=== PATIENT | female | born 2000 | race Caucasian/White ===

== ENCOUNTER 2024-06-25 02:32 | Outpatient (CLI) | payer MEDICAID, SELFPAY ==
[2024-06-25 15:21] LABS: Abs Immature Grans 0.04 10^3/uL (0.0-0.06); Absolute Basophil Count 0.04 10^3/uL (0.0-0.2); Absolute Eosinophil Count 0.07 10^3/uL (0.0-0.7); Absolute Lymphocyte Count 1.63 10^3/uL (1.2-3.4); Absolute Monocyte Count 0.56 10^3/uL (0.1-0.8); Basophils % 0.4 %; Eosinophils % 0.6 %; HGB 14.6 g/dL (11.2-15.7); Immature Grans % 0.4 %; Lymphocytes % 14.6 %; MCH 29.9 pg (27.0-33.0); MCHC 35.6 % (32.0-36.0); MCV 84 fL (80-95); MPV 9.7 fL (8.0-11.0); Platelet Count 266 10^3/uL (130-400); RBC 4.88 10^6/uL (3.93-5.22); RDW 12.1 % (11.7-14.6); RDW-SD 36.7 fL; WBC 11.17 10^3/uL (4.4-10.8)
[2024-06-25 15:25] LABS: Absolute Neutrophil Count 8.82 10^3/uL (1.2-6.7)
[2024-06-25 15:35] LABS: Panorama Kit Sent via Fed Ex
[2024-06-25 22:25] LABS: Hepatitis B Surface Ag Negative (Negative)
[2024-06-25 22:33] LABS: HIV-1/2 Ag & Ab Screen Negative (Negative)
[2024-06-25 22:55] LABS: Hepatitis C Ab w Rflx HCV PCR Negative (Negative)
[2024-06-26 10:55] LABS: Rubella IgG Ab (UVM) Positive (See Note)
[2024-06-26 10:59] LABS: Varicella IgG Antibody Positive (See Note)
[2024-06-27 18:40] LABS: Syphilis IgG w/Reflex Nonreactive (Nonreactive)
[2024-07-07 15:31] LABS: Result Summary NEGATIVE; Specimen WB Whole Blood
== END 2024-06-25 02:33 | disposition home or self-care (01) ==
LOC: LBO 02:33
PROVIDERS: Visit Provider Advanced Practice Midwife
DX: Z34.91 Encounter for supervision of normal pregnancy, unspecified, first trimester (principal)
CPT/HCPCS: 36415; 81220; 81222; 86787; 86803; 86850; 86900; 86901; 87340; 87389; 85025; 86762; 86780

== ENCOUNTER 2024-06-25 15:39 | Outpatient (REF) | payer MEDICAID, SELFPAY ==
--- NOTE | 2024-06-25 15:00 | PAPFT_PTH ---
PATIENT: Harleen Luna LOC: [facility] U#:[id number] AGE/SX: 23/F ROOM: RE06/25/[address]: Ale Rodrigues : 2000 BED: DIS: 06/25/2024 SPEC #: [id number] RECD: 06/25/24 17:44 STATUS: MARIA EUGENIA REQ #: [id number] JAYME: 06/25/24 15:[address]: Ale Rodrigues DEPT: [facility] Cytology RECD BY: Hayley Verdugo ENTERED: 06/25/24 17:45 SP TYPE: PAPFT OT DR: Unknown,Unknown Tissues: 1 - CX/ENDOCX FOR PAP SMEARS Procedures: PAP THIN PREP/[facility] Screening Comments: [id number] (CHLAMYDIA/GC)
[2024-06-26 12:35] LABS: Chlamydia Result Negative (Negative); GC Result Negative (Negative)
== END 2024-06-25 15:40 | disposition home or self-care (01) ==
LOC: LBN 15:39
PROVIDERS: Visit Provider Advanced Practice Midwife
DX: Z34.91 Encounter for supervision of normal pregnancy, unspecified, first trimester (principal)
CPT/HCPCS: 87491; 87591; 88142; 87086

== ENCOUNTER 2024-08-07 14:46 | Emergency (ER) | payer MEDICAID, SELFPAY ==
--- NOTE | 2024-08-07 14:45 | RT.EKG_ITS ---
APPROVED REPORT Exam: Resting ECG Reason for Exam: Tachycardia Patient Location: E HR:79 bpm ECG Measurements Heart Rate 79 AXIS AZ 149 P 28 QRSd 80 QRS 24 QT 382 T 26 QTc 437 Conclusion Sinus rhythm. 79 normal axis no stemi
[2024-08-07 14:48] VITALS: BP 125/84; PULSE 80; RESP 16; TEMP 36.3; O2SAT 99
--- OUTSIDE RECORDS SUMMARY | 2024-08-07 14:58 | XMS_ITS | Encounter Summary ---
Author Organization [facility] Address [address] [place] [address] Care Team Providers Care Rn Diabetes Educator Name Role Phone Ananda Black MD Primary Care Provider +1- [phone] Reason for Visit * Reason Onset Date Comments Follow-up 06/01/2024 Encounter Details Date Type Department Care Team (Late st Contact Info) Description 06/01/[address] [address] Rima Corbett FNP [address] [address] Follow-up Social History Tobacco Use Types Packs/Day Years Used Date Smoking Tobacco: Never Smokeless Tobacco: Never Alcohol Use Standard Drinks/Week Comments No 0 (1 standard drink = 0.6 oz pur e alcohol) AUDIT-C Answer Date Recorded Q1: How often do you have a drink containing alc ohol? Never 12/15/2020 Average Number of Drinks Not on file 021 Frequency of Binge Drinking Not on file 08/2020 Interpersonal Safety Answer Date Record ed Physically Hurt Never 02/15/2020 Verbally Threaten Not on file 02/15/2020 Comments Unknown Sex and Gender Information Value Date Recorded Sex Assigned at Not on file Legal Sex Female 15:38 EST Gender Identity Female 07/03/2019 14:11 EST Sexual Orientation Not on file documented as of this encounter Functional Status * Are you deaf or do you have serious difficulty hearing? Answer Date of Assessment Author No 09/11/2022 12:02 EST Dean Silva RN * Because of a physical, mental, or emotional condition, does this person have difficulty doing errands alone such as visiting a doctor's office or shopping? Answer Date of Assessment Author No 07/17/2018 14:23 EST documented as of this encounter Mental Status * Because of a physical, mental, or emotional condition, does this person have serious difficulty concentrating, remembering, or making decisions? Answer Entry Date Author No 07/17/2018 14:23 EST documented in this encounter Miscellaneous Notes * Telephone Encounter - Rima Corbett FNP - 06/06/2024 1803 EST Noted, thank you. I have sent a referral to OB-HOSPICE AIDE for her for care at [facility]. If she prefers a referral elsewhere please change this order. Thanks * Telephone Encounter - Irene Black RN - 06/06/2024 1233 EST Spoke to the patient over the phone Relayed the message below from Rima CONTRERAS and pt verbalized understanding. Pt stated her symptoms when she had a visit with Rima CONTRERAS are the same that she is experiencing right now- no changes and nonew symptoms. Pt is and her due date is end of December 2024. Patient stated that she does not have an OB yet and she was looking to be establish to their care. Pt stated that she already cancelled her MRI scheduled as she is . Pt stated that she will call back to get schedule for visit after her delivery. She said that she will let us know if her symptoms continuous and she is aware that Rima CONTRERAS can send another referral to neurology for furtherevaluation and recommendations. Routing to Rima CONTRERAS just an Fyi * Telephone Encounter - Lisette Whitlock RN - 06/02/2024 0912 EST Outgoing call to patient. Left message to call office back. LISETTE WHITLOCK RN 06/02/2024 9:13 * Telephone Encounter - Rima Corbett FNP - 06/01/2024 1216 EST Please follow up with Harleen, she missed her last visit with me and visits for EMG w/neurology andMRI imaging. How is she feeling? Have any of her symptoms changed? Is she having any new symptoms? Radiology informed me that she is now . Does she know when her due date is? Does she have an OB that she will be establishing care with? Although MRI imaging is considered safe in and preferred after the first trimester, it would be more useful to have contrast with the MRI imaging but the contrast is not recommended during due to potential effects on the fetus. Because of this, I would recommend that we post-pone the MRI imaging w/ and w/out contrast to be after her delivery (unless her symptoms have worsened,in which case we could just do the MRI head and cervical spine w/out contrast). We can offer her a visit to review the imaging findings after this has been scheduled. And if she has continued to havesymptoms we can send another referral to neurology for further evaluation and recommendations in the interm (previous referral was declined until EMG was done but this was not completed). Rima Lehman documented in this encounter Plan of Treatment Not on file documented as of this encounter Visit Diagnoses Not on filedocumented in this encounter Care Teams Rn Diabetes Educator Relationship Specialty Start Date End Date Ananda Black MD [address] [place] [phone] PCP - General 02/13/19 documented as of this encounter
--- OUTSIDE RECORDS SUMMARY | 2024-08-07 14:58 | XMS_ITS | Encounter Summary ---
Author Organization [facility] Address [address] [place] [address] Care Team Providers Care Ropeman Name Role Phone Ananda Black MD Primary Care Provider +1- [phone] Encounter Details Date Type Department Care Team (Late st Contact Info) Description 06/25/2024 Lab Requisition [facility] Laboratory Medicine - [facility] [address] [place] [address] Outr Resulting Lab, Provider Social History Tobacco Use Types Packs/Day Years [...] Assessment Author No 09/11/2022 12:02 EST Dean Silva, RN * Because of a physical, mental, [...] 07/17/2018 14:23 EST documented in this encounter Plan of Treatment Not on file documented as of this encounter Procedures Procedure Name Priority Date/Time Associated Diagnosis Comments HOLD SST Today 06/25/2024 15:07 EST HEPATITIS C AB W REFLEX TO HCV RNA BY PCR Today 06/25/2024 15:07 EST HEPATITIS B SURFACE ANTIGEN Today 06/25/2024 15:07 EST documented in this encounter Results * HOLD SST (06/25/2024 15:07 EST) Hold Hold 06/25/2024 22:15 EST [facility] Blood VENOUS BLOOD / Unknown 06/25/2024 15:07 EST 06/25/2024 21:04 EST us Provider Outr Resulting Lab LAB INFO SERVICE AND SUPPORT & PHONE RESULT Final Result [facility] [address] [place] [address] * HEPATITIS B SURFACE ANTIGEN (06/25/2024 15:07 EST) Hep B Surface Ag Negative Negative 06/25/2024 22:20 EST [facility] Blood VENOUS BLOOD / Unknown 06/25/2024 15:07 EST 06/25/2024 21:03 EST us Provider Outr Resulting Lab CHEMISTRY & BLOOD GA S ORDERABLES Final Result Performing Organization Address City/[facility]/ZIP Co de Phone Number [facility] [address] [place] [phone] * HEPATITIS C AB W REFLEX TO HCV RNA BY PCR (06/25/2024 15:07 EST) Hep C Antibody Negative Negative 06/25/2024 22:51 EST [facility] Blood VENOUS BLOOD / Unknown 06/25/2024 15:07 EST 06/25/2024 21:03 EST us Provider Outr Resulting Lab CHEMISTRY & BLOOD GA S ORDERABLES Final Result Performing Organization Address City/State/[facility] Co de Phone Number [facility] [address] [place], [place] [phone] documented in this encounter Visit Diagnoses Not on filedocumented in this encounter Care Teams Ropeman Relationship Specialty Start Date End Date Ananda Black MD [address] [place] [phone] PCP - General 02/13/19 documented as of this encounter
--- OUTSIDE RECORDS SUMMARY | 2024-08-07 14:58 | XMS_ITS | Referral Summary ---
Author Organization [facility] Address [address] [place] [address] Care Team Providers Care Education Faculty Member Name Role Phone Ananda Black MD Primary Care Provider +1- [phone] Encounters Date Type Department Care Team Description 06/26/2024 Lab Requisition [facility] [address] [address] Ale Rodrigues CNM Encounter for other general examination 06/25/2024 Lab Requisition [facility] [address] [address] Outr Resulting Lab, Provider 06/25/2024 Lab Requisition [facility] [address] [address] Outr Resulting Lab, Provider 06/25/2024 Lab Requisition [facility] [address] [address] Outr Resulting Lab, Provider 06/25/2024 Lab Requisition [facility] [address] [address] Outr Resulting Lab, Provider 06/10/2024 Telephone [facility] [address] [place] [address] Radha Ayala RN Coordination Of Care; 06/06/2024 Orders Only [place] [id number] Rima Corbett FNP , unspecified gestational age (Primary Dx) 06/01/2024 Telephone [facility] [address] [place] [id number] Rima Corbett FNP Follow-up from Last 3 Months Allergies Active Allergy Reactions Criticality Noted Date Comments Amoxicillin-Pot Clavulanate 07/03/20 19 Penicillins 07/17/2018 Rash Medications cholecalciferol, Vitamin D3, (VITAMIN D) 25 mcg (1,000 unit) tablet Take 1 Tablet by mouth daily. Active L.acid/L.casei/B .bif/B.jr/FOS (PROBIOTIC BLEND ORAL) Take by mouth. Active Active Problems Patient Care Coordination No te Formatting of this note migh t be different from the original. Patient has given permission for [facility] to verbally discuss the following information with Cristian Luna who has the following relationship to the patient: Parent: Scheduling/Appt/Billing/Payment Information (does not include clinical information unless specifically indicated with separate option) Medical Information including symptoms, diagnosis, medications, test results and treatment plan (does not include Mental Health unless specifically indicated with separate option) Permission remains in effect until the patient elects to revoke it. Problem Noted Date Diagnosed Date Fatigue 02/07/2024 Frequent headaches 02/07/2024 DDD (degenerative disc disease), lumbar 02/06/20 24 Bulging lumbar disc 02/06/2024 Family history of thalassemia 01/30/2024 Shortness of breath 12/03/2019 Chronic left-sided low back pain with left-sided sciatica 05/07/2019 Immunizations Name Administration Dates Next Due DTaP Vaccine (DAPTACEL) <7YO IM 10/18/19 05,03/16/2000,04/18/1999,02/11,1998 Hepatitis A Vaccine Ped Adol 3 Dose 05/02/2016,0 01/26/2015 Hepatitis B 05/02/2016,11/22/1999,04/18/1999 Hib 03/16/2000, 9,02/11/1999,11/08 MMR Vaccine SQ 10/17/2004,11/22/1999 Meningococcal Conjugate (MCV 4) Vaccine (MENACTRA) 4-Valent IM 01/26/2015,07/18/2012 Poliovirus Vaccine IPV IM OR SQ 10/18/19,03/16/2000,02/11/1999,11/08 Tdap Vaccine =>7YO IM 12/16/2021,07/18/2012 Varicella (Chickenpox) vacci ne (VARIVAX) SQ 07/18/2012,11/22/1999 Social History Tobacco Use Types Packs/Day Years Used Date Smoking Tobacco: Never Smokeless Tobacco: Never Tobacco Cessation:Counseling Given: Yes Alcohol Use Standard Drinks/Week Comments No 0 [...] 14:11 EST Sexual Orientation Not on file Last Filed Vital Signs Vital Sign Reading Time Taken Comments Blood Pressure 94/72 02/06/2024 1135 EDT Pulse 66 02/06/2024 1135 EDT Temperature 35.4 ??C (95.7 ??F) 10/15/2023 0859 EDT Respiratory Rate 20 10/15/2023 0936 EDT Oxygen Saturation 98% 02/06/2024 1135 EDT Inhaled Oxygen Concentration - - Weight 59 kg (130 lb) 12/18/2023 1550 EDT Height 149.9 cm (4' 11) 12/18/2023 1550 EDT Body Mass Index 26.26 12/18/2023 1550 EDT Functional Status * Are you deaf or do you have serious difficulty hearing? Answer Date of Assessment Author No 09/11/2022 12:02 EST Dean Silva, RN * Because of a physical, mental, or emotional condition, does this person have difficulty doing errands alone such as visiting a doctor's office or shopping? Answer Date of Assessment Author No 07/17/2018 14:23 EST Mental Status * Because of a physical, mental, or emotional condition, does this person have serious difficulty concentrating, remembering, or making decisions? Answer Entry Date Author No 07/17/2018 14:23 EST Plan of Treatment Not on file Procedures Procedure Name Priority Date/Time Associated Diagnosis Comments HOLD SST Today 06/25/2024 15:07 EST HOLD SST Today 06/25/2024 15:07 EST HEPATITIS B SURFACE ANTIGEN Today 06/25/2024 15:07 EST HEPATITIS C AB W REFLEX TO HCV RNA BY PCR Today 06/25/2024 15:07 EST VARICELLA IGG ANTIBODY Today 06/25/2024 15:07 EST RUBELLA IGG ANTIBODY Today 06/25/2024 15:07 EST HIV 1/2 ANTIGEN AND ANTIBODY, 4TH GENERATION Routine 06/25/2024 15:07 EST PAP TEST Today 06/25/2024 15:00 EST Encounter for other general examination CHLAMYDIA/N. GONORRHOEAE AMPLIFIED NUCLEIC ACID, THINPREP Routine 06/25/2024 15:00 EST from Last 3 Months Results * HOLD SST (06/25/2024 15:07 EST) Only the most recent of2 resultswithin the time period is included. Hold Hold 06/25/2024 22:[address] [facility] Blood VENOUS BLOOD / Unknown 06/25/2024 15:07 EST 06/25/2024 21:04 EST us Provider Outr Resulting Lab LAB INFO SERVICE AND SUPPORT & PHONE RESULT Final Result [facility] [address] [place] [address] * HEPATITIS C AB W REFLEX TO HCV RNA BY PCR (06/25/2024 15:07 EST) Hep C Antibody Negative Negative 06/25/2024 22:[address] [facility] Blood VENOUS BLOOD / Unknown 06/25/2024 15:07 EST 06/25/2024 21:03 EST us Provider Outr Resulting Lab CHEMISTRY & BLOOD GA S ORDERABLES Final Result Performing Organization Address City/[facility]/ZIP Co de Phone Number [facility] [address] [place] [address] * RUBELLA IGG ANTIBODY (06/25/2024 15:07 EST) Rubella IgG Ab Positive See Note 06/26/2024 10:[address] [facility] Comment:Positive for IgG ant ibodies to Rubella virus. Blood VENOUS BLOOD / Unknown 06/25/2024 15:07 EST 06/25/2024 21:02 EST us Provider Outr Resulting Lab CHEMISTRY & BLOOD GA S ORDERABLES Final Result Performing Organization Address [facility]/ZIP Co de Phone Number [facility] [address] [place] [phone] * HEPATITIS B SURFACE ANTIGEN (06/25/2024 15:07 EST) Hep B Surface Ag Negative Negative 06/25/2024 22:[address] [facility] Blood VENOUS BLOOD / Unknown 06/25/2024 15:07 EST 06/25/2024 21:03 EST us Provider Outr Resulting Lab CHEMISTRY & BLOOD GA S ORDERABLES Final Result Performing Organization Address City/[facility]/ZIP Co de Phone Number [facility] [address] [place], [place] [phone] * VARICELLA IGG ANTIBODY (06/25/2024 15:07 EST) Varicella IgG Ab Positive See Note 06/26/2024 10:[address] [facility] Comment:Presence of detectab le Varicella Zoster virus IgG antibodies. Blood VENOUS BLOOD / Unknown 06/25/2024 15:07 EST 06/25/2024 21:02 EST us Provider Outr Resulting Lab IMMUNOLOGY AND SEROL OGY ORDERABLES Final Result Performing Organization Address [facility] Co de Phone Number [facility] [address] [place], [place] [phone] * HIV 1/2 ANTIGEN AND ANTIBODY, 4TH GENERATION (06/25/2024 15:07 EST) HIV 1 and 2 Antibody/p24 Antigen, 4th Generation Negative Negative 06/25/2024 22:[address] [facility] Comment:If acute HIV-1 infec tion is suspected in a high risk patient, submit plasma specimen for HIV-1 RNA quantitation test. Blood VENOUS BLOOD / Unknown 06/25/2024 15:07 EST 06/25/2024 21:[address] [facility] - 06/25/2024 22:28 EST Fourth Generation assay performed on the Siemens [employer] XPT. us Provider Outr Resulting Lab IMMUNOLOGY AND SEROL OGY ORDERABLES Final Result Performing Organization Address [facility] Co de Phone Number [facility] [address] [place] [address] * PAP TEST (06/25/2024 15:00 EST) Specimens A. Cervix and/or Endocervix , ThinPrep Imaging System with Manual Evaluation 07/01/2024 9:[address] [facility] Specimen Adequacy Satisfactory for Evaluation - transformation zone component present 07/01/2024 9:[address] [facility] General Categorization Negative for intraepithelial lesion or malignancy 07/01/2024 9:[address] [facility] Attestation . 07/01/2024 9:[address] [facility] at 0947 Clinical History See below 07/01/20 9:[address] [facility] Performing Lab [facility] 07/01/2024 9:[address] [facility] Scanned Images 07/01/2024 9:[address] [facility] Pap Test CERVIX UTERI STRUCTURE / Unknown 06/25/2024 15:00 EST 06/26/2024 14:52 EST Ale Rodrigues [facility] PATHOLOGY ORDERABLES F inal Result [facility] [address] [place] [address] * CHLAMYDIA/N. GONORRHOEAE AMPLIFIED NUCLEIC ACID, THINPREP (06/25/2024 15:00 EST) Neisseria gonorrhoeae Result Negative Negative 06/26/2024 12:[address] [facility] Chlamydia trachomatis Result Negative Negative 06/26/2024 12:[address] [facility] Pap Test CERVIX UTERI STRUCTURE / Unknown 06/25/2024 15:00 EST 06/26/2024 8:53 EST us Provider Outr Resulting Lab MICROBIOLOGY - GENER AL ORDERABLES Final Result [facility] [address] [place] [address] from Last 3 Months Insurance [place] Care Teams Education Faculty Member Relationship Specialty Start Date End Date Ananda Black MD [address] [place] [phone] PCP - General 02/13/19
--- OUTSIDE RECORDS SUMMARY | 2024-08-07 14:58 | XMS_ITS | Encounter Summary ---
Author Organization [facility] Address [address] [place] [address] Care Team Providers Care Night Warehouse Manager Name Role Phone Ananda Black MD Primary Care Provider +1- [phone] Reason for Visit * Reason Onset Date Comments Coordination Of Care 06/10/2024 06/10/2024 Encounter Details Date Type Department Care Team (Late st Contact Info) Description 06/10/2024 Telephone [facility] [address] [place] [address] Radha Ayala RN Coordination Of Care; Social History Tobacco Use Types Packs/Day Years [...] encounter Miscellaneous Notes * Telephone Encounter - Radha Ayala RN - 06/10/2024 1047 EST Spoke with pt; she actually is going to get care at [facility] - much closer to her home. Thanked me for the call; will call us back as needed. * Telephone Encounter - Radha Ayala RN - 06/10/[address] Oviedo's notes on referral - call pt to get dating info and assist with scheduling IVAP (sentto triage 06/09/2024 @ 12 pm) documented in this encounter Plan of Treatment Not on file documented as of this encounter Visit Diagnoses Not on filedocumented in this encounter Care Teams Night Warehouse Manager Relationship Specialty Start Date End Date Ananda Black MD [address] [place] [phone] PCP - General 02/13/19 documented as of this encounter
--- OUTSIDE RECORDS SUMMARY | 2024-08-07 14:58 | XMS_ITS | Clinical Summary ---
Author Organization [facility] Address [address] [place] [address] Care Team Providers Care Cath Lab Radiological Technologist Name Role Phone Ananda Black MD Primary Care Provider +1- [phone] Allergies Active Allergy Reactions Criticality Noted Date [...] the original. Patient has given permission for [facility] to verbally discuss the following information with Cristian Buchananmilena who has the following relationship to the [...] low back pain with left-sided sciatica 05/07/2019 Encounters Date Type Department Care Team Description 06/26/2024 Lab Requisition [facility] Pathology & Laboratory [address] [address] Ale Rodrigues CNM Encounter for other general examination 06/25/2024 Lab Requisition [facility] Pathology Laboratory [address] [address] Outr Resulting Lab, Provider 06/25/2024 Lab Requisition [facility] Pathology Laboratory [address] [address] Outr Resulting Lab, Provider 06/25/2024 Lab Requisition [facility] Pathology Laboratory [address] [address] Outr Resulting Lab, Provider 06/25/2024 Lab Requisition [facility] Pathology Laboratory [address] [address] Outr Resulting Lab, Provider 06/10/2024 Telephone [facility] OBGYN [address] [place] [address] Radha Ayala RN Coordination Of Care; 06/06/2024 [place] [address] Rima Corbett FNP , unspecified gestational age (Primary Dx) 06/01/2024 [place] [address] Rima Corbett FNP Follow-up from Last 3 Months Immunizations Name Administration Dates Next Due DTaP Vaccine (DAPTACEL) <7YO IM 10/18/19 05,03/16/2000,04/18/1999,02/11,1998 Hepatitis A Vaccine Ped Adol 3 Dose 05/02/2016,0 01/26/2015 Hepatitis B 05/02/2016,11/22/1999,04/18/1999 Hib 03/16/2000, 9,02/11/1999,11/08 MMR Vaccine SQ 10/17/2004,11/22/1999 Meningococcal Conjugate (MCV 4) Vaccine (MENACTRA) 4-Valent IM 01/26/2015,07/18/2012 Poliovirus Vaccine IPV IM OR SQ 10/18/19,03/16/2000,02/11/1999,11/08 Tdap Vaccine =>7YO IM 12/16/2021,07/18/2012 Varicella (Chickenpox) vacci ne (VARIVAX) SQ 07/18/2012,11/22/1999 Family History Medical History Relation Comments High Blood Pressure Father Relation Status Comments Father Social History Tobacco Use Types Packs/Day Years Used Date Smoking Tobacco: Never Smokeless Tobacco: Never Tobacco Cessation:Counseling Given: Yes Alcohol Use Standard Drinks/Week Comments No 0 (1 standard drink = 0.6 oz pur e alcohol) AUDIT-C Answer Date Recorded Q1: How often do you have a drink containing alc ohol? Never 12/15/2020 Average Number of Drinks Not on file Frequency of Binge Drinking Not on file 08/2020 Interpersonal Safety Answer Date Record ed Physically Hurt Never 02/15/2020 Verbally Threaten Not on file 02/15/2020 Comments Unknown Sex and Gender Information Value Date Recorded Sex Assigned at Not on file Legal Sex Female 15:38 EST Gender Identity Female 07/03/2019 14:11 EST Sexual Orientation Not on file Obstetrics History Last Filed Vital Signs Vital Sign Reading [...] Body Mass Index 26.26 12/18/2023 1550 EDT Plan of Treatment Health Maintenance Due Date Last Done Comments Social Determinants Of Health (SDOH) 1998 Depression Screening 2010 HPV Vaccines (1 - 3-dose series) 2013 Advance Directive 2016 Preventive Care Visit 2016 COVID-19 Vaccine (2023-2 5 season) 2024 Influenza Immunization (Adult) (#1) 2024 Cervical Cancer Screening 06/25/2027 Pap Smear (Cervical Cancer Screening) 06/25/2027 06/25/2024 Tetanus (Adult) Immunization 12/17/2031 12/16/2021, 07/18/2012 Hepatitis B Vaccine Completed 05/02/2016, 11/22/1999, 04/18/1999 Pertussis (Adult) Immunization Completed 12/16/2021 , 07/18/2012 Chlamydia Screening Discontinued 06/25/2024 HIV Screening Completed 06/25/2024, 01/31/2024 Hepatitis C Screen Completed 06/25/2024, 01/31/2024 RETIRED Cervical Cancer Screening Discontinued 024 Procedures Procedure Name Priority Date/Time Associated Diagnosis [...] is included. Hold Hold 06/25/2024 22:15 EST [facility] Blood VENOUS BLOOD / Unknown 06/25/2024 15:07 EST 06/25/2024 21:04 EST us Provider Outr Resulting Lab LAB INFO SERVICE AND SUPPORT & PHONE RESULT Final Result Performing Organization Address City/[facility]/ZIP Co de Phone Number [facility] [address] [place] [address] * HEPATITIS C AB W REFLEX TO HCV RNA BY PCR (06/25/2024 15:07 EST) Hep C Antibody Negative Negative 06/25/2024 22:51 EST [facility] Blood VENOUS BLOOD / Unknown 06/25/2024 15:07 EST 06/25/2024 21:03 EST us Provider Outr Resulting Lab CHEMISTRY & BLOOD GA S ORDERABLES Final Result Performing Organization Address [facility] Co de Phone Number [facility] [address] [place] [phone] * RUBELLA IGG ANTIBODY (06/25/2024 15:07 EST) Pathologist [facility] Rubella IgG Ab Positive See Note 06/26/2024 10:50 EST [facility] Comment:Positive for IgG ant ibodies to Rubella virus. Blood VENOUS BLOOD / Unknown 06/25/2024 15:07 EST 06/25/2024 21:02 EST us Provider Outr Resulting Lab CHEMISTRY & BLOOD GA S ORDERABLES Final Result Performing Organization Address City/[facility]/ZIP Co de Phone Number [facility] [address] [place] [address] * HEPATITIS B SURFACE ANTIGEN (06/25/2024 15:07 EST) Hep B Surface Ag Negative Negative 06/25/2024 22:20 EST [facility] Blood VENOUS BLOOD / Unknown 06/25/2024 15:07 EST 06/25/2024 21:03 EST us Provider Outr Resulting Lab CHEMISTRY & BLOOD GA S ORDERABLES Final Result Performing Organization Address [facility]/ZIP Co de Phone Number [facility] [address] [place] [address] * VARICELLA IGG ANTIBODY (06/25/2024 15:07 EST) Varicella IgG Ab Positive See Note 06/26/2024 10:54 EST [facility] Comment:Presence of detectab le Varicella Zoster virus IgG antibodies. Blood VENOUS BLOOD / Unknown 06/25/2024 15:07 EST 06/25/2024 21:02 EST us Provider Outr Resulting Lab IMMUNOLOGY AND SEROL OGY ORDERABLES Final Result Performing Organization Address [facility] Co de Phone Number [facility] [address] [place] [address] * HIV 1/2 ANTIGEN AND ANTIBODY, 4TH GENERATION (06/25/2024 15:07 EST) HIV 1 and 2 Antibody/p24 Antigen, 4th Generation Negative Negative 06/25/2024 22:28 EST [facility] Comment:If acute HIV-1 infec tion is suspected in a high risk patient, submit plasma specimen for HIV-1 RNA quantitation test. Blood VENOUS BLOOD / Unknown 06/25/2024 15:07 EST 06/25/2024 21:06 EST Narrative [facility] - 06/25/2024 22:28 EST Fourth Generation assay performed on the Siemens Centaur XPT. us Provider Outr Resulting Lab IMMUNOLOGY AND SEROL OGY ORDERABLES Final Result Performing Organization Address [facility]/ZIP Co de Phone Number [facility] [address] [place] [address] * PAP TEST (06/25/2024 15:00 EST) Specimens A. Cervix and/or Endocervix , ThinPrep Imaging System with Manual Evaluation 07/01/2024 9:47 [facility] Specimen Adequacy Satisfactory for Evaluation - transformation zone component present 07/01/2024 9:47 [facility] General Categorization Negative for intraepithelial lesion or malignancy 07/01/2024 9:47 [facility] Attestation . 07/01/2024 9:47 [facility] at 0947 Clinical History See below 07/01/20 9:47 [facility] Performing Lab [facility] 07/01/2024 9:47 [facility] Scanned Images 07/01/2024 9:47 [facility] Pap Test CERVIX UTERI STRUCTURE / Unknown 06/25/2024 15:00 EST 06/26/2024 14:52 EST us Ale Rodrigues [facility] PATHOLOGY ORDERABLES F inal Result Performing Organization Address City/[facility]/ZIP Co de Phone Number [facility] [address] [place] [address] * CHLAMYDIA/N. GONORRHOEAE AMPLIFIED NUCLEIC ACID, THINPREP (06/25/2024 15:00 EST) Neisseria gonorrhoeae Result Negative Negative 06/26/2024 12:29 EST [facility] Chlamydia trachomatis Result Negative Negative 06/26/2024 12:29 EST [facility] Pap Test CERVIX UTERI STRUCTURE / Unknown 06/25/2024 15:00 EST 06/26/2024 8:53 EST us Provider Outr Resulting Lab MICROBIOLOGY - GENER AL ORDERABLES Final Result [facility] [address] [place] [address] from Last 3 Months Insurance [place] Care Teams Cath Lab Radiological Technologist Relationship Specialty Start Date End Date Ananda Black MD [address] [place] [phone] PCP - General 02/13/19
--- OUTSIDE RECORDS SUMMARY | 2024-08-07 14:58 | XMS_ITS | Encounter Summary ---
Author Organization [facility] Address [address] [place] [address] Care Team Providers Care Reel And Rewinder Operator Name Role Phone Ananda Black MD Primary Care Provider +1- [phone] Encounter Details Date Type Department Care Team (Late st Contact Info) Description 06/25/2024 Lab Requisition [facility] Pathology & Laboratory Medicine - [facility] [address] [place] [address] Outr Resulting Lab, Provider Social History Tobacco [...] Comments HOLD SST Today 06/25/2024 15:07 EST RUBELLA IGG ANTIBODY Today 06/25/2024 15:07 EST VARICELLA IGG ANTIBODY Today 06/25/2024 15:07 EST documented in this encounter Results * HOLD SST (06/25/2024 15:07 EST) Hold Hold 06/25/2024 22:15 EST [facility] Blood VENOUS BLOOD / Unknown 06/25/2024 15:07 EST 06/25/2024 21:03 EST us Provider Outr Resulting Lab LAB INFO SERVICE AND SUPPORT & PHONE RESULT Final Result Performing Organization Address City/[facility]/ZIP Co de Phone Number [facility] [address] [place] [address] * VARICELLA IGG ANTIBODY (06/25/2024 15:07 EST) Varicella IgG Ab Positive See Note 06/26/2024 10:54 EST [facility] Comment:Presence of detectab le Varicella Zoster virus IgG antibodies. Blood VENOUS BLOOD / Unknown 06/25/2024 15:07 EST 06/25/2024 21:02 EST us Provider Outr Resulting Lab IMMUNOLOGY AND SEROL OGY ORDERABLES Final Result Performing Organization Address [facility]/ZIP Co de Phone Number [facility] [address] [place] [address] * RUBELLA IGG ANTIBODY (06/25/2024 15:07 EST) Rubella IgG Ab Positive See Note 06/26/2024 10:50 EST [facility] Comment:Positive for IgG ant ibodies to Rubella virus. Blood VENOUS BLOOD / Unknown 06/25/2024 15:07 EST 06/25/2024 21:02 EST us Provider Outr Resulting Lab CHEMISTRY & BLOOD GA S ORDERABLES Final Result Performing Organization Address City/State/[facility] Co de Phone Number [facility] [address] [place], [place] [phone] documented in this encounter Visit Diagnoses Not on filedocumented in this encounter Care Teams Reel And Rewinder Operator Relationship Specialty Start Date End Date Ananda Black MD [address] [place] [phone] PCP - General 02/13/19 documented as of this encounter
--- OUTSIDE RECORDS SUMMARY | 2024-08-07 14:58 | XMS_ITS | Clinical Summary ---
Author Organization [facility] Address [facility] [place] [address] Care Team Providers Care Chimney Builder Brick Name Role Phone Unavailable Primary Care Provider Unavailabl e Encounters Date Type Department Care Team Description 07/28/2024 Transcribe Orders eDH Incoming Referrals [phone] Janee Peñaloza DO Family history of other congenital malformations, deformations and chromosomal abnormalities; Encounter for supervision of normal , antepartum, unspecified from Last 3 Months Social History Tobacco Use Types Packs/Day Years Used Date Smoking Tobacco: Never Assessed Estimated Date of Delivery Comme nts Yes 01/08/2025 Sex and Gender Information Value Date Recorded Sex Assigned at Not on file Gender Identity Not on file Sexual Orientation Not on file Plan of Treatment Upcoming Encounters Date Type Department Care Team (Late st Contact Info) Description 08/21/2024 3:15 PM EST Appointment [place] [phone] Janee Peñaloza DO [address] [place] [address] [place] [address] 08/21/2024 4:00 PM EST Office Visit Obstetrics [place] [phone] Naima Rodas MD [facility] [place] [address] Health Maintenance Due Date Last Done Comments Chlamydia Screening 2013 HPV vaccine (1 - 3-dose series) 2013 HIV screen 2016 Hepatitis C Screening 2016 Hepatitis B vaccine (0-59 yrs) (1) 2017 Tetanus/Diphtheria/Pertussis Vaccines (1 - Tdap) 09/09 PAP Smear 2019 Covid-19 Vaccine (1 - 2024-25 season) 2024 Influenza (Flu) vaccine (1 o f 1 - Influenza standard series) 03/16/2024 RSV Vaccine (No Doses Required) Completed Procedures Procedure Name Priority Date/Time Associated Diagnosis Comments LAB SCAN 06/25/2024 12:00 AM EST from Last 3 Months Results * Scan Doc: Lab (06/25/2024 12:00 AM EST) Narrative 06/25/2024 12:00 AM EST Ordered by an unspecified provider. Scanning Provider MEDIA MGR SCAN EXT O RDR/RSLT from Last 3 Months
--- OUTSIDE RECORDS SUMMARY | 2024-08-07 14:58 | XMS_ITS | Encounter Summary ---
Author Organization [facility] Address [address] [place] [address] Care Team Providers Care Enrolled Nurse Name Role Phone Ananda Blakc MD Primary Care Provider +1- [phone] Encounter Details Date Type Department Care Team (Late st Contact Info) Description 02/14/[address] [facility] CT Scan [address] [place], [place] [id number] Laure Liu Social History Tobacco Use Types Packs/Day Years [...] on filedocumented in this encounter Care Teams Enrolled Nurse Relationship Specialty Start Date End Date Ananda Black MD [address] [place] [phone] PCP - General 02/13/19 documented as of this encounter
--- OUTSIDE RECORDS SUMMARY | 2024-08-07 14:58 | XMS_ITS | Encounter Summary ---
Author Organization [facility] Address [address] [place] [address] Care Team Providers Care Mica Spreader Name Role Phone Ananda Black MD Primary Care Provider +1- [phone] Encounter Details Date Type Department Care Team (Late st Contact Info) Description 06/25/2024 Lab Requisition [facility] Pathology & Laboratory Medicine - [facility] [address] [place] [address] Outr Resulting Lab, Provider Social History Tobacco [...] Procedure Name Priority Date/Time Associated Diagnosis Comments CHLAMYDIA/N. GONORRHOEAE AMPLIFIED NUCLEIC ACID, THINPREP Routine 06/25/2024 15:00 EST documented in this encounter Results * CHLAMYDIA/N. GONORRHOEAE AMPLIFIED NUCLEIC ACID, THINPREP (06/25/2024 15:00 EST) Neisseria gonorrhoeae Result Negative Negative 06/26/2024 12:29 EST [facility] Chlamydia trachomatis Result Negative Negative 06/26/2024 12:29 EST [facility] Pap Test CERVIX UTERI STRUCTURE / Unknown 06/25/2024 15:00 EST 06/26/2024 8:53 EST us Provider Outr Resulting Lab MICROBIOLOGY - GENER AL ORDERABLES Final Result Performing Organization Address City/State/[facility] Co de Phone Number [facility] [address] [place], [place] [phone] documented in this encounter Visit Diagnoses Not on filedocumented in this encounter Care Teams Mica Spreader Relationship Specialty Start Date End Date Ananda Black MD [address] [place] [phone] PCP - General 02/13/19 documented as of this encounter
--- OUTSIDE RECORDS SUMMARY | 2024-08-07 14:58 | XMS_ITS | Encounter Summary ---
Author Organization [facility] Address [address] [place] [address] Care Team Providers Care Assessment Consultant Name Role Phone Ananda Black MD Primary Care Provider +1- [phone] Encounter Details Date Type Department Care Team (Late st Contact Info) Description 06/26/2024 Lab Requisition [facility] Pathology & Laboratory Medicine - [facility] [address] [place] [address] [place] [address] Encounter for other general examination Social History Tobacco Use Types Packs/Day Years [...] Procedure Name Priority Date/Time Associated Diagnosis Comments PAP TEST Today 06/25/2024 15:00 EST Encounter for other general examination documented in this encounter Results * PAP TEST (06/25/2024 15:00 EST) Specimens A. Cervix and/or Endocervix , ThinPrep Imaging System with Manual Evaluation 07/01/2024 9:47 EST [facility] Specimen Adequacy Satisfactory for Evaluation - transformation zone component present 07/01/2024 9:47 EST [facility] General Categorization Negative for intraepithelial lesion or malignancy 07/01/2024 9:47 EST [facility] Attestation . 07/01/2024 9:47 EST [facility] at 0947 Clinical History See below 07/01/20 9:47 EST [facility] Performing Lab [facility] 07/01/2024 9:47 EST [facility] Scanned Images 07/01/2024 9:47 EST [facility] Pap Test CERVIX UTERI STRUCTURE / Unknown 06/25/2024 15:00 EST 06/26/2024 14:52 EST Ale BARROS PATHOLOGY ORDERABLES F inal Result [facility] [address] [place] [address] documented in this encounter Visit Diagnoses Diagnosis Encounter for other general examination documented in this encounter Care Teams Assessment Consultant Relationship Specialty Start Date End Date Ananda Black MD [address] [place] [phone] PCP - General 02/13/19 documented as of this encounter
--- OUTSIDE RECORDS SUMMARY | 2024-08-07 14:58 | XMS_ITS | Encounter Summary ---
Author Organization [facility] Address [address] [place] [address] Care Team Providers Care Mainframe Programmer Name Role Phone Ananda Black MD Primary Care Provider +1- [phone] Encounter Details Date Type Department Care Team (Late st Contact Info) Description 06/25/2024 Lab Requisition [facility] Pathology & Laboratory Medicine - [facility] [address] [place] [address] Outr Resulting Lab, Provider Social History Tobacco [...] Procedure Name Priority Date/Time Associated Diagnosis Comments HIV 1/2 ANTIGEN AND ANTIBODY, 4TH GENERATION Routine 06/25/2024 15:07 EST documented in this encounter Results * HIV 1/2 ANTIGEN AND ANTIBODY, 4TH GENERATION (06/25/2024 15:07 EST) HIV 1 and 2 Antibody/p24 Antigen, 4th Generation Negative Negative 06/25/2024 22:28 EST [facility] Comment:If acute HIV-1 infec tion is suspected in a high risk patient, submit plasma specimen for HIV-1 RNA quantitation test. Blood VENOUS BLOOD / Unknown 06/25/2024 15:07 EST 06/25/2024 21:06 EST Narrative [facility] - 06/25/2024 22:28 EST Fourth Generation assay performed on the Siemens Centaur XPT. us Provider Outr Resulting Lab IMMUNOLOGY AND SEROL OGY ORDERABLES Final Result [facility] [address] [place] [address] documented in this encounter Visit Diagnoses Not on filedocumented in this encounter Care Teams Mainframe Programmer Relationship Specialty Start Date End Date Ananda Black MD [address] [place] [phone] PCP - General 02/13/19 documented as of this encounter
--- OUTSIDE RECORDS SUMMARY | 2024-08-07 14:58 | XMS_ITS | Encounter Summary ---
Author Organization [facility] Address [address] [place] [address] Care Team Providers Care Platform Builder Name Role Phone Ananda Black MD Primary Care Provider +1- [phone] Reason for Visit * Reason Onset Date Comments Appointment Related 03/04/2024 Encounter Details Date Type Department Care Team (Late st Contact Info) Description 03/04/[address] [facility] Orthopedics & Spine Medicine [address] [place] [address] Nery Wright, KAREN Appointment Related Social History Tobacco Use Types Packs/Day Years [...] encounter Miscellaneous Notes * Telephone Encounter - Nery Wright RN - 03/04/2024 0905 EDT Patient is scheduled for a follow-up with KOLE Moreno on 03/19/24, this was schedule in case of symptomreturn/worsening pain. Attempted to call patient to inquire if she is still in a good spot from theL5-S1 CHASIDY she received 10/15/23 - there was no answer, a voicemail was left requesting call back. PSS - if patient does call back please try her again at a later date to inquire if she needs the follow-up, or if her pain is minimal/manageable it would be reasonable to push the appointment out a few months. documented in this encounter Plan of Treatment Not on file documented as of this encounter Visit Diagnoses Not on filedocumented in this encounter Care Teams Platform Builder Relationship Specialty Start Date End Date Ananda Black MD [address] [place] [phone] PCP - General 02/13/19 documented as of this encounter
--- OUTSIDE RECORDS SUMMARY | 2024-08-07 14:58 | XMS_ITS | Encounter Summary ---
Author Organization [facility] [place] [address] Care Team Providers Care Electric Sign Wirer Name Role Phone Unavailable Primary Care Provider Unavailabl e Reason for Referral * Consultation (Urgent) - Authorized Specialty Diagnoses / Procedures Referred By Contac t Referred To Contact Obstetrics and Gynecology Diagnoses Family history of other congenital malformations, deformations and chromosomal abnormalities Encounter for supervision of normal , antepartum, unspecified US and MFM at 19-20 weeks (08/14-08/21) Janee Peñaloza DO [address] [place] [address] [place] [address] [facility] [address] [place] [address] Referral ID Status Reason Start Date Expiration Date Visits Requested Visits Authorized [id number] Authorized Consult, Test & Treat 07/24/2024 07/23/2025 6 6 Encounter Details Date Type Department Care Team (Late st Contact Info) Description 07/28/2024 Transcribe Orders eDH Incoming Referrals [phone] Janee Peñaloza DO [address] [place] [address] [address] [place], [place] [address] Family history of other congenital malformations, deformations and chromosomal abnormalities; Encounter for supervision of normal , antepartum, unspecified Social History Tobacco Use Types Packs/Day Years Used Date Smoking Tobacco: Never Assessed Sex and Gender Information Value Date Recorded Sex Assigned at Not on file Gender Identity Not on file Sexual Orientation Not on file documented as of this encounter Plan of Treatment Upcoming Encounters Date Type Department Care Team (Late st Contact Info) Description 08/21/2024 3:15 PM EST Appointment [place] [address] Janee Peñaloza, DO [address] [place] [address] 08/21/2024 4:00 PM EST Office Visit Obstetrics [place] [address] Naima Rodas MD [facility] [place] [address] Scheduled Referrals Name Type Priority Associated Diagnoses Orde r Schedule Referral to Maternal Medicine Outpatient Referral Urgent Family history of other congenital malformations, deformations and chromosomal abnormalities Encounter for supervision of normal , antepartum, unspecified Ordered: 07/28/2024 documented as of this encounter Visit Diagnoses Diagnosis Family history of other congenital malformations, deformations and chromosomal abnormalities Encounter for supervision of normal , antepartum, unspecified documented in this encounter
--- OUTSIDE RECORDS SUMMARY | 2024-08-07 14:58 | XMS_ITS | Encounter Summary ---
Author Organization [facility] Address [address] [place] [address] Care Team Providers Care Director Clinical Applications Name Role Phone Ananda Black MD Primary Care Provider +1- [phone] Reason for Referral * Consult (Routine/Next Available) - Closed Specialty Diagnoses / Procedures Referred By [facility] Referred To Contact Obstetrics & Gynecology Diagnoses , unspecified gestational age Rima Corbett FNP [address] [place] [phone] Phone: tel: fax: [facility] OBGYN [address] [place] [address] Phone: tel: fax: Referral ID Status Reason Start Date Expiration Date V isits Requested Visits Authorized [id number] Closed Specialty Services Required 06/06/2024 1 1 Question Answer Reason for Request: care Encounter Details Date Type Department Care Team (Late st Contact Info) Description 06/06/[address] [facility] Family Medicine - [place] [address] [place] [address] Rima Corbett FNP [address] [phone] , unspecified gestational age (Primary Dx) Social History Tobacco Use Types Packs/Day Years [...] documented in this encounter Plan of Treatment Scheduled Referrals Name Type Priority Associated Diagnoses Order Schedule AMB CONS/FOLLOW UP GYNECOLOGY Outpatient Referral Routine/Next Available , unspecified gestational age Expected: 07/06/2024 (Approximate), Expires: 06/06/2025 documented as of this encounter Visit Diagnoses Diagnosis , unspecified gestational age- Primary documented in this encounter Care Teams Director Clinical Applications Relationship Specialty Start Date End Date Ananda Black MD [address] [place] [phone] PCP - General 02/13/19 documented as of this encounter
--- OUTSIDE RECORDS SUMMARY | 2024-08-07 14:58 | XMS_ITS | Encounter Summary ---
Author Organization [facility] Address [address] [place] [address] Care Team Providers Care Stone Crusher Operator Name Role Phone Ananda Black MD Primary Care Provider +1- [phone] Reason for Visit * Reason Onset Date Comments Referral Request 02/12/2024 Encounter Details Date Type Department Care Team (Late st Contact Info) Description 02/12/2024 Telephone [facility] - [address] [id number] Annabella Whitlock, inspector plug seam Request Social History Tobacco Use Types Packs/Day Years [...] encounter Miscellaneous Notes * Telephone Encounter - Christin Fermin RN - 02/14/2024 1054 EDT Outgoing call to pt to relay message below from Rima Corbett GLUE BONE CRUSHER. Pt verbalized understanding. Pthas no questions at this time. Updated pts primary phone number in chart. CHRISTIN FERMIN RN 02/14/2024 10:55 * Telephone Encounter - Annabella Whitlock RN - 02/12/2024 0958 EDT Outgoing call to patient. Left VM to call office back. ANNABELLA WHITLOCK RN 02/12/2024 9:58 * Telephone Encounter - Annabella Whitlock RN - 02/12/2024 0954 EDT Rima Corbett, ROYAL P [facility] Rn Please let Harleen know that after sending a referral to neurology for her I received a response that they will schedule an appointment for her with neurology if indicated after her upcoming EMG testing. Thank you, Rima documented in this encounter Plan of Treatment Not on file documented as of this encounter Visit Diagnoses Not on filedocumented in this encounter Care Teams Stone Crusher Operator Relationship Specialty Start Date End Date Ananda Black MD [address] [place] [phone] PCP - General 02/13/19 documented as of this encounter
--- OUTSIDE RECORDS SUMMARY | 2024-08-07 14:59 | XMS_ITS | Encounter Summary ---
Author Organization [facility] Address [address] [place] [address] Care Team Providers Care Microsoft Exchange Administrator Name Role Phone Ananda Black MD Primary Care Provider +1- [phone] Encounter Details Date Type Department Care Team (Late st Contact Info) Description 02/05/2024 Orders Only [facility] [address] [place], [place] [phone] Celia Chamorro Social History Tobacco Use Types Packs/Day Years [...] on filedocumented in this encounter Care Teams Microsoft Exchange Administrator Relationship Specialty Start Date End Date Ananda Black MD [address] [place] [phone] PCP - General 02/13/19 documented as of this encounter
--- OUTSIDE RECORDS SUMMARY | 2024-08-07 14:59 | XMS_ITS | Encounter Summary ---
Author Organization [facility] [place] [facility] Address [address] [place] [address] Care Team Providers Care Poultry Field Service Technician Name Role Phone Ananda Black MD Primary Care Provider +1- [phone] Reason for Visit * Reason Comments Pain * Consult (Routine/Next Available) - Authorization Not Required Specialty Diagnoses / [facility] To Contact Orthopedic Surgery Diagnoses Acute bilateral low back pain with bilateral sciatica Pepe Hoffman MD Phone: tel: fax: [facility] Orthopedics & Spine Medicine [address] [place] [address] Phone: tel: fax: Referral ID Status Reason Start Date Expiration Date Visits Requested Visits Authorized [id number] Authorization Not Required Specialty Services Required 3 1 1 Encounter Details Date Type Department Care Team (Late st Contact Info) Description 10/25/2022 15:15 EDT Office Visit [facility] Orthopedics & Spine Medicine [address] [place], [place] [id number] Donna Moreno PA-C [address] [facility] [address] [place], [place] [phone] Lumbar disc herniation with radiculopathy (Primary Dx) Social History Tobacco Use Types [...] 14:11 EST Sexual Orientation Not on file COVID-19 Exposure Response Date Recorded In the last 10 days, have yo u been in contact with someone who was confirmed or suspected to have Coronavirus/COVID-19? No / Unsure 10/25/2022 15:20 EDT documented as of this encounter Last Filed Vital Signs Vital Sign Reading Time Taken Comments Blood Pressure 112/70 10/25/2022 1522 EDT Pulse 68 10/25/2022 1522 EDT Temperature - - Respiratory Rate - - Oxygen Saturation 97% 10/25/2022 1522 EDT Inhaled Oxygen Concentration - - Weight 55.8 kg (123 lb) 10/25/2022 1522 EDT Height 149.9 cm (4' 11) 10/25/2022 1522 EDT Body Mass Index 24.84 10/25/2022 1522 EDT documented in this encounter Functional Status * Are you [...] 07/17/2018 14:23 EST documented in this encounter Progress Notes * Donna Moreno PA-C - 10/25/2022 1515 EDT Images from the original note were not included. 10/25/2022 PATIENT: Harleen Luna Primary Care Provider: Ananda Black [address] [address] Referring Provider: Pepe Hoffman MD [address] [place] [address] CHIEF COMPLAINT Pain of the Lower Back HISTORY OF PRESENT ILLNESS Harleen Luna is a very pleasant 22 y.o. female who presents with low back pain with radiation into the left LE terminating distal to the knee. She went to the ED on 09/11/22. At that time, she was describing bilateral LE pain and low back pain with insidious onset. She was given tylenol, oxycodone, ibuprofen, and MRI was ordered. She has a known disc herniation at L5-S1 and reports having in jections in the past that were helpful but only lasted a month. She has also gone to PT which was helpful especially with mobility. Today, her pain has improved from an 8/10 to 3/10. HPI Treatments to date for this complaint have included: [x] Physical therapy [] healthcare analyst or massage therapy [] Home exercise program [x] Anti-inflammatories [] Neuropathic pain medications [x] Muscle relaxer [] Steroids [x] Opioids [] Pain management evaluation [x] Injections or Radiofrequency Ablations [] TENS unit [] Alternative modalities (acupuncture, biofeedback, etc.) MEDICAL HISTORY Patient has no past medical history on file. SURGICAL HISTORY Patient has no past surgical history on file. MEDICATIONS Patient has a current medication list which includes the following prescription(s): clindamycin, ibuprofen, meloxicam, and methocarbamol. ALLERGIES Patient is allergic to augmentin [amoxicillin-pot clavulanate] and pcn [penicillins]. FAMILY HISTORY Patient's family history includes High Blood Pressure in her father. SOCIAL HISTORY Patient reports that she has never smoked. She has never used smokeless tobacco. She reports that she does not drink alcohol and does not use drugs. REVIEW OF SYSTEMS Musculoskeletal: Positive for back pain. Neurological: Positive for numbness. All other systems reviewed and are negative. DIAGNOSTIC DATA VITALS height is 149.9 cm (59) (abnormal) and weight is 55.8 kg (123 lb). Her blood pressure is 112/70 and her pulse is 68. Her oxygen saturation is 97%. PHYSICAL EXAM Nursing note and vitals reviewed.Vitals and nursing note reviewed. Constitutional: Appearance: Normal appearance. HENT: Head: Normocephalic and atraumatic. Nose: Nose normal. Mouth/Throat: Mouth: Mucous membranes are moist. Eyes: Pupils: Pupils are equal, round, and reactive to light. Cardiovascular: Rate and Rhythm: Normal rate and regular rhythm. Pulses: Normal pulses. Pulmonary: Effort: Pulmonary effort is normal. Musculoskeletal: Lumbar back: Tenderness present. No spasms. Positive right straight leg raise test and positive left straight leg raise test. Legs: Skin: General: Skin is warm and dry. Capillary Refill: Capillary refill takes less than 2 seconds. Neurological: Mental Status: She is alert. Mental status is at baseline. Sensory: Sensation is intact. Motor: Motor function is intact. Gait: Gait is intact. Deep Tendon Reflexes: Reflexes are normal and symmetric. Psychiatric: Mood and Affect: Mood normal. Behavior: Behavior normal. Judgment: Judgment normal. IMAGING I have personally reviewed and interpreted the MRI imaging directly. The findings were discussed indetail with the patient using models and images. MRI lumbar 09/11/22 there is a disc herniation noted at L5-S1 with inferior migration and mild central canal stenosis and lateral recess stenosis. Otherwise WNL. X-ray lumbar 10/25/22: No significant instability. Minimal thoracolumbar scoliosis. DIAGNOSIS The encounter diagnosis was Lumbar disc herniation with radiculopathy. ASSESSMENT/PLAN Harleen was seen today for pain. Diagnoses and all orders for this visit: Lumbar disc herniation with radiculopathy - XR LUMBAR SPINE 4+ VIEWS The patient presents to the office due to a disc herniation with radiation into bilateral posteriorLE. She is neurologically intact and pain is improving. I would not recommend an injection at this time. Mechanical pressure on the exiting nerves and central canal are more mild and surgery is not an ideal recommendation in this case. She was encouraged to follow up with new or worsening pain. Injections are potentially an option but as her pain is minimal at this time, we will defer additional treatment for now. Encouraged continue HEP. The risks and benefits of these treatments were discussed today in detail. The patient expressed understanding of these risks and is agreeable with proceeding with this plan of care. Donna Moreno PA-C [facility] [address] [place] [address] documented in this encounter Plan of Treatment Not on file documented as of this encounter Procedures Procedure Name Priority Date/Time Associated Diagnosis Comments XR LUMBAR SPINE 4+ VIEWS Routine 10/25/2022 16:00 EDT Lumbar disc herniation with radiculopathy documented in this encounter Results * XR LUMBAR SPINE 4+ VIEWS (10/25/2022 16:00 EDT) Anatomical Region Laterality Modality Computed Radiogr aphy 10/25/2022 15:5 2 EDT Impressions 10/25/2022 16:28 EDT No acute findings. THIS DOCUMENT HAS BEEN ELECTRONICALLY SIGNED BY KIRILL BENITEZ MD FOR ANY QUESTIONS OR CONCERNS REGARDING THIS REPORT PLEASE CALL [facility] AT [phone] Narrative 10/25/2022 16:28 EDT PROCEDURE INFORMATION: Exam: XR Lumbosacral Spine Exam date and time: 10/25/2022 3:52 PM Age: 22 years old Clinical indication: Intervertebral disc disorders with radiculopathy, lumbar region; Low back pain TECHNIQUE: Imaging protocol: Radiologic exam of the lumbosacral spine. Views: 4 or 5 views. COMPARISON: MR LUMBAR SPINE WO CONTRAST 09/11/2022 2:34 PM FINDINGS: Bones/joints: ??Moderate disc space narrowing at L5-S1. No acute fracture. Normal alignment. Soft tissues: Unremarkable. Procedure Note Kirill Benitez MD - 10/25/2022 PROCEDURE INFORMATION: Exam: XR Lumbosacral Spine Exam date and time: 10/25/2022 3:52 PM Age: 22 years old Clinical indication: Intervertebral disc disorders with radiculopathy, lumbar region; Low back pain TECHNIQUE: Imaging protocol: Radiologic exam of the lumbosacral spine. Views: 4 or 5 views. COMPARISON: MR LUMBAR SPINE WO CONTRAST 09/11/2022 2:34 PM FINDINGS: Bones/joints: Moderate disc space narrowing at L5-S1. No acute fracture. Normal alignment. Soft tissues: Unremarkable. IMPRESSION No acute findings. THIS DOCUMENT HAS BEEN ELECTRONICALLY SIGNED BY KIRILL BENITEZ MD FOR ANY QUESTIONS OR CONCERNS REGARDING THIS REPORT PLEASE CALL [facility] [phone] Donna Moreno PA-C IMG DIAGNOSTIC IMAGING ORDER FRED Final Result documented in this encounter Visit Diagnoses Diagnosis Lumbar disc herniation with radiculopathy- Primary Displacement of lumbar intervertebral disc without myelopathy documented in this encounter Care Teams Poultry Field Service Technician Relationship Specialty Start Date End Date Ananda Black MD [address] [place] [phone] PCP - General 02/13/19 documented as of this encounter
--- OUTSIDE RECORDS SUMMARY | 2024-08-07 14:59 | XMS_ITS | Encounter Summary ---
Author Organization [facility] Address [address] [place] [address] Care Team Providers Care Key Account Director Name Role Phone Ananda Black MD Primary Care Provider +1- [phone] Encounter Details Date Type Department Care Team (Late st Contact Info) Description 02/05/2024 Orders Only [facility] [address] [place], [place] [address] Celia Chamorro Social History Tobacco Use Types [...] on filedocumented in this encounter Care Teams Key Account Director Relationship Specialty Start Date End Date Ananda Black MD [address] [place] [phone] PCP - General 02/13/19 documented as of this encounter
--- OUTSIDE RECORDS SUMMARY | 2024-08-07 14:59 | XMS_ITS | Encounter Summary ---
Author Organization [facility] Address [address] [place] [address] Care Team Providers Care Project Manager Retail Name Role Phone Ananda Black MD Primary Care Provider +1- [phone] Reason for Visit * Reason Onset Date Comments Back Pain 09/08/2022 Encounter Details Date Type Department Care Team (Late st Contact Info) Description 09/08/[address] [facility] - [address] [address] Ananda Black MD [address] [place] [phone] Back Pain Social History Tobacco Use Types Packs/Day Years [...] as of this encounter Functional Status * Because of a physical, mental, [...] encounter Miscellaneous Notes * Telephone Encounter - Rossana Hdz RN - 09/08/2022 1200 EST Returned call to Harleen who reports lower back pain started a couple weeks ago, no known trigger or injury. Reports she threw out my back in a similar way about 3 years ago. Pain started in lower back and has gotten worse, now has pain going down both legs and up back as well. Reports feeling a lot of muscle tightness making it difficult to stand up straight. Has been taking over the counter tylenol and reports she had some gabapentin that was prescribed toher when this last happened so she has tried that as well. Has a visit with Dr. Garcia 09/25/22; no sooner visit available to offer. [facility] Patient verbalized understanding with no barriers to learning and agrees with plan of care. * Telephone Encounter - Arely Ugarte - 09/08/2022 0923 EST Patient called stating she called last week regarding back pain and was told if it gets worse to call back. It has been getting steadily worse and she now cannot even stand up straight. She is in extreme pain. She can be reached at [phone] at work today. After work she will be home at [phone]. documented in this encounter Plan of Treatment Not on file documented as of this encounter Visit Diagnoses Not on filedocumented in this encounter Care Teams Project Manager Retail Relationship Specialty Start Date End Date Ananda Black MD [address] [place] [phone] PCP - General 02/13/19 documented as of this encounter
--- OUTSIDE RECORDS SUMMARY | 2024-08-07 14:59 | XMS_ITS | Encounter Summary ---
Author Organization [facility] Address [address] [place] [address] Care Team Providers Care Veterinarian Laboratory Animal Care Name Role Phone Ananda Black MD Primary Care Provider +1- [phone] Reason for Visit * Reason Onset Date Comments Medication Management 01/29/2024 Encounter Details Date Type Department Care Team (Late st Contact Info) Description 01/29/2024 Telephone [facility] - [address] [address] Ananda Black MD [address] [place] [phone] Medication Management Social History Tobacco Use Types Packs/Day Years [...] Telephone Encounter - Christin Fermin RN - 01/31/2024 1515 EDT Pt scheduled for f/u with Rima Corbett NP on 02/06/2024 to review labs. CHRISTIN FERMIN RN 01/31/2024 15:15 * Telephone Encounter - Christin Fermin RN - 01/31/2024 1021 EDT Pt called back. Relayed below message from Felicita PAIGE to patient. Pt states that she did not discuss the iron supplement in full with Rima Corbett NP as she had other things to talk about. Pt is getting labs collected this afternoon. Pt is getting in a little over one week and she is unsure what is going to happen with her insurance. Pt would like to come in to see Rima Corbett NP next week to review lab results. Rima Corbett NP - based on lab results, pt would like to know if she should continue to take iron supplements. CHRISTIN FERMIN RN 01/31/2024 10:25 * Telephone Encounter - Christin Fermin RN - 01/31/2024 0939 EDT Left message for pt to call back. Pt had OV with Rima Corbett NP on 01/30/2024 - want to ensure that pt gets this information if it was not discussed in visit. CHRISTIN FERMIN RN 01/31/2024 9:40 * Telephone Encounter - Felicita Valdes FNP - 01/30/2024 0850 EDT 65 mg is fine. It is common for iron to cause some nausea, be sure to take with some food. There is a liquid iron called Floradix you can get at the [facility] that is easier on the stomach if she wants to continue. * Telephone Encounter - Christin Fermin RN - 01/29/2024 1204 EDT Pt states that she wanted to try to start taking iron because she has been exhausted for the past 6months. The dosage of the iron supplement that patient started this morning was 65mg. Pt looked up the recommended dose and saw that it was 40mg. Pt states that she felt nauseous after taking the medication and had some back pain. Pt states that her nausea has subsided with rest, however, sometimes comes back when she stands up. Scheduled pt for OV with Rima Corbett NP tomorrow to review her unexplained fatigue that she hasbeen experiencing. Routing to CLAUDIA Edouard TEACHER PRIVATE to review and advise. Pt would like confirmation that the 65mg of iron is the appropriate dosage. CHRISTIN FERMIN RN 01/29/2024 12:14 * Telephone Encounter - Tracee Doan - 01/29/2024 0955 EDT Patient called back and wanted to say she is going home for the day and can be reached at [phone] * Telephone Encounter - Cheryl Martin - 01/29/2024 0857 EDT Patient calling to state she bought an Iron supplement that was 65 mg and it says to not take over 40mg, she took the 65 mg this morning and asking if that is ok, please advise. documented in this encounter Plan of Treatment Not on file documented as of this encounter Visit Diagnoses Not on filedocumented in this encounter Care Teams Veterinarian Laboratory Animal Care Relationship Specialty Start Date End Date Ananda Black MD [address] [place] [phone] PCP - General 02/13/19 documented as of this encounter
--- OUTSIDE RECORDS SUMMARY | 2024-08-07 14:59 | XMS_ITS | Encounter Summary ---
Author Organization [facility] Address [address] [place] [address] Care Team Providers Care Rope Rider Name Role Phone Ananda Black MD Primary Care Provider +1- [phone] Reason for Referral * Consult, Test and Treat (Routine/Next Available) - Closed Specialty Diagnoses / Procedures Referred By Rosa sparks Referred To Contact Pain Medicine Diagnoses Chronic bilateral low back pain with bilateral sciatica Donna Moreno PA-C Phone: tel: fax: [facility] Interventional [facility] [address] [place] [address] Phone: tel: fax: Referral ID Status Reason Start Date Expiration Date V isits Requested Visits Authorized [id number] Closed Specialty Services Required 09/19/2023 1 1 Question Answer Has the patient had 6 weeks of conservative treatment such as physicial therapy or NSAIDS? Yes Associated Notes: see chart Reason for Request: chronic low back pain with radiation; L5-S1 [place] CHASIDY Reason for Visit * Reason Comments Pain Follow-up * Consult (Routine/Next Available) - Specialty Report Received Specialty Diagnoses / Procedures Referred By Contcarlos t Referred To Contact Orthopedic Surgery Diagnoses Chronic bilateral low back pain with bilateral sciatica Ananda Black MD Phone: tel: fax: [facility] [address] [place] [address] Phone: tel: fax: Referral ID Status Reason Start Date Expiration Date Visits Requested Visits Authorized [id number] Specialty Report Received Specialty Services Required 08/01/2023 1 1 Encounter Details Date Type Department Care Team (Late st Contact Info) Description 09/19/2023 9:30 EST Office Visit [facility] [address], [address] [place], [place] [address] Donna Moreno PA-C [address] [facility] [address] [place] [address] Chronic bilateral low back pain with bilateral sciatica (Primary Dx) Social History Tobacco Use Types [...] on file documented as of this encounter Last Filed Vital Signs Vital Sign Reading Time Taken Comments Blood Pressure 100/72 09/19/2023 0940 EST Pulse 64 09/19/2023 0940 EST Temperature - - Respiratory Rate 18 09/19/2023 0940 EST Oxygen Saturation 98% 09/19/2023 0940 EST Inhaled Oxygen Concentration - - Weight - - Height - - Body Mass Index - - documented in this encounter Functional Status * [...] Progress Notes * Donna Moreno PA-C - 09/19/2023 0930 EST Images from the original note were not included. 09/19/2023 PATIENT: Harleen Luna Primary Care Provider: Ananda Black [address] [place] [phone] Referring Provider: Ananda Black MD [address] [place] [phone] CHIEF COMPLAINT Pain and Follow-up of the Lower Back HISTORY OF PRESENT ILLNESS Harleen Luna is a very pleasant 23 y.o. female who presents with low back pain with radiation into the left LE terminating distal to the knee. She went to the ED on 09/11/22. At that time, she was describing bilateral LE pain and low back pain with insidious onset. She does admit to numbness and tingling in the left LE. She was given tylenol, oxycodone, ibuprofen, and MRI was ordered. She has a known disc herniation at L5-S1 and reports having injections in the past that were helpful but only lasted a month. She has also gone to PT which was helpful especially with mobility. Today, her pain is a 5/10 but can become a 10/10. Treatments to date for this complaint have included: [x] Physical therapy [] family day care provider or massage therapy [] Home exercise program [x] Anti-inflammatories [] Neuropathic pain medications [x] Muscle relaxer [] Steroids [x] Opioids [] Pain management evaluation [x] Injections or Radiofrequency Ablations [x] TENS unit [] Alternative modalities (acupuncture, biofeedback, etc.) MEDICAL HISTORY Patient has no past medical history on file. SURGICAL HISTORY Patient has no past surgical history on file. MEDICATIONS Patient has a current medication list which includes the following prescription(s): gabapentin, meloxicam, and methocarbamol. ALLERGIES Patient is allergic [...] reviewed and are negative. DIAGNOSTIC DATA VITALS blood pressure is 100/72 and her pulse is 64. Her respiration is 18 and oxygen saturation is 98%. PHYSICAL EXAM Nursing note and vitals reviewed.Vitals [...] I have personally reviewed and interpreted the imaging directly. The findings were discussed in detail with the patient using models and images. MRI lumbar 09/11/22 there is a disc herniation noted at L5-S1 with inferior migration and mild central canal stenosis and lateral recess stenosis. Otherwise WNL. X-ray lumbar 10/25/22: No significant instability. Minimal thoracolumbar scoliosis. DIAGNOSIS The encounter diagnosis was Chronic bilateral low back pain with bilateral sciatica. ASSESSMENT/PLAN Harleen was seen today for pain and follow-up. Diagnoses and all orders for this visit: Chronic bilateral low back pain with bilateral sciatica - AMB PAIN PROCEDURE; Future The patient presents to the office due to a disc herniation with radiation into bilateral posteriorLE. Since her last visit, her pain and symptoms have worsened. She has additionally developed numbness and tingling. We will recommend an L5-S1 IL CHASIDY. Patient prefers appointment at [facility] to be seen sooner. Mechanical pressure on the exiting nerves and central canal are more mild and surgery is not an ideal recommendation in this case. She was encouraged to follow up with new or worsening pain. Encouraged continue HEP. The risks and benefits of these treatments were discussed today in detail. She will follow up 3 weeks after injection. The patient expressed understanding of these risks and is agreeable with proceeding with this plan of care. Donna Moreno PA-C [facility] [address] [place] [phone] LV on 10/25/2022 with KK. Presents today for back pain follow-up. Assessment: Lumbar disc herniation with radiculopathy Plan: Follow-up with new or worsening pain Continue HEP Imaging: No new imaging since previous appointment 08/01/23: PCP office visit - re-referred to PT, first visit 08/17/23. Gabapentin restarted documented in this encounter Plan of Treatment Scheduled Referrals Name Type Priority Associated Diagnoses Order Schedule AMB PAIN PROCEDURE Outpatient Referral Routine/Next Available Chronic bilateral low back pain with bilateral sciatica Expected: 09/26/2023 (Approximate), Expires: 09/18/2024 documented as of this encounter Visit Diagnoses Diagnosis Chronic bilateral low back pain with bilateral sciatica- Primary documented in this encounter Care Teams Rope Rider Relationship Specialty Start Date End Date Ananda Black MD [address] [place] [address] [address] [place] [phone] PCP - General 02/13/19 documented as of this encounter
--- OUTSIDE RECORDS SUMMARY | 2024-08-07 14:59 | XMS_ITS | Encounter Summary ---
Author Organization [facility] Address [address] [place] [address] Care Team Providers Care Art Consultant Name Role Phone Ananda Black MD Primary Care Provider [phone]- [phone] Encounter Details Date Type Department Care Team (Latest Contact Info) Description 10/15/2023 7:41 EDT - 10/15/2023 23:59 EDT Hospital Encounter [facility] Xray [address] [place], [place] [id number] Discharge Disposition: Home or Self Care Social History Tobacco Use Types Packs/Day Years [...] 07/17/2018 14:23 EST documented in this encounter Medications at Time of Discharge gabapentin (NEURONTIN) 300 mg capsuleIndications: Chronic bilateral low back pain with bilateral sciatica Take 1 Capsule by mouth 3 times daily. 90 Capsule 2 08/01/2023 4 meloxicam (MOBIC) 7.5 mg tablet Take 1-2 tabs once daily as needed for pain. Take with food. 30 Tablet 1 09/25/2022 4 methocarbamoL (ROBAXIN) 500 mg tabletIndications:L umbar radiculopathy Take 1 to 2 tablets by mouth before bed as needed for pain and muscle spasm. 20 Tablet 1 09/25/2022 4 documented as of this encounter Discharge Disposition Disposition Code Departure Means Destination Home or Self Care documented in this encounter Plan of Treatment Not on file documented as of this encounter Procedures Procedure Name Priority Date/Time Associated Diagnosis Comments PAIN CLINIC FL LUMBAR INJECTION Routine 10/15/2023 9:33 EDT documented in this encounter Results * PAIN CLINIC FL LUMBAR INJECTION (10/15/2023 9:33 EDT) Narrative 10/15/2023 9:33 EDT This is a non-reportable exam. Selina Prieto MD IMG OTHER IMAGING ORDERABLE S Final Result documented in this encounter Visit Diagnoses Not on filedocumented in this encounter Care Teams Art Consultant Relationship Specialty Start Date End Date Ananda Black MD [address] [place] [phone] PCP - General 02/13/19 documented as of this encounter
--- OUTSIDE RECORDS SUMMARY | 2024-08-07 14:59 | XMS_ITS | Encounter Summary ---
Author Organization [facility] Address [address] [place] [address] Care Team Providers Care Set Up Mechanic Coating Machines Name Role Phone Ananda Black MD Primary Care Provider +1- [phone] Encounter Details Date Type Department Care Team (Latest Contact Info) Description 09/11/2022 Travel Social History Tobacco Use Types Packs/Day Years [...] suspected to have Coronavirus/COVID-19? No / Unsure 09/11/2022 12:05 EST documented as of this encounter Functional Status [...] on filedocumented in this encounter Care Teams Set Up Mechanic Coating Machines Relationship Specialty Start Date End Date Ananda Black MD [address] [place] [phone] PCP - General 02/13/19 documented as of this encounter
--- OUTSIDE RECORDS SUMMARY | 2024-08-07 14:59 | XMS_ITS | Encounter Summary ---
Author Organization [facility] Address [address] [place] [address] Care Team Providers Care Tester Equipment Name Role Phone Ananda Black MD Primary Care Provider +1- [phone] Encounter Details Date Type Department Care Team (Latest Contact Info) Description 09/25/2022 Travel Social History Tobacco Use Types Packs/Day [...] suspected to have Coronavirus/COVID-19? No / Unsure 09/25/2022 14:43 EDT documented as of this encounter Functional Status [...] on filedocumented in this encounter Care Teams Tester Equipment Relationship Specialty Start Date End Date Ananda Black MD [address] [place] [phone] PCP - General 02/13/19 documented as of this encounter
--- OUTSIDE RECORDS SUMMARY | 2024-08-07 14:59 | XMS_ITS | Encounter Summary ---
Author Organization [facility] Address [address] [place] [address] Care Team Providers Care Garment Examiner Name Role Phone Ananda Black MD Primary Care Provider +1- [phone] Encounter Details Date Type Department Care Team (Late st Contact Info) Description 01/31/2024 Orders Only [facility] [address] [place] [address] Rima Corbett FNP [address] [facility] [address] [phone] Social History Tobacco Use Types Packs/Day Years [...] on filedocumented in this encounter Care Teams Garment Examiner Relationship Specialty Start Date End Date Ananda Black MD [address] [place] [phone] PCP - General 02/13/19 documented as of this encounter
--- OUTSIDE RECORDS SUMMARY | 2024-08-07 14:59 | XMS_ITS | Encounter Summary ---
Author Organization [facility] Address [address] [place] [address] Care Team Providers Care Customer Account Manager Name Role Phone Ananda Black MD Primary Care Provider +1- [phone] Reason for Referral * Consult (Routine/Next Available) - Closed Specialty Diagnoses / Procedures Referred By Rosa sparks Referred To Contact Diagnoses Fatigue, unspecified type Weakness generalized Chronic left-sided low back pain without sciatica Frequent headaches Myalgia Sensory disturbance Decreased exercise tolerance Rima Corbett FNP [address] [address] Phone: tel: fax: [facility] [address] [place] [address] Phone: tel: fax: Referral ID Status Reason Start Date Expiration Date V isits Requested Visits Authorized [id number] Closed Specialty Services Required 02/06/2024 1 0 Question Answer Reason for Request: muscle fatigue and myalgia, generlized weakness, frequent headaches, back pain, assess for MS Context of referral: New Problem Reason for referral: Ongoing care Has patient had a previous OUTSIDE of [facility] neurology evaluation, neuroimaging (MRI or CT of brain or spine) or electrodiagnostic testing (EMG, NCS, EEG)? No Comments EMG and MRI imaging ordered * Radiology Services (Routine/Next Available) - Authorization Not Required Specialty Diagnoses / Procedures Referred By Rosa sparks Referred To Contact Radiology Diagnoses Fatigue, unspecified type Weakness generalized Decreased exercise tolerance Procedures XR CHEST 2 VIEWS Rima Corbett FNP [address] [address] Phone: tel: fax: [facility] [address] [place] [address] Phone: tel: fax: Referral ID Status Reason Start Date Expiration Date Visits Requested Visits Authorized [id number] Authorization Not Required 02/06/2024 1 1 Reason for Visit * Reason Comments Labs Only Encounter Details Date Type Department Care Team (Late st Contact Info) Description 02/06/2024 11:30 EDT Office Visit [facility] Family Medicine - [place] [address] [place] [address] Rima Corbett FNP [address] [address] Fatigue, unspecified type (Primary Dx); Weakness generalized; Decreased exercise tolerance; Chronic left-sided low back pain with left-sided sciatica; Frequent headaches; Myalgia; Sensory disturbance; DDD (degenerative disc disease), lumbar; Bulging lumbar disc; Urinary frequency; Abdominal cramping Social History Tobacco Use Types Packs/Day Years [...] EDT Pulse 66 02/06/2024 1135 EDT Temperature - - Respiratory Rate - - Oxygen Saturation 98% 02/06/2024 1135 EDT Inhaled Oxygen Concentration - - Weight - [...] documented in this encounter Progress Notes * Rima Corbett FNP - 02/06/2024 1130 EDT Primary Care Office Visit Assessment & Plan Diagnoses and all orders for this visit: Fatigue, unspecified type Weakness generalized Frequent headaches Myalgia Sensory disturbance Decreased exercise tolerance Follow-up. Patient presents with approximately 6 months of worsening fatigue, myalgias in all extremities, subjective generalized muscle weakness that is progressive throughout the day, frequent headaches, vibrating sensation in the upper body intermittently, left lower back pain, and reduced exercise tolerance. She denies any recent injuries prior to onset, changes in physical activity or mentalhealth. Symptoms are affecting her ability to work and she is often needing to rest during the day with minimal improvement after napping. 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 She does have a history of chronic low back pain and degenerative disc disease with L5/S1 disc bulging for which she has had prior imaging and she will be seeing orthospine for this. Recent lab workup essentially unremarkable. EMG testing scheduled for 04/2024, MRI imagingof head and lumbar sacral spine with contrast ordered but she has not scheduled this yet due to anticipated loss of health insurance loss. Will refer to neurology for further evaluation of symptoms due to concern for potential neurological/demyelinating etiology of her symptoms. Unfortunately she may be losing her health insurance soon, I encouraged her to continue to try to contact her insurancecompany regarding this. Discussed potential options such as [employer] extension to current insurance, finding a new insurance policy, meeting with hospital associate financial representative office, she will consider these. Chest x-ray ordered today due to decreased exercise tolerance and fatigue to rule out pulmonary abnormality, UA to rule out UTI and assess for proteinuria and hematuria. Discussed considering sleep medicine referral as well, will hold off on this at this time due to many upcoming appointments and uncertainty of health insurance. follow-up within 2 months for CPE with Pap to check in again, sooner follow-up as needed. - POCT URINE CLINITEK (DIPSTICK) - DOES NOT REFLEX - XR CHEST 2 VIEWS - AMB CONS/FOLLOW UP NEUROLOGY Chronic left-sided low back pain with sciatica DDD (degenerative disc disease), lumbar Bulging lumbar disc MRI with contrast ordered to evaluate back pain further, encouraged her to call to schedule this. She has a upcoming appointment scheduled with ortho sales enablement specialist 03/19/2024. She declines referral to PT at this time. Follow-up as needed or as indicated by results. Urinary frequency Likely related to fluid intake, however, will check UA today to rule out UTI or other abnormality such as hematuria or proteinuria. Follow-up as indicated by results. - POCT URINE CLINITEK (DIPSTICK) - DOES NOT REFLEX Abdominal cramping Patient reports new onset bilateral lower abdominal cramping sensation intermittently with radiation to bilateral sides for the past several days. Recent labs essentially normal including CBC, CMP, negative hCG. She does have chronic GI symptoms predating the abdominal cramping that may be related to IBS, recent celiac testing and CRP normal. Mild tenderness on palpation of lower abdomen on exam today. Check UA today to rule out UTI or other abnormality such as hematuria or proteinuria. Consider abdominal imaging based on UA results and continued symptoms. Follow-up within 2 months, sooner asneeded for continued, new, or worsening symptoms. Return in about 2 months (around 04/08/2024) for CPE with pap and follow up . Patient education was direct. Barriers were assessed and addressed as needed. Ursula Canseco is a 23 y.o. female presenting with Labs Only HPI Sasha is here today to review her recent lab results and follow-up from her visit on 01/30/2024. She continues to feel very fatigued with loss of energy and physical fatigue requiring her to nap daily. When awakening from napping she feels some improvement in symptoms although these do not resolve. She feels the best in the morning and her energy and physical fatigue progress throughout the day. She reports no changes in her symptoms since she was seen on 01/30/2024. She has this week off of work to prepare for her wedding which is this weekend. She has been unable to get a hold of her insurance company regarding if she will be able to continue staying on her parents health insurance after she is . She does not feel depressed or anxious. She feels that she sleeps well throughout the night, continues to sleep at least 8 hours nightly. No recent social changes, dietary changes, or changes to physical activity. She continues to endorse reduced activity tolerance due to physical fatigue. She continues to have left lower back pain, this now radiates intermittently down her left posterior leg to the mid hamstring area. She continues to have frequent headaches intermittently, no changes in these since her last visit. Bowel habits remain about the same with several stools daily and fluctuating consistency the past several years. No bladder or bowel incontinence. No mucus or bloody stools. No nausea, vomiting, or fevers. No specific food triggers. She has had some intermittent lower abdominal cramping that occurs with bending forward in a flexion position. She feels that she urinates often, she attributes this to drinking plenty of fluids. Recent labs showed slightly low sodium level. Remainder of her workup was essentially normal. She did not yet schedule MRI imaging that was ordered for her due to concern regarding insurance coverage loss soon. She has a EMG test scheduled for 04/2024. Data reviewed this visit: problem list/past medical history, current medications, allergies, familyhistory, social history, last visit note, health maintenance items, recent labs, recent imaging, social determinants of health, and behavioral health screen ROS - Review of Systems Constitutional: Positive for malaise/fatigue. Negative for chills and fever. HENT: Negative for congestion and sore throat. Eyes: +aura with headaches Respiratory: Negative for cough, shortness of breath and wheezing. Cardiovascular: Negative for chest pain and palpitations. Gastrointestinal: Negative for abdominal pain, constipation, nausea and vomiting. Genitourinary: Negative for frequency and urgency. Musculoskeletal: Positive for back pain and myalgias. Negative for falls and neck pain. Skin: Negative for rash. Neurological: Positive for sensory change and headaches. Negative for focal weakness. Psychiatric/Behavioral: Negative for depression, memory loss and substance abuse. The patient is not nervous/anxious and does not have insomnia. Objective BP 94/72 (BP Cuff Location: Right arm, BP Patient Position: Sitting, BP Cuff Sizes: Adult, long) Pulse 66 SpO2 98% Physical Exam General Appearance: well-nourished, healthy appearing, NAD Eyes PERRLA, non-injected, no discharge, no pallor Lips, Teeth, and Gums: no mouth or lip ulcers, no bleeding gums, good dentition. Oropharynx: moist mucous membranes, no erythema, no exudates. Cardiovascular: RRR, normal S1, normal S2, no murmurs, rubs, or gallops. No edema in BLEs. Normal radial pulses bilaterally. Lungs: Auscultation: clear, no wheezing, no rales/crackles, no rhonchi. Breathing nonlabored. Gastrointestinal: Normal BS. Abdomen soft, non-distended, no HSM, no masses. Lower abdomen mildly TTP. Neurological: Alert and Orientation: to time, to place, to person. Skin: warm and dry, good turgor. No obvious rashes. All nails with rough surface near cuticles, no pitting or discoloration. MSK: ambulating independently without difficulty to/from exam table. Mood/Affect: appropriate mood, appropriate affect. Normal thought process. See previous note for more detailed exam. documented in this encounter Plan of Treatment Scheduled Referrals Name Type Priority Associated Diagnoses Order Schedule AMB CONS/FOLLOW UP NEUROLOGY Outpatient Referral Routine/Next Available Fatigue, unspecified type Weakness generalized Chronic left-sided low back pain with left-sided sciatica Frequent headaches Myalgia Sensory disturbance Decreased exercise tolerance Expected: 03/08/2024 (Approximate), Expires: 02/05/2025 documented as of this encounter Procedures Procedure Name Priority Date/Time Associated Diagnosis Comments POCT URINE DIPSTICK, CLINITEK Routine 02/06/2024 12:26 EDT Fatigue, unspecified type Urinary frequency POCT CSN BARCODE URINE DIPSTICK Routine 02/06/2024 12:21 EDT Fatigue, unspecified type Urinary frequency POCT URINE CLINITEK (DIPSTICK) - DOES NOT REFLEX Routine 02/06/2024 12:21 EDT Fatigue, unspecified type Urinary frequency documented in this encounter Results * XR CHEST 2 VIEWS (02/07/2024 9:47 EDT) Anatomical Region Laterality Modality Computed Radiogr aphy 02/07/2024 10:1 5 EDT Impressions 02/07/2024 10:15 EDT No acute findings. [id number] Narrative 02/07/2024 10:15 EDT XR CHEST 2 VIEWS ??02/07/2024 9:40 AM Clinical History/comments: reduced exercise tolerance, fatigue, generalized weakness;R53.83:Fatigue, unspecified type;R53.1:Weakness generalized;R68.89:Decreased exercise tolerance Comparison: 12/01/2019. Technique: Frontal and lateral views of the chest. Findings: Lungs: Clear. Pleura/diaphragms: No pleural effusion or pneumothorax. Cardiac and mediastinal contours: Normal. Soft tissues and extrathoracic findings: ??Normal. Bones: No acute findings. Resulting Agency Comment [id number] Procedure Note Clement Whitlock MD - 02/07/2024 XR CHEST 2 VIEWS 02/07/2024 9:40 AM Clinical History/comments: reduced exercise tolerance, fatigue, generalized weakness;R53.83:Fatigue,unspecified type;R53.1:Weakness generalized;R68.89:Decreased exercisetolerance Comparison: 12/01/2019. Technique: Frontal and lateral views of the chest. Findings: Lungs: Clear. Pleura/diaphragms: No pleural effusion or pneumothorax. Cardiac and mediastinal contours: Normal. Soft tissues and extrathoracic findings: Normal. Bones: No acute findings. IMPRESSION No acute findings. [id number] Rima Corbett POLE INSPECTOR IMG DIAGNOSTIC IMAGING ORDER FRED Final Result * POCT URINE DIPSTICK, CLINITEK (02/06/2024 12:26 EDT) Color, UA Yellow Yellow 02/06/2024 12:28 [facility] Clarity, UA Clear Clear 02/06/2024 12:28 [facility] Glucose, UA Negative Negative mg/dL 02/06/2024 12:28 [facility] Bilirubin, UA Negative Negative 02/06/2024 12:28 [facility] Ketones, UA Negative Negative 02/06/2024 12:28 [facility] Specific [place], Urine 1.010 1.001 - 1.030 02/06/2024 12:28 [facility] Blood, UA Negative Negative 02/06/2024 12:28 [facility] pH, UA 7.0 <8.5 02/06/2024 12:28 [facility] Protein, UA Negative Negative mg/dL 02/06/2024 12:28 [facility] Urobilinogen, UA 0.2 0.2 - 1.0 mg/dL 02/06/2024 12:28 [facility] Nitrite, UA Negative Negative 02/06/2024 12:28 [facility] Leuk Esterase Negative Negative 02/06/2024 12:28 [facility] HN LAB COMMENT (CLINITEK, UR) [facility] 02/06/2024 12:28 [facility] Urine URINE SPECIMEN OBTAINED BY CLEAN CATCH PROCEDURE / Unknown 02/06/2024 12:26 EDT 02/06/2024 12:28 EDT us Ananda Black MD POINT OF CARE TEST ORDERAB LES Final Result [facility] [address] [place] [address] * POCT CSN BARCODE URINE DIPSTICK (02/06/2024 12:21 EDT) Urine URINE SPECIMEN OBTAINED BY CLEAN CATCH PROCEDURE / Unknown 02/06/2024 12:21 EDT 02/06/2024 12:21 EDT Ananda Black MD LAB INFO SERVICE AND SUPPO RT & PHONE RESULT Final Result [facility] [address] [place] [id number] documented in this encounter Visit Diagnoses Diagnosis Fatigue, unspecified type- Primary Weakness generalized Other malaise and fatigue Decreased exercise tolerance Other general symptoms Chronic left-sided low back pain with left-sided sciatica Frequent headaches Myalgia Mylagia and myositis, unspecified Sensory disturbance Disturbance of skin sensation DDD (degenerative disc disease), lumbar Degeneration of lumbar or lumbosacral intervertebral disc Bulging lumbar disc Displacement of lumbar intervertebral disc without myelopathy Urinary frequency Abdominal cramping Abdominal pain, unspecified site Fatigue, unspecified type Weakness generalized Other malaise and fatigue Decreased exercise tolerance Other general symptoms documented in this encounter Discontinued Medications Medication Sig Discontinue Reason Start Date End Da te gabapentin (NEURONTIN) 300 mg capsuleIndications:Chron ic bilateral low back pain with bilateral sciatica Take 1 Capsule by mouth 3 times daily. Patient Stopped Taking 08/01/2023 02/06/2024 meloxicam (MOBIC) 7.5 mg tablet Take 1-2 tabs once daily as needed for pain. Take with food. Patient Stopped Taking 09/25/2022 02/06/2024 methocarbamoL (ROBAXIN) 500 mg tabletIndications:Lumbar radiculopathy Take 1 to 2 tablets by mouth before bed as needed for pain and muscle spasm. Patient Stopped Taking 09/25/2022 02/06/2024 documented as of this encounter Care Teams Customer Account Manager Relationship Specialty Start Date End Date Ananda Black MD [address] [place] [address] [address] [place] [address] PCP - General 02/13/19 documented as of this encounter
--- OUTSIDE RECORDS SUMMARY | 2024-08-07 14:59 | XMS_ITS | Encounter Summary ---
Author Organization [facility] Address [address] [place] [address] Care Team Providers Care Manager Transfusion Name Role Phone Ananda Black MD Primary Care Provider +1- [phone] Reason for Visit * Reason Comments Back Pain When walking Encounter Details Date Type Department Care Team (Latest Contact Info) Description 09/25/2022 14:45 EDT Office Visit [address] [address] Sanchez Hodge MD [address] [facility] [address] [address] Lumbar radiculopathy (Primary Dx) Social History Tobacco Use Types Packs/Day Years Used Date Smoking Tobacco: Never Smokeless Tobacco: Never Tobacco Cessation:Counseling Given: No Alcohol Use Standard Drinks/Week Comments No 0 [...] 14:43 EDT documented as of this encounter Last Filed Vital Signs Vital Sign Reading Time Taken Comments Blood Pressure 100/70 09/25/2022 1451 EDT Pulse 80 09/25/2022 1451 EDT Temperature - - Respiratory Rate - - Oxygen Saturation 98% 09/25/2022 1451 EDT Inhaled Oxygen Concentration - - Weight [...] 07/17/2018 14:23 EST documented in this encounter Ordered Prescriptions Prescription Sig Dispense Quantity Refills Last Filled Start Date End Date meloxicam (MOBIC) 7.5 mg tablet Take 1-2 tabs once daily as needed for pain. Take with food. 30 Tablet 1 09/25/2022 4 methocarbamoL (ROBAXIN) 500 mg tabletIndications:L umbar radiculopathy Take 1 to 2 tablets by mouth before bed as needed for pain and muscle spasm. 20 Tablet 1 09/25/2022 4 documented in this encounter Progress Notes * Sanchez Hodge MD - 09/25/2022 1063 EDT Primary Care Office Visit Assessment & Plan Diagnoses and all orders for this visit: Lumbar radiculopathy Comments: Having exacerbation of chronic low back pain with concerning findings on MRI for disc involvement. Has referral in place to orthospine. Has began PT. Reviewed treatment plan with the use of NSAIDs, has used meloxicam in the past and tolerated medication well. Will begin NSAID therapy with meloxicam reviewed the importance of taking medication with food. We will refill methocarbamol. Reviewed red flag symptoms. Reviewed the importance of avoiding activities such as bending, twisting or lifting at this time until evaluated by Ortho spine. Orders: - methocarbamoL (ROBAXIN) 500 mg tablet Other orders - meloxicam (MOBIC) 7.5 mg tablet Return in about 6 weeks (around 11/06/2022) for Follow up on back pain. . Patient education was direct. Barriers were assessed and addressed as needed. Ursula Canseco is a 22 y.o. female presenting with Back Pain (When walking /) Harleen states that she stared about a little more than a month ago. While walking to the building she started having back pain to the pint that it would make her bend over. She tried to do her work and it was uncomfortable and then she sneezed and felt worse. For 3 1/2 wks she mainly rested and could not do much. She describes the pain to the lower spine, like if someone is ripping her spine open, pain radiates to both legs R>L, it radiates from the side and back of the leg. She also feels the sensation of pins and needles to the back of both legs. On 09/08 she was seen at the and treated with a muscle relaxer and steroid. She was then seen at the ED on the and had an MRI. She was referred to the ortho spine department. She had been referred to PT by the and has had 1sessions. She is taking ibuprofen which she alternates with tylenol for pain. The pain is a 6/10, worse with movements like bending, standing and sitting. Stretching help. 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 She is not doing lifting at this time. The history is provided by the patient and a friend (Darrian). No speech language pathologist prn was used. Data reviewed this visit: problem list/past medical history, current medications, allergies, last visit note, recent imaging, recent Emergency Department visit record and recent Urgent Care visit record Review of Systems Constitutional: Negative for chills and fever. Respiratory: Negative for shortness of breath. Cardiovascular: Negative for chest pain. Musculoskeletal: Positive for back pain. Neurological: Positive for tingling. Negative for weakness. Denies issues with voiding, having a BM or saddle anesthesia. - See HPI Objective BP 100/70 (BP Cuff Location: Right arm, BP Patient Position: Sitting, BP Cuff Sizes: Adult, long) Pulse 80 LMP 09/11/2022 SpO2 98% Physical Exam Constitutional: Appearance: She is well-developed and well-nourished. Eyes: Conjunctiva/sclera: Conjunctivae normal. Musculoskeletal: Comments: Upon inspection of the lumbar spine there is no evident erythema or edema noted. Upon performing palpation there is slight para spinal muscle spasm. When performing range of motion she can perform extension to approximately 10 degrees, flexion is limited to 30 degrees due to the pain. Left leg raise with pain to the right and right leg raise with pain to the right. DTR was +1 bilateral. Neurological: Mental Status: She is alert. Psychiatric: Mood and Affect: Mood and affect normal. documented in this encounter Plan of Treatment Not on file documented as of this encounter Visit Diagnoses Diagnosis Lumbar radiculopathy- Primary Thoracic or lumbosacral neuritis or radiculitis, unspecified documented in this encounter Discontinued Medications Medication Sig Discontinue Reason Start Date End Da te methylPREDNISolone (MEDROL) 4 mg tabletIndications:Lumbar radiculopathy By mouth: Take 6 tabs day 1; 5 tabs day 2; 4 tabs day 3; 3 tabs day 4; 2 tabs day 5; and 1 tab day 6 Therapy completed 09/08/2022 09/25/2022 methocarbamoL (ROBAXIN) 500 mg tabletIndications:Lumbar radiculopathy Take 1 to 2 tablets by mouth before bed as needed for pain and muscle spasm. Reorder 09/08/2022 09/25/2022 documented as of this encounter Care Teams Manager Transfusion Relationship Specialty Start Date End Date Ananda Black MD [address] [place] [phone] PCP - General 02/13/19 documented as of this encounter
--- OUTSIDE RECORDS SUMMARY | 2024-08-07 14:59 | XMS_ITS | Encounter Summary ---
Author Organization [facility] Address [address] [place] [address] Care Team Providers Care Coater Helper Name Role Phone Ananda Black MD Primary Care Provider +1- [phone] Encounter Details Date Type Department Care Team (Latest Contact Info) Description 11/27/2022 Travel Social History Tobacco Use Types Packs/Day [...] suspected to have Coronavirus/COVID-19? No / Unsure 11/27/2022 8:54 EDT documented as of this encounter Functional [...] on filedocumented in this encounter Care Teams Coater Helper Relationship Specialty Start Date End Date Ananda Black MD [address] [place] [phone] PCP - General 02/13/19 documented as of this encounter
--- OUTSIDE RECORDS SUMMARY | 2024-08-07 14:59 | XMS_ITS | Encounter Summary ---
Author Organization [facility] Address [address] [place] [address] Care Team Providers Care Urgent Care Nurse Practitioner Name Role Phone Ananda Black MD Primary Care Provider [phone]- [phone] Reason for Visit * Reason Comments Back Pain Encounter Details Date Type Department Care Team (Late st Contact Info) Description 11/27/2022 9:00 EDT Office Visit [address] [address] Ananda Black MD [address] [place] [phone] Chronic bilateral low back pain with left-sided sciatica (Primary Dx); Lipoma of left lower extremity Social History Tobacco Use Types Packs/Day Years [...] 8:54 EDT documented as of this encounter Last Filed Vital Signs Vital Sign Reading Time Taken Comments Blood Pressure 100/64 11/27/2022 0900 EDT Pulse 66 11/27/2022899 EDT Temperature 37.5 ??C (99.5 ??F) 11/27/2022 09 EDT Respiratory Rate 20 11/27/2022899 EDT Oxygen Saturation 98% 11/27/2022 09 EDT Inhaled Oxygen Concentration - - Weight 56.7 kg (125 lb) 11/27/2022 09 EDT Height - - Body Mass Index 25.25 10/25/2022 1522 EDT documented in this encounter [...] documented in this encounter Progress Notes * Ananda Black MD - 11/27/2022 09 EDT Primary Care Office Visit Assessment & Plan Diagnoses and all orders for this visit: Chronic bilateral low back pain with left-sided sciatica Stable with recent flare up. Uses non-narcotic pains meds as needed. Reports employer working with her with limiting what she can lift -if worse then f/u otho -continue with back exercises -Patient advised to seek nonnarcotic modalities to control pain, such as ckyg-fht-[id number] medications. This would include psai-blz-ksdnbbu creams and or patches. Gentle use of NSAIDs (3,200 mg/day max),such as ibuprofen or Aleve. Tylenol is another options (4g/day max).Medication should be rotated every 4-6 hours with the understanding that the medication will lessen the pain. -pt to call for robaxin or mobic refill. Lipoma of left lower extremity Stable -monitor Return if symptoms worsen or fail to improve. Patient education was direct. Barriers were assessed and addressed as needed. Ursula Canseco is a 22 y.o. female presenting with Back Pain HPI Since last visit, pt thinks things are better except in the last few days. Feels like her back will go out. Pt did not feel that she got anything out of visit with spine. 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 Has completed PT. Pt has limited herself with activity and full running over the years. 10/23 last few day. In last month, 08/25. Data reviewed this visit: problem list/past medical history, current medications and allergies ROS - See HPI Objective BP 100/64 (BP Cuff Location: Right arm, BP Patient Position: Sitting, BP Cuff Sizes: Adult, regular) Pulse 66 Temp 37.5 ??C (99.5 ??F) (Tympanic) Resp 20 Wt 56.7 kg (125 lb) SpO2 98% BMI 25.25 kg/m?? Physical Exam Skin: posterior left leg with small mobile mass Ortho: limited straight leg lift due to pt concern for pain Neuro: Lower extremities neurologically intact to soft touch and pinprick bilaterally. 5/5 strengthbilaterally. documented in this encounter Plan of Treatment Not on file documented as of this encounter Visit Diagnoses Diagnosis Chronic bilateral low back pain with left-sided sciatica- Primary Lipoma of left lower extremity documented in this encounter Discontinued Medications Medication Sig Discontinue Reason Start Date End Da te clindamycin (CLEOCIN) 300 mg capsuleIndications:Tooth pain Take 1 Capsule by mouth 3 times daily. 10/18/2022 11/27/2022 ibuprofen (MOTRIN) 200 mg tablet 2-3 tab(s) orally every 6 hours prn 11/27/2022 documented as of this encounter Care Teams Urgent Care Nurse Practitioner Relationship Specialty Start Date End Date Ananda Black MD [address] [place] [phone] PCP - General 02/13/19 documented as of this encounter
--- OUTSIDE RECORDS SUMMARY | 2024-08-07 14:59 | XMS_ITS | Encounter Summary ---
Author Organization [facility] Address [address] [place] [address] Care Team Providers Care Rn Sane Name Role Phone Ananda Black MD Primary Care Provider [phone]- [phone] Reason for Visit * Reason Comments Dental Pain Patient reports two days of dental pain (Bottom left molar). Patient does not have a dentist at this time. Encounter Details Date Type Department Care Team (Late st Contact Info) Description 10/18/2022 10:15 EDT [facility] [address] [place] [address] [id number] Dena Murrell PA-C [address] [place] [address] [address] [place], [place] [id number] Tooth pain (Primary Dx) Social History Tobacco Use Types [...] Sign Reading Time Taken Comments Blood Pressure 118/82 10/18/2022 1010 EDT Pulse 55 10/18/2022 1010 EDT Temperature 36.7 ??C (98 ??F) 10/18/2022 1010 EDT 400 mg Tylenol @ 9:30am Respiratory Rate 18 10/18/2022 1010 EDT Oxygen Saturation 98% 10/18/2022 1010 EDT Inhaled Oxygen Concentration - - Weight [...] 07/17/2018 14:23 EST documented in this encounter Patient Instructions * Attachments The following attachments cannot be sent through Care Everywhere. * Tooth and Gum Pain (Faroese) documented in this encounter Ordered Prescriptions Prescription Sig Dispense Quantity Refills Last Filled Start Date End Date clindamycin (CLEOCIN) 300 mg capsuleIndications :Tooth pain Take 1 Capsule by mouth 3 times daily. 30 Capsule 10/18/2022 3 documented in this encounter Progress Notes * Sacha Wallace, KAREN - 10/18/2022 1015 EDT CC/HPI: Patient reports two days of dental pain (Bottom left molar). Patient does not have a dentist at this time. Covid Screening: In the last 72 hours, has the patient had: New or unusual cough, shortness of breath, new nasal congestion, sore throat, fever, chills, body aches, or new loss of taste or smell: No In the past 10 days, has the patient had a positive Covid test OR a confirmed close Covid exposure (<6ft for > 15mins in 24hr period)? (if yes, assign to [facility], regardless of vaccination status)-No PCP: Ananda WALLACE RN 10/18/2022 10:07 * Dena Murrell PA-C - 10/18/2022 1015 EDT [facility] Chief Complaint(s): Dental Pain (Patient reports two days of dental pain (Bottom left molar). Patient does not have a dentist at this time.) HPI: Patient reports pain about the left lower molar, (this is the same tooth that she was seen previously for an express care back in 2021-previous note was reviewed), no fevers, patient no longer has a dentist, she was trying since the previous visit to get the tooth repaired/looked into, then she wasdischarged from the practice from her dentist, she is otherwise well, patient reports the discomfort is about the gums and underneath the tooth, has taken some anti-inflammatories ROS: Review of Systems Constitutional: Negative for fever. HENT: Tooth pain, left lower molar Objective: Examination: Vitals: BP 118/82 (BP Cuff Location: Left arm, BP Patient Position: Sitting, BP Cuff Sizes: Adult, regular) Pulse 55 Temp 36.7 ??C (98 ??F) (Oral) Comment: 400mg Tylenol @ 9:30am Resp 18 LMP 09/11/2022 SpO2 98% Physical Exam Vitals reviewed. Constitutional: General: She is not in acute distress. Appearance: She is not ill-appearing. HENT: Mouth/Throat: Mouth: Mucous membranes are moist. Comments: Patient points to the low or left terminal molar as area of discomfort, there does not appear to be any swelling, patient denies any discomfort with percussion on the molars with the end ofa tongue blade, no obvious swelling about the tooth or the face/cheek, left first molar left lower jaw has a filling in it that appears to be in good repair, does not appear to be any filling on the terminal molar of the left lower jaw, although it is possible there could be a composite filling on the occlusive surface Neurological: Mental Status: She is alert. Procedures Assessment & Plan: 1. Tooth pain - clindamycin (CLEOCIN) 300 mg capsule; Take 1 Capsule by mouth 3 times daily. Dispense: 30 Capsule; Refill: 0 Possible there could be an early apical abscess, discussed with patient that express care does not the capability to do any dental x-rays, patient was given a list of area dentists, discussed with patient the tooth should be evaluated by dentist CHELY, will treat with clinda due to patient allergy and the possibility of a periapical abscess that cannot be further evaluated here in [facility], discussed with patient the clindamycin may have a little bit of effect or perhaps none, she can continue with olts-owl-[id number] anti-inflammatories, patient verbalized understanding and agrees to POC, further information and home care recommendations was given in the AVS An appropriate medical screening examination was performed. The patient was assessed prior to discharge and deemed stable for discharge. documented in this encounter Plan of Treatment Not on file documented as of this encounter Visit Diagnoses Diagnosis Tooth pain- Primary Unspecified disorder of the teeth and supporting structures documented in this encounter Care Teams Rn Sane Relationship Specialty Start Date End Date Ananda Black MD [address] [place] [id number] PCP - General 02/13/19 documented as of this encounter
--- OUTSIDE RECORDS SUMMARY | 2024-08-07 14:59 | XMS_ITS | Encounter Summary ---
Author Organization [facility] Address [address] [place] [address] Care Team Providers Care Plc Technician Name Role Phone Ananda Black MD Primary Care Provider [phone]- [phone] Reason for Visit * Reason Onset Date Comments Medication Questions 08/07/2023 Encounter Details Date Type Department Care Team (Late st Contact Info) Description 08/07/2023 Telephone [facility] - [address] [address] Ananda Black MD [address] [place] [phone] Medication Questions Social History Tobacco Use Types Packs/Day Years [...] encounter Miscellaneous Notes * Telephone Encounter - Loren Peñaloza RN - 08/16/2023 0821 EST Detailed message left, with instructions to call back with any questions or concerns. * Telephone Encounter - Ananda Black MD - 08/16/2023 0737 EST Okay to use TENS unit. * Telephone Encounter - Loren Peñaloza RN - 08/16/2023 0721 EST Please see message below and advise. * Telephone Encounter - Tsering Llamas - 08/15/2023 1600 EST Patient called to ask Dr. Black if it is okay to use a wireless TENS unit. The instructions say to check with your doctor before using if you are taking any medication. * Telephone Encounter - Ananda Black MD - 08/07/2023 1649 EST Noted. * Telephone Encounter - rIene Black RN - 08/07/2023 1628 EST Pt had an OV with Dr. Black on 08/01/2023. OV notes: 1. Chronic bilateral low back pain with bilateral sciatica gabapentin (NEURONTIN) 300 mg capsule; Take 1 Capsule by mouth 3 times daily. Dispense: 90 Capsule;Refill: 2 - Up titration Neurontin as tolerated. Start with 1 a day then twice a day then 3 times daily. Spoke to the patient over the phone. Pt said that after the visit with Dr. Black- she has been taking once daily of her gabapentin and it seems like its not effective for her- adv that she can increase it twice daily then after a few weeks and she feels like she still having more pain she can titrate up to 3 times daily.- pt agreed. Routing to the PCP as an Fyi * Telephone Encounter - Wilner Martin - 08/07/2023 1511 EST Tasking her Gabapentin, 1 capsule daily. It has not been very effective so she was wondering at what point she should move to 2 x daily and then if necessary, 3x. Hoping a nurse will reach out and give her some guidance. Please call the home phone this afternoon. documented in this encounter Plan of Treatment Not on file documented as of this encounter Visit Diagnoses Not on filedocumented in this encounter Care Teams Plc Technician Relationship Specialty Start Date End Date Ananda Black MD [address] [place] [phone] PCP - General 02/13/19 documented as of this encounter
--- OUTSIDE RECORDS SUMMARY | 2024-08-07 14:59 | XMS_ITS | Encounter Summary ---
Author Organization [facility] Address [address] [place] [address] Care Team Providers Care Wireless Sales Representative Name Role Phone Ananda Black MD Primary Care Provider [phone]- [phone] Reason for Visit * Reason Onset Date Comments Medication Questions 12/03/2023 Encounter Details Date Type Department Care Team (Late st Contact Info) Description 12/03/2023 Telephone [facility] - [address] [address] Ananda Black MD [address] [place] [phone] Medication Questions Social History Tobacco Use [...] Telephone Encounter - Christin Fermin RN - 12/03/2023 1040 EDT Outgoing call to pt to relay message below from Ananda Black MD. Pt relayed information back to this RN and verbalized understanding. CHRISTIN FERMIN RN 12/03/2023 10:40 * Telephone Encounter - Ananda Black MD - 12/03/2023 1003 EDT Patient can down titrate her medication on a weekly basis. For 1 week Neurontin 300 mg twice daily,then 1 week 300 mg daily, then 1 week 300 mg every other day. Then she can stop. * Telephone Encounter - Christin Fermin RN - 12/03/2023 0939 EDT Ananda Black MD - pt has been on gabapentin 300mg TID. Do you have titration recommendations for pt to discontinue this medication? CHRISTIN FERMIN RN 12/03/2023 9:39 * Telephone Encounter - Vanessa Peñaloza - 12/03/2023 0910 EDT Gabapentin for a few months, and she would like to come off it. She needs to know how to safely do this. Please call if before 1 PM: [phone] After 1PM please call [phone] documented in this encounter Plan of Treatment Not on file documented as of this encounter Visit Diagnoses Not on filedocumented in this encounter Care Teams Wireless Sales Representative Relationship Specialty Start Date End Date Ananda Black MD [address] [place] [phone] PCP - General 02/13/19 documented as of this encounter
--- OUTSIDE RECORDS SUMMARY | 2024-08-07 14:59 | XMS_ITS | Encounter Summary ---
Author Organization 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 Name Role Phone Ananda Black MD Primary Care Provider [phone] Reason for Referral * Consult (Routine/Next Available) - Authorization Not Required Specialty Diagnoses / Procedures [facility] Diagnoses Acute bilateral low back pain with bilateral sciatica Pepe Hoffman MD Phone: tel: fax: [facility] [address], [address] [place] [address] Phone: tel: fax: Referral ID Status Reason Start Date Expiration Date Visits Requested Visits Authorized [id number] Authorization Not Required Specialty Services Required 3 1 1 Question Answer Reason for Request: bilateral sciatica Reason for Visit * Reason Comments Back Pain Patient reports low back pain x 1 month. Mid spinal and radiates to the sides and down her legs. Encounter Details Date Type Department Care Team (Late st Contact Info) Description 09/11/2022 12:34 EST - 09/11/2022 15:59 EST Emergency Health system Emergency Department [address], [place] [id number] Pepe Hoffman MD [address] [place] [address] Cash Shanks MD [address] [place] [phone] Acute bilateral low back pain with bilateral sciatica (Primary Dx) Discharge Disposition: Home or Self Care Social [...] 12:05 EST documented as of this encounter Last Filed Vital Signs Vital Sign Reading Time Taken Comments Blood Pressure 104/63 09/11/2022 1530 EST Pulse 60 09/11/2022 1203 EST Temperature 36.6 ??C (97.8 ??F) 09/11/2022 1203 EST Respiratory Rate 18 09/11/2022 1203 EST Oxygen Saturation 97% 09/11/2022 1530 EST Inhaled Oxygen Concentration - - Weight 57.2 kg (126 lb) 09/11/2022 1203 EST Height 149.9 cm (4' 11) 09/11/2022 1203 EST Body Mass Index 25.45 09/11/2022 1203 EST documented in this encounter Functional Status * [...] 07/17/2018 14:23 EST documented in this encounter Discharge Instructions * Discharge Instructions* Pepe Hoffman MD - 09/11/2022 14:55 EST You were seen and evaluated in the Emergency room today for back pain. We found no dangerous cause for your back pain that requires emergency surgery or intervention. There are no concerning signs to suggest infection, broken bones or other problems that need immediate action, so the best thing to do is to treat your symptoms and see how they progress. Even herniated discs often resolve with just symptomatic therapy and thus can save you the need for surgery. Expect that low back pain often takes 1-2 weeks and sometimes even 4 weeks or more to resolve. We generally don't consider MRIs until about 6 weeks of pain because at that point findings on MRI may change our actions such as considering surgery. Return immediately for any numbness in your private area. Return immediately if you cannot feel the toilet paper when you wipe. Return immediately for fevers or chills. Return immediately for incontinence (leaking urine or stool without meaning to). Test your nerve function twice a day: Take 1-2 steps on your heels. Then take 1- 2 steps on your toes. Pain while performing this activity is expected. However, return if you cannot perform this activity because of weakness (if you simply can't make your legs do it). If you use tobacco, even a small amount, please concentrate on stopping your tobacco use! Nicotine has a direct effect on the healing ability of our spinal discs! For symptoms, there are several steps you can take: A] Take ibuprofen or acetaminophen as needed for the pain. B] Ice or heat, whichever feels better. C] It is reasonable to try acupuncture, massage therapy, or chiropractic therapy. D] Lidocaine patches, available over the counter under the brand name Salonpas, can be helpful. Apply directly to the location of your pain and leave in place for 24 hours. Do not lay in bed all day with your back pain - staying still will cause the muscles to tighten & spasm more making your pain worse. Moving about gently but frequently will help you heal faster. documented in this encounter Medications at Time of Discharge ibuprofen (MOTRIN) 200 mg tablet 2-3 tab(s) orally every 6 hours prn 3 methocarbamoL (ROBAXIN) 500 mg tabletIndications:L umbar radiculopathy Take 1 to 2 tablets by mouth before bed as needed for pain and muscle spasm. 10 Tablet 09/08/2022 3 methylPREDNISolone (MEDROL) 4 mg tabletIndications:L umbar radiculopathy By mouth: Take 6 tabs day 1; 5 tabs day 2; 4 tabs day 3; 3 tabs day 4; 2 tabs day 5; and 1 tab day 6 21 Tablet 09/08/2022 3 documented as of this encounter Discharge Disposition Disposition Code Departure Means Destination Home or Self Half-Way documented in this encounter ED Notes * Cash Shanks MD - 09/11/2022 9499 EST Assumed care at change of shift from Dr. Hoffman. Patient with worsening bilateral radiculopathy without significant neural findings. MRI came back with no significant change from prior. Discussed with radiology. Discussed results with patient. Referrals in place for Dr. Hoffman and [facility]. Discharged in stable condition per Dr. Hoffman's previous discharge instructions * Kan Davis RN - 09/11/2022 1441 EST Pt in MRI * Kan Davis RN - 09/11/2022 1331 EST MRI screening form completed * Pepe Hoffman MD - 09/11/2022 1245 EST Emergency Department Visit Medical Decision Making 22-year-old female presents for evaluation of what seems to be subacute atraumatic low back pain with bilateral radicular symptoms. Here in the emergency department she is awake and alert. Does not seem to have any focal neurologicdeficit-intact motor function with 5 out of 5 strength with hip flexion, knee flexion and extension, ankle plantarflexion and dorsiflexion though the majority of these movements do cause pain in her lower back. Intact sensation to light touch. She does not report any urine or stool incontinence or decrease sensation in her groin area. Her only red flag symptom is bilateral pain. For this reason I think that obtaining an MRI to evaluate for central disc bulge is indicated. She does not have any other infectious symptoms such as fevers, chills, history of injection drug use or other high risk behaviors or risk factors that would put her at increased risk for epidural abscess, osteomyelitis or discitis and my suspicion for this is low. We will treat empirically with oral Tylenol, ibuprofen, oxycodone, Lidoderm patch. Patient will likely be signed out to oncoming colleague pending results of MRI. If there is no evidence of cauda equina anticipate discharge to follow- up with spine center. Referral will be placed. She already has a referral to physical therapy and can also continue to follow-up with her primary care provider. Patient was signed out to oncoming colleague pending results of MRI Medical Decision Making Acute bilateral low back pain with bilateral sciatica: acute illness or injury Amount and/or Complexity of Data Reviewed Labs: ordered. Radiology: ordered. Risk OTC drugs. Prescription drug management. Final diagnoses: None Disposition: No disposition on file Chief complaint: Back pain HPI Harleen Luna is a 22 y.o. female with history of back pain followed by [facility] as recently as December 2020 but no visits since then who presents to the ED for 1 month of back pain. In the past, symptoms were predominantly left-sided, radiate into the left buttock and lateral thigh but never below the knee. She reports that pain worsened with prolonged standing. Improved with laying down Today, she reports ongoing pain for several days now. Went to urgent care on Sunday and was prescribed a course of oral steroids and a muscle relaxer. She says that her pain has not improved much. She now endorses symptoms in both sides. Says that the pain radiates from her lower back just above her buttock into both thighs and down into both toes. She denies fevers, chills, history of injection drug use, no history of immunocompromise. No reported trauma. Hurts to stand for more than 5 minutes at a time. No previous surgeries on her back. Surgery was considered when she was having more issues about 2 years ago but she improved with physical therapy and so she decided to defer surgery. Symptoms feel similar but slightly worse than before and now are in both legs which was not the case previously. History was provided by: Patient, chart review Records reviewed include: Prior visits to spine center discussing low back pain Patient's pertinent PMH, FH, SH were reviewed and edited as necessary. Nursing notes reviewed. A medical screening exam was performed. Physical Exam BP 128/70 Pulse 60 Temp 36.6 ??C (97.8 ??F) (Oral) Resp 18 Ht (!) 149.9 cm (59) Wt 57.2 kg (126 lb) SpO2 99% BMI 25.45 kg/m?? Physical Exam Vitals and nursing note reviewed. Constitutional: General: She is not in acute distress. Appearance: She is well-developed. HENT: Head: Normocephalic and atraumatic. Eyes: General: Right eye: No discharge. Left eye: No discharge. Conjunctiva/sclera: Conjunctivae normal. Pupils: Pupils are equal, round, and reactive to light. Neck: Trachea: No tracheal deviation. Cardiovascular: Rate and Rhythm: Normal rate and regular rhythm. Pulmonary: Effort: Pulmonary effort is normal. No respiratory distress. Abdominal: General: There is no distension. Musculoskeletal: General: Normal range of motion. Cervical back: Normal range of motion. Skin: General: Skin is warm and dry. Findings: No rash. Neurological: Mental Status: She is alert and oriented to person, place, and time. Motor: No abnormal muscle tone. Comments: Awake and alert Face is symmetric, pupils are equal round and reactive to light.Speech is normal Motor and sensory function intact in the lower extremities as tested: L3, L4 - 5/5 strength with knee extension L4, L5 - 5/5 strength with ankle dorsiflexion L5 - 5/5 Strength with dorsiflexion of great toe S1 - 5/5 Strength with plantarflexion of the ankle Sensation is intact to light touch throughout the lower extremities bilaterally. Procedures Procedures documented in this encounter Plan of Treatment Scheduled Referrals Name Type Priority Associated Diagnoses Order Schedule AMB CONS/FOLLOW UP ORTHOPEDICS - [facility] Outpatient Referral Routine/Next Available Acute bilateral low back pain with bilateral sciatica Expected: 09/18/2022 (Approximate), Expires: 09/11/2023 documented as of this encounter Procedures Procedure Name Priority Date/Time Associated Diagnosis Comments MR LUMBAR SPINE WO CONTRAST STAT 09/11/2022 14:58 EST POCT TEST, VISUAL READ Routine 09/11/2022 13:24 EST documented in this encounter Results * MR LUMBAR SPINE WO CONTRAST (09/11/2022 14:58 EST) Anatomical Region Laterality Modality Spine Magnetic Resonan ce 09/11/2022 15:1 8 EST Impressions 09/11/2022 15:18 EST 1. Multilevel lumbar spine degenerative disc and facet disease. Findings include and L5/S1 disc bulge with a superimposed central/right paracentral disc extrusion with some inferior migration of disc material. Disc material appears to slightly abut the S1 nerve roots as they and to the lateral recesses within the mildly narrowed spinal canal, right greater than left. There is also mild bilateral neural foraminal narrowing at this level. Additional findings as discussed above. Narrative 09/11/2022 15:18 EST INDICATION: bilateral sciatica symptoms; Lumbar radiculopathy, symptoms persist with conservative treatment; bilateral sciatica symptoms; bilateral sciatica TECHNIQUE: ??Multiplanar multisequence MR imaging of the lumbar spine was obtained without contrast. COMPARISON: 12/02/2020. FINDINGS: The lumbar spine is well aligned. The lumbar vertebral bodies maintain normal height. The paraspinal soft tissues are normal in appearance. The tip of the conus medullaris terminates at the L1 vertebral body level. At the L5/S1 level, there is a disc bulge with a superimposed central/right paracentral disc extrusion with some inferior migration of disc material, which appears to abut the S1 nerve roots as they enter the lateral recesses within the mildly narrowed spinal canal, right greater than left (series 10 image 11). There is degenerative facet disease and mild bilateral neural foraminal narrowing. At the L4/5 level, the spinal canal and neural foramen are patent. At the L3/4 level, spinal canal and neural foramen are patent. At the L2/3 level, the spinal canal and neural foramen are patent. At the L1/2 level, the spinal canal and neural foramen are patent. Procedure Note Jaret Sandoval MD - 09/11/2022 INDICATION: bilateral sciatica symptoms; Lumbar radiculopathy, symptomspersist with conservative treatment; bilateral sciatica symptoms;bilateral sciatica TECHNIQUE: Multiplanar multisequence MR imaging of the lumbar spine wasobtained without contrast. COMPARISON: 12/02/2020. FINDINGS: The lumbar spine is well aligned. The lumbar vertebral bodiesmaintain normal height. The paraspinal soft tissues are normal inappearance. The tip of the conus medullaris terminates at the L1 vertebralbody level. At the L5/S1 level, there is a disc bulge with a superimposedcentral/right paracentral disc extrusion with some inferior migration ofdisc material, which appears to abut the S1 nerve roots as they enter thelateral recesses within the mildly narrowed spinal canal, right greaterthan left (series 10 image 11). There is degenerative facet disease andmild bilateral neural foraminal narrowing. At the L4/5 level, the spinal canal and neural foramen are patent. At the L3/4 level, spinal canal and neural foramen are patent. At the L2/3 level, the spinal canal and neural foramen are patent. At the L1/2 level, the spinal canal and neural foramen are patent. IMPRESSION 1. Multilevel lumbar spine degenerative disc and facet disease. Findingsinclude and L5/S1 disc bulge with a superimposed central/right paracentraldisc extrusion with some inferior migration of disc material. Discmaterial appears to slightly abut the S1 nerve roots as they and to thelateral recesses within the mildly narrowed spinal canal, right greaterthan left. There is also mild bilateral neural foraminal narrowing at thislevel. Additional findings as discussed above. us Pepe B Potter MD IMG MRI ORDERABLES Final Resu lt * POCT TEST, VISUAL READ (09/11/2022 13:24 EST) Test, Urine, POC Negative Negative Control Line Present Yes Background Clear? Yes Urine URINE / Unknown 09/11/2022 1 3:24 EST us Pepe Hoffman MD POINT OF CARE TEST ORDERABLES Final Result documented in this encounter Visit Diagnoses Diagnosis Acute bilateral low back pain with bilateral sciatica- Primary documented in this encounter Administered Medications Inactive Administered Medications - up to 3 most recent administrations Medication Order MAR Action Action Date Dose Rate Site acetaminophen (TYLENOL) tablet 975 mg 975 mg (rounded from 1,000 mg), oral, NOW X1, 1 dose, On Sun09/11/22 at 1345, Routine Given 09/11/2022 13:18 EST 975 mg ibuprofen (MOTRIN) tablet 800 mg 800 mg, oral, NOW X1, 1 dose, On Sun09/11/22 at 1345, Routine Given 09/11/2022 13:21 EST 800 mg lidocaine 5 % (LIDODERM) patch 1 Patch 1 Patch, transdermal, Administer over 12 Hours, DAILY, First dose on Sun09/12/22 at 0900, Until Discontinued, Routine oxyCODONE (ROXICODONE) immediate release tablet 5 mg 5 mg, oral, NOW X1, 1 dose, On Sun09/11/22 at 1345, STAT Given 09/11/2022 13:19 EST 5 mg documented in this encounter Active and Recently Administered Medications Times are shown in EST. Scheduled Medication Order 2022 09/10/2022 09/11/2022 acetaminophen (TYLENOL) tablet 975 mg (COMPLETED) 975 mg (rounded from 1,000 mg), oral, NOW X1, 1 dose, On Sun09/11/22 at 1345, Routine 1318 (Given - Provid er: Kan Davis RN) ibuprofen (MOTRIN) tablet 800 mg (COMPLETED) 800 mg, oral, NOW X1, 1 dose, On Sun09/11/22 at 1345, Routine 1321 (Given - Provid er: Kan Davis RN) lidocaine 5 % (LIDODERM) patch 1 Patch 1 Patch, transdermal, Administer over 12 Hours, DAILY, First dose on Sun09/12/22 at 0900, Until Discontinued, Routine oxyCODONE (ROXICODONE) immediate release tablet 5 mg (COMPLETED) 5 mg, oral, NOW X1, 1 dose, On Sun09/11/22 at 1345, STAT 1319 (Given - Provid er: Kan Davis RN) documented in this encounter Orders Medications Ordered That Jordin ht Not Have Been Administered Count Last Ordered Date First Ordered Date lidocaine 5 % (LIDODERM) patch 1 Patch 1 documented in this encounter Care Teams Professional Wrestler Relationship Specialty Start Date End Date Ananda Black MD [address] [place] [phone] PCP - General 02/13/19 documented as of this encounter
--- OUTSIDE RECORDS SUMMARY | 2024-08-07 14:59 | XMS_ITS | Encounter Summary ---
Author Organization [facility] Address [address] [place] [address] Care Team Providers Care Advertiser Name Role Phone Ananda Black MD Primary Care Provider [phone] Reason for Visit * Reason Comments Back Pain Occ lower extremity radiculopathy L>R * Consult, Test and Treat (Routine/Next Available) - Closed Specialty Diagnoses / Procedures Referred By Rosa sparks Referred To Contact Pain Medicine Diagnoses Chronic bilateral low back pain with bilateral sciatica Donna Moreno PA-C Phone: tel: fax: [facility] [address] [place] [address] Phone: tel: fax: Referral ID Status Reason Start Date Expiration Date V isits Requested Visits Authorized [id number] Closed Specialty Services Required 09/19/2023 1 1 Encounter Details Date Type Department Care Team (Latest Contact Info) Description 10/15/2023 9:[address] [facility] [address] [place] [address] Selina Prieto MD [address] [place] [address] [address] [place] [address] Lumbar radiculopathy (Primary Dx) Social History Tobacco [...] Sign Reading Time Taken Comments Blood Pressure 122/74 10/15/2023 0936 EDT Pulse 64 10/15/2023 0936 EDT Temperature 35.4 ??C (95.7 ??F) 10/15/2023 0859 EDT Respiratory Rate 20 10/15/2023 0936 EDT Oxygen Saturation 99% 10/15/2023 0859 EDT Inhaled Oxygen Concentration - - Weight [...] documented in this encounter Patient Instructions * Patient Instructions* Priscilla Oakley RN - 10/15/2023 9:30 EDT [facility] [address] [address] Patient Instructions You have had your lumbosacral Epidural Steroid Injection. The purpose of this procedure has been toplace medication which may help relieve your pain. Steroid may be used to decrease the swelling andnerve irritation which may be causing your pain. The following information should help you over the next few days regarding what you may expect. Please take it easy for the rest of today. DO NOT drive a car for the remainder of the day. If you feel sore where the needle(s) entered for the block or develop a flare-up of pain over the next few days, please use ice on the area. You may leave the ice on for up to 20 minutes at a time. Do not use heat, as this may cause swelling. As long as your primary doctor has indicated no restrictions, you may take a mild pain medicine, such as acetaminophen (Tylenol), ibuprofen (Advil, Nuprin, Motrin IB, etc.) or aspirin, if needed. The steroid injection usually takes a few days to become effective. On average, you may notice somerelief in 3 -5 days. However, it may take up to 10 - 14 days to know whether the injection was helpful. If the block causes numbness/weakness, it should wear off within a few hours. If the area that the needle(s) were inserted becomes hot, red, swollen, or increasingly tender, or if you develop a fever (100.5 or greater) or chills along with these symptoms, please call our office immediately. If you develop increasingly severe back pain, continued numbness or weakness of the legs or changesin your bladder or bowel functions, please call our office immediately. Instructions for follow-up If you have any questions about your block, please call Patient Education Topic: Method: Handout and Verbal Taught to: Patient Barriers: None Outcomes: independent and verbalized understanding Priscilla Huertas RN documented in this encounter Progress Notes * Era Gómez RN - 10/15/2023 3556 EDT [facility] Rooming Note Does patient have a Dock Manager? yes Is patient NPO? (Solids since midnight & liquids for 4 hrs) N/A Blood Thinners: Is patient on Blood Thinners? Stopped meloxicam 7 days ago If yes, taking? If stopped, who authorized stopping? Related comments: Infections: Any recent infections, fever of illnesses? no If on antibiotics, is it 7-10 days past the date of completion of antibiotics? : (for females of child-bearing age) Is there a chance current ? no Do you have any type of implanted device? no Other: * Priscilla Oakley RN - 10/15/2023 0930 EDT ATTENTION: An active Time-Out initiated by the Provider requires that all members of the proceduralsupport team are present and must stop activity until the Time-Out is completed. The Nurse will have in their possession the signed consent to compare to the verbal verification ofthe items below: [Verified] Patient identifier #1: Full Name [Verified] Patient Identifier #2: Date of [Verified] No allergy to sterile prep products, steroids, local anesthetics, band-aids, or contrastdye [Verified] Full team and patient verification of location of pain and procedure to be performed [Verified] Site marked (Region and/or Laterality) [Verified] Presence of Implantable Devices [Verified] Safety devices are in place (Grounding pad, X-rays available, and/or Magnet) [Verified] Consent signed and matches planned procedure and site marking [Verified] Active verbal communication by the entire procedural team was completed. * Selina Prieto MD - 10/15/2023 0930 EDT Patient Name: Harleen Luna : 2000 Date of Service: 10/15/23 Chief Complaint: Chief Complaint Patient presents with Back Pain Occ lower extremity radiculopathy L>R Referring provider: Donna Moreno Svp Marketing: Selina Prieto MD Sorter Lumber Straightener: None Procedure: Lumbar epidural steroid injections at L5-S1 Interval History: Patient presents today regarding their chronic back and leg paim Details of the current complaint as described in the consultation notes from Donna Moreno's last encounter and augmented as necessary including pain onset, location, course, workup, therapeutic attempts, and associated functional limitations were reviewed/confirmed with the patient. Patient currently denies any progressive weakness, unexplained fever, new trauma, or unexplained weight loss. Thepatient denies recent changes in the character, quality, or distribution of the pain. They deny newassociated symptoms such as changes in strength, sensation, or bladder control. Injection History: 10/15/2023: L5-S1 CHASIDY Diagnostic studies: See EMR for details, personally reviewed by me for this encounter. Physical Exam: Vitals: BP 141/80 (BP Cuff Location: Left arm, BP Patient Position: Sitting, BP Cuff Sizes: Adult, long) Pulse 51 Temp (!) 35.4 ??C (95.7 ??F) (Tympanic) Resp 16 SpO2 99% General: Patient is alert and oriented, no acute distress Lungs: Symmetric chest rise, no evidence of labored breathing Skin: Clear, dry, and intact without rashes, bruises or petechiae noted in the affected area Musculoskeletal/Neuro: Sit-stand transfers independently Assessment: 1. Lumbar radiculopathy Plan: Ms. Harleen Luna is a 23 y.o. female that presents to the pain clinic to undergo lumbar epidural steroid injection. All risks, benefits, and alternatives were thoroughly explained to Ms. Harleen Luna who verbally communicated understanding of the management plan. I have independently reviewed the relevant imaging and plan to proceed with a therapeutic LESI Followup: with KOLE Moreno PROCEDURE: The patient gave informed written consent to proceed with this procedure following a detailed discussion of the risks and benefits associated with epidural steroid injection in the lumbar spine including but not limited to infection, bleeding, headache, intrathecal injection, allergic reaction, further exacerbation of current symptoms, neurological injury, and lack of efficacy. The patient was then placed in the prone position, the skin over the lumbar area was prepped with chlorhexidine, and the site was marked and draped with sterile towels. Strict sterile technique was maintained throughout the procedure. A timeout was performed with full staff present to identify the patient, verify theprocedure being performed, and review allergies. Fluoroscopy was used to visualize the L5-S1 disc space. The skin and subcutaneous tissue over this level was anesthetized by infiltration of 1% lidocaine. An 18 gauge Tuohy needle was inserted under fluoroscopic guidance by coaxial technique and advanced towards the interspace. Loss of resistance with normal saline was used to identify the epidural space. There was no paresthesia. After negative aspiration, 1 cc Omnipaque contrast dye was injected under live fluoroscopy demonstrating a typical epidural spread with no evidence of intravascular or intrathecal injection. After negative aspiration, 80 mg Depo- Medrol in 1 cc 1% lidocaine was injected. The needle was then flushed and withdrawn. The patient tolerated the procedure well, there were no apparent complications, and she was discharged in stable condition. Written and verbal discharge instructions were reviewed with the patient prior to discharge. Selina Prieto MD 10/15/2023 9:36 * Flower Mason MA - 10/15/2023 0930 EDT Oswestry Low Back Disability Questionnaire Pain Intensity Pain killers give very little relief from pain (4) Personal Care (e.g. Washing, Dressing) I can look after myself normally but it causes extra pain (1) Lifting Pain prevents me from lifting heavy weights off the floor, but I can manage if they are conveniently positioned, i.e. on a table (2) Walking Pain prevents me walking more than one mile (1) Sitting Pain prevents me from sitting more than ?? hour (3) Standing Pain prevents me from standing for more than 30 minutes (3) Sleeping I can sleep well only by using medication (1) Social Life Pain has no significant effect on my social life apart from limiting my more energetic interests, i.e. dancing, etc. (2) Travelling I can travel anywhere but it gives me extra pain (1) Employment/Homemaking I can perform most of my homemaking/ job duties, but pain prevents me from performing more physically stressful activities (e.g. lifting, vacuuming) (2) documented in this encounter Plan of Treatment Not on file documented as of this encounter Visit Diagnoses Diagnosis Lumbar radiculopathy- Primary Thoracic or lumbosacral neuritis or radiculitis, unspecified documented in this encounter Administered Medications Inactive Administered Medications - up to 3 most recent administrations Medication Order MAR Action Action Date Dose Rate Site Iohexol (OMNIPAQUE 180) injection 1 mL 1 mL, neural-axial, NOW X1, 1 dose, On Sun10/15/23 at 1000, Routine Given by Other 10/15/2023 9:35 EDT 1 mL methylPREDNISolone ACETATE (DEPO-MEDROL) injection 80 mg 80 mg, neural-axial, NOW X1, 1 dose, On Sun10/15/23 at 1000, Routine Given by Other 10/15/2023 9:36 EDT 80 mg documented in this encounter Care Teams Advertiser Relationship Specialty Start Date End Date Aannda Black MD [address] [place] [id number] PCP - General 02/13/19 documented as of this encounter
--- OUTSIDE RECORDS SUMMARY | 2024-08-07 14:59 | XMS_ITS | Encounter Summary ---
Author Organization [facility] Address [address] [place] [address] Care Team Providers Care Drugless Physician Name Role Phone Ananda Black MD Primary Care Provider [phone] Encounter Details Date Type Department Care Team (Late st Contact Info) Description 01/31/2024 14:[address] [facility] - Outpatient Phlebotomy Drawing [address] [place] [address] Lab, [facility] Phle[facility]omy Fatigue, unspecified type; Weakness generalized; Frequent headaches; Family history of thalassemia; Myalgia; Irregular bowel habits; Chronic left-sided low back pain without sciatica; Sensory disturbance; Need for hepatitis C screening test Social History Tobacco Use Types Packs/Day Years [...] Procedure Name Priority Date/Time Associated Diagnosis Comments SYPHILIS RPR SCREEN W/REFLEX Routine 01/31/2024 14:09 EDT Fatigue, unspecified type Weakness generalized Myalgia Sensory disturbance LYME AB SCREEN, IGG AND IGM Routine 01/31/2024 14:09 EDT Fatigue, unspecified type Weakness generalized Frequent headaches Myalgia SPEP WITH IMMUNOTYPING PERFORMABLE Routine 01/31/2024 14:09 EDT Fatigue, unspecified type Weakness generalized Frequent headaches Myalgia Sensory disturbance RHEUMATOID SCREEN/TITRE Routine 01/31/20 14:09 EDT Fatigue, unspecified type Weakness generalized Myalgia Sensory disturbance ANAPLASMA AND BABESIA TESTING BY PCR Routine 01/31/2024 14:09 EDT Fatigue, unspecified type Weakness generalized Frequent headaches Myalgia Sensory disturbance CCP ANTIBODIES Routine 01/31/2024 14:09 EDT Fatigue, unspecified type Weakness generalized Frequent headaches Sensory disturbance THYROID CASCADE Routine 01/31/2024 14:09 EDT Fatigue, unspecified type Weakness generalized Frequent headaches Myalgia VITAMIN D (25,OH) Routine 01/31/2024 14: 09 EDT Fatigue, unspecified type Weakness generalized Chronic left-sided low back pain without sciatica Frequent headaches Irregular bowel habits HEMOGLOBINOPATHY AND THALASSEMIA EVALUATION Routine 01/31/2024 14:09 EDT Fatigue, unspecified type Weakness generalized Family history of thalassemia Myalgia HEPATITIS C AB W REFLEX TO HCV RNA BY PCR Routine 01/31/2024 14:09 EDT Fatigue, unspecified type Weakness generalized Need for hepatitis C screening test DOUBLE STRANDED DNA ANTIBODY, IGG Routine 01/31/2024 14:09 EDT Fatigue, unspecified type Weakness generalized Frequent headaches Myalgia COMPLETE BLOOD COUNT AND DIFFERENTIAL Routine 01/31/2024 14:09 EDT Fatigue, unspecified type Weakness generalized Frequent headaches Family history of thalassemia SPEP WITH IMMUNOTYPING Routine 14:09 EDT Fatigue, unspecified type Weakness generalized Frequent headaches Myalgia Sensory disturbance HIV 1/2 ANTIGEN AND ANTIBODY, 4TH GENERATION Routine 01/31/2024 14:09 EDT Fatigue, unspecified type Weakness generalized Frequent headaches Myalgia C REACTIVE PROTEIN Routine 01/31/2024 14 :09 EDT Fatigue, unspecified type Weakness generalized Irregular bowel habits Myalgia ANTI NUCLEAR AB (MAYRA), IFA Routine 01/31/2024 14:09 EDT Fatigue, unspecified type Weakness generalized Myalgia QUANT BETA HCG, Add-On 01/31/2024 14:09 EDT Fatigue, unspecified type PROTEIN, TOTAL Routine 01/31/2024 14:09 EDT Fatigue, unspecified type Weakness generalized Frequent headaches Myalgia Sensory disturbance MAGNESIUM Routine 01/31/2024 14:09 EDT Fatigue, unspecified type Weakness generalized Frequent headaches Myalgia IRON Routine 01/31/2024 14:09 EDT Fatigue, unspecified type Weakness generalized Myalgia FERRITIN Routine 01/31/2024 14:09 EDT Fatigue, unspecified type Weakness generalized Myalgia VITAMIN B12 Routine 01/31/2024 14:09 EDT Fatigue, unspecified type Weakness generalized Myalgia CK Routine 01/31/2024 14:09 EDT Myalgia COMPREHENSIVE METABOLIC PANEL (CMP) Routine 01/31/2024 14:09 EDT Fatigue, unspecified type Weakness generalized Frequent headaches Myalgia documented in this encounter Results * QUANT BETA HCG, (01/31/2024 14:09 EDT) [facility] Beta HCG Quant, <5 <5 mIU/mL 02/03/2024 10:50 EDT [facility] Comment: NOTE: : Negative: Less than 5mIU/mL Indeterminant: Between 5 and 25 mIU/mL, recommend repeat testing in 48 hours Positive: Greater than 25 mIU/mL The results of this assay can be falsely lowered due to the consumption of Biotin. Blood VENOUS BLOOD / Unknown Venipuncture / Unknown 01/31/2024 14:09 EDT 01/31/2024 14:37 EDT Rima Corbett SEMIAUTOMATIC STITCHER OPERATOR CHEMISTRY & BLOOD GAS ORDERA BLES Final Result [facility] [address] [place] [address] * (ABNORMAL) SPEP WITH IMMUNOTYPING PERFORMABLE (01/31/2024 14:09 EDT) Pathologist [facility] Albumin % 68.5(H) 55.8 - 66.1 % 02/01/2024 15:53 EDT [facility] Albumin g/dL 4.5 3.6 - 5.2 g/dL 02/01/2024 15:53 T [facility] Alpha-1 % 3.7 2.9 - 4.9 % 02/01/2024 15:53 EDT [facility] Alpha-1 g/dL 0.20 0.15 - 0.40 g/dL 02/01/2024 15:53 [facility] Alpha-2 % 9.2 7.1 - 11.8 % 02/01/2024 15:53 [facility] Alpha-2 g/dL 0.60 0.50 - 1.00 g/dL 02/01/2024 15:53 [facility] Beta % 8.7 8.4 - 13.1 % 02/01/2024 15:53 [facility] Beta g/dL 0.60 0.60 - 1.20 g/dL 02/01/2024 15:53 [facility] Gamma % 9.9(L) 11.1 - 18.8 % 02/01/2024 15:53 [facility] Gamma g/dL 0.60 0.60 - 1.60 g/dL 02/01/2024 15:53 [facility] SPEP Comment No apparent monoclonal protein seen on serum electrophoresis 02/01/2024 15:53 [facility] Comment:See scanned/suppleme ntary report. Immunotyping , Serum Current Interpretation: Negative for monoclonal immunoglobulins. Reviewed by: Greg Vera MD 02/01/2024 1510 02/01/2024 15:53 [facility] Total Protein 6.5 6.3 - 8.2 g/dL 02/01/2024 15:53 [facility] Blood VENOUS BLOOD / Unknown Venipuncture / Unknown 01/31/2024 14:09 EDT 01/31/2024 14:37 EDT Rima PAIGE CHEMISTRY & BLOOD GAS ORDERA BLES Final Result [facility] [address] [place] [address] * PROTEIN, TOTAL (01/31/2024 14:09 EDT) Blood VENOUS BLOOD / Unknown Venipuncture / Unknown 01/31/2024 14:09 EDT 01/31/2024 14:37 EDT us Rima Galfetti SEMIAUTOMATIC STITCHER OPERATOR CHEMISTRY & BLOOD GAS ORDERA BLES Final Result Performing Organization Address [facility] Co de Phone Number [facility] [address] [place] [address] * HEPATITIS C AB W REFLEX TO HCV RNA BY PCR (01/31/2024 14:09 EDT) Hep C Antibody Negative Negative 01/31/2024 16:06 EDT [facility] Blood VENOUS BLOOD / Unknown Venipuncture / Unknown 01/31/2024 14:09 EDT 01/31/2024 14:37 EDT us Rima Soaresfetti SEMIAUTOMATIC STITCHER OPERATOR CHEMISTRY & BLOOD GAS ORDERA BLES Final Result Performing Organization Address [facility] Co de Phone Number [facility] [address] [place] [address] * RHEUMATOID SCREEN/TITRE (01/31/2024 14:09 EDT) Pathologist [facility] Rheumatoid Factor <8.6 <12.0 IU/mL 01/31/2024 21:44 EDT [facility] Blood VENOUS BLOOD / Unknown Venipuncture / Unknown 01/31/2024 14:09 EDT 01/31/2024 14:37 EDT us Rima Galfetti SEMIAUTOMATIC STITCHER OPERATOR CHEMISTRY & BLOOD GAS ORDERA BLES Final Result Performing Organization Address City/[facility]/ZIP Co de Phone Number [facility] [address], [place] [id number] * CCP ANTIBODIES (01/31/2024 14:09 EDT) Pathologist [facility] CCP Antibodies <2.5 <5.0 U/mL 02/02/2024 6:58 EDT [facility] Blood VENOUS BLOOD / Unknown Venipuncture / Unknown 01/31/2024 14:09 EDT 01/31/2024 14:37 EDT [facility] IMMUNOLOGY AND SEROLOGY ORDE RABELVIRA Final Result [facility] [address] [place] [address] * LYME AB SCREEN, IGG AND IGM (01/31/2024 14:09 EDT) Lyme Antibody, IgG Negative Negative 02/01/2024 10:35 EDT [facility] Lyme Antibody, IgM Negative Negative 02/01/2024 10:35 EDT [facility] Blood VENOUS BLOOD / Unknown Venipuncture / Unknown 01/31/2024 14:09 EDT 01/31/2024 14:37 EDT [facility] Chelle [facility] IMMUNOLOGY AND SEROLOGY ORDPam BRITT Final Result Performing Organization Address City/[facility]/ZIP Co de Phone Number [facility] [address] [place] [address] * ANAPLASMA AND BABESIA TESTING BY PCR (01/31/2024 14:09 EDT) Pathologist [facility] Anaplasma phagocytophilum Negative Negative 02/01/2024 11:53 EDT [facility] Babesia Species Negative Negative 11:53 EDT [facility] Blood VENOUS BLOOD / Unknown Venipuncture / Unknown 01/31/2024 14:09 EDT 01/31/2024 14:37 EDT Narrative [facility] - 02/01/2024 11:53 EDT This test was developed and its performance characteristics determined by [facility]. It has not been cleared or approved by the US Food and Drug Administration. FDA does not require this test to go through premarket FDA review. This test is used for clinical purposes. It should not be regarded as investigational or research. This laboratory is certified under the Clinical Laboratory Improvement Amendments (CLIA) as qualified to perform high complexity clinical laboratory testing. [facility] CHEMISTRY & BLOOD GAS ORDERA BLES Final Result Performing Organization Address [facility] Co de Phone Number [facility] [address] [place] [address] * DOUBLE STRANDED DNA ANTIBODY, IGG (01/31/2024 14:09 EDT) dsDNA Ab, IgG <22.0 <27.0 IU/mL 02/01/2024 12:26 EDT [facility] Comment: Negative: <27.0 IU/mL Indeterminate: 27.0 - 35.0 IU/mL Positive: >35.0 IU/mL Results were obtained with [employer]OX[employer] VMallA Flash dsDNA chemiluminescent immunoassay. Values obtained with different manufacturers' assay methods may not be used interchangeably. Blood VENOUS BLOOD / Unknown Venipuncture / Unknown 01/31/2024 14:09 EDT 01/31/2024 14:37 EDT [facility] IMMUNOLOGY AND SEROLOGY ORDE RABLES Final Result Performing Organization Address [facility] de Phone Number [facility] [address] [place] [address] * HIV 1/2 ANTIGEN AND ANTIBODY, 4TH GENERATION (01/31/2024 14:09 EDT) Pathologist [facility] HIV 1 and 2 Antibody/p24 Antigen, 4th Generation Negative Negative 01/31/2024 15:58 EDT [facility] Comment:If acute HIV-1 infec tion is suspected in a high risk patient, submit plasma specimen for HIV-1 RNA quantitation test. Blood VENOUS BLOOD / Unknown Venipuncture / Unknown 01/31/2024 14:09 EDT 01/31/2024 14:37 EDT [facility] IMMUNOLOGY AND SEROLOGY ORDE RABLES Final Result Performing Organization Address [facility] Co de Phone Number [facility] [address] [place] [id number] * SYPHILIS RPR SCREEN W/REFLEX (01/31/2024 14:09 EDT) Pathologist [facility] Rapid Plasma Reagin Screen (RPR) Nonreactive Nonreactive 02/07/2024 9:04 EDT [facility] Blood VENOUS BLOOD / Unknown Venipuncture / Unknown 01/31/2024 14:09 EDT 01/31/2024 14:37 EDT Cot[employer] SEMIAUTOMATIC STITCHER OPERATOR IMMUNOLOGY AND SEROLOGY ORDE RABLES Final Result [facility] [address] [place] [address] * HEMOGLOBINOPATHY AND THALASSEMIA EVALUATION (01/31/2024 14:09 EDT) Pathologist [facility] Hemoglobin A 97.2 96.7 - 97.8 % 02/01/2024 15:26 EDT [facility] Hemoglobin A2 2.8 2.2 - 3.2 % 02/01/2024 15:26 EDT [facility] Comment:Hemoglobin A2 levels may be decreased in iron deficiency. Hemoglobinopathy Interpretation Interpretation : No abnormal hemoglobins identified. Interpreted by: Greg Vera MD 02/01/2024 1410 02/01/2024 15:26 EDT [facility] Blood VENOUS BLOOD / Unknown Venipuncture / Unknown 01/31/2024 14:09 EDT 01/31/2024 14:44 EDT Moprisedianei SEMIAUTOMATIC STITCHER OPERATOR CHEMISTRY & BLOOD GAS ORDERA BLES Final Result [facility] [address] [place] [address] * CK (01/31/2024 14:09 EDT) Pathologist [facility] CK 66 30 - 135 U/L 01/31/2024 15:21 EDT [facility] Blood VENOUS BLOOD / Unknown Venipuncture / Unknown 01/31/2024 14:09 EDT 01/31/2024 14:37 EDT [facility] CHEMISTRY & BLOOD GAS ORDERA BLES Final Result Performing Organization Address [facility]/ZIP Co de Phone Number [facility] [address] [place] [address] * VITAMIN D (25,OH) (01/31/2024 14:09 EDT) [facility] 25OH Vitamin D Tot 55 30 - 100 ng/mL 01/31/2024 15:40 EDT [facility] Blood VENOUS BLOOD / Unknown Venipuncture / Unknown 01/31/2024 14:09 EDT 01/31/2024 14:37 EDT [employer] [facility] CHEMISTRY & BLOOD GAS ORDERA BLES Final Result Performing Organization Address [facility] Co de Phone Number [facility] [address] [place], [place] [id number] * VITAMIN B12 (01/31/2024 14:09 EDT) [facility] Vitamin B12 485 211 - 911 pg/mL 01/31/2024 16:13 EDT [facility] Blood VENOUS BLOOD / Unknown Venipuncture / Unknown 01/31/2024 14:09 EDT 01/31/2024 14:37 EDT Narrative [facility] - 01/31/2024 16:13 EDT The results of this assay can be falsely elevated due to the consumption of Biotin. [employer] [facility] CHEMISTRY & BLOOD GAS ORDERA BLES Final Result Performing Organization Address [facility]/ZIP Co de Phone Number [facility] [address] [place] [address] * THYROID CASCADE (01/31/2024 14:09 EDT) [facility] TSH 1.57 0.47 - 4.68 mIU/L 01/31/2024 15:54 EDT [facility] Blood VENOUS BLOOD / Unknown Venipuncture / Unknown 01/31/2024 14:09 EDT 01/31/2024 14:37 EDT Narrative [facility] - 01/31/2024 15:54 EDT NOTE: The results of this assay can be falsely lowered due to the consumption of Biotin. us Rima Moultoni SEMIAUTOMATIC STITCHER OPERATOR CHEMISTRY & BLOOD GAS ORDERA BLES Final Result Performing Organization Address [facility]/ZIP Co de Phone Number [facility] [address] [place] [address] * MAGNESIUM (01/31/2024 14:09 EDT) Pathologist [facility] Magnesium 1.9 1.7 - 2.8 mg/dL 01/31/2024 15:21 EDT [facility] Blood VENOUS BLOOD / Unknown Venipuncture / Unknown 01/31/2024 14:09 EDT 01/31/2024 14:37 EDT us Rima Corbett SEMIAUTOMATIC STITCHER OPERATOR CHEMISTRY & BLOOD GAS ORDERA BLES Final Result Performing Organization Address [facility] Co de Phone Number [facility] [address] [place] [address] * C REACTIVE PROTEIN (01/31/2024 14:09 EDT) Pathologist [facility] C-Reactive Protein <5.0 <10.0 mg/L 01/31/2024 15:21 EDT [facility] Blood VENOUS BLOOD / Unknown Venipuncture / Unknown 01/31/2024 14:09 EDT 01/31/2024 14:37 EDT Moprisedianei SEMIAUTOMATIC STITCHER OPERATOR CHEMISTRY & BLOOD GAS ORDERA BLES Final Result Performing Organization Address City/[facility]/ZIP Co de Phone Number [facility] [address] [place] [address] * ANTI NUCLEAR AB (MAYRA), IFA (01/31/2024 14:09 EDT) Pathologist [facility] MAYRA Interpretation Negative Negative 2023 13:43 EDT [facility] Comment:No titer performed, MAYRA Screen is negative. Blood VENOUS BLOOD / Unknown Venipuncture / Unknown 01/31/2024 14:09 EDT 01/31/2024 14:37 EDT Narrative [facility] - 02/01/2024 13:43 EDT Results were obtained with the [employer] HEp-2 MAYRA Kit by indirect immunofluorescence. Rima Corbett [facility] IMMUNOLOGY AND SEROLOGY ORDE RABLES Final Result Performing Organization Address City/[facility]/ZIP Co de Phone Number [facility] [address] [place] [address] * IRON (01/31/2024 14:09 EDT) [facility] Iron 127 37 - 170 ??g/dL 01/31/2024 15:21 EDT [facility] Blood VENOUS BLOOD / Unknown Venipuncture / Unknown 01/31/2024 14:09 EDT 01/31/2024 14:37 EDT Rima Corbett [facility] CHEMISTRY & BLOOD GAS ORDERA BLES Final Result [facility] [address] [place] [address] * FERRITIN (01/31/2024 14:09 EDT) Pathologist [facility] Ferritin 99 11 - 264 ng/mL 01/31/2024 15:58 EDT [facility] Blood VENOUS BLOOD / Unknown Venipuncture / Unknown 01/31/2024 14:09 EDT 01/31/2024 14:37 EDT [facility] - 01/31/2024 15:58 EDT The results of this assay can be falsely lowered due to the consumption of Biotin. Rima Corbett SEMIAUTOMATIC STITCHER OPERATOR CHEMISTRY & BLOOD GAS ORDERA BLES Final Result [facility] [address] [place] [address] * (ABNORMAL) COMPREHENSIVE METABOLIC PANEL (CMP) (01/31/2024 14:09 EDT) Sodium 135(L) 136 - 145 mmol/L 01/31/2024 15:21 [facility] Potassium 4.1 3.5 - 5.0 mmol/L 01/31/2024 15:21 [facility] Chloride 102 96 - 110 mmol/L 01/31/2024 15:21 [facility] CO2 Total 23 22 - 32 mmol/L 01/31/2024 15:21 [facility] Glucose 76 70 - 99 mg/dl 01/31/2024 15:21 [facility] BUN 11 10 - 26 mg/dL 01/31/2024 15:21 [facility] Creatinine 0.58 0.52 - 1.04 mg/dL 01/31/2024 15:21 [facility] eGFR 129 >60 mL/min/1.7 3m2 01/31/2024 15:21 [facility] Total Protein 6.7 6.3 - 8.2 g/dL 01/31/2024 15:21 [facility] Albumin 4.5 3.4 - 4.9 g/dL 01/31/2024 15:21 [facility] Alkaline Phosphatase 61 38 - 126 U/L 01/31/2024 15:21 [facility] AST 26 15 - 46 U/L 01/31/2024 15:21 [facility] ALT 16 <35 U/L 01/31/2024 15:21 [facility] Bilirubin, Total 1.0 <1.4 mg/dL 01/31/20 15:21 [facility] Calcium 9.3 8.5 - 10.5 mg/dL 01/31/2024 15:21 [facility] Albumin/Globulin Ratio 2.0 1.0 - 2.5 01/31/2024 15:21 [facility] Anion Gap 10 5 - 14 mmol/L 01/31/2024 15:21 [facility] Blood VENOUS BLOOD / Unknown Venipuncture / Unknown 01/31/2024 14:09 EDT 01/31/2024 14:37 EDT Rima Corbett SEMIAUTOMATIC STITCHER OPERATOR CHEMISTRY & BLOOD GAS ORDERA BLES Final Result [facility] [address] [place] [address] * COMPLETE BLOOD COUNT AND DIFFERENTIAL (01/31/2024 14:09 EDT) WBC 7.68 4.00 - 12.40 K/cmm 01/31/2024 14:47 [facility] RBC 4.90 3.86 - 5.04 M/cmm 01/31/2024 14:47 [facility] Hemoglobin 14.9 11.6 - 15.2 g/dL 01/31/2024 14:47 [facility] HCT 42.0 34.9 - 44.4 % 01/31/2024 14:47 [facility] MCV 86 81 - 98 fL 01/31/2024 14:47 [facility] MCH 30.4 26.7 - 33.3 pg 01/31/2024 14:47 [facility] MCHC 35.5 32.1 - 35.9 g/dL 01/31/2024 14:47 [facility] RDW-CV 11.5 <14.7 % 01/31/2024 14:47 [facility] RDW-SD 35.8 <50.4 fl 01/31/2024 14:47 [facility] PLT 331 141 - 377 K/cmm 01/31/2024 14:47 [facility] MPV 10.0 9.5 - 12.7 fL 01/31/2024 14:47 [facility] % Neutrophils 64.8 % 01/31/2024 14:47 [facility] % Lymphocytes 26.2 % 01/31/2024 14:47 [facility] % Monocytes 6.0 % 01/31/2024 14:47 [facility] % Eosinophils 2.0 % 01/31/2024 14:47 [facility] % Basophils 0.7 % 01/31/2024 14:47 [facility] % Immature Grans 0.3 <0.9 % 01/31/20 24 14:47 [facility] Absolute Neutrophils 4.99 2.20 - 8.85 K/cmm 01/31/2024 14:47 [facility] Absolute Lymphocytes 2.01 1.09 - 3.30 K/cmm 01/31/2024 14:47 [facility] Absolute Monocytes 0.46 0.10 - 0.80 K/cmm 01/31/2024 14:47 [facility] Absolute Eosinophils 0.15 0.03 - 0.61 K/cmm 01/31/2024 14:47 [facility] ABS Basophils 0.05 0.01 - 0.11 K/cmm 01/31/2024 14:47 [facility] Absolute Immature Grans 0.02 0.00 - 0.06 K/cmm 01/31/2024 14:47 [facility] Type of Differential: Auto 01/31/2024 14:47 [facility] Blood VENOUS BLOOD / Unknown Venipuncture / Unknown 01/31/2024 14:09 EDT 01/31/2024 14:44 EDT us Rima Corbett SEMIAUTOMATIC STITCHER OPERATOR PACKAGES & DNA PROBE ORDERAB LES Final Result [facility] [address] [place] [address] documented in this encounter Visit Diagnoses Diagnosis Fatigue, unspecified type Weakness generalized Other malaise and fatigue Frequent headaches Family history of thalassemia Family history of other blood disorders Myalgia Mylagia and myositis, unspecified Irregular bowel habits Other specified disorder of intestines Chronic left-sided low back pain without sciatica Sensory disturbance Disturbance of skin sensation Need for hepatitis C screening test Special screening examination for other specified viral diseases documented in this encounter Care Teams Drugless Physician Relationship Specialty Start Date End Date Ananda Black MD [address] [place] [address] [address] [place] [id number] PCP - General 02/13/19 documented as of this encounter
--- OUTSIDE RECORDS SUMMARY | 2024-08-07 14:59 | XMS_ITS | Encounter Summary ---
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 Name Role Phone Ananda Black MD Primary Care Provider [phone] Reason for Visit * Reason Comments Fatigue Encounter Details Date Type Department Care Team (Late st Contact Info) Description 01/30/2024 13:30 EDT Office Visit [address] [id number] Rima Corbett FNP [address] [phone] Fatigue, unspecified type (Primary Dx); Weakness generalized; Chronic left-sided low back pain without sciatica; Frequent headaches; Family history of thalassemia; Myalgia; Sensory disturbance; Irregular bowel habits; Need for hepatitis C screening test Social [...] Sign Reading Time Taken Comments Blood Pressure 108/76 01/30/2024 1330 EDT Pulse 70 01/30/2024 1330 EDT Temperature - - Respiratory Rate - - Oxygen Saturation 97% 01/30/2024 1330 EDT Inhaled Oxygen Concentration - - Weight [...] in this encounter Progress Notes * Rima Corbett, ROYAL - 01/30/2024 1330 EDT Primary Care Office Visit Assessment & Plan Diagnoses and all orders for this visit: Fatigue, unspecified type Weakness generalized Chronic left-sided low back pain without sciatica Frequent headaches Myalgia Sensory disturbance Patient presents with approximately 6 months of worsening fatigue, myalgias in all extremities, subjective generalized muscle weakness that is progressive throughout the day, frequent headaches, vibrating sensation in the upper body intermittently, left lower back pain, and reduced exercise tolerance. She denies any recent injuries prior to onset, changes in physical activity or mental health. Symptoms are affecting her ability to work and she is often needing to rest during the day with minimal improvement. 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 She does have a history of chronic low back pain and degenerative disc disease with L5/S1 disc bulging for which she has had prior imaging. Family history of thalassemia, she requests testing for this and this was ordered today. She has not had any labs since 2020, will order a lab workup for her. If lab workup is unrevealing would recommend EMG testing, MRI imaging of head and lumbar sacral spine with contrast, and referral to neurology for evaluation of potential neurological/demyelinating etiology to her symptoms. Unfortunately she believes she will be losing her health insurance in about 2 weeks, encouraged her to confirm this if so we will schedule follow-up visit with her in about 1 to 2 weeks to review her labs and discuss next steps, otherwise she may follow-up in 2 to 4 weeks. - COMPLETE BLOOD COUNT AND DIFFERENTIAL - COMPREHENSIVE METABOLIC PANEL (CMP) - FERRITIN - IRON - ANTI NUCLEAR AB (MAYRA), IFA - C REACTIVE PROTEIN - MAGNESIUM - THYROID CASCADE - VITAMIN B12 - VITAMIN D (25,OH) - HEMOGLOBINOPATHY AND THALASSEMIA EVALUATION - SYPHILIS RPR SCREEN W/REFLEX - HIV 1/2 ANTIGEN AND ANTIBODY, 4TH GENERATION - DOUBLE STRANDED DNA ANTIBODY, IGG - ANAPLASMA AND BABESIA TESTING BY PCR - LYME AB SCREEN, IGG AND IGM - CCP ANTIBODIES - RHEUMATOID SCREEN/TITRE - SPEP WITH IMMUNOTYPING - HEPATITIS C AB W REFLEX TO HCV RNA BY PCR Family history of thalassemia Family history of thalassemia and many family members. Will check CBC and thalassemia panel labs today. - COMPLETE BLOOD COUNT AND DIFFERENTIAL - HEMOGLOBINOPATHY AND THALASSEMIA EVALUATION Irregular bowel habits History of irregular bowel habits over the past 1-2 years with several stools daily and fluctuatingconsistency. Question if she may have IBS. Unable to evaluate in detail today due to other concerning symptoms. Will check CRP with labs today. Could consider stool studies as well symptoms persist and trial of low FODMAPs diet and Metamucil. - C REACTIVE PROTEIN Need for hepatitis C screening test And not see any prior hep C screening, ordered with labs today. - HEPATITIS C AB W REFLEX TO HCV RNA BY PCR Return 2-4 weeks follow up fatigue, weakness, pain. Greater than 45 minutes were spent on the date of the encounter in face to face time with the patient, chart review, coordination of care, and documentation. *Note dictation via [facility]. All efforts have been made to proofread, but that there may persist some syntax errors or poor word choice. Ursula Canseco is a 23 y.o. female presenting with Fatigue HPI New patient to provider. Patient's PCP is Dr. Black. Harleen reports that she has not been feeling well. She reports that she feels tired constantly regardless of how much she sleeps. She feels she is sleeping relatively well, has some difficulty getting to sleep at night but is consistently getting 7 to 8 hours of sleep nightly. She has been so tired recently that she is napping in the afternoon and does not feel refreshed when awakening from napping either. She does not feel refreshed in the morning after sleeping throughout the night. In the past she has considered herself a morning person, she has difficulty getting out of bed often. Once asleep at night she sleeps well, sometimes wakes up once a night but is able to fall back asleep. No noticed snoring at night. She feels very tired throughout the day especially in the afternoon. She sometimes feels lightheaded or dizzy and short of breath when she becomes more tired in the afternoon. She has noticed that her muscles ache all the time. This is located in both upper and lower extremities bilaterally. She has noticed these symptoms at least over the past 6 months. Her muscles do notfeel weak initially in the morning however throughout the day she starts to feel weak and causes her to sit down, typically around 230 or 3 pm. After resting her energy improves a little bit but she continues to feel tired throughout the rest of the day until morning. Her fatigue and muscle pain and weakness occur daily and the frequency is increasing since onset 6 months ago. She is working at [employer], works about 30 to 35 hours weekly. She is on her feet for work during the day [facility] not work full 8-hour shifts. She denies any change in physical activity recently or any recent life changes. She will be getting next week, she does not feel stressed or depressed. She has noticed increased frequency of headaches, these are occurring about 3 times weekly. Her headaches are located in the frontal area of her head. She does have visual auras with her headaches, no nausea or vomiting. She reports history of back injury 5 years ago that was nontraumatic but she had severe back pain after this and could not move for period of time. Since that time she has had intermittent back pain located on the left lower back. She reports a history of a herniated disc in her spine from prior imaging. She denies any history of head or neck injuries. The pain feels like a stretching and burningsensation and worsens depending on how tired she is feeling. Her back pain has worsened over the past 6 months as well. She has noticed that her back pain worsens if she does not drink a lot of wateror is menstruating. She has no bladder or bowel incontinence. She does feel she has some numbness in her lower spine, denies radiculopathy or lower extremity paresthesias. She also notes a vibratory sensation in her upper body when she is feeling very tired, this is generalized. She occasionally has some nausea in the morning that resolves quickly. She drinks coffee in the morning and 6 to 8 cups of water daily. For breakfast she eats a breakfast sandwich or pancakes with anorange or apple. For lunch she has a sandwich with vegetables and meat. For dinner she has Posta ormeat. She also eats a snack such as fruit during the day. She denies any recent changes in dietary intake. She does not notice worsening of her back pain with oral/dietary intake. She denies any urinary changes. She reports having loose stools last 1 and half years, typically has 3 bowel movements daily and these fluctuate in texture/consistency. She is struggling to be physically active and make it through her workday due to her fatigue and bodyaches. She has never experienced these symptoms before. She feels that her activities of daily living are requiring significantly increased effort due to her symptoms. She denies any memory or cognitive changes, no noticed balance changes. She is not taking any medications currently. Gabapentin, meloxicam, Robaxin are on her medication list but she is not taking these as she prefers to avoid taking medications. Supplements include vitamin D3 supplement and probiotic. She would like to have testing for thalassemia as her grandmother, 3 aunts, mother, cousins all have thalassemia. No other known family history aside from father with a history of high blood pressure. No tobacco or nicotine use. No alcohol use. Data reviewed this visit: problem list/past medical history, current medications, allergies, surgical history, family history, social history, last visit note, health maintenance items, recent labs, recent imaging, and social determinants of health Review of Systems Constitutional: Positive for malaise/fatigue. Negative for chills and fever. HENT: Negative for congestion and sore throat. Eyes: +aura with headaches Respiratory: Negative for cough, shortness of breath and wheezing. Cardiovascular: Negative for chest pain and palpitations. Gastrointestinal: Positive for diarrhea. Negative for abdominal pain, constipation, nausea and vomiting. Genitourinary: Negative for frequency and urgency. Musculoskeletal: Positive for back pain and myalgias. Negative for falls and neck pain. Skin: Negative for rash. Neurological: Positive for sensory change and headaches. Negative for focal weakness. Psychiatric/Behavioral: Negative for depression, memory loss and substance abuse. The patient is not nervous/anxious and does not have insomnia. Objective BP 108/76 (BP Cuff Location: Right arm, BP Patient Position: Sitting, BP Cuff Sizes: Adult, long) Pulse 70 SpO2 97% Physical Exam General Appearance: well-nourished, healthy appearing, appears somewhat tired, NAD Eyes PERRLA, extraocular movements intact, non-injected, no discharge, no pallor Ears: Bilateral TMs intact, pearly fuentes, with good cone of light. Lips, Teeth, and Gums: no mouth or lip ulcers, no bleeding gums, good dentition. Oropharynx: moist mucous membranes, no erythema, no exudates. Neck: supple, trachea midline, no thyroid enlargement, no lymphadenopathy Cardiovascular: RRR, normal S1, normal S2, no murmurs, rubs, or gallops. No edema in BLEs. Normal radial pulses bilaterally. Lungs: Auscultation: clear, no wheezing, no rales/crackles, no rhonchi. Breathing nonlabored. Gastrointestinal: Normal BS. Abdomen soft, mild TTP LLQ, non-distended, no HSM, no masses. Neurological: Alert and Orientation: to time, to place, to person. CN II-XII intact. Divine Healer strength 4+/5 b/l. Patellar reflexes 3+ b/l. Skin: warm and dry, good turgor. No obvious rashes. No joint erythema or edema. MSK: ambulating independently without difficulty. Normal resisted strength in all extremities. Spine non-TTP. Left SI joint area TTP. Normal ROM of lumbar spine, pain with lateral bending to the left. Normal passive ROM of bilateral hips w/out pain. Negative straight leg raise b/l. Mood/Affect: appropriate mood, appropriate affect. MRI LS WO contrast 09/11/22: IMPRESSION 1. Multilevel lumbar spine degenerative disc and facet disease. Findings include and L5/S1 disc bulge with a superimposed central/right paracentral disc extrusion with some inferior migration of discmaterial. Disc material appears to slightly abut the S1 nerve roots as they and to the lateral recesses within the mildly narrowed spinal canal, right greater than left. There is also mild bilateral neural foraminal narrowing at this level. Exam: XR Lumbosacral Spine 10/25/2022 Clinical indication: Intervertebral disc disorders with radiculopathy, lumbar region; Low back pain FINDINGS: Bones/joints: Moderate disc space narrowing at L5-S1. No acute fracture. Normal alignment. Soft tissues: Unremarkable. IMPRESSION No acute findings. * Leann Landeros - 01/30/2024 1330 EDT Trouble falling asleep, wakes up in the night but is able to fall back asleep quickly. Takes about 1 hours to fall asleep at night. Not using phone in bed. 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 Has been experiencing back pain more often too. Leann Landeros 01/30/2024 13:52 documented in this encounter Plan of Treatment Not on file documented as of this encounter Results * QUANT BETA HCG, (01/31/2024 14:09 EDT) Beta HCG Quant, <5 <5 mIU/mL 02/03/2024 10:50 EDT [facility] Comment: NOTE: : Negative: Less than 5mIU/mL Indeterminant: Between 5 and 25 mIU/mL, recommend repeat testing in 48 hours Positive: Greater than 25 mIU/mL The results of this assay can be falsely lowered due to the consumption of Biotin. Blood VENOUS BLOOD / Unknown Venipuncture / Unknown 01/31/2024 14:09 EDT 01/31/2024 14:37 EDT us Rima PAIGE CHEMISTRY & BLOOD GAS ORDERA BLES Final Result [facility] [address] [place] [address] * HEPATITIS C AB W REFLEX TO HCV RNA BY PCR (01/31/2024 14:09 EDT) Pathologist [facility] Hep C Antibody Negative Negative 01/31/2024 16:06 EDT [facility] Blood VENOUS BLOOD / Unknown Venipuncture / Unknown 01/31/2024 14:09 EDT 01/31/2024 14:37 EDT us Rima Galfetti SENIOR MAJOR GIFTS OFFICER CHEMISTRY & BLOOD GAS ORDERA BLES Final Result [facility] [address] [place] [address] * RHEUMATOID SCREEN/TITRE (01/31/2024 14:09 EDT) Pathologist [facility] Rheumatoid Factor <8.6 <12.0 IU/mL 01/31/2024 21:44 EDT [facility] Blood VENOUS BLOOD / Unknown Venipuncture / Unknown 01/31/2024 14:09 EDT 01/31/2024 14:37 EDT Rima Bryantti SENIOR MAJOR GIFTS OFFICER CHEMISTRY & BLOOD GAS ORDERA BLES Final Result [facility] [address] [place] [address] * CCP ANTIBODIES (01/31/2024 14:09 EDT) Pathologist [facility] CCP Antibodies <2.5 <5.0 U/mL 02/02/2024 6:58 EDT [facility] Blood VENOUS BLOOD / Unknown Venipuncture / Unknown 01/31/2024 14:09 EDT 01/31/2024 14:37 EDT [employer] Rima Moultoni SENIOR MAJOR GIFTS OFFICER IMMUNOLOGY AND SEROLOGY ORDE RABLES Final Result [facility] [address] [place] [address] * LYME AB SCREEN, IGG AND IGM (01/31/2024 14:09 EDT) Lyme Antibody, IgG Negative Negative 02/01/2024 10:35 EDT [facility] Lyme Antibody, IgM Negative Negative 02/01/2024 10:35 EDT [facility] Blood VENOUS BLOOD / Unknown Venipuncture / Unknown 01/31/2024 14:09 EDT 01/31/2024 14:37 EDT Rima GREENP IMMUNOLOGY AND SEROLOGY ORDE RABLES Final Result Performing Organization Address [facility]/ZIP Co de Phone Number [facility] [address] [place] [phone] * ANAPLASMA AND BABESIA TESTING BY PCR (01/31/2024 14:09 EDT) Pathologist [facility] Anaplasma phagocytophilum Negative Negative 02/01/2024 11:53 EDT [facility] Babesia Species Negative Negative 11:53 EDT [facility] Blood VENOUS BLOOD / Unknown Venipuncture / Unknown 01/31/2024 14:09 EDT 01/31/2024 14:37 EDT Narrative [facility] - 02/01/2024 11:53 EDT This test was developed and its performance characteristics determined by [facility]. It has not been cleared or approved by the US Food and Drug Administration. FDA does not require this test to go through premarket FDA review. This test is used for clinical purposes. It should not be regarded as investigational or research. This laboratory is certified under the Clinical Laboratory Improvement Amendments (CLIA) as qualified to perform high complexity clinical laboratory testing. Rima PAIGE CHEMISTRY & BLOOD GAS ORDERA BLES Final Result Performing Organization Address City/[facility]/ZIP Co de Phone Number [facility] [address] [place] [address] * DOUBLE STRANDED DNA ANTIBODY, IGG (01/31/2024 14:09 EDT) [facility] dsDNA Ab, IgG <22.0 <27.0 IU/mL 02/01/2024 12:26 EDT [facility] Comment: Negative: <27.0 IU/mL Indeterminate: 27.0 - 35.0 IU/mL Positive: >35.0 IU/mL Results were obtained with [employer] Flash dsDNA chemiluminescent immunoassay. Values obtained with different manufacturers' assay methods may not be used interchangeably. Blood VENOUS BLOOD / Unknown Venipuncture / Unknown 01/31/2024 14:09 EDT 01/31/2024 14:[address] [facility] IMMUNOLOGY AND SEROLOGY [facility] Final Result Performing Organization Address [facility]/ZIP Co de Phone Number [facility] [address] [place] [address] * HIV 1/2 ANTIGEN AND ANTIBODY, 4TH GENERATION (01/31/2024 14:09 EDT) [facility] HIV 1 and 2 Antibody/p24 Antigen, 4th Generation Negative Negative 01/31/2024 15:58 EDT [facility] Comment:If acute HIV-1 infec tion is suspected in a high risk patient, submit plasma specimen for HIV-1 RNA quantitation test. Blood VENOUS BLOOD / Unknown Venipuncture / Unknown 01/31/2024 14:09 EDT 01/31/2024 14:[address] [facility] IMMUNOLOGY AND SEROLOGY ORDE RABLES Final Result [facility] [address] [place] [address] * SYPHILIS RPR SCREEN W/REFLEX (01/31/2024 14:09 EDT) [facility] Rapid Plasma Reagin Screen (RPR) Nonreactive Nonreactive 02/07/2024 9:04 EDT [facility] Blood VENOUS BLOOD / Unknown Venipuncture / Unknown 01/31/2024 14:09 EDT 01/31/2024 14:37 EDT Rima GREENP IMMUNOLOGY AND SEROLOGY ORDE RABLES Final Result Performing Organization Address [facility]/ZIP Co de Phone Number [facility] [address] [place] [address] * HEMOGLOBINOPATHY AND THALASSEMIA EVALUATION (01/31/2024 14:09 EDT) Hemoglobin A 97.2 96.7 - 97.8 % 02/01/2024 15:26 EDT [facility] Hemoglobin A2 2.8 2.2 - 3.2 % 02/01/2024 15:26 EDT [facility] Comment:Hemoglobin A2 levels may be decreased in iron deficiency. Hemoglobinopathy Interpretation Interpretation : No abnormal hemoglobins identified. Interpreted by: Greg Vera MD 02/01/2024 1410 02/01/2024 15:26 EDT [facility] Blood VENOUS BLOOD / Unknown Venipuncture / Unknown 01/31/2024 14:09 EDT 01/31/2024 14:44 EDT us Rima Corbett SENIOR MAJOR GIFTS OFFICER CHEMISTRY & BLOOD GAS ORDERA BLES Final Result Performing Organization Address [facility]/ZIP Co de Phone Number [facility] [address] [place] [address] * CK (01/31/2024 14:09 EDT) CK 66 30 - 135 U/L 01/31/2024 15:21 EDT [facility] Blood VENOUS BLOOD / Unknown Venipuncture / Unknown 01/31/2024 14:09 EDT 01/31/2024 14:37 EDT Rima Corbett SENIOR MAJOR GIFTS OFFICER CHEMISTRY & BLOOD GAS ORDERA BLES Final Result Performing Organization Address [facility] Co de Phone Number [facility] [address] [place] [address] * VITAMIN D (25,OH) (01/31/2024 14:09 EDT) [facility] 25OH Vitamin D Tot 55 30 - 100 ng/mL 01/31/2024 15:40 EDT [facility] Blood VENOUS BLOOD / Unknown Venipuncture / Unknown 01/31/2024 14:09 EDT 01/31/2024 14:37 EDT [facility] [address] [facility] CHEMISTRY & BLOOD GAS ORDERA BLES Final Result Performing Organization Address [facility] de Phone Number [facility] [address] [place] [address] * VITAMIN B12 (01/31/2024 14:09 EDT) [facility] Vitamin B12 485 211 - 911 pg/mL 01/31/2024 16:13 EDT [facility] Blood VENOUS BLOOD / Unknown Venipuncture / Unknown 01/31/2024 14:09 EDT 01/31/2024 14:37 EDT Narrative [facility] - 01/31/2024 16:13 EDT The results of this assay can be falsely elevated due to the consumption of Biotin. [facility] CHEMISTRY & BLOOD GAS ORDERA BLES Final Result Performing Organization Address [facility] Co de Phone Number [facility] [address] [place] [address] * THYROID CASCADE (01/31/2024 14:09 EDT) [facility] TSH 1.57 0.47 - 4.68 mIU/L 01/31/2024 15:54 EDT [facility] Blood VENOUS BLOOD / Unknown Venipuncture / Unknown 01/31/2024 14:09 EDT 01/31/2024 14:37 EDT Narrative [facility] - 01/31/2024 15:54 EDT NOTE: The results of this assay can be falsely lowered due to the consumption of Biotin. [employer] SENIOR MAJOR GIFTS OFFICER CHEMISTRY & BLOOD GAS ORDERA BLES Final Result Performing Organization Address [facility]/ZIP Co de Phone Number [facility] [address] [place] [address] * MAGNESIUM (01/31/2024 14:09 EDT) [facility] Magnesium 1.9 1.7 - 2.8 mg/dL 01/31/2024 15:21 EDT [facility] Blood VENOUS BLOOD / Unknown Venipuncture / Unknown 01/31/2024 14:09 EDT 01/31/2024 14:37 EDT [employer] SENIOR MAJOR GIFTS OFFICER CHEMISTRY & BLOOD GAS ORDERA BLES Final Result Performing Organization Address [facility] Co de Phone Number [facility] [address] [place], [place] [id number] * C REACTIVE PROTEIN (01/31/2024 14:09 EDT) [facility] C-Reactive Protein <5.0 <10.0 mg/L 01/31/2024 15:21 EDT [facility] Blood VENOUS BLOOD / Unknown Venipuncture / Unknown 01/31/2024 14:09 EDT 01/31/2024 14:37 EDT [facility] [employer] Divtti SENIOR MAJOR GIFTS OFFICER CHEMISTRY & BLOOD GAS ORDERA BLES Final Result Performing Organization Address [facility] Co de Phone Number [facility] [address] [place] [address] * ANTI NUCLEAR AB (MAYRA), IFA (01/31/2024 14:09 EDT) [facility] MAYRA Interpretation Negative Negative 2023 13:43 EDT [facility] Comment:No titer performed, MAYRA Screen is negative. Blood VENOUS BLOOD / Unknown Venipuncture / Unknown 01/31/2024 14:09 EDT 01/31/2024 14:37 EDT Narrative [facility] - 02/01/2024 13:43 EDT Results were obtained with the [employer] NOVA Lite HEp-2 MAYRA Kit by indirect immunofluorescence. CAL - [employer] DivdianeConne[facility] IMMUNOLOGY AND SEROLOGY ORDE RABLES Final Result [facility] [address] [place] [address] * IRON (01/31/2024 14:09 EDT) Iron 127 37 - 170 ??g/dL 01/31/2024 15:21 EDT [facility] Blood VENOUS BLOOD / Unknown Venipuncture / Unknown 01/31/2024 14:09 EDT 01/31/2024 14:37 EDT [facility] [employer] DivDay [facility] CHEMISTRY & BLOOD GAS ORDERA BLES Final Result Performing Organization Address [facility]/ZIP Co de Phone Number [facility] [address] [place] [address] * FERRITIN (01/31/2024 14:09 EDT) Ferritin 99 11 - 264 ng/mL 01/31/2024 15:58 EDT [facility] Blood VENOUS BLOOD / Unknown Venipuncture / Unknown 01/31/2024 14:09 EDT 01/31/2024 14:37 EDT Narrative [facility] - 01/31/2024 15:58 EDT The results of this assay can be falsely lowered due to the consumption of Biotin. CAL - [employer] [facility] CHEMISTRY & BLOOD GAS ORDERA BLES Final Result [facility] [address] [place] [address] * (ABNORMAL) COMPREHENSIVE METABOLIC PANEL (CMP) (01/31/2024 14:09 [facility]) Sodium 135(L) 136 - 145 mmol/L 01/31/2024 15:21 [facility] Potassium 4.1 3.5 - 5.0 mmol/L 01/31/2024 15:21 [facility] Chloride 102 96 - 110 mmol/L 01/31/2024 15:21 [facility] CO2 Total 23 22 - 32 mmol/L 01/31/2024 15:21 [facility] Glucose 76 70 - 99 mg/dl 01/31/2024 15:21 [facility] BUN 11 10 - 26 mg/dL 01/31/2024 15:21 [facility] Creatinine 0.58 0.52 - 1.04 mg/dL 01/31/2024 15:21 [facility] eGFR 129 >60 mL/min/1.7 3m2 01/31/2024 15:21 [facility] Total Protein 6.7 6.3 - 8.2 g/dL 01/31/2024 15:21 [facility] Albumin 4.5 3.4 - 4.9 g/dL 01/31/2024 15:21 [facility] Alkaline Phosphatase 61 38 - 126 U/L 01/31/2024 15:21 [facility] AST 26 15 - 46 U/L 01/31/2024 15:21 [facility] ALT 16 <35 U/L 01/31/2024 15:21 [facility] Bilirubin, Total 1.0 <1.4 mg/dL 01/31/20 15:21 [facility] Calcium 9.3 8.5 - 10.5 mg/dL 01/31/2024 15:21 [facility] Albumin/Globulin Ratio 2.0 1.0 - 2.5 01/31/2024 15:21 [facility] Anion Gap 10 5 - 14 mmol/L 01/31/2024 15:21 [facility] Blood VENOUS BLOOD / Unknown Venipuncture / Unknown 01/31/2024 14:09 EDT 01/31/2024 14:37 EDT Rima PAIGE CHEMISTRY & BLOOD GAS ORDERA BLES Final Result [facility] [address] [place] [address] * COMPLETE BLOOD COUNT AND DIFFERENTIAL (01/31/2024 14:09 EDT) WBC 7.68 4.00 - 12.40 K/cmm 01/31/2024 14:47 [facility] RBC 4.90 3.86 - 5.04 M/cmm 01/31/2024 14:47 [facility] Hemoglobin 14.9 11.6 - 15.2 g/dL 01/31/2024 14:47 [facility] HCT 42.0 34.9 - 44.4 % 01/31/2024 14:47 [facility] MCV 86 81 - 98 fL 01/31/2024 14:47 [facility] MCH 30.4 26.7 - 33.3 pg 01/31/2024 14:47 [facility] MCHC 35.5 32.1 - 35.9 g/dL 01/31/2024 14:47 [facility] RDW-CV 11.5 <14.7 % 01/31/2024 14:47 [facility] RDW-SD 35.8 <50.4 fl 01/31/2024 14:47 [facility] PLT 331 141 - 377 K/cmm 01/31/2024 14:47 [facility] MPV 10.0 9.5 - 12.7 fL 01/31/2024 14:47 [facility] % Neutrophils 64.8 % 01/31/2024 14:47 [facility] % Lymphocytes 26.2 % 01/31/2024 14:47 [facility] % Monocytes 6.0 % 01/31/2024 14:47 [facility] % Eosinophils 2.0 % 01/31/2024 14:47 [facility] % Basophils 0.7 % 01/31/2024 14:47 [facility] % Immature Grans 0.3 <0.9 % 01/31/20 14:47 [facility] Absolute Neutrophils 4.99 2.20 - 8.85 K/cmm 01/31/2024 14:47 [facility] Absolute Lymphocytes 2.01 1.09 - 3.30 K/cmm 01/31/2024 14:47 [facility] Absolute Monocytes 0.46 0.10 - 0.80 K/cmm 01/31/2024 14:47 [facility] Absolute Eosinophils 0.15 0.03 - 0.61 K/cmm 01/31/2024 14:47 [facility] ABS Basophils 0.05 0.01 - 0.11 K/cmm 01/31/2024 14:47 [facility] Absolute Immature Grans 0.02 0.00 - 0.06 K/cmm 01/31/2024 14:47 [facility] Type of Differential: Auto 01/31/2024 14:47 [facility] Blood VENOUS BLOOD / Unknown Venipuncture / Unknown 01/31/2024 14:09 EDT 01/31/2024 14:44 EDT us Rima GREENP PACKAGES & DNA PROBE ORDERAB LES Final Result [facility] [address] [place] [address] documented in this encounter Visit Diagnoses Diagnosis Fatigue, unspecified type- Primary Weakness generalized Other malaise and fatigue Chronic left-sided low back pain without sciatica Frequent headaches Family history of thalassemia Family history of other blood disorders Myalgia Mylagia and myositis, unspecified Sensory disturbance Disturbance of skin sensation Irregular bowel habits Other specified disorder of intestines Need for hepatitis C screening test Special screening examination for other specified viral diseases documented in this encounter Discontinued Medications Medication Sig Discontinue Reason Start Date End Da te clindamycin (CLEOCIN) 300 mg capsule TAKE ONE CAPSULE BY MOUTH THREE TIMES A DAY FOR 7 DAYS Therapy completed 12/16/2023 01/30/2024 documented as of this encounter Historical Medications * This list may reflect changes made after this encounter. L.acid/L.casei/B. bif/B.jr/FOS (PROBIOTIC BLEND ORAL) Take by mouth. cholecalciferol, Vitamin D3, (VITAMIN D) 25 mcg (1,000 unit) tablet Take 1 Tablet by mouth daily. added in this encounter Care Teams Tube Worker Relationship Specialty Start Date End Date Ananda Black MD [address] [facility] [address] [place] [phone] PCP - General 02/13/19 documented as of this encounter
--- OUTSIDE RECORDS SUMMARY | 2024-08-07 14:59 | XMS_ITS | Encounter Summary ---
Author Organization [facility] Address [address] [place] [address] Care Team Providers Care Training Program Assistant Name Role Phone Ananda Black MD Primary Care Provider [phone]- [phone] Encounter Details Date Type Department Care Team (Latest Contact Info) Description 10/25/2022 Travel Social History Tobacco Use Types Packs/Day [...] 15:20 EDT documented as of this encounter Functional [...] on filedocumented in this encounter Care Teams Training Program Assistant Relationship Specialty Start Date End Date Ananda Black MD [address] [place] [phone] PCP - General 02/13/19 documented as of this encounter
--- OUTSIDE RECORDS SUMMARY | 2024-08-07 14:59 | XMS_ITS | Encounter Summary ---
Author Organization [facility] Address [address] [place] [address] Care Team Providers Care Cdl A Driver Name Role Phone Ananda Black MD Primary Care Provider [phone]- [phone] Reason for Visit * Reason Onset Date Comments Results 02/03/2024 Encounter Details Date Type Department Care Team (Late st Contact Info) Description 02/03/2024 Telephone [facility] - [address] [address] Rima Corbett FNP [address] [phone] Results Social History Tobacco Use Types Packs/Day Years [...] Telephone Encounter - Rima Corbett FNP - 02/04/2024 1804 EDT Noted, thank you. We can discuss this more at her upcoming appointment. * Telephone Encounter - Lisette Whitlock RN - 02/04/2024 1653 EDT Outgoing call to patient. Patient reports that they are getting at the end of the week and doesn't think they will have insurance in April 2024 when EMG / nerve conduction study is scheduled. They think they will lose insurance by end of month. TE to ROYAL Ndiaye as FYI - this RN was going to provide contact info for [facility] / [place] clinics that do these studies (below), but patient prefers to see you in a couple of days and planfrom there. LISETTE WHITLOCK RN 02/04/2024 17:02 Additional sites in [facility] network: -[facility] Neurophysiology, -[facility], -Physical Medicine and Rehabilitation Services, * Telephone Encounter - Cheryl Martin - 02/04/2024 1408 EDT Patient calling to state she cannot get in with Neurology until April, please advise. * Telephone Encounter - Christin Fermin RN - 02/04/2024 0851 EDT Outgoing call to pt to relay message below from Rima Corbett PIPELINES SUPERVISOR. Pt verbalized understanding andhas no questions at this time. CHRISTIN FERMIN RN 02/04/2024 8:52 * Telephone Encounter - Rima Corbett FNP - 02/03/2024 1653 EDT Please let Harleen know her lab results that we have back look good. I have ordered a nerve study test for her and CT imaging of her head/neck and lower spine to evaluate her symptoms further and expedite this because I know her insurance coverage will be ending soon. The hospital will be contacting her to schedule these. We can discuss her labs and these tests further at her upcoming visit this week. Thank you, Rima documented in this encounter Plan of Treatment Not on file documented as of this encounter Visit Diagnoses Not on filedocumented in this encounter Care Teams Cdl A Driver Relationship Specialty Start Date End Date Ananda Black MD [address] [place] [phone] PCP - General 02/13/19 documented as of this encounter
--- OUTSIDE RECORDS SUMMARY | 2024-08-07 14:59 | XMS_ITS | Encounter Summary ---
Author Organization [facility] Address [address] [place] [address] Care Team Providers Care Smoking Pipe Repairer Name Role Phone Ananda Black MD Primary Care Provider [phone]- [phone] Reason for Referral * PT/OT/ST (Routine/Next Available) - Specialty Report Received Specialty Diagnoses / Procedures Referred By Rosa sparks Referred To Contact Rehab Therapies Diagnoses Lumbar radiculopathy Darcy Zhu NP Phone: tel: fax: [facility] [address] [place] [address] Phone: tel: fax: Referral ID Status Reason Start Date Expiration Date Visits Requested Visits Authorized [id number] Specialty Report Received Specialty Services Required 09/08/2022 1 1 Question Answer Reason for Request: Lumbar radiculopathy bilaterally, atraumatic, history of lumbar disc herniation Comments This referral may serve as a referral to occupational therapy if appropriate. Reason for Visit * Reason Comments Back Pain Encounter Details Date Type Department Care Team (Late st Contact Info) Description 09/08/2022 15:15 EST Walk-In [facility] [place] [address] [place] [id number] Darcy Zhu NP [address] [place] [phone] Lumbar radiculopathy (Primary Dx) Social History Tobacco [...] Sign Reading Time Taken Comments Blood Pressure 125/90 09/08/2022 1458 EST Pulse 68 09/08/2022 1458 EST Temperature 36.3 ??C (97.4 ??F) 09/08/2022 1458 EST Respiratory Rate 16 09/08/2022 1458 EST Oxygen Saturation 98% 09/08/2022 1458 EST Inhaled Oxygen Concentration - - Weight - - Height - - Body Mass Index - - documented in this encounter Functional Status * Because of [...] this encounter Patient Instructions * Patient Instructions* Darcy Zhu - 09/08/2022 15:15 EST You were seen today for low back pain with radiating nerve symptoms. You have been prescribed Medrol which is a steroid for the management of low back pain with nerve pain symptoms. You are advised to take this as prescribed, take as close to morning hours as possibleto help avoid sleep disruption, do not take ibuprofen or naproxen while taking Medrol, you may takeTylenol, maintain a low-sodium diet. Wear shoes with supportive arches and without elevated heels. You may also alternate ice/heat, perform gentle range of motion and stretching. Do not exceed more than maximum of 3500 mg acetaminophen in a 24-hour period. You may use methocarbamol as prescribed and as needed for management of muscle spasm. Use topical ice or heat for 10-15min 3-4x daily (you may try heat prior to stretching exercises andfollow this with ice), [id number] topical rubs or topical pain patch (ie IcyHot, [place], BioFreeze or the Salonpas patch- choose one topical and use per packaging instructions) frequent gentle position changes. A referral has been placed to [facility] physical therapy, that office will call you to schedule. You are advised to follow-up for urgent reassessment in the EMERGENCY DEPARTMENT for any new or worsening signs or symptoms such as worsening back pain, fever, changes in bowel or bladder function, weakness of the lower legs, any other new or worsening signs or symptoms, otherwise follow-up with PCP for symptoms that persist past current course of treatment. documented in this encounter Ordered Prescriptions Prescription Sig Dispense Quantity Refills Last Filled Start Date End Date methylPREDNISolone (MEDROL) 4 mg tabletIndications:L umbar radiculopathy By mouth: Take 6 tabs day 1; 5 tabs day 2; 4 tabs day 3; 3 tabs day 4; 2 tabs day 5; and 1 tab day 6 21 Tablet 09/08/2022 3 methocarbamoL (ROBAXIN) 500 mg tabletIndications:L umbar radiculopathy Take 1 to 2 tablets by mouth before bed as needed for pain and muscle spasm. 10 Tablet 09/08/2022 3 documented in this encounter Progress Notes * Goldie Floyd, RN - 09/08/2022 4466 EST CC/HPI: Pt reports she threw back out a couple weeks ago while walking. C/o pain getting worse overtime & difficulty standing up straight. Started in lower back (worse on R), now pain in entire back & radiates down both legs. Had leftover meds from previous back injury - gabapentin & methocarbamol - took both today without much relief. Denies any injury/trauma. Covid Screening: In the last 72 hours, has the patient had: New or unusual cough, shortness of breath, new nasal congestion, sore throat, fever, chills, body aches, or new loss of taste or smell without a reasonable alternative diagnosis*? (If yes, assign to ARC)- no In the past 10 days, has the patient had a positive Covid test OR a confirmed close Covid exposure (<6ft for > 15mins in 24hr period)? (if yes, assign to ARC, regardless of vaccination status)-no *may be determined by RN or in discussion with available provider (CONTROL SYSTEMS ENGINEER's and CCA's can defer to Charge Nurse to complete triage when appropriate) PCP: Ananda Black * Darcy Zhu - 09/08/2022 1515 EST [facility] Chief Complaint(s): Chief Complaint Patient presents with ??? Back Pain Assessment & Plan: Harleen was seen today for back pain. Diagnoses and all orders for this visit: Lumbar radiculopathy - methocarbamoL (ROBAXIN) 500 mg tablet; Take 1 to 2 tablets by mouth before bed as needed for painand muscle spasm. - methylPREDNISolone (MEDROL) 4 mg tablet; By mouth: Take 6 tabs day 1; 5 tabs day 2; 4 tabs day 3;3 tabs day 4; 2 tabs day 5; and 1 tab day 6 - AMB CONS/FOLLOW UP PHYSICAL THERAPY - [facility]; Future Harleen Luna is a pleasant 21 y.o. yr old female who presents with 3 weeks of lumbar pain now with lumbar radiculopathy. No mechanism of injury indicating need for x-ray at this time. I will treat with Medrol and methocarbamol and a referral to physical therapy is placed. We discussed use of supportive footwear and avoiding high-heeled shoes. Patient is afebrile and stable on exam. An appropriate medical screening examination was performed. The patient was assessed prior to discharge and deemed stable for discharge home. She does have an appointment scheduled with her PCP for this issue in September, I encouraged her to keep that appointment to discuss any persistent symptoms at that time. I printed material and reviewed home management and follow up in detail with patient, see patient instructions below. Patient is advised to follow up for urgent reassessment for any new/worsening signs and symptoms, otherwise, follow up with physical therapy and with PCP. Patient verbalizes understanding and agreement with this plan of care. HPI: Harleen Luna is a 21 y.o. yr old female who is here with her boyfriend with chief complaint of lower back pain for 3 weeks. She notes she started to feel tightness in her low back mostly on the right side 3 weeks ago while she was walking. No falls or injuries. Over the past 3 weeks the painhas progressed and is now radiating down the posterior aspect of both legs, can radiate all the wayto the arches of both feet. She does note history of lumbar disc herniation a few years ago and had some leftover gabapentin and methocarbamol from that incident. The lumbar disc herniation was reportedly atraumatic. She has tried the gabapentin and methocarbamol with little relief. She did also do physical therapy at the time of her lumbar disc herniation which did seem to help. 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 She denies fever, changes in bowel or bladder function She has taken ibuprofen as well. She can occasionally find a comfortable position when lying down but it takes a little while to getcomfortable. Pain is worse with sitting, standing and walking. Social History Tobacco Use Smoking Status Never Smokeless Tobacco Never I have reviewed current problem list, current medications and allergies. Objective: Vitals and nursing notes reviewed Examination: BP 125/90 Pulse 68 Temp 36.3 ??C (97.4 ??F) Comment (Src): scanner Resp 16 SpO2 98% Physical Exam Vitals and nursing note reviewed. Constitutional: General: She is awake. She is not in acute distress. Appearance: She is not ill-appearing, toxic-appearing or diaphoretic. Musculoskeletal: Lumbar back: Spasms (L QL) and tenderness (Lumbar paraspinal area bilaterally) present. No swelling, edema, deformity, signs of trauma, lacerations or bony tenderness. Decreased range of motion. Positive right straight leg raise test and positive left straight leg raise test. Neurological: Mental Status: She is alert. Comments: Ambulates slowly but without aid. She is wearing high-heeled shoes. Psychiatric: Behavior: Behavior is cooperative. This note may be in part documented using [employer] dictation software. Please forgive any errors, omissions or typos that may result from use of dictation. documented in this encounter Plan of Treatment Scheduled Referrals Name Type Priority Associated Diagnoses Orde r Schedule AMB CONS/FOLLOW UP PHYSICAL THERAPY - [facility] Outpatient Referral Routine/Next Available Lumbar radiculopathy Expected: 09/15/2022 (Approximate), Expires: 09/08/2023 documented as of this encounter Visit Diagnoses Diagnosis Lumbar radiculopathy- Primary Thoracic or lumbosacral neuritis or radiculitis, unspecified documented in this encounter Discontinued Medications Medication Sig Discontinue Reason Start Date End Da te meloxicam (MOBIC) 7.5 mg tablet Take 1-2 tabs once daily as needed for pain. Therapy completed 08/26/2019 09/08/2022 documented as of this encounter Care Teams Smoking Pipe Repairer Relationship Specialty Start Date End Date Ananda Black MD [address] [place] [phone] PCP - General 02/13/19 documented as of this encounter
--- OUTSIDE RECORDS SUMMARY | 2024-08-07 14:59 | XMS_ITS | Encounter Summary ---
Author Organization [facility] Address [address] [place] [address] Care Team Providers Care Learning Officer Name Role Phone Ananda Black MD Primary Care Provider [phone]- [phone] Reason for Referral * Radiology Services (Routine/Next Available) - Closed Specialty Diagnoses / Procedures [facility] Referred To Contact Radiology Diagnoses Back pain, unspecified back location, unspecified back pain laterality, unspecified chronicity Abdominal pain, unspecified abdominal location Urinary frequency Fatigue, unspecified type Procedures CT ABDOMEN PELVIS W CONTRAST Deandra Multani FNP [address] [phone] Phone: tel: fax: [facility] CT Scan [address] [place] [address] Phone: tel: fax: Referral ID Status Reason Start Date Expiration Date Visits Re quested Visits Authorized [id number] Closed 02/14/2024 1 1 Reason for Visit * Reason Onset Date Comments Results 02/07/2024 Encounter Details Date Type Department Care Team ([facility] st Contact Info) Description 02/07/2024 Telephone [facility] Family Medicine - Main [place] [address] [place] [address] Deandra Multani FNP [address] [facility] [address] [phone] Results Social History Tobacco Use [...] encounter Miscellaneous Notes * Telephone Encounter - Deandra Multani FNP - 02/14/2024 1644 EDT Thank you. I agree with your recommendations. Orders signed. * Addendum Note - Deandra Multani FNP - 02/14/2024 1644 EDTAddended by: DEANDRA MULTANI on: 02/14/2024 16:44 Modules accepted: Orders * Addendum Note - Christin Fermin RN - 02/14/2024 1623 EDTAddended by: CHRISTIN FERMIN on: 02/14/2024 16:23 Modules accepted: Orders * Telephone Encounter - Christin Fermin RN - 02/14/2024 1615 EDT Outgoing call to pt to relay message below from Deandra Multani CRYPTOGRAPHIC TECHNICIAN. Pt states that she has been resting a lot recently (she is on her honeymoon), so the symptoms have been more intermittent, however, they still are present. Pt states that she continues to have abd pain, especially at night. There were two nights that it was so bad that she felt sweaty and like she was going to faint. That had subsided after about 30mins. This happened about a week ago. Advised pt that if that happens again, she should be assessed - ptagreeable. Pended CT and creatinine. Routing to Deandra Multani NP to review and advise. CHRISTIN FERMIN RN 02/14/2024 16:23 * Telephone Encounter - Deandra Multani FNP - 02/14/2024 1523 EDT Yes, if she is still having back pain, abdominal pain, fatigue, weakness, and urinary frequency please order an CT abdomen pelvis w contrast with dx back pain, abdominal pain, urinary frequency, fatigue. She will also need to have a repeat creatinine right before the CT scan due to the contrast, please order this. Thank you, Deandra * Telephone Encounter - Lisette Webber RN - 02/08/2024 0908 EDT Outgoing call to patient. Relayed message from Deandra Multani. Patient verbalized understanding. Endorses intermittent abdominal cramping since visit with ROYAL Ndiaye on 02/06/2024. It isworse with movement, especially when abdominal muscles are engaged. Endorses mild nausea, especially in the morning and evening. TE to ROYAL Ndiaye for review and recommendations - patient has 2-month visit scheduled, however based on current discomfort, please advise on next steps, or if imaging is indicated. LISETTE WEBBER RN 02/08/2024 9:12 * Telephone Encounter - Deandra Multani FNP - 02/07/2024 3745 EDT Please let harleen know that her chest XR results and urinalysis results were normal. Is she still having lower abdominal discomfort/cramping? Thank you, Deandra documented in this encounter Plan of Treatment Scheduled Orders Name Type Priority Associated Diagnoses Orde r Schedule CT ABDOMEN PELVIS W CONTRAST Imaging Routine Back pain, unspecified back location, unspecified back pain laterality, unspecified chronicity Abdominal pain, unspecified abdominal location Urinary frequency Fatigue, unspecified type Expected: 02/21/2024 (Approximate), Expires: 08/16/2025 documented as of this encounter Visit Diagnoses Diagnosis Back pain, unspecified back location, unspecified back pain laterality, unspecified chronicity- Primary Abdominal pain, unspecified abdominal location Urinary frequency Fatigue, unspecified type documented in this encounter Care Teams Learning Officer Relationship Specialty Start Date End Date Ananda Black MD [address] [place] [phone] PCP - General 02/13/19 documented as of this encounter
--- OUTSIDE RECORDS SUMMARY | 2024-08-07 14:59 | XMS_ITS | Encounter Summary ---
Author Organization [facility] Address [address] [place] [address] Care Team Providers Care Manager Monitoring Name Role Phone Ananda Black MD Primary Care Provider +1- [phone] Reason for Referral * Consult (Routine/Next Available) - Specialty Report Received Specialty Diagnoses / Procedures Referred By Contac t Referred To Contact Orthopedic Surgery Diagnoses Chronic bilateral low back pain with bilateral sciatica Ananda Black MD Phone: tel: fax: [facility] [address] [place] [address] Phone: tel: fax: Referral ID Status Reason Start Date Expiration Date Visits Requested Visits Authorized [id number] Specialty Report Received Specialty Services Required 08/01/2023 1 1 Question Answer Reason for Request: chornic lower back pain with sciatica. No resolving. * PT/OT/ST (Routine/Next Available) - Specialty Report Received Specialty Diagnoses / Procedures Referred By Contac t Referred To Contact Rehab Therapies Diagnoses Chronic midline thoracic back pain Ananda Black MD Phone: tel: fax: [facility] [address] [place] [address] Phone: tel: fax: Referral ID Status Reason Start Date Expiration Date Visits Requested Visits Authorized [id number] Specialty Report Received Specialty Services Required 08/01/2023 1 1 Question Answer Reason for Request: mid back pain, Comments This referral may serve as a referral to occupational therapy if appropriate. Reason for Visit * Reason Comments Back Pain Encounter Details Date Type Department Care Team (Late st Contact Info) Description 08/01/2023 9:30 EST Office Visit [facility] Medicine [facility] [address] [place] [address] Ananda Black MD [address] [place] [address] [address] [place] [address] Chronic bilateral low back pain with bilateral sciatica (Primary Dx); Chronic midline thoracic back pain Social History Tobacco Use Types Packs/Day Years [...] Reading Time Taken Comments Blood Pressure 100/64 08/01/2023 0933 EST Pulse 60 08/01/2023 0933 EST Temperature 36.1 ??C (97 ??F) 08/01/2023 0933 EST Respiratory Rate 20 08/01/2023 0933 EST Oxygen Saturation 100% 08/01/2023 0933 EST Inhaled Oxygen Concentration - - Weight 59 kg (130 lb) 08/01/2023 0933 EST Height - - Body Mass Index 26.26 10/25/2022 1522 EDT documented in this encounter [...] Refills Last Filled Start Date End Date gabapentin (NEURONTIN) 300 mg capsuleIndications :Chronic bilateral low back pain with bilateral sciatica Take 1 Capsule by mouth 3 times daily. 90 Capsule 2 08/01/2023 4 documented in this encounter Progress Notes * Ananad Black MD - 08/01/2023 0930 EST Family Medicine Office Visit Assessment & Plan 1. Chronic bilateral low back pain with bilateral sciatica Chronic issue that is improving. She has a job where she is on her feet a lot with lifting limitations of the not more than 10 pounds. I think this is reasonable. We will retry Neurontin. - gabapentin (NEURONTIN) 300 mg capsule; Take 1 Capsule by mouth 3 times daily. Dispense: 90 Capsule; Refill: 2 - Up titration Neurontin as tolerated. Start with 1 a day then twice a day then 3 times daily. - AMB CONS/FOLLOW UP ORTHOPEDICS - [facility]; Future 2. Chronic midline thoracic back pain New reported issue. Medication management includes NSAIDs and gentle stretching. -Patient advised to seek nonnarcotic modalities to control pain, such as pxjx-hop-ybtrdej medications. This would include mqeo-ftp-gqbndrg creams and or patches. Gentle use of NSAIDs (3,200 mg/day max),such as ibuprofen or Aleve. Tylenol is another options (4g/day max).Medication should be rotated every 4-6 hours with the understanding that the medication will lessen the pain. - AMB CONS/FOLLOW UP PHYSICAL THERAPY - [facility]; Future No follow-ups on file. Patient education was direct. Barriers were assessed and addressed as needed. Subjective Harleen Luna is a 22 y.o. female. Back Pain HPI Patient comes in for orthopedic issues. She has 2 issues. 1. She states that she has had lower back pain for 2 to 3 years. She has flareups on and off duringthe year. These flareups last for 1 week. 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 She currently has an accommodation not to lift more than 10 pounds. She does report that she has a pa in that runs down both of her legs. No bladder or bowel incontinence. No 2. For the last 6 months. Patient reports that she has mid back pain between her shoulder blades. She does not have any issues using her arms. Regarding medication, she uses meloxicam and as needed methocarbamol. She had tried Neurontin in the past with some success. She took it 3 times a day and had some stomach issues. She is willing to try this medication again. No headache, dizziness, or neurologic deficits. Data reviewed this visit: problem list/past medical history, current medications, and allergies Review of Systems - See HPI Objective BP 100/64 (BP Cuff Location: Right arm, BP Patient Position: Sitting, BP Cuff Sizes: Adult, regular) Pulse 60 Temp 36.1 ??C (97 ??F) (Tympanic) Resp 20 Wt 59 kg (130 lb) SpO2 100% BMI 26.26 kg/m?? Physical Exam Back: Mid back without any tenderness. Lower back without any tenderness midline. Firm paraspinous muscles. Negative straight leg lift bilaterally Neuro: Lower extremities neurologically intact to soft touch and pinprick bilaterally. 5/5 strengthbilaterally. documented in this encounter Plan of Treatment Scheduled Referrals Name Type Priority Associated Diagnoses Order Schedule AMB CONS/FOLLOW UP PHYSICAL THERAPY - [facility] Outpatient Referral Routine/Next Available Chronic midline thoracic back pain Expected: 08/08/2023 (Approximate), Expires: 08/01/2024 AMB CONS/FOLLOW UP ORTHOPEDICS - [facility] Outpatient Referral Routine/Next Available Chronic bilateral low back pain with bilateral sciatica Expected: 08/08/2023 (Approximate), Expires: 08/01/2024 documented as of this encounter Visit Diagnoses Diagnosis Chronic bilateral low back pain with bilateral sciatica- Primary Chronic midline thoracic back pain documented in this encounter Care Teams Manager Monitoring Relationship Specialty Start Date End Date Ananda Black MD [address] [place] [phone] PCP - General 02/13/19 documented as of this encounter
--- OUTSIDE RECORDS SUMMARY | 2024-08-07 14:59 | XMS_ITS | Encounter Summary ---
Author Organization [facility] Address [address] [place] [address] Care Team Providers Care Size Painter Name Role Phone Ananda Black MD Primary Care Provider [phone]- [phone] Reason for Visit * Reason Comments Pain Follow-up * Consult (Routine/Next Available) - Specialty Report Received Specialty Diagnoses / Procedures [facility] Referred To Contact Orthopedic Surgery Diagnoses Chronic bilateral low back pain with bilateral sciatica Ananda Black MD Phone: tel: fax: [facility] Sp[facility] Medicine [address] [place] [address] Phone: tel: fax: Referral ID Status Reason Start Date Expiration Date Visits Requested Visits Authorized [id number] Specialty Report Received Specialty Services Required 08/01/2023 1 1 Encounter Details Date Type Department Care Team (Late st Contact Info) Description 12/18/2023 16:00 EDT Office Visit [facility] Sp[facility] Medicine [address], [address] [place], [place] [phone] Donna Moreno PA-C [address] [facility] [address] [place], [place] [id number] Lumbar disc herniation with radiculopathy (Primary Dx) Social History Tobacco Use Types Packs/Day Years Used Date Smoking Tobacco: Never Smokeless Tobacco: Never Tobacco Cessation:Counseling Given: Not Answered Alcohol Use Standard Drinks/Week Comments No 0 [...] Sign Reading Time Taken Comments Blood Pressure 118/58 12/18/2023 1550 EDT Pulse 65 12/18/2023 1550 EDT Temperature - - Respiratory Rate - - Oxygen Saturation 97% 12/18/2023 1550 EDT Inhaled Oxygen Concentration - - Weight 59 kg (130 lb) 12/18/2023 1550 EDT Height 149.9 cm (4' 11) 12/18/2023 1550 EDT Body Mass Index 26.26 12/18/2023 1550 EDT documented in this encounter Functional Status [...] Progress Notes * Donna Moreno PA-C - 12/18/2023 1600 EDT Images from the original note were not included. 12/18/2023 PATIENT: Harleen Luna Primary Care Provider: Ananda Black [address] [place] [phone] Referring Provider: Ananda Black MD [address] [place] [address] [address] [place] [phone] CHIEF COMPLAINT Pain and Follow-up of the [...] PT which was helpful especially with mobility. The patient arrives s/p L5-S1 IL CHASIDY on 10/15/23. She reports 85% improvement. She still has stiffness and intermittent numbness but no weakness. Pain is a 2/10 today. She still has to restrict some activity like wake boarding. Treatments to date for this complaint have included: Injection History: 10/15/2023: L5-S1 CHASIDY [x] Physical therapy [] rn care manager or massage therapy [] Home exercise program [...] list which includes the following prescription(s): clindamycin, gabapentin, meloxicam, and methocarbamol. ALLERGIES Patient is [...] 149.9 cm (59) (abnormal) and weight is 59 kg (130 lb). Her blood pressure is 118/58 and her pulse is 65. Her oxygen saturation is 97%. PHYSICAL EXAM [...] radiculopathy. ASSESSMENT/PLAN Harleen was seen today for pain and follow-up. Diagnoses and all orders for this visit: Lumbar disc herniation with radiculopathy Other orders - clindamycin (CLEOCIN) 300 mg capsule; TAKE ONE CAPSULE BY MOUTH THREE TIMES A DAY FOR 7 DAYS Medications listed under other orders are included due to the limitations of [facility] but were not prescribed by me. The patient presents to the office due to a disc herniation with radiation into bilateral posteriorLE. MRI revealed a disc herniation at L5-S1 with inferior migration. Mechanical pressure on the exiting nerves and central canal are more mild and surgery is not an ideal recommendation in this case.We ordered an L5-S1 IL CHASIDY and patient has had good results at 85% improvement. She was encouraged to start returning to activity after conditioning to avoid reinjury but no specific restrictions needed. We will have her follow up in 3 months if symptoms worsen or PRN. All questions answered. Donna Moreno PA-C [facility] [address] [facility] [address] [place] [address] LV on 10/25/2022 with KK. Presents today for back pain follow-up. Assessment: Lumbar disc herniation with radiculopathy Plan: Follow-up with new or worsening pain Continue HEP Imaging: No new imaging since previous appointment 08/01/23: PCP office visit - re-referred to PT, first visit 08/17/23. Gabapentin restartedLOV 09/19/2023 Plan: We will recommend an L5-S1 IL CHASIDY. She will follow up 3 weeks after injection Injection History: 10/15/2023: L5-S1 CHASIDY Seeing PT documented in this encounter Plan of Treatment Not on file documented as of this encounter Visit Diagnoses Diagnosis Lumbar disc herniation with radiculopathy- Primary Displacement of lumbar intervertebral disc without myelopathy documented in this encounter Historical Medications * This list may reflect changes made after this encounter. clindamycin (CLEOCIN) 300 mg capsule TAKE ONE CAPSULE BY MOUTH THREE TIMES A DAY FOR 7 DAYS 12/16/2023 01/30/2024 added in this encounter Care Teams Size Painter Relationship Specialty Start Date End Date Ananda Black MD [address] [place] [address] [address] [place] [phone] PCP - General 02/13/19 documented as of this encounter
--- OUTSIDE RECORDS SUMMARY | 2024-08-07 14:59 | XMS_ITS | Encounter Summary ---
Author Organization [facility] Address [address] [place] [address] Care Team Providers Care Diabetes Solutions Specialist Name Role Phone Ananda Black MD Primary Care Provider +1- [phone] Encounter Details Date Type Department Care Team (Late st Contact Info) Description 02/05/2024 Orders Only [facility] [address] [place], [place] [address] Celia Chamorro Social History Tobacco Use Types [...] on filedocumented in this encounter Care Teams Diabetes [employer] Specialist Relationship Specialty Start Date End Date Ananda Black MD [address] [place] [phone] PCP - General 02/13/19 documented as of this encounter
--- OUTSIDE RECORDS SUMMARY | 2024-08-07 14:59 | XMS_ITS | Encounter Summary ---
Author Organization [facility] Address [address] [place] [address] Care Team Providers Care Gaming Commissioner Name Role Phone Ananda Black MD Primary Care Provider +1- [phone] Reason for Referral * Radiology Services (Routine/Next Available) - Authorization Not Required Specialty Diagnoses / Procedures Referred By Contac t Referred To Contact Radiology Diagnoses Fatigue, unspecified type Weakness generalized Decreased exercise tolerance Procedures XR CHEST 2 VIEWS Rima Corbett FNP [address] [address] Phone: tel: fax: [facility] Xray [address] [place] [address] Phone: tel: fax: Referral ID Status Reason Start Date Expiration Date Visits Requested Visits Authorized [id number] Authorization Not Required 02/06/2024 1 1 Reason for Visit * Radiology Services (Routine/Next Available) - Authorization Not Required Specialty Diagnoses / Procedures Referred By Contac t Referred To Contact Radiology Diagnoses Fatigue, unspecified type Weakness generalized Decreased exercise tolerance Procedures XR CHEST 2 VIEWS Rima Corbett FNP [address] [facility] [address] [address] Phone: tel: fax: [facility] Xray [address] [place] [address] Phone: tel: fax: Referral ID Status Reason Start Date Expiration Date Visits Requested Visits Authorized [id number] Authorization Not Required 02/06/2024 1 1 Encounter Details Date Type Department Care Team (Latest Contact Info) Description 02/07/2024 9:36 EDT - 02/07/2024 23:59 EDT Hospital Encounter [facility] Xray [address] [place] [address] Fatigue, unspecified type; Weakness generalized; Decreased exercise tolerance Discharge Disposition: Home or Self Care Social [...] this encounter Medications at Time of Discharge cholecalciferol, Vitamin D3, (VITAMIN D) 25 mcg (1,000 unit) tablet Take 1 Tablet by mouth daily. L.acid/L.casei/B. bif/B.jr/FOS (PROBIOTIC BLEND ORAL) Take by mouth. documented as of this encounter Discharge Disposition Disposition Code Departure Means Destination Home or Self Care documented in this encounter Plan of Treatment Not on file documented as of this encounter Procedures Procedure Name Priority Date/Time Associated Diagnosis Comments XR CHEST 2 VIEWS Routine 02/07/2024 9:47 EDT Fatigue, unspecified type Weakness generalized Decreased exercise tolerance documented in this encounter Results * XR CHEST 2 VIEWS (02/07/2024 9:47 EDT) Anatomical Region Laterality Modality Computed Radiogr aphy 02/07/2024 10:1 5 EDT Impressions 02/07/2024 10:15 EDT No acute findings. [id number] Narrative 02/07/2024 10:15 EDT XR CHEST 2 VIEWS ??02/07/2024 9:40 AM Clinical History/comments: reduced exercise tolerance, fatigue, generalized weakness;R53.83:Fatigue, unspecified type;R53.1:Weakness generalized;R68.89:Decreased exercise tolerance Comparison: 12/01/2019. Technique: Frontal and lateral views of the chest. Findings: Lungs: Clear. Pleura/diaphragms: No pleural effusion or pneumothorax. Cardiac and mediastinal contours: Normal. Soft tissues and extrathoracic findings: ??Normal. Bones: No acute findings. Resulting Agency Comment [id number] Procedure Note Clement Whitlock MD - 02/07/2024 XR CHEST 2 VIEWS 02/07/2024 9:40 AM Clinical History/comments: reduced exercise tolerance, fatigue, generalized weakness;R53.83:Fatigue,unspecified type;R53.1:Weakness generalized;R68.89:Decreased exercisetolerance Comparison: 12/01/2019. Technique: Frontal and lateral views of the chest. Findings: Lungs: Clear. Pleura/diaphragms: No pleural effusion or pneumothorax. Cardiac and mediastinal contours: Normal. Soft tissues and extrathoracic findings: Normal. Bones: No acute findings. IMPRESSION No acute findings. [id number] Rima PAIGE IMG DIAGNOSTIC IMAGING ORDER FRED Final Result documented in this encounter Visit Diagnoses Diagnosis Fatigue, unspecified type Weakness generalized Other malaise and fatigue Decreased exercise tolerance Other general symptoms documented in this encounter Care Teams Gaming Commissioner Relationship Specialty Start Date End Date Ananda Black MD [address] [place] [phone] PCP - General 02/13/19 documented as of this encounter
--- OUTSIDE RECORDS SUMMARY | 2024-08-07 14:59 | XMS_ITS | Encounter Summary ---
Author Organization [facility] Address [address] [place] [address] Care Team Providers Care Insurance Claims Specialist Name Role Phone Ananda Black MD Primary Care Provider +1- [phone] Reason for Referral * Radiology Services (Routine/Next Available) - Authorization Not Required Specialty Diagnoses / Procedures Referred By Contac t Referred To Contact Radiology Diagnoses Fatigue, unspecified type Weakness generalized Myalgia Sensory disturbance Frequent headaches Chronic left-sided low back pain, unspecified whether sciatica present Procedures MR CERVICAL SPINE W WO CONTRAST Rima Corbett FNP [address] [address] Phone: tel: fax: [facility] MRI [address] [place] [address] Phone: tel: fax: Referral ID Status Reason Start Date Expiration Date Visits Requested Visits Authorized [id number] Authorization Not Required 02/03/2024 1 1 * Radiology Services (Routine/Next Available) - Authorization Not Required Specialty Diagnoses / Procedures Referred By Contcarlos t Referred To Contact Radiology Diagnoses Fatigue, unspecified type Weakness generalized Myalgia Sensory disturbance Frequent headaches Chronic left-sided low back pain, unspecified whether sciatica present Procedures MR LUMBAR SPINE W WO CONTRAST Rima Corbett FNP 130 [facility] [address] [address] Phone: tel: fax: [facility] MRI [address] [place] [address] Phone: tel: fax: Referral ID Status Reason Start Date Expiration Date Visits Requested Visits Authorized [id number] Authorization Not Required 02/03/2024 1 1 * Radiology Services (Routine/Next Available) - Authorization Not Required Specialty Diagnoses / Procedures Referred By Rosa sparks Referred To Contact Radiology Diagnoses Fatigue, unspecified type Weakness generalized Myalgia Sensory disturbance Frequent headaches Chronic left-sided low back pain, unspecified whether sciatica present Procedures MR HEAD W WO CONTRAST Rima Corbett FNP [address] [address] Phone: tel: fax: [facility] MRI [address] [place] [address] Phone: tel: fax: Referral ID Status Reason Start Date Expiration Date Visits Requested Visits Authorized [id number] Authorization Not Required 02/03/2024 1 1 * Office Procedure (Routine/Next Available) - Closed Specialty Diagnoses / Procedures Referred By Rosa sparks Referred To Contact Neurology Diagnoses Fatigue, unspecified type Weakness generalized Myalgia Sensory disturbance Frequent headaches Chronic left-sided low back pain, unspecified whether sciatica present Procedures EMG/NERVE CONDUCTION STUDY Rima Corbett FNP [address] [address] Phone: tel: fax: [facility] [address] [place] [address] Phone: tel: fax: Referral ID Status Reason Start Date Expiration Date V isits Requested Visits Authorized [id number] Closed Specialty Services Required 02/03/2024 1 0 Encounter Details Date Type Department Care Team (Late st Contact Info) Description 02/03/2024 Orders Only [facility] Medicine - [facility] [place] [address] [place] [address] Rima Corbett FNP 130 [facility] [address] [place] [address] Fatigue, unspecified type (Primary Dx); Weakness generalized; Myalgia; Sensory disturbance; Frequent headaches; Chronic left-sided low back pain, unspecified whether sciatica present Social History Tobacco Use Types Packs/Day Years [...] Type Priority Associated Diagnoses Orde r Schedule EMG/NERVE CONDUCTION STUDY Procedures Routine/Next Available Fatigue, unspecified type Weakness generalized Myalgia Sensory disturbance Frequent headaches Chronic left-sided low back pain, unspecified whether sciatica present Expected: 02/10/2024 (Approximate), Expires: 02/02/2025 MR HEAD W WO CONTRAST Imaging Routine Fatigue, unspecified type Weakness generalized Myalgia Sensory disturbance Frequent headaches Chronic left-sided low back pain, unspecified whether sciatica present Expected: 02/10/2024 (Approximate), Expires: 08/05/2025 MR LUMBAR SPINE W WO CONTRAST Imaging Routine Fatigue, unspecified type Weakness generalized Myalgia Sensory disturbance Frequent headaches Chronic left-sided low back pain, unspecified whether sciatica present Expected: 02/10/2024 (Approximate), Expires: 08/05/2025 MR CERVICAL SPINE W WO CONTRAST Imaging Routine Fatigue, unspecified type Weakness generalized Myalgia Sensory disturbance Frequent headaches Chronic left-sided low back pain, unspecified whether sciatica present Expected: 02/10/2024 (Approximate), Expires: 08/05/2025 documented as of this encounter Visit Diagnoses Diagnosis Fatigue, unspecified type- Primary Weakness generalized Other malaise and fatigue Myalgia Mylagia and myositis, unspecified Sensory disturbance Disturbance of skin sensation Frequent headaches Chronic left-sided low back pain, unspecified whether sciatica present documented in this encounter Care Teams Insurance Claims Specialist Relationship Specialty Start Date End Date Ananda Black MD [address] [place] [phone] PCP - General 02/13/19 documented as of this encounter
--- OUTSIDE RECORDS SUMMARY | 2024-08-07 14:59 | XMS_ITS | Encounter Summary ---
Author Organization [facility] Address [address] [place] [address] Care Team Providers Care Director Radiation Oncology Name Role Phone Ananda Black MD Primary Care Provider +1- [phone] Encounter Details Date Type Department Care Team (Late st Contact Info) Description 01/08/2023 Documentation Visit [facility] Rehabilitation Therapy [address] [place] [address] [place] [address] [facility] [address] [place] [phone] Social History Tobacco Use Types Packs/Day Years [...] documented in this encounter Progress Notes * Vianca Shepherd PT - 01/08/2023 1356 EDT [facility] [phone] Physical Therapy Discharge Not Seen Recently Therapy Diagnosis: Low back and LE radiculopathy affecting functional moblility?? Referring Clinician: Darcy Zhu NP Reporting Period: 09/20/22 - 10/30/22 Physical Therapy Program to Date: In summary, the program has included: therapeutic exercise, patient education, home exercise program Goal Review: (from 10/30/22 note) Short-Term Goals Timeframe:??4 sessions Harleen will be able to sit for at least 30 minutes for the purposes of eating a meal: goal met Harleen will be able to bend forward to don/doff lower body clothing without an increase in LE symptoms: goal met ?? Long-Term Goals Timeframe:??8 sessions Harleen will be able to stand/walk for at least 2 hours to progress her work tasks: ongoing, sitting or taking a rest every hour Harleen will be able to lift and carry at least 20lbs to perform tasks around her home and at work:goal met Harleen will be able to return to her regular workouts at the gym to independently manage symptoms and to maintain a level of fitness: ongoing Discharge Reason: Pt was performing home exercises, did not return for further therapy Discharge patient at this time; future therapy will require a new physician's referral. documented in this encounter Plan of Treatment Not on file documented as of this encounter Visit Diagnoses Not on filedocumented in this encounter Care Teams Director Radiation Oncology Relationship Specialty Start Date End Date Ananda Black MD [address] [place] [phone] PCP - General 02/13/19 documented as of this encounter
--- OUTSIDE RECORDS SUMMARY | 2024-08-07 15:00 | XMS_ITS | Encounter Summary ---
Author Organization [facility] Address [address] [place] [address] Care Team Providers Care Firewall Security Engineer Name Role Phone Ananda Black MD Primary Care Provider [phone]- [phone] Reason for Referral * Radiology Services (Routine) - Specialty Report Received Specialty Diagnoses / Procedures Referred By [facility] t Referred To Contact Radiology Diagnoses Bilateral leg pain Lumbar pain HNP (herniated nucleus pulposus), lumbar Procedures MR LUMBAR SPINE WO CONTRAST Shelly Lora NP Phone: tel: fax: Referral ID Status Reason Start Date Expiration Date V isits Requested Visits Authorized [id number] Specialty Report Received 11/09/2020 1 1 Reason for Visit * Reason Comments Pain Pain Pain Encounter Details Date Type Department Care Team (Late st Contact Info) Description 11/09/2020 10:45 EDT Office Visit [facility] [address] [place] [address] Shelly Lora NP [address] [place] [phone] HNP (herniated nucleus pulposus), lumbar (Primary Dx); Lumbar pain; Bilateral leg pain Social History Tobacco Use Types Packs/Day Years Used Date Smoking Tobacco: Never Smokeless Tobacco: Never Alcohol Use Standard Drinks/Week Comments No 0 (1 standard drink = 0.6 oz pur e alcohol) AUDIT-C Answer Date Recorded Frequency of Alcohol Consumption Never 07/17/2018 Average Number of Drinks Not on file 019 Frequency of Binge Drinking Not on file 08/2018 Interpersonal Safety Answer Date Record ed Physically Hurt Never 02/15/2020 Verbally Threaten Not on file 02/15/2020 Comments Unknown Sex and Gender Information Value Date Recorded Sex Assigned at Not on file Legal Sex Female 15:38 EST Gender Identity Female 07/03/2019 14:11 EST Sexual Orientation Not on file COVID-19 Exposure Response Date Recorded In the last month, have you been in contact with someone who was confirmed or suspected to have Coronavirus / COVID-19? No / Unsure 11/09/2020 10:54 EDT documented as of this encounter Last Filed Vital Signs Vital Sign Reading Time Taken Comments Blood Pressure 104/60 11/09/2020 1055 EDT Pulse 95 11/09/2020 1055 EDT Temperature 36.7 ??C (98.1 ??F) 11/09/2020 1055 EDT Respiratory Rate - - Oxygen Saturation 95% 11/09/2020 1055 EDT Inhaled Oxygen Concentration - - Weight 55.7 kg (122 lb 12.8 oz) 11/09/2020 1055 EDT Height - - Body Mass Index 23.98 12/10/2019 1623 EDT documented in this encounter Functional Status [...] documented in this encounter Progress Notes * Shelly Lora APRN - 11/09/2020 1045 EDT Medical Decision Making Harleen Luna is a pleasant and straightforward 20 y.o. female seen in evaluation for her stable, but chronic issue of bilateral lower extremity radicular pain likely secondary to a central L5-S1 disc herniation impinging the bilateral S1 nerves. She has had good but temporary relief from 2 L5-S1 epidural steroid injections and today, I discussed with the patient that it certainly would notbe unreasonable to consider a surgical consult given her persistent pain over a lengthy period of time despite several conservative treatment modalities. The patient is in agreement and subsequently,I recommended obtaining an updated MRI for potential surgical planning and we will refer her to [facility] after the MRI is completed. I spent a total of 25 minutes on the date of this encounter meeting with the patient and reviewing documentation/coordinating care as described in this note. No procedure was performed at today's visit. Imaging/Test Review On the day of this encounter, I reviewed an MRI of the lumbar spine completed on 09/11/2019 again, demonstrating a large central disc herniation at L5-S1 with some slight superior migration and impingement of the bilateral S1 nerves. Imaging was reviewed by me. Diagnosis 1. HNP (herniated nucleus pulposus), lumbar MR LUMBAR SPINE WO CONTRAST CANCELED: AMB CONS/FOLLOW UP ORTHOPEDICS 2. Lumbar pain MR LUMBAR SPINE WO CONTRAST CANCELED: AMB CONS/FOLLOW UP ORTHOPEDICS 3. Bilateral leg pain MR LUMBAR SPINE WO CONTRAST CANCELED: AMB CONS/FOLLOW UP ORTHOPEDICS Plan 1. Updated MRI of the lumbar spine 2. Referral to [facility] spine for formal surgical consult after the above is completed HPI Harleen Luna is a 20 y.o. female last seen by me on 08/05/2020 for evaluation of a chief complaint of low back pain radiating to the bilateral lower extremities likely secondary to a large discherniation centrally at L5-S1. At the time of her last visit, she responded well to an L5-S1 epidural injection and had several months of relief but noticed that her pain has been returning and was interested in potentially repeating the injection. A subsequent order was placed and the patient is following up with me today to discuss the results of her most recent L5-S1 epidural injection. Since her last visit, she did have a repeat L5-S1 epidural injection that was completed on 09/21/2020. She continues to report that the injection was somewhat helpful for the first few weeks and she does feel as though this is improving her symptoms but she continues to have bilateral lower extremityradicular pain on the left greater than the right and overall, reports that she is not quite where she would like to be. She continues to deny any weakness to her bilateral lower extremities. The patient's medical profile was reviewed and dated today. It contains a detailed past medical history, past surgical history, list of medications, allergies, social history and family medical history and was reviewed and updated in the EMR. reports that she has never smoked. She has never used smokeless tobacco. She reports no history of alcohol use. Conservative Treatment: Physical therapy, home exercise program, cyclobenzaprine, meloxicam, applications of ice, injections: 1. L5-S1 CHASIDY (01/20/2020)-substantial relief until May 2020 2. Repeat L5-S1 CHASIDY (09/21/2020)-some relief but not as helpful as the initial injection in January A five-point review of systems was completed today and of note, pertinent positives and negatives are indicated in the HPI Physical Examination BP 104/60 (BP Cuff Location: Left arm, BP Patient Position: Sitting, BP Cuff Sizes: Adult, regular) Pulse 95 Temp 36.7 ??C (98.1 ??F) Wt 55.7 kg (122 lb 12.8 oz) SpO2 95% BMI 23.98 kg/m?? Pain Ratin General: Pleasant, cooperative, mood and affect are appropriate. Neuro: Alert and oriented to person, place, time and purpose. Posture: Normal, upright Gait: Nonantalgic Palpation: There are no palpable masses, lesions or deformities. Skin: Intact with no stigmata of underlying disease. ROM: Deferred Sensation: Grossly intact throughout all dermatomes Strength: LOWER Right Left Hip flex 5/5 5/5 Hip abd 5/5 5/5 Knee flex 5/5 5/5 Knee ext 5/5 5/5 Ank dors 5/5 5/5 Ank inv 5/5 5/5 Ank plant 5/5 5/5 Toe ext 5/5 5/5 Reflexes: Right Left Patellar L3-4 2/4 2/4 Ankles S1-2 0/4 0/4 Provocative Maneuvers: Mildly positive SLR bilaterally Lluvia Signs: 0/5 CC: Primary Care Provider: Ananda Black [address] [place] [phone] Referring Provider: Ananda ANAND DICTATION WAS USED FOR NOTE COMPLETION. PLEASE EXCUSE ALL MISSPELLINGS AND PUNCTUATION ERRORS. ADRIAN Ozuna 11/09/20 [facility] Orthopedic Spine and Neurosurgery documented in this encounter Plan of Treatment Scheduled Orders Name Type Priority Associated Diagnoses Orde r Schedule MR LUMBAR SPINE WO CONTRAST Imaging Routine Bilateral leg pain Lumbar pain HNP (herniated nucleus pulposus), lumbar Ordered: 11/09/2020 documented as of this encounter Visit Diagnoses Diagnosis HNP (herniated nucleus pulposus), lumbar- Primary Displacement of lumbar intervertebral disc without myelopathy Lumbar pain Lumbago Bilateral leg pain Pain in limb documented in this encounter Care Teams Firewall Security Engineer Relationship Specialty Start Date End Date Ananda Black MD [address] [place] [phone] PCP - General 02/13/19 documented as of this encounter
--- OUTSIDE RECORDS SUMMARY | 2024-08-07 15:00 | XMS_ITS | Encounter Summary ---
Author Organization [facility] Address [address] [place] [address] Care Team Providers Care Tennis Racket Repairer Name Role Phone Ananda Black MD Primary Care Provider [phone]- [phone] Reason for Visit * Reason Onset Date Comments Results 07/14/2019 Encounter Details Date Type Department Care Team (Late st Contact Info) Description 07/14/2019 Telephone [place] [address] [address] Ananda Black MD [address] [place] [phone] Results Social History Tobacco Use Types Packs/Day Years Used Date Smoking Tobacco: Never Smokeless Tobacco: Never Alcohol Use Standard Drinks/Week Comments No 0 (1 standard drink = 0.6 oz pur e alcohol) AUDIT-C Answer Date Recorded Frequency of Alcohol Consumption Never 07/17/2018 Average Number of Drinks Not on file 019 Frequency of Binge Drinking Not on file 08/2018 Comments Unknown Sex and Gender Information Value [...] encounter Miscellaneous Notes * Telephone Encounter - Almita Edouard APRN - 07/14/2019 1519 EST Noted. * Telephone Encounter - Vijay Bhat - 07/14/2019 1352 EST FYI: I scheduled this pt with you tomorrow @2:30. She is coming in for lower/lumbar back pain, stating that she thinks its associated with her menstrual cycle. I couldn't have her talk to a nurse because it doesn't look like Dr Black went over the images fromher lumbar xrays on 05/14/2019. documented in this encounter Plan of Treatment Not on file documented as of this encounter Visit Diagnoses Not on filedocumented in this encounter Care Teams Tennis Racket Repairer Relationship Specialty Start Date End Date Ananda Black MD [address] [place] [phone] PCP - General 02/13/19 documented as of this encounter
--- OUTSIDE RECORDS SUMMARY | 2024-08-07 15:00 | XMS_ITS | Encounter Summary ---
Author Organization [facility] Address [address] [place] [address] Care Team Providers Care Lodging Facilities Attendant Name Role Phone Ananda Black MD Primary Care Provider +1- [phone] Reason for Visit * Reason Onset Date Comments Results 06/06/2021 Encounter Details Date Type Department Care Team (Late st Contact Info) Description 06/06/2021 Telephone [facility] [address] [place], [place] [phone] Lazaro Lanza, BEN [address] [place] [phone] Results Social History Tobacco Use Types Packs/Day [...] have Coronavirus / COVID-19? No / Unsure 06/03/2021 14:24 EST documented as of this encounter Functional [...] encounter Miscellaneous Notes * Telephone Encounter - Lazaro Lanza NP - 06/06/2021 0812 EST Please let patient know that all of her labs are normal. No signs of rheumatologic illness and her Lyme testing was negative. The MAYRA which also looks for autoimmune issues was also negative. There were a couple minor abnormalities in the CMP but none of these are concerning at this time. One of them was a slightly elevated sugar level which is not unusual given the time of day which we tested her blood and the other was a low BUN. This is usually a measure of kidney function is only concerningif it is high. documented in this encounter Plan of Treatment Not on file documented as of this encounter Visit Diagnoses Not on filedocumented in this encounter Care Teams Lodging Facilities Attendant Relationship Specialty Start Date End Date Ananda Black MD [address] [place] [phone] PCP - General 02/13/19 documented as of this encounter
--- OUTSIDE RECORDS SUMMARY | 2024-08-07 15:00 | XMS_ITS | Encounter Summary ---
Author Organization [facility] Address [address] [place] [address] Care Team Providers Care Loan Manager Name Role Phone Ananda Black MD Primary Care Provider +1- [phone] Reason for Visit * Reason Comments Pain Encounter Details Date Type Department Care Team (Late st Contact Info) Description 12/15/2020 9:30 EDT Office Visit [facility] [address] [address] Johan Walker MD [address] [place] [address] [place] [phone] HNP (herniated nucleus pulposus), lumbar (Primary Dx) Social History Tobacco Use Types [...] documented in this encounter Progress Notes * Johan Walker MD - 12/15/2020 0965 EDT Problem: 1. 90% low back 10% left thigh pain A. 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 Since then her symptoms have waxed and waned but currently she has 90% left-sided lumbosacral discomfort with 10% left buttock and lateral thigh pain never below the knee. She notes that the leg symptoms come on when her back pain gets worse they are not constant. She notes that her symptoms are worsened by prolonged sitting prolongedstanding and significantly improved with laying down or constantly changing positions. She is undergone physical therapy and does a home exercise program that is helpful most of the time. She has hadL5-S1 epidural injections which given significant relief for short periods of time. She also has Flexeril and Mobic which he takes intermittently that also help. She has had no neuroleptics chiropractic or acupuncture. She denies fever chills night sweats weight loss or loss of bowel or bladder control. Social history: Patient is a non-smoker Objective: 0/5 waddle signs heel and toe walk without difficulty gait is without any antalgia. 5/5 EHL tib ant peroneal gastroc Quad Ham psoas. 1+ knee and ankle jerks symmetrically. Straight leg on the right without any difficulty on the left at 50 degrees produces lumbosacral pain. X-ray: AP lateral flex ex lateral lumbar spine films demonstrate mild loss of disc space height at L5-S1 with no evidence of any abnormal angulation or translation. MRI demonstrates a central L5-S1 disc bulge with abutment of the right and left S1 nerve roots but without any displacement. Assessment: Woman with predominantly back pain intermittent leg symptoms I discussed that surgical intervention for this problem would involve a discectomy and that the surgery would have a perhaps 50% chance of improvement of the buttock pain and a 90% chance improvement in the leg symptoms its much less helpful for back pain and leg symptoms. I discussed the nature of the surgery rehabilitationas well as other options including use of neuroleptics and acupuncture and at this point she felt that surgery is not the way she would like to go in pursuing this. I did discuss with her that there is a very high likelihood will continue to improve her for an indeterminate period of time. Plan: 1. Neurontin trial 2. Continue with current regimen of anti-inflammatory and home exercise program and intermittent injections 3. Follow-up as needed documented in this encounter Plan of Treatment Not on file documented as of this encounter Visit Diagnoses Diagnosis HNP (herniated nucleus pulposus), lumbar- Primary Displacement of lumbar intervertebral disc without myelopathy documented in this encounter Care Teams Loan Manager Relationship Specialty Start Date End Date Ananda Black MD [address] [place] [phone] PCP - General 02/13/19 documented as of this encounter
--- OUTSIDE RECORDS SUMMARY | 2024-08-07 15:00 | XMS_ITS | Encounter Summary ---
Author Organization [facility] Address [address] [place] [address] Care Team Providers Care Medical Language Specialist Name Role Phone Ananda Black MD Primary Care Provider +1- [phone] Reason for Visit * Reason Onset Date Comments Other 01/21/2022 dental pain Encounter Details Date Type Department Care Team (Late st Contact Info) Description 01/21/2022 Telephone [facility] [address] [facility] [place], [place] [phone] [facility] [address] [place], [place] [phone] Other (dental pain) Social History Tobacco Use Types Packs/Day Years [...] encounter Miscellaneous Notes * Telephone Encounter - Karol Spaulding - 01/21/2022 1215 EDT Harleen's mom called in Harleen had dental work done and she still has pain , concerned that there is an infection. They may be in later today. documented in this encounter Plan of Treatment Not on file documented as of this encounter Visit Diagnoses Not on filedocumented in this encounter Care Teams Medical Language Specialist Relationship Specialty Start Date End Date Ananda Black MD [address] [place] [phone] PCP - General 02/13/19 documented as of this encounter
--- OUTSIDE RECORDS SUMMARY | 2024-08-07 15:00 | XMS_ITS | Encounter Summary ---
Author Organization [facility] Address [address] [place] [address] Care Team Providers Care Associate Editor Name Role Phone Ananda Black MD Primary Care Provider +1- [phone] Reason for Referral * Consult (Routine) - New Request Specialty Diagnoses / Procedures Referred By [facility] Referred To Contact Anesthesiology Diagnoses HNP (herniated nucleus pulposus), lumbar Lumbar pain Bilateral leg pain Shelly Lora NP [address] [place] [address] Phone: tel: fax: Emmanuel Feliciano MD Phone: tel: fax: Referral ID Status Reason Start Date Expiration Date Visits Requested Visits Authorized [id number] New Request Specialty Services Required 08/05/2020 1 1 Question Answer Reason for Request: repeat L5-S1 CHASIDY SITE [facility] [place] [facility] Reason for Visit * Reason Comments Pain Encounter Details Date Type Department Care Team (Late st Contact Info) Description 08/05/2020 13:45 EST Telemedicine [facility] [address], [address] [place], [place] [id number] Shelly Lora NP [address] [place] [address] [place] [id number] HNP (herniated nucleus pulposus), lumbar (Primary Dx); [...] in this encounter Progress Notes * Shelly Lora, MEAT PASSER - 08/05/2020 0835 EST [facility] Tele[place] Visit Verbal consent: The concept of ???Telemedicine?? has been described to the patient. Patient has been informed of the anticipated benefits and possible risks. Patient understands the information provided regarding telemedicine, has had the opportunity to ask questions about this information, and all questions havebeen answered to patient???s satisfaction. Patient consents for the use of telemedicine in his/her medical care and authorizes the transmission of any relevant medical information to providers and their staff involved in patient???s medical or mental health care. Verbal consent obtained by myself or auxiliary staff: yes. HPI: Harleen Luna is a 19 y.o. female last seen by me on 12/10/2019 and at that time, she was seenfor a chief complaint of 90% low back and 10% left greater than right lower extremity pain that waslikely secondary to a large central disc herniation at L5-S1 and subsequently, I recommended that she trial an L5-S1 epidural steroid injection to see if this could mitigate her pain. The patient is following up with me today to discuss her current status as well as to discuss further options. The patient was seen at the [facility] [place] clinic on 01/20/2020 where she received a central L5-S1 epidural steroid injection. The patient reports that this injection was extremely helpful and was pain-freefor some time but noticed a slow return of her symptoms in May 2020 and over the last 3 weeks,she feels as though she is back to baseline. She continues to report 90% low back and 10% left greater than right lower extremity pain. She denies any alteration in bowel or bladder function and there are no symptoms of neurogenic claudication. I have reviewed patient's tobacco history: reports that she has never smoked. She has never used smokeless tobacco. I have reviewed current problem list and current medications. Conservative Treatment Physical therapy, home exercise program, cyclobenzaprine, meloxicam, applications of ice, injections: 1. L5-S1 CHASIDY (01/20/2020)-substantial relief until May 2020 ROS: A five-point review of systems was completed today and of note, pertinent positives and negatives are indicated in the HPI Physical Examination Home Vitals: No vital signs were obtained Patient continues to report low back pain predominantly across the lumbosacral junction. She does have some radiating pain to the bilateral lower extremities on the left greater than the right that more closely matches an S1 distribution per her description Imaging/Test Review I did briefly review her MRI from 09/11/2019 demonstrating a large central disc herniation at L5-S1 with some slight superior migration with impingement of the bilateral S1 nerves. Diagnosis 1. HNP (herniated nucleus pulposus), lumbar AMB CONS/FOLLOW UP ANESTHESIOLOGY L5-S1 2. Lumbar pain AMB CONS/FOLLOW UP ANESTHESIOLOGY 3. Bilateral leg pain AMB CONS/FOLLOW UP ANESTHESIOLOGY Medical Decision Making Harleen Luna is a 19 y.o. female with a chief complaint of stable, but chronic issue of low back pain radiating to the bilateral lower extremities on the left greater than the right likely secondary to a large disc herniation centrally at L5-S1. She responded very well to an L5-S1 epidural steroid injection and verbalizes substantial relief for several months but has noticed her pain returning and is interested in potentially repeating this injection. Today, I discussed with the patient that this certainly was not unreasonable but if her pain continues to return, it would not be unreasonable to discuss her surgical options. For now, we will repeat the L5-S1 epidural injection and I wi ll see her back when this is completed to evaluate her status and to discuss further options. Plan: 1. Repeat L5-S1 epidural injection 2. Follow-up with me when the above is completed Patient initiated phone contact with the office: yes. Patient is an established patient (parent, guardian) yes. E/M provided within previous 7 days for same medical assessment: no Anticipate E/M service within 24hrs or next available urgent appointment no. This visit was conducted by telephone. I spent a total of 25 minutes in discussion with the patientas described in the progress note. Shelly Lora APRN 08/05/2020 documented in this encounter Plan of Treatment Scheduled Referrals Name Type Priority Associated Diagnoses Order Schedule AMB CONS/FOLLOW UP ANESTHESIOLOGY Outpatient Referral Routine HNP (herniated nucleus pulposus), lumbar Lumbar pain Bilateral leg pain Ordered: 08/05/2020 documented as of this encounter Visit Diagnoses Diagnosis HNP (herniated nucleus pulposus), lumbar- Primary Displacement of lumbar intervertebral disc without myelopathy Lumbar pain Lumbago Bilateral leg pain Pain in limb documented in this encounter Care Teams Associate Editor Relationship Specialty Start Date End Date Ananda Black MD [address] [place] [phone] PCP - General 02/13/19 documented as of this encounter
--- OUTSIDE RECORDS SUMMARY | 2024-08-07 15:00 | XMS_ITS | Encounter Summary ---
Author Organization [facility] Address [address] [place] [address] Care Team Providers Care Business Test Analyst Name Role Phone Ananda Black MD Primary Care Provider +1- [phone] Reason for Referral * PT/OT/ST (Routine) - Closed Specialty Diagnoses / Procedures Referred By Contac t Referred To Contact Diagnoses Acute bilateral low back pain with left-sided sciatica Chronic bilateral low back pain, unspecified whether sciatica present Ananda Black MD Phone: tel: fax: Referral ID Status Reason Start Date Expiration Date V isits Requested Visits Authorized [id number] Closed Specialty Services Required 07/21/2019 1 1 Question Answer Reason for Request: Acute/chronic bilateral low back pain SITE [facility] [place] Reason for Visit * Reason Onset Date Comments Referral Request 07/21/2019 Encounter Details Date Type Department Care Team (Late st Contact Info) Description 07/21/2019 Telephone [facility] Medicine [facility] [address] [facility] [address] [place] [address] Ananda Black MD [address] [phone] Referral Request Social History Tobacco Use Types Packs/Day [...] encounter Miscellaneous Notes * Telephone Encounter - Ananda Black MD - 07/21/2019 1504 EST Signed. * Telephone Encounter - Cheryl Martin - 07/21/2019 1424 EST Patient has a referral for PT for back in April and due to things coming up she was not able to start going and would like to go now but PT is stating she needs a new referral, she would like to goto [facility] [place], please advise. documented in this encounter Plan of Treatment Scheduled Referrals Name Type Priority Associated Diagnoses Orde r Schedule AMB CONS/FOLLOW UP PHYSICAL THERAPY Outpatient Referral Routine Acute bilateral low back pain with left-sided sciatica Chronic bilateral low back pain, unspecified whether sciatica present Ordered: 07/21/2019 documented as of this encounter Visit Diagnoses Diagnosis Acute bilateral low back pain with left-sided sciatica- Primary Chronic bilateral low back pain, unspecified whether sciatica present documented in this encounter Care Teams Business Test Analyst Relationship Specialty Start Date End Date Ananda Black MD [address] [place] [phone] PCP - General 02/13/19 documented as of this encounter
--- OUTSIDE RECORDS SUMMARY | 2024-08-07 15:00 | XMS_ITS | Encounter Summary ---
Author Organization [facility] Address [address] [place] [address] Care Team Providers Care Lead Web Developer Name Role Phone Ananda Black MD Primary Care Provider +1- [phone] Reason for Visit * Reason Comments Puncture Wound Encounter Details Date Type Department Care Team (Late st Contact Info) Description 12/16/2021 10:45 EDT [facility] [address] [place] [id number] Carolynn Clark, PAElizabeth [address] [facility] [address] [place] [address] Puncture wound of right foot, initial encounter (Primary Dx) Social History Tobacco Use Types [...] Sign Reading Time Taken Comments Blood Pressure 90/70 12/16/2021 1117 EDT Pulse 59 12/16/2021 1117 EDT Temperature 36.7 ??C (98.1 ??F) 12/16/2021 1117 EDT Respiratory Rate 16 12/16/2021 1117 EDT Oxygen Saturation 96% 12/16/2021 1117 EDT Inhaled Oxygen Concentration - - Weight [...] documented in this encounter Progress Notes * Helena Nolasco MA - 12/16/2021 1045 EDT CC/HPI: Pt reports she stepped on metal hairbrush 12/14/21, c/o puncture wound, tender, PCP advised eval here, last Tdap 07/18/2012 Covid Screening: In the last 72 hours, has the patient had: New or unusual cough, shortness of breath, new nasal congestion, sore throat, fever, chills, body aches, or new loss of taste or smell without a reasonable alternative diagnosis*? (If yes, assign to ARC) NO In the past 10 days, has the patient had a positive Covid test OR a confirmed close Covid exposure (<6ft for > 15mins in 24hr period)? (if yes, assign to ARC, regardless of vaccination status) NO Is the patient fully Covid vaccinated? NO Approximate date of last dose? *may be determined by RN or in discussion with available provider (ADMINISTRATIVE SUPPORT ASSOCIATE's and CCA's can defer to Charge Nurse to complete triage when appropriate) PCP: Ananda Black * Carolynn Clark PA-C - 12/16/2021 1045 EDT [facility] Chief Complaint(s): Chief Complaint Patient presents with ??? Puncture Wound Assessment & Plan: 1. Puncture wound of right foot, initial encounter TDAP VACCINE =>7YO IM New Prescriptions No medications on file Wound healing well. Tdap updated. She will follow up as needed. HPI: Pt notes she stepped on her own metal hair brush 12/14/21 and sustained a puncture wound to the rightfoot. The patient notes she called PCP to ask about her tetanus status and was unable to get that information. She feels the area is healing well. Minimal discomfort with ambulation, this is improving. The history is provided by the patient. ROS: Review of Systems Constitutional: Negative for fever. HENT: Negative for sore throat. Respiratory: Negative for cough and shortness of breath. Musculoskeletal: Negative for myalgias. Neurological: No change in taste or sense of smell Objective: Vitals and nursing notes reviewed Examination: BP 90/70 Pulse 59 Temp 36.7 ??C (98.1 ??F) Comment (Src): scanner Resp 16 SpO2 96% Physical Exam Constitutional: General: She is not in acute distress. Appearance: Normal appearance. Skin: General: Skin is warm and dry. Comments: Plantar right foot, distal lateral aspect puncture wound visualized. <2mm of ecchymosis without surrounding redness. No induration. Neurological: Mental Status: She is alert. Gait: Gait normal. Data reviewed with patient (current and past results): Last tdap reviewed This note may be in part documented using voice dictation software. Please forgive any errors or omissions that may result from use of dictation. documented in this encounter Plan of Treatment Not on file documented as of this encounter Visit Diagnoses Diagnosis Puncture wound of right foot, initial encounter- Primary documented in this encounter Orders Immunization/Injection Count Last Ordered Date First Ordered Date TDAP VACCINE =>7YO IM 1 12/16/2021 documented in this encounter Care Teams Lead Web Developer Relationship Specialty Start Date End Date Ananda Black MD [address] [place] [phone] PCP - General 02/13/19 documented as of this encounter
--- OUTSIDE RECORDS SUMMARY | 2024-08-07 15:00 | XMS_ITS | Encounter Summary ---
Author Organization [facility] Address [address] [place] [address] Care Team Providers Care English Lecturer Name Role Phone Ananda Black MD Primary Care Provider +1- [phone] Reason for Visit * Reason Onset Date Comments Other 11/01/2020 Encounter Details Date Type Department Care Team (Late st Contact Info) Description 11/01/[address] [facility] Orthopedics & Spine Medicine [address] [place], [place] [id number] Shelly Lora, BNE [address] [place] [address] [place] [phone] Other Social History Tobacco Use Types Packs/Day Years [...] encounter Miscellaneous Notes * Telephone Encounter - Akosua Madrigal LPN - 11/01/2020 1458 EDT Pt leaves VM today, states she was suppose to F/U by phone with Shelly, wonders if she needs anotherMRI for next steps, pt last seen TM 08/05/20 Plan: ?? 1. Repeat L5-S1 epidural injection ?? 2. Follow-up with me when the above is completed ??pt had L5-S1 CHASIDY by Dr Feliciano 09/21/20 Called pt, spoke with mom, offered att tomorrow at 9, mom checked with pt, she was unable to take that, offered 11/09/20 at 10:45, pt wanted in office visit,happy with that plan. documented in this encounter Plan of Treatment Not on file documented as of this encounter Visit Diagnoses Not on filedocumented in this encounter Care Teams English Lecturer Relationship Specialty Start Date End Date Ananda Black MD [address] [place] [phone] PCP - General 02/13/19 documented as of this encounter
--- OUTSIDE RECORDS SUMMARY | 2024-08-07 15:00 | XMS_ITS | Encounter Summary ---
Author Organization [facility] Address [address] [place] [address] Care Team Providers Care It Consultant Name Role Phone Ananda Black MD Primary Care Provider +1- [phone] Reason for Visit * Reason Comments Headache Sinus pressure, sore throat x 2 wks Encounter Details Date Type Department Care Team (Late st Contact Info) Description 07/03/2019 14:15 EST [facility] [address] [place] [phone] Anisha Reyes, CUSTOMS COMPLIANCE DIRECTOR [address] [facility] [address] [place] [address] Acute maxillary sinusitis, recurrence not specified (Primary Dx) Social History Tobacco Use Types [...] Sign Reading Time Taken Comments Blood Pressure 120/72 07/03/2019 1419 EST Pulse 62 07/03/2019 1419 EST Temperature 36.3 ??C (97.3 ??F) 07/03/2019 1419 EST Respiratory Rate - - Oxygen Saturation 97% 07/03/2019 1419 EST Inhaled Oxygen Concentration - - Weight [...] this encounter Patient Instructions * Patient Instructions* Anisha Reyes, TRADE UNION OFFICIAL - 07/03/2019 14:15 EST Images from the original note were not included. Use doxycycline as prescribed, add probiotic to diet. Try flonase and/or neti pot. Talk to PCP about possible ENT referral as history of sinusitis occurring consistently on right side may indicate a structural abnormality. [facility] Patient Instructions Sinusitis: Care Instructions Your Care Instructions Sinusitis is an infection of the lining of the sinus cavities in your head. Sinusitis often followsa cold. It causes pain and pressure in your head and face. In most cases, sinusitis gets better on its own in 1 to 2 weeks. But some mild symptoms may last for several weeks. Sometimes antibiotics are needed. Follow-up care is a granado part of your treatment and safety. Be sure to make and go to all appointments, and call your doctor if you are having problems. It's also a good idea to know your test resultsand keep a list of the medicines you take. How can you care for yourself at home? ?? Take an atod-rvl-billjgi pain medicine, such as acetaminophen (Tylenol), ibuprofen (Advil, Motrin), or naproxen (Aleve). Read and follow all instructions on the label. ?? If the doctor prescribed antibiotics, take them as directed. Do not stop taking them just because you feel better. You need to take the full course of antibiotics. ?? Be careful when taking hrce-nag-arxfypo cold or flu medicines and Tylenol at the same time. Manyof these medicines have acetaminophen, which is Tylenol. Read the labels to make sure that you are not taking more than the recommended dose. Too much acetaminophen (Tylenol) can be harmful. ?? Breathe warm, moist air from a steamy shower, a hot bath, or a sink filled with hot water. Avoidcold, dry air. Using a humidifier in your home may help. Follow the directions for cleaning the machine. ?? Use saline (saltwater) nasal washes to help keep your nasal passages open and wash out mucus andbacteria. You can buy saline nose drops at a grocery store or drugsKeepIdease. Or you can make your own at home by adding 1 teaspoon of salt and 1 teaspoon of baking soda to 2 cups of distilled water. If you make your own, fill a bulb syringe with the solution, insert the tip into your nostril, and squeeze gently. Blow your nose. ?? Put a hot, wet towel or a warm gel pack on your face 3 or 4 times a day for 5 to 10 minutes eachtime. ?? Try a decongestant nasal spray like oxymetazoline (Afrin). Do not use it for more than 3 days ellen row. Using it for more than 3 days can make your congestion worse. When should you call for help? Call your doctor now or seek immediate medical care if: ? You have new or worse swelling or redness in your face or around your eyes. ? You have a new or higher fever. ??Watch closely for changes in your health, and be sure to contact your doctor if: ? You have new or worse facial pain. ? The mucus from your nose becomes thicker (like pus) or has new blood in it. ? You are not getting better as expected. Where can you learn more? Go to https://www.[employer].net/[employer] Technologiesealth or log into your [employer]Book[employer] account at https://[employer].org Enter I933 in the search box to learn more about Sinusitis: Care Instructions. Current as of: May 05, 2018 Content Version: 12.2 ?? [id number] [employer]. Care instructions adapted under license by [facility]. If you have questions about a medical condition or this instruction, always askyour healthcare professional. Healthwise, Incorporated disclaims any warranty or liability for youruse of this information. documented in this encounter Ordered Prescriptions Prescription Sig Dispense Quantity Refills Last Filled Start Date End Date fluticasone propionate (FLONASE) 50 mcg/actuation nasal sprayIndications:A cute maxillary sinusitis, recurrence not specified Instill 1 Altheimer into both nostrils 2 times daily for 14 days. 1 Bottle 2 07/03/2019 0 doxycycline (VIBRA-TABS) 100 mg tabletIndications: Acute maxillary sinusitis, recurrence not specified Take 1 Tab by mouth 2 times daily for 7 days. 14 Tab 07/03/2019 9 documented in this encounter Progress Notes * Anisha Reyes, REBECA - 07/03/2019 1415 EST [facility] Chief Complaint(s): Headache (Sinus pressure, sore throat x 2 wks) HPI: Harleen Luna is here with complaints of worsening sinus pressure, sinus congestion, headacheand sore throat for past 2 weeks. Reports history of frequent sinus infections, always worse on theright maxillary region. Has not been seen by ENT. Denies fevers, coughing. Has been using OTC cold medicines through duration of illness, was more helpful initially, no longer helpful. Facial pressure is most bothersome symptom - made much worse with forward bending. Social History Tobacco Use Smoking Status Never Smoker Smokeless Tobacco Never Used I have reviewed current problem list, current medications and allergies. ROS: Review of Systems Constitutional: Negative. HENT: Positive for congestion, sinus pain and sore throat. Negative for ear pain. Respiratory: Negative. Cardiovascular: Negative. Skin: Negative. See HPI for details Objective: Examination: Vitals: BP 120/72 Pulse 62 Temp 36.3 ??C (97.3 ??F) (Oral) SpO2 97% Physical Exam Constitutional: She is oriented to person, place, and time. She appears well- developed and well-nourished. No distress. HENT: Right Ear: Tympanic membrane and ear canal normal. Left Ear: Tympanic membrane and ear canal normal. Nose: Mucosal edema and rhinorrhea present. Right sinus exhibits maxillary sinus tenderness. Right sinus exhibits no frontal sinus tenderness. Left sinus exhibits maxillary sinus tenderness. Left sinus exhibits no frontal sinus tenderness. Mouth/Throat: Uvula is midline, oropharynx is clear and moist and mucous membranes are normal. Tonsils are 1+ on the right. Tonsils are 1+ on the left. No tonsillar exudate. Neck: Normal range of motion. Cardiovascular: Normal rate and regular rhythm. Pulmonary/Chest: Effort normal and breath sounds normal. Lymphadenopathy: She has no cervical adenopathy. Neurological: She is alert and oriented to person, place, and time. Skin: Skin is warm and dry. Nursing note and vitals reviewed. Procedures Assessment & Plan: Harleen was seen today for headache. Diagnoses and all orders for this visit: Acute maxillary sinusitis, recurrence not specified - doxycycline (VIBRA-TABS) 100 mg tablet; Take 1 Tab by mouth 2 times daily for 7 days. - fluticasone propionate (FLONASE) 50 mcg/actuation nasal spray; Instill 1 Altheimer into both nostrils2 times daily for 14 days. This is a 18 y.o. yr old female afeb in [facility]. I printed material and reviewed home management in detail with patient for likely bacterial sinusitis, see patient instructions below. All questions are answered. Patient is advised to follow up for urgent reassessment in the emergency department for any new/worsening signs and symptoms, otherwise, follow up with PCP for symptoms that persist past current course of treatment. Patient verbalizes understanding and agreement with this plan of care. documented in this encounter Plan of Treatment Not on file documented as of this encounter Visit Diagnoses Diagnosis Acute maxillary sinusitis, recurrence not specified- Primary documented in this encounter Historical Medications * This list may reflect changes made after this encounter. ibuprofen (MOTRIN) 200 mg tablet 2-3 tab(s) orally every 6 hours prn 11/27/2022 added in this encounter Care Teams It Consultant Relationship Specialty Start Date End Date Ananda Black MD [address] [place] [phone] PCP - General 02/13/19 documented as of this encounter
--- OUTSIDE RECORDS SUMMARY | 2024-08-07 15:00 | XMS_ITS | Encounter Summary ---
Author Organization [facility] Address [address] [place] [address] Care Team Providers Care Marketing Developer Name Role Phone Ananda Black MD Primary Care Provider +1- [phone] Encounter Details Date Type Department Care Team (Latest Contact Info) Description 12/10/2019 Travel Social History Tobacco Use Types Packs/Day [...] have Coronavirus / COVID-19? No / Unsure 12/10/2019 16:23 EDT documented as of this encounter Functional [...] on filedocumented in this encounter Care Teams Marketing Developer Relationship Specialty Start Date End Date Ananda Black MD [address] [place] [phone] PCP - General 02/13/19 documented as of this encounter
--- OUTSIDE RECORDS SUMMARY | 2024-08-07 15:00 | XMS_ITS | Encounter Summary ---
Author Organization [facility] Address [address] [place] [address] Care Team Providers Care Warp Coiler Name Role Phone Ananda Black MD Primary Care Provider +1- [phone] Reason for Visit * Reason Onset Date Comments Results 12/03/2019 Encounter Details Date Type Department Care Team (Late st Contact Info) Description 12/03/2019 Telephone [facility] [address] [place], [place] [phone] Ghulam Bergman, BEN [address] [facility] [address] [place], [place] [id number] Results Social History Tobacco Use Types Packs/Day [...] have Coronavirus / COVID-19? No / Unsure 12/01/2019 9:13 EDT documented as of this encounter Functional [...] * Telephone Encounter - Karol Spaulding - 12/03/2019 1025 EDT Harleen returned call, read provider note that testing was negative * Telephone Encounter - Jigna Agustin - 12/03/2019 0937 EDT Phone just kept ringing with no option to leave VM * Telephone Encounter - Ghulam Bergman APRN - 12/03/2019 0836 EDT Please call Harleen and let her know that her Covid-19 test was negative. documented in this encounter Plan of Treatment Not on file documented as of this encounter Visit Diagnoses Not on filedocumented in this encounter Care Teams Warp Coiler Relationship Specialty Start Date End Date Ananda Black MD [address] [place] [phone] PCP - General 02/13/19 documented as of this encounter
--- OUTSIDE RECORDS SUMMARY | 2024-08-07 15:00 | XMS_ITS | Encounter Summary ---
Author Organization [facility] Address [address] [place] [address] Care Team Providers Care Financial Analysis Manager Name Role Phone Ananda Black MD Primary Care Provider +1- [phone] Encounter Details Date Type Department Care Team (Late st Contact Info) Description 12/24/2019 Results Only [facility] [phone] Ananda Black MD [address] [place] [phone] Social History Tobacco Use Types Packs/Day [...] Procedure Name Priority Date/Time Associated Diagnosis Comments PULMONARY FUNCTION TESTING 12/24/2019 7:02 EDT documented in this encounter Results * PULMONARY FUNCTION TESTING (12/24/2019 7:02 EDT) 12/24/2019 7:02 EDT Narrative [facility] - 12/24/2019 7:02 EDT Site: [facility], [address] [place] [address], [place], [address] ID: [id number] ??Name: HARLEEN LUNA Visit Date: 12/24/2019 Referring Doctor: ANANDA BLACK Reviewing Doctor: Alvarado Odonnell Activity Manager: Linda Naqvi Age: 19 ??: 2000 ??Sex: Female ??Race: <Unspecified> Height: 60.00 ??Inches ??Weight: 120.00 ??Lbs ??BSA: 1.50 Order IDs: [id number] Requested Test(s): <PFTR> Diagnosis: Chest heaviness Dyspnea: No Dyspnea ??Cough: No Cough ??Wheeze: No Wheeze Tbco Prod: Never Smoked Medications: ProAir prn Pre Test Comments: ??Patient states she rarely uses inhaler Post Test Comments: Good patient effort & cooperation. ??The results of this test meet the ATS standards for repeatability and acceptability. ??No bronchodilator given due to FEV1 > 80% per protocol. ??No previous PFT's available. Review Status: Completed+Posted+Locked ?Pre-Bronch ?Post-Bronch ? Pred ??Actual %Pred ??Actual %Chng SPIROMETRY FVC (L) ?3.02 ?? 3.36 ?110 ? FEV1 (L) ? 2.70 ?? 2.94 ?108 ? FEV1/FVC (%) ? 90 ? 88 ? 97 ? FEF 25% (L/sec) ?5.50 ?? 5.49 ? 99 ? FEF 50% (L/sec) ?4.76 ?? 4.16 ? 87 ? FEF 75% (L/sec) ?1.67 ?? 1.71 ?102 ? FEF 25-75% (L/sec) ? 3.39 ?? 3.55 ?104 ? FEF Max (L/sec) ?6.25 ?? 6.15 ? 98 ? FIVC (L) ?2.40 ? FIF 50% (L/sec) ?3.96 ?? 4.56 ?114 ? FIF Max (L/sec) ? 4.56 ? MVV (L/min) ? 106 ? 82 ? 77 ? LUNG VOLUMES SVC (L) ?3.02 ?? 2.32 ? 76 ? IC (L) ? 2.18 ?? 1.92 ? 87 ? ERV (L) ?1.09 ?? 0.41 ? 37 ? Interpretation: Although the FVC and FEV1 are within normal limits, the FEV1/FVC ratio is reduced. ??The MVV is reduced. ??The slow vital capacity is reduced. Pulmonary Function Diagnosis: Minimal Obstructive Airways Disease Minimal Neuromuscular weakness or suboptimal effort ?This interpretation has been electronically signed: ??Alvarado Odonnell 12/26/2019 ?? 12:46:58 PM? us Ananda Black MD PFT ORDERABLES Final Resu lt [facility] documented in this encounter Visit Diagnoses Not on filedocumented in this encounter Care Teams Financial Analysis Manager Relationship Specialty Start Date End Date Ananda Black MD [address] [place] [phone] PCP - General 02/13/19 documented as of this encounter
--- OUTSIDE RECORDS SUMMARY | 2024-08-07 15:00 | XMS_ITS | Encounter Summary ---
Author Organization [facility] Address [address] [place] [address] Care Team Providers Care Clinical Applications Manager Name Role Phone Ananda Black MD Primary Care Provider +1- [phone] Encounter Details Date Type Department Care Team (Late st Contact Info) Description 06/03/2021 15:[address] [facility] - Outpatient Phlebotomy Drawing [address] [place] [address] [place], [facility] [place] Generalized body aches Social History Tobacco Use Types Packs/Day Years [...] Procedure Name Priority Date/Time Associated Diagnosis Comments THYROID CASCADE Routine 06/03/2021 15:28 EST Generalized body aches COMPLETE BLOOD COUNT AND DIFFERENTIAL Routine 06/03/2021 15:28 EST Generalized body aches C REACTIVE PROTEIN Routine 06/03/2021 15 :28 EST Generalized body aches COMPREHENSIVE METABOLIC PANEL (CMP) Routine 06/03/2021 15:28 EST Generalized body aches documented in this encounter Results * C REACTIVE PROTEIN (06/03/2021 15:28 EST) C-Reactive Protein <5.0 <10.0 mg/L 06/03/2021 17:05 EST [facility] Blood VENOUS BLOOD / Unknown Venipuncture / Unknown 06/03/2021 15:28 EST 06/03/2021 16:27 EST us Lazaro Lanza NP CHEMISTRY & BLOOD GAS ORDERABLE S Final Result Performing Organization Address City/State/[facility] Co de Phone Number [facility] [address] [place] [address] * THYROID CASCADE (06/03/2021 15:28 EST) TSH 1.40 0.47 - 4.68 ??IU/mL 06/03/2021 17:37 EST [facility] Blood VENOUS BLOOD / Unknown Venipuncture / Unknown 06/03/2021 15:28 EST 06/03/2021 16:27 EST Narrative [facility] - 06/03/2021 17:37 EST NOTE: The results of this assay can be falsely lowered due to the consumption of Biotin. us Lazaro Lanza NP CHEMISTRY & BLOOD GAS ORDERABLE S Final Result [facility] [address] [place] [address] * COMPLETE BLOOD COUNT AND DIFFERENTIAL (06/03/2021 15:28 EST) WBC 8.76 4.00 - 12.40 K/cmm 06/03/2021 16:30 [facility] RBC 4.94 3.86 - 5.04 M/cmm 06/03/2021 16:30 [facility] Hemoglobin 14.5 11.6 - 15.2 gm/dL 06/03/2021 16:30 [facility] HCT 43.3 34.9 - 44.4 % 06/03/2021 16:30 [facility] MCV 88 81 - 98 fl 06/03/2021 16:30 [facility] MCH 29.4 26.7 - 33.3 pg 06/03/2021 16:30 [facility] MCHC 33.5 32.1 - 35.9 gm/dL 06/03/2021 16:30 [facility] RDW-CV 11.7 <14.7 % 06/03/2021 16:30 [facility] RDW-SD 37.6 <50.4 fl 06/03/2021 16:30 [facility] PLT 336 141 - 377 K/cmm 06/03/2021 16:30 [facility] MPV 10.2 9.5 - 12.7 fl 06/03/2021 16:30 [facility] % Neutrophils 65.6 % 06/03/2021 16:30 [facility] % Lymphocytes 25.2 % 06/03/2021 16:30 [facility] % Monocytes 6.6 % 06/03/2021 16:30 [facility] % Eosinophils 1.7 % 06/03/2021 16:30 [facility] % Basophils 0.7 % 06/03/2021 16:30 [facility] % Immature Grans 0.2 % 06/03/20 16:30 [facility] Absolute Neutrophils 5.74 2.20 - 8.85 K/cmm 06/03/2021 16:30 [facility] Absolute Lymphocytes 2.21 1.09 - 3.30 K/cmm 06/03/2021 16:30 [facility] Absolute Monocytes 0.58 0.10 - 0.80 K/cmm 06/03/2021 16:30 [facility] Absolute Eosinophils 0.15 0.03 - 0.61 K/cmm 06/03/2021 16:30 [facility] ABS Basophils 0.06 0.01 - 0.11 K/cmm 06/03/2021 16:30 [facility] Absolute Immature Grans 0.02 0.00 - 0.06 K/cmm 06/03/2021 16:30 [facility] Type of Differential: Auto 06/03/2021 16:30 [facility] Blood VENOUS BLOOD / Unknown Venipuncture / Unknown 06/03/2021 15:28 EST 06/03/2021 16:26 EST us Lazaro Lanza NP PACKAGES & DNA PROBE ORDERABLES Final Result Performing Organization Address City/State/[facility] Co de Phone Number [facility] [address] [place] [phone] * (ABNORMAL) COMPREHENSIVE METABOLIC PANEL (CMP) (06/03/2021 15:28 EST) Sodium 139 136 - 145 mmol/L 06/03/2021 17:05 [facility] Potassium 4.3 3.5 - 5.0 mmol/L 06/03/2021 17:05 [facility] Chloride 99 96 - 110 mmol/L 06/03/2021 17:05 [facility] CO2 Total 31 22 - 32 mmol/L 06/03/2021 17:05 [facility] Glucose 103(H) 70 - 100 mg/dL 06/03/2021 17:05 [facility] BUN 5(L) 10 - 26 mg/dL 06/03/2021 17:05 [facility] Creatinine 0.65 0.52 - 1.04 mg/dL 06/03/2021 17:05 [facility] eGFR 126 >60 mL/min/1.7 3m2 06/03/2021 17:05 [facility] Total Protein 7.0 6.3 - 8.2 g/dL 06/03/2021 17:05 [facility] Albumin 4.7 3.4 - 4.9 g/dL 06/03/2021 17:05 [facility] Alkaline Phosphatase 59 38 - 126 U/L 06/03/2021 17:05 [facility] AST 27 15 - 46 U/L 06/03/2021 17:05 [facility] ALT 14 <35 U/L 06/03/2021 17:05 [facility] Bilirubin, Total 0.6 <1.4 mg/dL 06/03/20 17:05 [facility] Calcium 9.6 8.5 - 10.5 mg/dL 06/03/2021 17:05 [facility] Albumin/Globulin Ratio 2.0 1.0 - 2.5 06/03/2021 17:05 [facility] Anion Gap 9 8 - 16 06/03/2021 17:05 [facility] Blood VENOUS BLOOD / Unknown Venipuncture / Unknown 06/03/2021 15:28 EST 06/03/2021 16:27 EST us Lazaro Lanza NP CHEMISTRY & BLOOD GAS ORDERABLE S Final Result [facility] [address] [place] [address] documented in this encounter Visit Diagnoses Diagnosis Generalized body aches documented in this encounter Care Teams Clinical Applications Manager Relationship Specialty Start Date End Date Ananda Black MD [address] [facility] [address] [place] [phone] PCP - General 02/13/19 documented as of this encounter
--- OUTSIDE RECORDS SUMMARY | 2024-08-07 15:00 | XMS_ITS | Encounter Summary ---
Author Organization [facility] Address [address] [place] [address] Care Team Providers Care Lobbyist Name Role Phone Ananda Black MD Primary Care Provider +1- [phone] Encounter Details Date Type Department Care Team (Late st Contact Info) Description 12/02/2020 Results Only Imaging [facility] Radiology Results [address] [place] [address] Shelly Lora, ENGINE MANAGER [address] [place] [address] [place] [address] Social History Tobacco Use Types Packs/Day Years [...] 10:54 EDT documented as of this encounter Functional [...] Diagnosis Comments MR LUMBAR SPINE WO CONTRAST 12/02/2020 20:49 EDT documented in this encounter Results * MR LUMBAR SPINE WO CONTRAST (12/02/2020 20:49 EDT) Anatomical Region Laterality Modality Spine Magnetic Resonan ce 12/02/2020 20:4 9 EDT Narrative 12/02/2020 20:49 EDT ? EXAM: MAGNETIC RESONANCE IMAGING/LUMBAR S EX. D/ (2021) ? CLINICAL INFORMATION: ? M51.26 LUMBAR HNP ? M54.5 LUMBAR PAIN ? PROCEDURE INFORMATION: ? Exam: MR Lumbar Spine Without Contrast ? Exam date and time: 12/02/2020 8:22 PM ? Age: 20 years old ? Clinical indication: Other: Lumbar hnp, lumbar pain; Additional ? info: M51.26 lumbar hnp, m54.5 lumbar pain ? TECHNIQUE: ? Imaging protocol: Multiplanar magnetic resonance images of the ? lumbar spine without intravenous contrast. ? COMPARISON: ? MR LUMBAR SPINE W/O CONTRAST 09/11/2019 10:03 AM ? FINDINGS: ? Vertebrae: Unremarkable. ? Spinal cord: Conus medullaris terminates at L1-L2. ? L1-L2: ??No significant disc disease. No significant spinal canal ? stenosis. No neural foraminal stenosis. ? L2-L3: ??No significant disc disease. No significant spinal canal ? stenosis. No neural foraminal stenosis. ? L3-L4: ??No significant disc disease. No significant spinal canal ? stenosis. No neural foraminal stenosis. ? L4-L5: ??No significant disc disease. No significant spinal canal ? stenosis. No neural foraminal stenosis. ? L5-S1: Small disc extrusion resulting in contact of the ? descending left S1 nerve root. ? Soft tissues: Unremarkable. ? IMPRESSION: ? Small disc extrusion at L5-S1 resulting in contact of the ? descending left S1 nerve root. ? REPORT SIGNED IN OTHER VENDOR SYSTEM 12/02/2020 ?Reported By: Eulalia Mixon MD ? CC: Shelly Lora TRAY PACKER-BC ? Transcribed Date/Time: 12/02/2020 (2048) ? Director University: ? Printed Date/Time: 12/02/2020 (2048) ? PAGE 1 ? Signed Report ? Procedure Note Oral Esteban MD - 12/02/2020 EXAM: MAGNETIC RESONANCE IMAGING/LUMBAR S EX. D/ (2021) CLINICAL INFORMATION: M51.26 LUMBAR HNP M54.5 LUMBAR PAIN PROCEDURE INFORMATION: Exam: MR Lumbar Spine Without Contrast Exam date and time: 12/02/2020 8:22 PM Age: 20 years old Clinical indication: Other: Lumbar hnp, lumbar pain; Additional info: M51.26 lumbar hnp, m54.5 lumbar pain TECHNIQUE: Imaging protocol: Multiplanar magnetic resonance images of the lumbar spine without intravenous contrast. COMPARISON: MR LUMBAR SPINE W/O CONTRAST 09/11/2019 10:03 AM FINDINGS: Vertebrae: Unremarkable. Spinal cord: Conus medullaris terminates at L1-L2. L1-L2: No significant disc disease. No significant spinal canal stenosis. No neural foraminal stenosis. L2-L3: No significant disc disease. No significant spinal canal stenosis. No neural foraminal stenosis. L3-L4: No significant disc disease. No significant spinal canal stenosis. No neural foraminal stenosis. L4-L5: No significant disc disease. No significant spinal canal stenosis. No neural foraminal stenosis. L5-S1: Small disc extrusion resulting in contact of the descending left S1 nerve root. Soft tissues: Unremarkable. IMPRESSION: Small disc extrusion at L5-S1 resulting in contact of the descending left S1 nerve root. REPORT SIGNED IN OTHER VENDOR SYSTEM 12/02/2020 Reported By: Eulalia Mixon MD CC: Shelly Lora TRAY PACKER-BC Transcribed Date/Time: 12/02/2020 (2048) Director University: Printed Date/Time: 12/02/2020 (2048) PAGE 1 Signed Report Shelly Lora ENGINE MANAGER IMG MRI ORDERABLES Final Resu lt documented in this encounter Visit Diagnoses Not on filedocumented in this encounter Care Teams Lobbyist Relationship Specialty Start Date End Date Ananda Black MD [address] [place] [phone] PCP - General 02/13/19 documented as of this encounter
--- OUTSIDE RECORDS SUMMARY | 2024-08-07 15:00 | XMS_ITS | Encounter Summary ---
Author Organization [facility] Address [address] [place] [address] Care Team Providers Care Manager Community Outreach Name Role Phone Ananda Black MD Primary Care Provider +1- [phone] Reason for Referral * Consult (Routine) - Closed Specialty Diagnoses / Procedures [facility] Anesthesiology Diagnoses HNP (herniated nucleus pulposus), lumbar Shelly Lora NP [address] [place] [address] [place] [address] Phone: tel: fax: Emmanuel Feliciano MD Phone: tel: fax: Referral ID Status Reason Start Date Expiration Date V isits Requested Visits Authorized [id number] Closed Specialty Services Required 12/25/2019 1 1 Question Answer Reason for Request: Central L5-S1 [place]ASIDY [place] [facility] [place] Large L>R L5-S1 HNP Reason for Visit * Reason Onset Date Comments Other 12/25/2019 Encounter Details Date Type Department Care Team (Late st Contact Info) Description 12/25/2019 Telephone [facility] [address] [place] [address] Shelly Lora NP [address] [place] [address] [place] [phone] Other Social History Tobacco Use Types Packs/Day [...] Telephone Encounter - Akosua Madrigal LPN - 12/25/2019 1452 EDT Pt notified * Telephone Encounter - Shelly Lora APRN - 12/25/2019 1346 EDT Referral created * Telephone Encounter - Akosua Madrigal LPN - 12/25/2019 1035 EDT Pt calls today, she was seen 12/10/19 and told to consider L5-S1 CHASIDY, pt would like that order placed, she knows when she gets a date to call back here and we can set up 2-3 week F/U to evaluate, pt happy with this plan, Shelly, please order documented in this encounter Plan of Treatment Scheduled Referrals Name Type Priority Associated Diagnoses Order Schedule AMB CONS/FOLLOW UP ANESTHESIOLOGY Outpatient Referral Routine HNP (herniated nucleus pulposus), lumbar Ordered: 12/25/2019 documented as of this encounter Visit Diagnoses Diagnosis HNP (herniated nucleus pulposus), lumbar- Primary Displacement of lumbar intervertebral disc without myelopathy documented in this encounter Care Teams Manager Community Outreach Relationship Specialty Start Date End Date Ananda Black MD [address] [place] [phone] PCP - General 02/13/19 documented as of this encounter
--- OUTSIDE RECORDS SUMMARY | 2024-08-07 15:00 | XMS_ITS | Encounter Summary ---
Author Organization [facility] Address [address] [place] [address] Care Team Providers Care Assistant Plant Control Operator Name Role Phone Ananda Black MD Primary Care Provider +1- [phone] Encounter Details Date Type Department Care Team (Late st Contact Info) Description 11/26/2019 Telephone [facility] Orthopedics & Spine Medicine [address], [address] [place], [place] [id number] Shelly Lora, BEN [address] [place] [address] [place] [address] Social History Tobacco Use Types Packs/Day Years [...] encounter Miscellaneous Notes * Telephone Encounter - Alpa Terrazas - 11/26/2019 0931 EDT I called asking for Harleen today and spoke with Laure. I was told Harleen was not there but that they would try to get in touch with her and let her know that we called to schedule an appointment with her. I asked if there was a better contact number and was told there is not. documented in this encounter Plan of Treatment Not on file documented as of this encounter Visit Diagnoses Not on filedocumented in this encounter Care Teams Assistant Plant Control Operator Relationship Specialty Start Date End Date Ananda Black MD [address] [place] [phone] PCP - General 02/13/19 documented as of this encounter
--- OUTSIDE RECORDS SUMMARY | 2024-08-07 15:00 | XMS_ITS | Encounter Summary ---
Author Organization [facility] Address [address] [place] [address] Care Team Providers Care Animal Care Attendant Name Role Phone Ananda Black MD Primary Care Provider +1- [phone] Reason for Visit * Reason Onset Date Comments Diagnostic Imaging Report 12/01/2019 Encounter Details Date Type Department Care Team (Late st Contact Info) Description 12/01/2019 Telephone [facility] Res[facility] Clinic [address] [place], [place] [id number] Ghulam Bergman, BEN [address] [facility] [address] [place] [address] Diagnostic Imaging Report Social History Tobacco Use Types Packs/Day Years [...] encounter Miscellaneous Notes * Telephone Encounter - Dionicio Calderon RN - 12/02/2019 0957 EDT Called and relayed message from dwight JOSE states she is still feeling the same and is going to call to schedule appt. With her PCP and relayed that we will call with COVID results. * Telephone Encounter - Ghulam Bergman APRN - 12/01/2019 1542 EDT Please call Harleen and let her know that her chest Xray appears normal. She should follow up with her PCP for any continued concerns. She should expect a call with results of her covid testing within 1 week, and to call back if she has not heard in that time frame. documented in this encounter Plan of Treatment Not on file documented as of this encounter Visit Diagnoses Not on filedocumented in this encounter Care Teams Animal Care Attendant Relationship Specialty Start Date End Date Ananda Black MD [address] [place] [phone] PCP - General 02/13/19 documented as of this encounter
--- OUTSIDE RECORDS SUMMARY | 2024-08-07 15:00 | XMS_ITS | Encounter Summary ---
Author Organization [facility] Address [address] [place] [address] Care Team Providers Care Second Helper Name Role Phone Ananda Black MD Primary Care Provider +1- [phone] Encounter Details Date Type Department Care Team (Late st Contact Info) Description 12/15/2020 Orders Only [facility] Spine Program - [address] [place] [address] Johan Walker MD [address] [facility] [place] [address] Social History Tobacco Use Types Packs/Day Years [...] Date End Date gabapentin (NEURONTIN) 300 mg capsule Take 1 Cap by mouth 3 times daily. 90 Cap 2 12/15/2020 01/21/2022 documented in this encounter Plan of Treatment Not on file documented as of this encounter Visit Diagnoses Not on filedocumented in this encounter Care Teams Second Helper Relationship Specialty Start Date End Date Ananda Black MD [address] [place] [phone] PCP - General 02/13/19 documented as of this encounter
--- OUTSIDE RECORDS SUMMARY | 2024-08-07 15:00 | XMS_ITS | Encounter Summary ---
Author Organization [facility] Address [address] [place] [address] Care Team Providers Care Operations Technician Name Role Phone Ananda Black MD Primary Care Provider [phone]- [phone] Encounter Details Date Type Department Care Team (Late st Contact Info) Description 09/11/2019 Results Only Imaging [facility] Radiology Results [address] [place] [address] Lazaro Lanza, ARCH PAD CEMENTER [address] [place] [phone] Social History Tobacco Use Types Packs/Day Years [...] Diagnosis Comments MR LUMBAR SPINE WO CONTRAST 09/11/2019 13:44 EST documented in this encounter Results * MR LUMBAR SPINE WO CONTRAST (09/11/2019 13:44 EST) Anatomical Region Laterality Modality Spine Magnetic Resonan ce 09/11/2019 13:4 1 EST Narrative 09/11/2019 13:44 EST ? EXAM: MAGNETIC RESONANCE IMAGING/LUMBAR S EX. D/ (1055) ? CLINICAL INFORMATION: ? M54.40 BACK PAIN OF LUMBAR REGION W/ ? LEFT SIDED SCIATICA ? INDICATION: M54.40 BACK PAIN OF LUMBAR REGION W/ , LEFT SIDED ? SCIATICA BACK PAIN,RADICULOPATHY ? TECHNIQUE: ??Multiplanar multisequence MR imaging of the lumbar spine ? was obtained without contrast. ? COMPARISON: None. ? FINDINGS: There is a mild convex left lumbar spine scoliosis centered ? at the L4 vertebral body level. The lumbar vertebral bodies maintain ? normal height. The paraspinal soft tissues are normal in appearance. ? The tip of the conus medullaris terminates at the L1 vertebral body ? level. ? At the L5/S1 level, there is a large central disc extrusion with some ? superior migration of disc material. Disc material impinges both ? adjacent S1 nerve roots as into the lateral recesses within the ? moderate/severely narrowed spinal canal (series 9 image 4). There is ? degenerative facet disease and very mild bilateral neural foraminal ? narrowing. ? At the L4/5 level, there is early degenerative facet disease. The ? spinal canal and neural foramen are patent. ? At the L3/4 level, the spinal canal and neural foramen are patent. ? At the L2/3 level, the spinal canal and neural foramen are patent. ? At the L1/2 level, the spinal canal and neural foramen are patent. ? IMPRESSION: ? 1. Convex left lumbar scoliosis with lower lumbar degenerative disc ? and facet disease. This includes an L5/S1 large central disc ? extrusion with some superior migration of disc material. This disc ? material appears to severely impinge both adjacent S1 nerve roots as ? into the lateral recesses within the moderate/severely narrowed ? spinal canal. Additional levels as described above. ? REPORT SIGNED IN OTHER VENDOR SYSTEM 09/11/2019 ?Reported By: Jaret Sandoval MD ? CC: ? Transcribed Date/Time: 09/11/2019 (7144) ? Public Service Administrator: ? Printed Date/Time: 09/11/2019 (2331) ? PAGE 1 ? Signed Report ? Procedure Note Jaret Sandoval MD - 09/11/2019 EXAM: MAGNETIC RESONANCE IMAGING/LUMBAR S EX. D/ (1055) CLINICAL INFORMATION: M54.40 BACK PAIN OF LUMBAR REGION W/ LEFT SIDED SCIATICA INDICATION: M54.40 BACK PAIN OF LUMBAR REGION W/ , LEFT SIDED SCIATICA BACK PAIN,RADICULOPATHY TECHNIQUE: Multiplanar multisequence MR imaging of the lumbarspine was obtained without contrast. COMPARISON: None. FINDINGS: There is a mild convex left lumbar spine scoliosiscentered at the L4 vertebral body level. The lumbar vertebral bodiesmaintain normal height. The paraspinal soft tissues are normal inappearance. The tip of the conus medullaris terminates at the L1 vertebral body level. At the L5/S1 level, there is a large central disc extrusion withsome superior migration of disc material. Disc material impinges both adjacent S1 nerve roots as into the lateral recesses within the moderate/severely narrowed spinal canal (series 9 image 4). Thereis degenerative facet disease and very mild bilateral neural foraminal narrowing. At the L4/5 level, there is early degenerative facet disease. The spinal canal and neural foramen are patent. At the L3/4 level, the spinal canal and neural foramen are patent. At the L2/3 level, the spinal canal and neural foramen are patent. At the L1/2 level, the spinal canal and neural foramen are patent. IMPRESSION: 1. Convex left lumbar scoliosis with lower lumbar degenerative disc and facet disease. This includes an L5/S1 large central disc extrusion with some superior migration of disc material. This disc material appears to severely impinge both adjacent S1 nerve rootsas into the lateral recesses within the moderate/severely narrowed spinal canal. Additional levels as described above. REPORT SIGNED IN OTHER VENDOR SYSTEM 09/11/2019 Reported By: Jaret Sandoval MD CC: Transcribed Date/Time: 09/11/2019 (3885) Public Service Administrator: Printed Date/Time: 09/11/2019 (9425) PAGE 1 Signed Report Lazaro Lanza ARCH PAD CEMENTER IMG MRI ORDERABLES Final Result documented in this encounter Visit Diagnoses Not on filedocumented in this encounter Care Teams Operations Technician Relationship Specialty Start Date End Date Ananda Black MD [address] [place] [phone] PCP - General 02/13/19 documented as of this encounter
--- OUTSIDE RECORDS SUMMARY | 2024-08-07 15:00 | XMS_ITS | Encounter Summary ---
Author Organization [facility] Address [address] [place] [address] Care Team Providers Care Rubber Goods Repairer Name Role Phone Ananda Black MD Primary Care Provider [phone]- [phone] Reason for Referral * Other (Routine) - Closed Specialty Diagnoses / Procedures Referred By Contcarlos sparks Referred To Contact Diagnoses Shortness of breath Procedures PULMONARY FUNCTION TESTING Ananda Black MD Phone: tel: fax: Referral ID Status Reason Start Date Expiration Date Visits Re quested Visits Authorized [id number] Closed 12/03/2019 1 1 Reason for Visit * Reason Comments Cough Encounter Details Date Type Department Care Team (Late st Contact Info) Description 12/03/2019 11:15 EDT Office Visit [facility] Medicine [facility] [address] [address] Ananda Black MD [address] [phone] Shortness of breath (Primary Dx); Chronic bilateral low back pain with left-sided sciatica Social History Tobacco Use Types Packs/Day Years [...] Progress Notes * Ananda Black MD - 12/03/2019 1115 EDT Telephone Visit 11:19-11:30 This visit was conducted by telephone. I spent a total of 11 minutes in discussion with the patientas described in the progress note. The concept of ???Telemedicine?? has been described to the patient.? Patient has been informed of the anticipated benefits and possible risks.? Patient understands the information provided regardingtelemedicine, has had the opportunity to ask questions about this information, and all questions have been answered to patient???s satisfaction. Patient consents for the use of telemedicine in his/her medical care and authorizes the transmission of any relevant medical information to providers and their staff involved in patient???s medical or mental health care. Cc: Short of breath for over a year on and off HPI: Respiratory: Hx of cold and then shortness of breath. Occurred 3-4 times. Feels tight in chest. Had some sputum. No history of Seasonal allergies. No hx of eczema. Brother uses an inhaler. Also, has lower back pain. No past medical history on file. No past surgical history on file. Social History Socioeconomic History ??? Marital status: Single Spouse name: Not on file ??? Number of children: Not on file ??? Years of education: Not on file ??? Highest education level: Not on file Occupational History ??? Not on file Social Needs ??? Financial resource strain: Not on file ??? Food insecurity: Worry: Not on file Inability: Not on file ??? Transportation needs: Medical: Not on file Non-medical: Not on file Tobacco Use ??? Smoking status: Never Smoker ??? Smokeless tobacco: Never Used Substance and Sexual Activity ??? Alcohol use: No Frequency: Never ??? Drug use: No ??? Sexual activity: Not on file Lifestyle ??? Physical activity: Days per week: Not on file Minutes per session: Not on file ??? Stress: Not on file Relationships ??? Social connections: Talks on phone: Not on file Gets together: Not on file Attends alevism service: Not on file Active member of club or organization: Not on file Attends meetings of clubs or organizations: Not on file Relationship status: Not on file ??? Intimate partner violence: Fear of current or ex partner: Not on file Emotionally abused: Not on file Physically abused: Not on file Forced sexual activity: Not on file Other Topics Concern ??? Not on file Social History Narrative ??? Not on file Family History Problem Relation Age of Onset ??? High Blood Pressure Father There were no vitals taken for this visit. Exam: Speaking full sentences. No cough or shortness of breath Labs Assessment and Plan: 1. Shortness of breath-stable and suspect obstructive pathology -PFTs -f/u 3 months to monitor 2. Chronic bilateral low back pain with left-sided sciatica-stable -cont visits with Tracee mancini -cont. NSAIDS prn Ananda Black MD [facility] documented in this encounter Plan of Treatment Scheduled Orders Name Type Priority Associated Diagnoses Orde r Schedule PULMONARY FUNCTION TESTING PFT Routine Shortness of breath Ordered: 12/03/2019 documented as of this encounter Visit Diagnoses Diagnosis Shortness of breath- Primary Chronic bilateral low back pain with left-sided sciatica documented in this encounter Care Teams Rubber Goods Repairer Relationship Specialty Start Date End Date Ananda Black MD [address] [place] [phone] PCP - General 02/13/19 documented as of this encounter
--- OUTSIDE RECORDS SUMMARY | 2024-08-07 15:00 | XMS_ITS | Encounter Summary ---
Author Organization [facility] Address [address] [place] [address] Care Team Providers Care Scientific Informatics Leader Name Role Phone Ananda Black MD Primary Care Provider [phone]- [phone] Reason for Visit * Reason Onset Date Comments Appointment Related 12/03/2019 Encounter Details Date Type Department Care Team (Late st Contact Info) Description 12/03/2019 Telephone [facility] [address] [address] Ananda Black MD [address] [place] [phone] Appointment Related Social History Tobacco Use Types [...] Telephone Encounter - Ananda Black MD - 12/03/2019 1119 EDT Called patient and no answer. documented in this encounter Plan of Treatment Not on file documented as of this encounter Visit Diagnoses Not on filedocumented in this encounter Care Teams Scientific Informatics Leader Relationship Specialty Start Date End Date Ananda Black MD [address] [place] [phone] PCP - General 02/13/19 documented as of this encounter
--- OUTSIDE RECORDS SUMMARY | 2024-08-07 15:00 | XMS_ITS | Encounter Summary ---
Author Organization [facility] Address [address] [place] [address] Care Team Providers Care Retail Parts Professional Name Role Phone Ananda Black MD Primary Care Provider [phone]- [phone] Reason for Visit * Reason Onset Date Comments Back Pain 09/04/2022 Encounter Details Date Type Department Care Team (Late st Contact Info) Description 09/04/2022 Telephone [facility] - [address] [address] Ananda Black MD [address] [place] [phone] Back Pain Social History Tobacco Use [...] encounter Miscellaneous Notes * Telephone Encounter - Faith Hamilton - 09/04/2022 1346 EST A user error has taken place: encounter opened in error, closed for administrative reasons. documented in this encounter Plan of Treatment Not on file documented as of this encounter Visit Diagnoses Not on filedocumented in this encounter Care Teams Retail Parts Professional Relationship Specialty Start Date End Date Ananda Black MD [address] [place] [phone] PCP - General 02/13/19 documented as of this encounter
--- OUTSIDE RECORDS SUMMARY | 2024-08-07 15:00 | XMS_ITS | Encounter Summary ---
Author Organization [facility] Address [address] [place] [address] Care Team Providers Care Shaker Tender Name Role Phone Ananda Black MD Primary Care Provider +1- [phone] Reason for Visit * Reason Comments Dental Pain had dental cleaning a few weeks ago and ws told her tooth needed attention and she began too have pain a few days ago and could not reach her dentist Encounter Details Date Type Department Care Team (Late st Contact Info) Description 01/21/2022 14:30 EDT Walk-In [facility] [address] [place] [id number] Ra Caballero, COAL OR ORE CONTROLLER [address] [facility] [address] [place] [address] Pain, dental (Primary Dx) Social History Tobacco Use Types [...] Reading Time Taken Comments Blood Pressure 104/60 01/21/2022 1521 EDT Pulse 80 01/21/2022 1521 EDT Temperature 37 ??C (98.6 ??F) 01/21/2022 1521 EDT Respiratory Rate 16 01/21/2022 1521 EDT Oxygen Saturation 98% 01/21/2022 1521 EDT Inhaled Oxygen Concentration - - Weight [...] this encounter Patient Instructions * Patient Instructions* Ra Caballero NP - 01/21/2022 14:30 EDT Images from the original note were not included. Thank you for visiting [facility] in [place], [place] You were seen for dental pain. With the recent dental work there is a concern for dental abscess. Plan of care as outlined below: -Clindamycin. Your first dose will be 600 mg. Then every 6 hours after you will take 300 mg. This will be for total of 6 days. -Please follow-up with the dental clinic in [facility] on Sunday to see if the dentist wants youto continue on the clindamycin. -Clindamycin can be particularly upsetting to the GI tract. I recommend picking up a probiotic at the pharmacy. You can ask the pharmacist for their recommendation. Also recommend taking the clindamycin with some food. -I recommend starting Tylenol or ibuprofen as needed as well. -If you have any sudden worsening of your dental pain this would warrant a follow-up. Labs: If we collected any blood work from you, this can take up to 3 days to process. We generally only call if lab results are abnormal (No news is good news.). Consider signing up for MyChart fordirect access to your lab results. We no longer routinely call for negative COVID-19 results. Radiology: If imaging was ordered for you to obtain after the visit, please call [facility] Radiology Scheduling at [phone] (Select Option 1). General follow-up: Please follow-up with your Primary Care Provider, [facility] Care, or the EmergencyDepartment if you are not improving or symptoms are worsening after your visit. Nominate a Healthcare Provider who has provided you with EXCEPTIONAL care: [email or web address] MyChart Sign-Up: [email or web address] [facility] Patient Instructions Tooth and Gum Pain: Care Instructions Overview The most common causes of dental pain are tooth decay and gum disease. Pain can also be caused by an infection of the tooth (abscess) or the gums. Or you may have pain from a broken or cracked tooth.Other causes of pain include infection and damage to a tooth from nervous grinding of your teeth. A wisdom tooth can be painful when it is coming in but cannot break through the gum. It can also bepainful when the tooth is only partway in and extra gum tissue has formed around it. The tissue canget inflamed (pericoronitis), and sometimes it gets infected. Prompt dental care can help find the cause of your toothache and keep the tooth from dying or gum disease from getting worse. Self-care at home may reduce your pain and discomfort. Follow-up care is a granado part of your treatment and safety. Be sure to make and go to all appointments, and call your dentist or doctor if you are having problems. It's also a good idea to know your test results and keep a list of the medicines you take. How can you care for yourself at home? ?? To reduce pain and facial swelling, put an ice or cold pack on the outside of your cheek for 10 to 20 minutes at a time. Put a thin cloth between the ice and your skin. Do not use heat. ?? If your doctor prescribed antibiotics, take them as directed. Do not stop taking them just because you feel better. You need to take the full course of antibiotics. ?? Ask your doctor if you can take an lqum-jts-lbcgqzh pain medicine, such as acetaminophen (Tylenol), ibuprofen (Advil, Motrin), or naproxen (Aleve). Be safe with medicines. Read and follow all instructions on the label. ?? Avoid very hot, cold, or sweet foods and drinks if they increase your pain. ?? Rinse your mouth with warm salt water every 2 hours to help relieve pain and swelling. Mix 1 teaspoon of salt in 8 ounces of water. ?? Talk to your dentist about using special toothpaste for sensitive teeth. To reduce pain on contact with heat or cold or when brushing, brush with this toothpaste regularly or rub a small amount ofthe paste on the sensitive area with a clean finger 2 or 3 times a day. Floss gently between your teeth. ?? Do not smoke or use spit tobacco. Tobacco use can make gum problems worse, decreases your ability to fight infection in your gums, and delays healing. If you need help quitting, talk to your doctor about stop-smoking programs and medicines. These can increase your chances of quitting for good. When should you call for help? Call 911 anytime you think you may need emergency care. For example, call if: ? You have trouble breathing. Call your dentist or doctor now or seek immediate medical care if: ? You have signs of infection, such as: ? Increased pain, swelling, warmth, or redness. ? Red streaks leading from the area. ? Pus draining from the area. ? A fever. Watch closely for changes in your health, and be sure to contact your doctor if: ? You do not get better as expected. Where can you learn more? Go to https://www.[employer]net/Venturepaxealth or log into your [employer] account at https://[email or web address].Listia.org Enter H417 in the search box to learn more about Tooth and Gum Pain: Care Instructions. Current as of: January 12, 2021?Content Version: 13.2 ?? [employer]. Care instructions adapted under license by [facility]. If you have questions about a medical condition or this instruction, always ask your healthcare professional. [employer] disclaims any warranty or liability for your use of this information. documented in this encounter Ordered Prescriptions Prescription Sig Dispense Quantity Refills Last Filled Start Date End Date clindamycin (CLEOCIN) 300 mg capsule Take 2 Capsules by mouth daily for 1 day, THEN 1 capsule every 6 hours for 6 days. 26 capsule 01/21/2022 2 documented in this encounter Progress Notes * Ra Caballero NP - 01/21/2022 1430 EDT [facility] Express Care Chief Complaint(s): Dental Pain (had dental cleaning a few weeks ago and ws told her tooth needed attention and she began too have pain a few days ago and could not reach her dentist) HPI: Harleen Luna is a 21 y.o. year-old female who presents to [facility] for with dental pain. On Sunday patient had a filling on her second molar left lower quadrant. On Sunday she started to develop pain. She reports that the pain feels like it is in the gums. She did call the dental office which was closed but spoke with someone there who said the dentist would call her back. She neverreceived a call back from the dentist. The pain now is a 5 out of 10. Described as a dull ache. Patient has not taken anything specific for the pain. Patient is still able to eat and drink. No fever, chills, difficulty with eating or drinking. I have reviewed current problem list and current medications. ROS: See HPI Social History Tobacco Use ??? Smoking status: Never Smoker ??? Smokeless tobacco: Never Used Substance Use Topics ??? Alcohol use: No History obtained from patient, unless otherwise noted. Objective: Examination: Vitals: BP 104/60 (BP Cuff Location: Left arm, BP Patient Position: Sitting, BP Cuff Sizes: Adult, regular) Pulse 80 Temp 37 ??C (98.6 ??F) (Oral) Resp 16 SpO2 98% There is no height or weight on file to calculate BMI. Physical Exam Gen: No acute distress. Cardiac: S1/S2, no murmurs rubs or gallops, regular rate Pulmonary: Clear to auscultation bilaterally in all lung long, normal work of breathing HEENT: NC/AT, PEARLA, conjunctiva not injected, sclera not injected, right ear: Normal (TM intact, not injected, no effusion), left ear: Normal (TM intact, not injected, no effusion), uvula midline, posterior oral pharynx not erythematous or edematous, tongue clear, no abnormal drainage from ears, eyes, nose, neck supple, no LAD -At the second molar on the left lower jaw at the gumline and extending downwards there is an area of exquisite tenderness this area of tenderness extends to the first and third molar. There is no area of fluctuance. It is slightly reddened. There is no purulent drainage or discharge Skin: [place] warm dry Data reviewed with patient (past results):Reviewed and/or ordered active problem list, medication list, allergies tests Assessment/ Plan: 21 y.o. year-old female with new dental pain. There is some concern for a dental abscess given recent dental work in this area. Will cover patient with clindamycin for the weekend. Patient will follow-up with her treating dentist on Sunday and will defer continuation of Antibiotic to treating dentist.. Plan of care as outlined below and in AVS. Patient verbalized agreement and understanding of plan of care. Diagnoses and all orders for this visit: Pain, dental - clindamycin HCL; Take 2 Capsules by mouth daily for 1 day, THEN 1 capsule every 6 hours for 6 days. Patient education: Discussed with patient during visit and provided in AVS as applicable. Follow-up: RTC, PCP, or ED if symptoms do not improve and patient is concerned. This note was prepared using voice recognition software and the EMR. There may be inadvertent errors and omissions. documented in this encounter Plan of Treatment Not on file documented as of this encounter Visit Diagnoses Diagnosis Pain, dental- Primary Unspecified disorder of the teeth and supporting structures documented in this encounter Discontinued Medications Medication Sig Discontinue Reason Start Date End Da te methocarbamoL (ROBAXIN) 500 mg tablet Take 1 Tablet by mouth 4 times daily. Discontinued by another clinician 06/03/2021 01/21/2022 gabapentin (NEURONTIN) 300 mg capsule Take 1 Cap by mouth 3 times daily. Discontinued by another clinician 12/15/2020 01/21/2022 cyclobenzaprine (FLEXERIL) 5 mg tabletIndications:Chr onic bilateral low back pain with left-sided sciatica Take 1 Tab by mouth 3 times daily as needed for Muscle Spasms. Discontinued by another clinician 05/07/2019 01/21/2022 albuterol 90 mcg/actuation inhaler Inhale 2 Puffs as directed every 4 hours as needed for Wheezing. Discontinued by another clinician 01/23/2020 01/21/2022 documented as of this encounter Care Teams Shaker Tender Relationship Specialty Start Date End Date Ananda Black MD [address] [place] [phone] PCP - General 02/13/19 documented as of this encounter
--- OUTSIDE RECORDS SUMMARY | 2024-08-07 15:00 | XMS_ITS | Encounter Summary ---
Author Organization [facility] Address [address] [place] [address] Care Team Providers Care Pneumatic Tool Operator Name Role Phone Ananda Black MD Primary Care Provider [phone]- [phone] Reason for Visit * Reason Comments Back Pain Pt is here with c/o low back pain intermittently since March. She says it seems to come about a week before her menstrual cycle. It never goes away, but it is less painful after her cycle. Encounter Details Date Type Department Care Team (Late st Contact Info) Description 07/15/2019 14:30 EST Office Visit [facility] Medicine [facility] [address] [address] Almita Edouadr NP 130 [facility] [address] [address] Chronic bilateral low back pain with left-sided sciatica (Primary Dx) Social History Tobacco Use [...] Sign Reading Time Taken Comments Blood Pressure 108/66 07/15/2019 1437 EST Pulse 73 07/15/2019 1437 EST Temperature - - Respiratory Rate - - Oxygen Saturation 99% 07/15/2019 1437 EST Inhaled Oxygen Concentration - - Weight 54 kg (119 lb) 07/15/2019 1437 EST Height - - Body Mass Index 23.83 07/17/2018 1422 EST documented in this encounter Functional Status [...] documented in this encounter Progress Notes * Almita Edouard, HEALTH CENTER MANAGER - 07/15/2019 1430 EST Subjective: Patient ID: Harleen Luna is an 18 y.o. female. Chief Complaint Patient presents with ??? Back Pain Pt is here with c/o low back pain intermittently since March. She says it seems to come about aweek before her menstrual cycle. It never goes away, but it is less painful after her cycle. HPI 18-year-old female here to follow-up on ongoing lower back pain. Patient reports that her symptoms started in March with no precipitating injury. She was seen in urgent care and given prednisone and Flexeril, this helped a little. She was then seen in our office by her PCP with continued back pain that was worse with movement, she felt burning down to her left knee. An x-ray was performed andpatient was referred to physical therapy. Patient reports office today with her mother complaining of continued lower back pain. She now reports that she believes it is associated with her menstrual cycle. She feels the pain beginning approximately 24 hours prior to her cycle. The muscle relaxer helps a little, she takes ibuprofen intermittently that also helps slightly. She reports that her current dosage of ibuprofen is 400 mg. She hastried applying heat and ice. She does report intermittent pain down going down her thighs. Denies fever/unintentional weight loss/urinary incontinence/lower extremity weakness. Of note, patient never began seeing physical therapy. Patient is not on control, she does not see a bond writer. Her periods are regular. She has no interest in pursuing control as an avenue for symptom management. Patient Active Problem List Diagnosis ??? Chronic bilateral low back pain with left-sided sciatica No past medical history on file. Current Outpatient Medications on File Prior to Visit Medication Sig Dispense Refill ??? cyclobenzaprine (FLEXERIL) 5 mg tablet Take 1 Tab by mouth 3 times daily as needed for Muscle Spasms. (Patient not taking: Reported on 07/03/2019) 30 Tab 1 ??? fluticasone propionate (FLONASE) 50 mcg/actuation nasal spray Instill 1 [place] into both nostrils 2 times daily for 14 days. 1 Bottle 2 ??? ibuprofen (MOTRIN) 200 mg tablet 2-3 tab(s) orally every 6 hours prn No current facility-administered medications on file prior to visit. Allergies Allergen Reactions ??? Augmentin [Amoxicillin-Pot Clavulanate] ??? Penicillins Rash Social Social History Tobacco Use ??? Smoking status: Never Smoker ??? Smokeless tobacco: Never Used Substance Use Topics ??? Alcohol use: No Frequency: Never ??? Drug use: No Review of Systems Constitutional: Negative for chills, fever and malaise/fatigue. Gastrointestinal: Negative for abdominal pain. Musculoskeletal: Positive for back pain. Negative for falls. Neurological: Negative for weakness. - See HPI Objective: BP 108/66 (BP Cuff Location: Right arm, BP Patient Position: Sitting, BP Cuff Sizes: Adult, regular) Pulse 73 Wt 54 kg (119 lb) SpO2 99% BMI 23.83 kg/m?? Physical Exam Constitutional: She appears well-developed and well-nourished. Cardiovascular: Normal rate. Pulmonary/Chest: Effort normal. Musculoskeletal: Normal range of motion. Lumbar spine has full painless range of motion without local tenderness or masses. SI joints nontender. Strength 5/5 Neurological: Reflex Scores: Patellar reflexes are 2+ on the right side and 2+ on the left side. Vitals reviewed. Assessment/Plan: Sasha was seen today for ongoing lower back pain that she now believes is associated with her menstrual cycle. Lumbar spine x-ray showing mild scoliosis. Given that her symptoms are associated withher menstrual cycle, discussed management with patient and her mother. Advised that she can go up to 600 mg of ibuprofen, if this does not work and try 800 mg every 8 hours as needed. Encouraged to take with food, increase hydration. Discussed that lower back pain with menstruation is fairly common, patient is not interested in control for symptom management at this time. Encouraged patient to begin physical therapy if backpain is continuing. Other conservative measures encouraged including heat, rest, stretching. Scoliosis seen on x-ray was very mild, does not require intervention at this time. Patient to return in 2 months to re-evaluate her symptoms, sooner if needed. Harleen was seen today for back pain. Diagnoses and all orders for this visit: Chronic bilateral low back pain with left-sided sciatica Return [address] Escamilla was the attending physician available in the clinic today if needed. A consultation was not required. I spent a total of 25 minutes in face to face time with this patient and 15 minutes of that time was spent in counseling and coordination of care as described in the progress note. documented in this encounter Plan of Treatment Not on file documented as of this encounter Visit Diagnoses Diagnosis Chronic bilateral low back pain with left-sided sciatica- Primary documented in this encounter Care Teams Pneumatic Tool Operator Relationship Specialty Start Date End Date Ananda Black MD [address] [place] [phone] PCP - General 02/13/19 documented as of this encounter
--- OUTSIDE RECORDS SUMMARY | 2024-08-07 15:00 | XMS_ITS | Encounter Summary ---
Author Organization [facility] Address [address] [place] [address] Care Team Providers Care Registration Representative Name Role Phone Ananda Black MD Primary Care Provider [phone]- [phone] Encounter Details Date Type Department Care Team (Late st Contact Info) Description 12/01/2019 Lab Requisition [facility] Pathology & Laboratory Medicine - [address] [address] Outr Resulting Lab, Provider Social History Tobacco [...] Procedure Name Priority Date/Time Associated Diagnosis Comments DO NOT ORDER STANDALONE - BROAD COVID TEST Today 12/01/2019 14:40 EDT COVID-19 TESTING Routine 12/01/2019 14:4 0 EDT documented in this encounter Results * DO NOT ORDER STANDALONE - BROAD COVID TEST (12/01/2019 14:40 EDT) COVID-19 rt-PCR Result NEGATIVE Negative 12/02/2019 14:20 EDT [facility] Comment: 2019-novel Coronavirus (2019-nCoV) not detected by the qRT-PCR assay. Consider testing for other respiratory viruses or re-collecting for 2019-nCoV testing. Note: Optimum timing for peak viral levels during infections caused by 2019-nCoV have not been determined. Collection of multiple specimens from the same patient may be necessary to detect the virus. Limitations Positive results are indicative of active infection with SARS-CoV-2 but do not rule out bacterial infection or co-infection with other viruses. The agent detected may not be the definite cause of disease. In addition, detection of viral RNA may not indicate the presence of infectious virus or that SARS-CoV-2 is the causative agent for clinical symptoms. Negative results do not preclude SARS-CoV-2 infection and should not be used as the sole basis for patient management decisions. Negative results must be combined with clinical observations, patient history, and epidemiological information. False negative results may also occur if amplification inhibitors are present in the specimen or if inadequate numbers of organisms are present in the specimen. Optimum specimen types and timing for peak viral levels during infections caused by SARS-CoV-2 have not been fully determined. Collection of multiple specimens (types and time points) from the same patient may be necessary to detect the virus. The test was validated for use with upper respiratory specimens obtained via nasopharyngeal or oropharyngeal swabs in VTM, UTM, M4, M5, M6, saline, and MTM media. The performance of this test has not been established for other specimens. Specimens collected using other FDA recommended Specimen Collection Materials listed in the FDA COVID-19 Diagnostic Technologies communication (October 09, 2019) are processed with the caveat that they were not all validated for use with this test and the result must be interpreted in this context. Furthermore, a false negative results may occur if a specimen is improperly collected, transported or handled. If the virus mutates in the RT-PCR target region, SARS-CoV-2 may not be detected or may be detected less predictably. Inhibitors or other types of interference may produce a false negative result. An interference study evaluating the effect of common cold medications was not performed. This test is not FDA-cleared but its performance characteristics were established by our CLIA-certified, CAP-accredited, high complexity laboratory in accordance with CLIA regulations, [employer] (CAP) guidelines (Oct 02, 2019), and FDA guidance (Sep 13, 2019). This test is only for use under the Food and Drug Administration's Emergency Use Authorization. Swab ENTIRE NASOPHARYNX / Unknown 12/01/2019 14:40 EDT 12/01/2019 20:34 EDT us Provider Outr Resulting Lab MICROBIOLOGY - GENER AL ORDERABLES Final Result Our [facility] LABORATORY [place], [place] * COVID-19 TESTING (12/01/2019 14:40 EDT) COVID-19 rt-PCR Result NEGATIVE Negative 12/02/2019 17:50 EDT [facility] Comment: 2019-novel Coronavirus (2019-nCoV) not detected by the qRT-PCR assay. Consider testing for other respiratory viruses or re-collecting for 2019-nCoV testing. Note: Optimum timing for peak viral levels during infections caused by 2019-nCoV have not been determined. Collection of multiple specimens from the same patient may be necessary to detect the virus. Limitations Positive results are indicative of active infection with SARS-CoV-2 but do not rule out bacterial infection or co-infection with other viruses. The agent detected may not be the definite cause of disease. In addition, detection of viral RNA may not indicate the presence of infectious virus or that SARS-CoV-2 is the causative agent for clinical symptoms. Negative results do not preclude SARS-CoV-2 infection and should not be used as the sole basis for patient management decisions. Negative results must be combined with clinical observations, patient history, and epidemiological information. False negative results may also occur if amplification inhibitors are present in the specimen or if inadequate numbers of organisms are present in the specimen. Optimum specimen types and timing for peak viral levels during infections caused by SARS-CoV-2 have not been fully determined. Collection of multiple specimens (types and time points) from the same patient may be necessary to detect the virus. The test was validated for use with upper respiratory specimens obtained via nasopharyngeal or oropharyngeal swabs in VTM, UTM, M4, M5, M6, saline, and MTM media. The performance of this test has not been established for other specimens. Specimens collected using other FDA recommended Specimen Collection Materials listed in the FDA COVID-19 [employer] communication (October 09, 2019) are processed with the caveat that they were not all validated for use with this test and the result must be interpreted in this context. Furthermore, a false negative results may occur if a specimen is improperly collected, transported or handled. If the virus mutates in the RT-PCR target region, SARS-CoV-2 may not be detected or may be detected less predictably. Inhibitors or other types of interference may produce a false negative result. An interference study evaluating the effect of common cold medications was not performed. This test is not FDA-cleared but its performance characteristics were established by our CLIA-certified, CAP-accredited, high complexity laboratory in accordance with CLIA regulations, [employer] (CAP) guidelines (Oct 02, 2019), and FDA guidance (Sep 13, 2019). This test is only for use under the Food and Drug Administration's Emergency Use Authorization. Performing Lab [facility] 12/02/2019 17:50 EDT [facility] Swab ENTIRE NASOPHARYNX / Unknown 12/01/2019 14:40 EDT 12/01/2019 20:34 EDT us Provider Outr Resulting Lab MICROBIOLOGY - GENER AL ORDERABLES Final Result [facility] [address] [place] [address] [facility] [place], [place] documented in this encounter Visit Diagnoses Not on filedocumented in this encounter Care Teams Registration Representative Relationship Specialty Start Date End Date Ananda Black MD [address] [place] [phone] PCP - General 02/13/19 documented as of this encounter
--- OUTSIDE RECORDS SUMMARY | 2024-08-07 15:00 | XMS_ITS | Encounter Summary ---
Author Organization [facility] Address [address] [place] [address] Care Team Providers Care Poultry Slaughterer Name Role Phone Ananda Black MD Primary Care Provider [phone]- [phone] Reason for Referral * Radiology Services (Routine) - Specialty Report Received Specialty Diagnoses / Procedures Referred By Contac t Referred To Contact Diagnoses Back pain of lumbar region with sciatica Procedures MR LUMBAR SPINE WO CONTRAST Lazaro Lanza NP Phone: tel: fax: Referral ID Status Reason Start Date Expiration Date V isits Requested Visits Authorized [id number] Specialty Report Received 08/26/2019 1 1 Reason for Visit * Reason Comments Back Pain f/u. has been doing PT as ordered. continues with back pain. is taking ibuprofen and muscle relaxer as prescribed. Encounter Details Date Type Department Care Team (Late st Contact Info) Description 08/26/2019 14:30 EST Office Visit [facility] Family Medicine [address] [place] [id number] Lazaro Lanza NP [address] [place] [phone] Back pain of lumbar region with sciatica (Primary Dx) Social History Tobacco Use [...] Sign Reading Time Taken Comments Blood Pressure 118/64 08/26/2019 1430 EST Pulse 68 08/26/2019 1430 EST Temperature 36.8 ??C (98.2 ??F) 08/26/2019 1430 EST Respiratory Rate 12 08/26/2019 1430 EST Oxygen Saturation 99% 08/26/2019 1430 EST Inhaled Oxygen Concentration - - Weight 54 kg (119 lb) 08/26/2019 1430 EST Height 150.5 cm (4' 11.25) 08/26/2019 1430 EST Body Mass Index 23.83 08/26/2019 1430 EST documented in this encounter Functional Status [...] tabs once daily as needed for pain. 30 Tab 1 08/26/2019 09/08/2022 documented in this encounter Progress Notes * Lazaro Lanza APRN - 08/26/2019 1430 EST Subjective: Patient ID: Harleen Luna is an 18 y.o. female. Chief Complaint Patient presents with ??? Back Pain f/u. has been doing PT as ordered. continues with back pain. is taking ibuprofen and muscle relaxeras prescribed. HPI 18-year-old female patient seen in the office today for ongoing lumbar back pain with sciatic symptoms. She has had x-rays as of late April with slight scoliosis noted. She is also been seeing physical therapy for about 5 sessions at this point. States that PT has been helping with her mobility but overall she is still in about the same amount of pain. She describes the pain in the lumbar spinewith left-sided sciatic symptoms that she describes as burning down the back and lateral side of her left thigh. She denies any issues with urination, bowels or saddle anesthesia. Patient Active Problem List Diagnosis ??? Chronic bilateral low back pain with left-sided sciatica No past medical history on file. Current Outpatient Medications on File Prior to Visit Medication Sig Dispense Refill ??? cyclobenzaprine (FLEXERIL) 5 mg tablet Take 1 Tab by mouth 3 times daily as needed for Muscle Spasms. 30 Tab 1 ??? ibuprofen (MOTRIN) 200 mg tablet 2-3 tab(s) orally every 6 hours prn No current facility-administered medications on file prior to visit. Allergies Allergen Reactions ??? Augmentin [Amoxicillin-Pot Clavulanate] ??? Penicillins Rash Social Social History Tobacco Use ??? Smoking status: Never Smoker ??? Smokeless tobacco: Never Used Substance Use Topics ??? Alcohol use: No Frequency: Never ??? Drug use: No ROS - See HPI Objective: BP 118/64 Pulse 68 Temp 36.8 ??C (98.2 ??F) (Tympanic) Resp 12 Ht (!) 150.5 cm (59.25) Wt 54 kg (119 lb) SpO2 99% BMI 23.83 kg/m?? Physical Exam Constitutional: She appears well-developed and well-nourished. No distress. Musculoskeletal: Negative straight leg raise left side but straight leg raise on the right caused some lumbar spine pain. Normal FADIR and LINDA. No tenderness to palpation of paraspinal muscles or spine itself. Had limited flexion and extension of spine, left lateral bending limited and right lateral was normal. Limitations were caused by pain. Psychiatric: She has a normal mood and affect. Her behavior is normal. Thought content normal. Vitals reviewed. Assessment/Plan: 18-year-old female patient seen in the office today for ongoing lumbar pain and left-sided sciatica. She has been in PT at this point for about 5 to 6 weeks. She has had normal x-ray and has had symptoms of back pain since April. She has been taking ibuprofen with minimal help. She was given a prescription for meloxicam and advised not to combine this with ibuprofen or Aleve. For neck steps I think that doing an MRI is reasonable. MRI ordered. Patient should continue with physical therapy in the meantime and return to the office if she has new or worsening symptoms. Depending on the resultsfrom the MRI could refer her to orthopedics. Harleen was seen today for back pain. Diagnoses and all orders for this visit: Back pain of lumbar region with sciatica - MR LUMBAR SPINE WO CONTRAST Other orders - meloxicam (MOBIC) 7.5 mg tablet; Take 1-2 tabs once daily as needed for pain. Dr. Loera was the attending physician available in the clinic today if needed. A consultation was not required. Lazaro Lanza APRN 08/27/2019 11:59 documented in this encounter Plan of Treatment Scheduled Orders Name Type Priority Associated Diagnoses Orde r Schedule MR LUMBAR SPINE WO CONTRAST Imaging Routine Back pain of lumbar region with sciatica Ordered: 08/26/2019 documented as of this encounter Visit Diagnoses Diagnosis Back pain of lumbar region with sciatica- Primary documented in this encounter Care Teams Poultry Slaughterer Relationship Specialty Start Date End Date Ananda Black MD [address] [place] [phone] PCP - General 02/13/19 documented as of this encounter
--- OUTSIDE RECORDS SUMMARY | 2024-08-07 15:00 | XMS_ITS | Encounter Summary ---
Author Organization [facility] Address [address] [place] [address] Care Team Providers Care Community Services Manager Name Role Phone Ananda Black MD Primary Care Provider [phone]- [phone] Reason for Visit * Reason Onset Date Comments Medications Refill 01/22/2020 Encounter Details Date Type Department Care Team (Late st Contact Info) Description 01/22/2020 Telephone [facility] [address] [address] Ananda Black MD [address] [place] [phone] Medications Refill Social History Tobacco Use Types Packs/Day Years [...] encounter Miscellaneous Notes * Telephone Encounter - Thang Rios - 01/23/2020 0739 EDT Patent is currently scheduled for a 15 minute Telemedicine appointment with Dr. Macias. * Telephone Encounter - Alli Macias MD - 01/23/2020 0036 EDT Pt was scheduled for in-person though Dr. Black note suggests that if she wants in person visit sheneeds to be scheduled at [facility]. Please contact pt and either get her set up with [facility] or we will get her set up for a virtual. She should not be coming into the office with respiratory sx. * Telephone Encounter - Sophia Byers RN - 01/22/2020 1704 EDT Patient scheduled * Telephone Encounter - Vijay Bhat - 01/22/2020 1640 EDT LMTCB * Telephone Encounter - Loren Peñaloza RN - 01/22/2020 1200 EDT Routing to [facility] to schedule as per Dr. Black's note below. * Telephone Encounter - Ananda Black MD - 01/22/2020 1148 EDT I would suggest acute tele- visit (anytype today or tomorrow) for her symptoms. If patient wants an in-person then visit should be at [facility] due to respiratory nature of concern. * Telephone Encounter - Loren Peñaloza RN - 01/22/2020 1048 EDT Patient returned the call. Please see message below. She states these were prescribed in the past by [facility] originally. She said she still uses the inhaler. Had a breathing est a couple weeks ago because once in a whileshe gets a heavier breathing and it helps a lot. They said I have light asthma. She is asking fora refill as hers is out. Also said she is pretty susceptible to swimmers ear and just uses the Ciprodex every once in a while when she feels those symptoms starting. She has an appointment scheduled on 03/02/20 with Ananda Black MD. Please advise. * Telephone Encounter - Cheryl Chan - 01/22/2020 1034 EDT Neither of these meds have been prescribed by us before, and Ciprodex is for otitis externa, so patient needs to be assessed for this. LM for patient to call back to discuss. Can speak with any available RN. * Telephone Encounter - Kan Leung - 01/22/2020 1022 EDT Pt calling requesting RX for proair inhaler and ciprodex (sp?) for swimmers ear Wants sent to [facility] documented in this encounter Plan of Treatment Not on file documented as of this encounter Visit Diagnoses Not on filedocumented in this encounter Care Teams Community Services Manager Relationship Specialty Start Date End Date Ananda Black MD [address] [place], [place] [id number] PCP - General 02/13/19 documented as of this encounter
--- OUTSIDE RECORDS SUMMARY | 2024-08-07 15:00 | XMS_ITS | Encounter Summary ---
Author Organization [facility] [place] Address [address] [place] [address] Care Team Providers Care Plug Cutting Machine Operator Name Role Phone Ananda Black MD Primary Care Provider [phone]- [phone] Reason for Visit * (Routine) - Receiving Office to Obtain Authorization Specialty Diagnoses / Procedures Referred By Contac t Referred To Contact Procedures MR OUTSIDE IMAGES NEURO Unknown, Provider, MD Referral ID Status Reason Start Date Expiration Date Visits Requested Visits Authorized [id number] Receiving Office to Obtain Authorization 12/14/2020 1 1 Encounter Details Date Type Department Care Team (Latest Contact Info) Description 12/02/2020 - 12/02/2020 23:59 EDT Hospital Encounter [facility] Secondary Reads [place] Discharge Disposition: Home or Self Care Social [...] this encounter Medications at Time of Discharge albuterol 90 mcg/actuation inhaler Inhale 2 Puffs as directed every 4 hours as needed for Wheezing. 1 Inhaler 2 01/23/2020 01/21/2022 cyclobenzaprine (FLEXERIL) 5 mg tabletIndication s:Chronic bilateral low back pain with left-sided sciatica Take 1 Tab by mouth 3 times daily as needed for Muscle Spasms. 30 Tab 1 05/07/2019 01/21/2022 ibuprofen (MOTRIN) 200 mg tablet 2-3 tab(s) orally every 6 hours prn 11/27/2022 meloxicam (MOBIC) 7.5 mg tablet Take 1-2 tabs once daily as needed for pain. 30 Tab 1 08/26/2019 09/08/2022 documented as of this encounter Discharge Disposition Disposition Code Departure Means Destination Home or Self Care documented in this encounter Plan of Treatment Not on file documented as of this encounter Procedures Procedure Name Priority Date/Time Associated Diagnosis Comments MR OUTSIDE IMAGES NEURO Routine 12/14/2020 14:41 EDT documented in this encounter Results * MR OUTSIDE IMAGES NEURO (12/14/2020 14:41 EDT) Narrative 12/14/2020 14:41 EDT This is a non-reportable exam. us Provider Unknown MD CHOI OTHER IMAGING ORDERABLES Final Result documented in this encounter Visit Diagnoses Not on filedocumented in this encounter Care Teams Plug Cutting Machine Operator Relationship Specialty Start Date End Date Ananda Black MD [address] [place] [phone] PCP - General 02/13/19 documented as of this encounter
--- OUTSIDE RECORDS SUMMARY | 2024-08-07 15:00 | XMS_ITS | Encounter Summary ---
Author Organization [facility] Address [address] [place] [address] Care Team Providers Care Energy Project Engineer Name Role Phone Ananda Black MD Primary Care Provider [phone]- [phone] Reason for Visit * Reason Onset Date Comments Back Pain 08/25/2019 Encounter Details Date Type Department Care Team (Late st Contact Info) Description 08/25/2019 Telephone [facility] [address] [address] Ananda Black MD [address] [place] [phone] Back Pain Social History Tobacco Use [...] encounter Miscellaneous Notes * Telephone Encounter - Sophia Byers RN - 08/25/2019 1419 EST Patient scheduled for OV tomorrow * Telephone Encounter - Vijay Bhat - 08/25/2019 1402 EST Back pain is continuing. In pain still. Next appointment here is 09/10/19 @ 2:15. Pt would like to know options and next steps. Please advise. documented in this encounter Plan of Treatment Not on file documented as of this encounter Visit Diagnoses Not on filedocumented in this encounter Care Teams Energy Project Engineer Relationship Specialty Start Date End Date Ananda Black MD [address] [place] [phone] PCP - General 02/13/19 documented as of this encounter
--- OUTSIDE RECORDS SUMMARY | 2024-08-07 15:00 | XMS_ITS | Encounter Summary ---
Author Organization [facility] Address [address] [place] [address] Care Team Providers Care Manager Of Manufacturing Name Role Phone Ananda Black MD Primary Care Provider +1- [phone] Encounter Details Date Type Department Care Team (Latest Contact Info) Description 06/03/2021 Travel Social History Tobacco Use Types Packs/Day [...] on filedocumented in this encounter Care Teams Manager Of Manufacturing Relationship Specialty Start Date End Date Ananda Black MD [address] [place] [phone] PCP - General 02/13/19 documented as of this encounter
--- OUTSIDE RECORDS SUMMARY | 2024-08-07 15:00 | XMS_ITS | Encounter Summary ---
Author Organization [facility] Address [address] [place] [address] Care Team Providers Care Turner And Former Automatic Name Role Phone Ananda Black MD Primary Care Provider [phone]- [phone] Reason for Visit * Reason Comments Pain generalized shooting /burning new onset Encounter Details Date Type Department Care Team (Late st Contact Info) Description 06/03/2021 14:30 EST Office Visit [facility] Medicine [facility] [address] [place], [place] [id number] Lazaro Lanza, WRITER PRODUCER [address] [place] [phone] Generalized body aches (Primary Dx) Social History Tobacco Use Types [...] 14:24 EST documented as of this encounter Last Filed Vital Signs Vital Sign Reading Time Taken Comments Blood Pressure 106/64 06/03/2021 1432 EST Pulse 68 06/03/2021 1432 EST Temperature - - Respiratory Rate - - Oxygen Saturation 99% 06/03/2021 1432 EST Inhaled Oxygen Concentration - - Weight 53.5 kg (118 lb) 06/03/2021 1432 EST Height - - Body Mass Index 23.05 12/10/2019 1623 EDT documented in this encounter [...] Refills Last Filled Start Date End Date methocarbamoL (ROBAXIN) 500 mg tablet Take 1 Tablet by mouth 4 times daily. 30 Tablet 1 06/03/2021 01/21/2022 documented in this encounter Progress Notes * Lazaro Lanza, WRITER PRODUCER - 06/03/2021 1430 EST Family Medicine Office Visit Assessment & Plan 20-year-old female patient seen in the office today for new issue of generalized body aches, shooting pain and burning pain. Some of this sounds like it could be concerning for a rheumatologic issue or possibly Lyme. I did suggest doing some labs today and patient is on board with this plan. Neck pain: The pain in her neck going down her left arm I suspect is likely cervical radiculopathy.She was advised to trial methocarbamol and supportive therapy. If she has any new or worsening symptoms she will let us know. Diagnoses and all orders for this visit: Generalized body aches - COMPREHENSIVE METABOLIC PANEL (CMP) - COMPLETE BLOOD COUNT AND DIFFERENTIAL - THYROID CASCADE - LYME AB, IGG AND IGM - C REACTIVE PROTEIN - ANTI NUCLEAR AB (MAYRA), IFA - RHEUMATOID SCREEN/TITRE Other orders - methocarbamoL (ROBAXIN) 500 mg tablet No follow-ups on file. Patient education was direct. Barriers were assessed and addressed as needed. Subjective Harleen Luna is a 20 y.o. female presenting with Pain (generalized shooting/burning new onset) HPI 20-year-old female patient seen in the office today for a couple of issues. Pain: Patient has had some generalized shooting/burning pain. This started about 4 days ago. It wasmostly in the feet, neck, abdomen, arms. She does mention being scratched by a cat on her right palm recently. She denies any fevers, cough, shortness of breath, nausea, vomiting, hematuria, injuriesto the neck, back or arms. She did have some urinary symptoms including dysuria and some frequency occasionally. These have resolved at this point. She is not having any of these today or yesterday. No rashes present. Neck pain: As of last night she starts describing some pain in the neck radiating down to the left shoulder and down the left arm. She denies any injuries. Data reviewed this visit: problem list/past medical history, current medications and allergies Review of Systems - See HPI Objective BP 106/64 (BP Cuff Location: Right arm, BP Patient Position: Sitting, BP Cuff Sizes: Adult, regular) Pulse 68 Wt 53.5 kg (118 lb) SpO2 99% BMI 23.05 kg/m?? Physical Exam Vitals and nursing note reviewed. Constitutional: General: She is not in acute distress. Appearance: Normal appearance. She is well-developed. HENT: Head: Normocephalic. Right Ear: Tympanic membrane, ear canal and external ear normal. Left Ear: Tympanic membrane, ear canal and external ear normal. Mouth/Throat: Pharynx: No oropharyngeal exudate. Cardiovascular: Rate and Rhythm: Normal rate and regular rhythm. Heart sounds: Normal heart sounds. No murmur heard. Pulmonary: Effort: Pulmonary effort is normal. No respiratory distress. Breath sounds: Normal breath sounds. No stridor. No wheezing or rales. Abdominal: General: Bowel sounds are normal. There is no distension. Palpations: Abdomen is soft. There is no mass. Tenderness: There is no abdominal tenderness. There is no guarding or rebound. Hernia: No hernia is present. Musculoskeletal: Comments: Negative Spurling test on left side. Lymphadenopathy: Cervical: No cervical adenopathy. Neurological: Mental Status: She is alert. Psychiatric: Mood and Affect: Mood normal. Behavior: Behavior normal. Thought Content: Thought content normal. documented in this encounter Plan of Treatment Not on file documented as of this encounter Procedures Procedure Name Priority Date/Time Associated Diagnosis Comments LYME AB SCREEN, IGG AND IGM Routine 06/03/2021 15:28 EST Generalized body aches RHEUMATOID SCREEN/TITRE Routine 06/03/2021 15:28 EST Generalized body aches ANTI NUCLEAR AB (MAYRA), IFA Routine 06/03/2021 15:28 EST Generalized body aches documented in this encounter Results * RHEUMATOID SCREEN/TITRE (06/03/2021 15:28 EST) Rheumatoid Factor Screen Negative Negative 06/03/2021 18:36 EST [facility] Blood VENOUS BLOOD / Unknown Venipuncture / Unknown 06/03/2021 15:28 EST 06/03/2021 16:27 EST us Lazaro Lanza NP CHEMISTRY & BLOOD GAS ORDERABLE S Final Result Performing Organization Address City/State/[facility] Co de Phone Number [facility] [address] [place] [address] * ANTI NUCLEAR AB (MAYRA), IFA (06/03/2021 15:28 EST) MAYRA Interpretation Negative Negative 2020 14:37 EST [facility] Comment:No titer performed, MAYRA Screen is negative. Blood VENOUS BLOOD / Unknown Venipuncture / Unknown 06/03/2021 15:28 EST 06/03/2021 16:26 EST Narrative [facility] - 06/06/2021 14:37 EST Results were obtained with the INOVA NOVA Lite HEp-2 MAYRA Kit by indirect immunofluorescence. us Lazaro Lanza NP IMMUNOLOGY AND SEROLOGY ORDERAB LES Final Result [facility] [address] [place] [address] * C REACTIVE PROTEIN (06/03/2021 15:28 EST) Pathologist [facility] C-Reactive Protein <5.0 <10.0 mg/L 06/03/2021 17:05 EST [facility] Blood VENOUS BLOOD / Unknown Venipuncture / Unknown 06/03/2021 15:28 EST 06/03/2021 16:27 EST Lazaro Lanza NP CHEMISTRY & BLOOD GAS ORDERABLE S Final Result Performing Organization Address City/[facility]/ZIP Co de Phone Number [facility] [address] [place] [address] * LYME AB, IGG AND IGM (06/03/2021 15:28 EST) Pathologist [facility] Lyme Antibody, IgG Negative Negative 06/04/2021 21:37 EST [facility] Lyme Antibody, IgM Negative Negative 06/04/2021 21:37 EST [facility] Blood VENOUS BLOOD / Unknown Venipuncture / Unknown 06/03/2021 15:28 EST 06/03/2021 16:27 EST us Lazaro Lanza NP IMMUNOLOGY AND SEROLOGY ORDERAB LES Final Result Performing Organization Address [facility]/ZIP Co de Phone Number [facility] [address] [place] [address] * THYROID CASCADE (06/03/2021 15:28 EST) Pathologist [facility] TSH 1.40 0.47 - 4.68 ??IU/mL 06/03/2021 17:37 EST [facility] Blood VENOUS BLOOD / Unknown Venipuncture / Unknown 06/03/2021 15:28 EST 06/03/2021 16:27 EST Narrative [facility] - 06/03/2021 17:37 EST NOTE: The results of this assay can be falsely lowered due to the consumption of Biotin. us Lazaro Lanza NP CHEMISTRY & BLOOD GAS ORDERABLE S Final Result [facility] [address] [place] [address] * COMPLETE BLOOD COUNT AND DIFFERENTIAL (06/03/2021 15:28 [facility]) WBC 8.76 4.00 - 12.40 K/cmm 06/03/2021 16:30 [facility] RBC 4.94 3.86 - 5.04 M/cmm 06/03/2021 16:30 [facility] Hemoglobin 14.5 11.6 - 15.2 gm/dL 06/03/2021 16:30 [facility] HCT 43.3 34.9 - 44.4 % 06/03/2021 16:30 [facility] MCV 88 81 - 98 fl 06/03/2021 16:30 [facility] MCH 29.4 26.7 - 33.3 pg 06/03/2021 16:30 [facility] MCHC 33.5 32.1 - 35.9 gm/dL 06/03/2021 16:30 [facility] RDW-CV 11.7 <14.7 % 06/03/2021 16:30 [facility] RDW-SD 37.6 <50.4 fl 06/03/2021 16:30 [facility] PLT 336 141 - 377 K/cmm 06/03/2021 16:30 [facility] MPV 10.2 9.5 - 12.7 fl 06/03/2021 16:30 [facility] % Neutrophils 65.6 % 06/03/2021 16:30 [facility] % Lymphocytes 25.2 % 06/03/2021 16:30 [facility] % Monocytes 6.6 % 06/03/2021 16:30 [facility] % Eosinophils 1.7 % 06/03/2021 16:30 [facility] % Basophils 0.7 % 06/03/2021 16:30 [facility] % Immature Grans 0.2 % 06/03/20 16:30 [facility] Absolute Neutrophils 5.74 2.20 - 8.85 K/cmm 06/03/2021 16:30 [facility] Absolute Lymphocytes 2.21 1.09 - 3.30 K/cmm 06/03/2021 16:30 [facility] Absolute Monocytes 0.58 0.10 - 0.80 K/cmm 06/03/2021 16:30 [facility] Absolute Eosinophils 0.15 0.03 - 0.61 K/cmm 06/03/2021 16:30 [facility] ABS Basophils 0.06 0.01 - 0.11 K/cmm 06/03/2021 16:30 [facility] Absolute Immature Grans 0.02 0.00 - 0.06 K/cmm 06/03/2021 16:30 [facility] Type of Differential: Auto 06/03/2021 16:30 [facility] Blood VENOUS BLOOD / Unknown Venipuncture / Unknown 06/03/2021 15:28 EST 06/03/2021 16:26 EST us Lazaro Lanza NP PACKAGES & DNA PROBE ORDERABLES Final Result Performing Organization Address City/State/[facility] Co de Phone Number [facility] [address] [place] [address] * (ABNORMAL) COMPREHENSIVE METABOLIC PANEL (CMP) (06/03/2021 15:28 EST) Sodium 139 136 - 145 mmol/L 06/03/2021 17:05 [facility] Potassium 4.3 3.5 - 5.0 mmol/L 06/03/2021 17:05 [facility] Chloride 99 96 - 110 mmol/L 06/03/2021 17:05 [facility] CO2 Total 31 22 - 32 mmol/L 06/03/2021 17:05 [facility] Glucose 103(H) 70 - 100 mg/dL 06/03/2021 17:05 [facility] BUN 5(L) 10 - 26 mg/dL 06/03/2021 17:05 [facility] Creatinine 0.65 0.52 - 1.04 mg/dL 06/03/2021 17:05 [facility] eGFR 126 >60 mL/min/1.7 3m2 06/03/2021 17:05 [facility] Total Protein 7.0 6.3 - 8.2 g/dL 06/03/2021 17:05 [facility] Albumin 4.7 3.4 - 4.9 g/dL 06/03/2021 17:05 [facility] Alkaline Phosphatase 59 38 - 126 U/L 06/03/2021 17:05 [facility] AST 27 15 - 46 U/L 06/03/2021 17:05 [facility] ALT 14 <35 U/L 06/03/2021 17:05 [facility] Bilirubin, Total 0.6 <1.4 mg/dL 06/03/20 17:05 [facility] Calcium 9.6 8.5 - 10.5 mg/dL 06/03/2021 17:05 [facility] Albumin/Globulin Ratio 2.0 1.0 - 2.5 06/03/2021 17:05 [facility] Anion Gap 9 8 - 16 06/03/2021 17:05 [facility] Blood VENOUS BLOOD / Unknown Venipuncture / Unknown 06/03/2021 15:28 EST 06/03/2021 16:27 EST us Lazaro Lanza NP CHEMISTRY & BLOOD GAS ORDERABLE S Final Result [facility] [address] [place] [address] documented in this encounter Visit Diagnoses Diagnosis Generalized body aches- Primary documented in this encounter Care Teams Turner And Former Automatic Relationship Specialty Start Date End Date Ananda Black MD [address] [facility] [address] [place] [phone] PCP - General 02/13/19 documented as of this encounter
--- OUTSIDE RECORDS SUMMARY | 2024-08-07 15:00 | XMS_ITS | Encounter Summary ---
Author Organization [facility] Address [address] [place] [address] Care Team Providers Care Diesel Retrofit Designer Name Role Phone Ananda Black MD Primary Care Provider [phone]- [phone] Reason for Visit * Reason Comments Cough Encounter Details Date Type Department Care Team (Late st Contact Info) Description 12/01/2019 14:[address] [facility] Acute Respiratory Clinic [address] [place], [place] [id number] Ghulam Bergman, BEN [address] [facility] [address] [place], [place] [id number] Shortness of breath (Primary Dx) Social History Tobacco Use Types [...] 9:13 EDT documented as of this encounter Last Filed Vital Signs Vital Sign Reading Time Taken Comments Blood Pressure - - Pulse 95 12/01/2019 1433 EDT Temperature 37.1 ??C (98.8 ??F) 12/01/2019 1433 EDT Respiratory Rate - - Oxygen Saturation 97% 12/01/2019 1433 EDT Inhaled Oxygen Concentration - - Weight [...] this encounter Patient Instructions * Patient Instructions* Ghulam Bergman APRN - 12/01/2019 14:30 EDT I will call you later with the results of your chest Xray. We will discuss a further treatment planthen if needed based on those results. You have been tested for COVID-19 (Coronavirus) but are safe to care for yourself at home at this time. You must wear a mask while you are being transported home and do NOT take public transportation. Please review the attached instructions from the CDC regarding home quarantine for you and household members. https://www.cdc.gov/coronavirus/2019-ncov/downloads/erqn-dhvr-2271-gUiN-spdc-vtm et.pdf You will be contacted whether your test is positive or negative. If the test is negative, your quarantine will be over but we still recommend continued general precautions of frequent handwashing, avoid touching your face, and avoid crowds. You should not return to work until you are fever free for at least 24 hours without acetaminophen. If your test is positive, you will receive further direction from your Primary Care Provider and[facility]. Likely you will be able to continue to care for yourself at home with rest and good hydration. You should go to the Emergency Department with significant worsening of difficulty breathing. Call your PCP to discuss any other questions or concerns. Please CALL AHEAD to any facility you are planning to seek care at prior to being evaluated if you are found to have COVID-19 or have been tested and results are still pending. documented in this encounter Progress Notes * Lester Green RN - 12/01/2019 1430 EDT Covid Screening: Fever, chills, body aches: NO Vomiting or diarrhea: NO New or unusual cough, SOB: mild dry cough and a heaviness in her chest X 2 weeks Decrease or change in sense of taste or smell: No Sore throat or headache: Yes to sore throat a few days ago, this has resolved Known exposure to suspected or confirmed person with Covid-19 in past 14 days: No Travel outside of [place] in last 14 days: No Currently advised to quarantine: No CC: Mild cough and chest heaviness X 2 weeks HPI: Patient with mild dry cough and chest heaviness X 2 weeks, not improving. She reports if it weren't for current covid, she would not have thought twice about these symptoms. She did try taking Mucinex without relief. She has an upcoming PCP appt and wanted eval/was told she should have eval and testing before this appt. 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 Acute Respiratory Clinic Chief Complaint(s): Cough HPI: Harleen presents to [facility] with her mother for evaluation of mild cough and shortness of breath. See nursing HPI and triage. She reports that she had symptoms that feel like a normal cold, started 2 weeks ago. She had a mildcough and sore throat that have mostly resolved, but she is concerned for continued chest heaviness/ shortness of breath. She denies fever symptoms. PO normal. No phlegm production. I have reviewed current problem list and current medications. ROS: Review of Systems Constitutional: Negative. Respiratory: Positive for cough and shortness of breath. Negative for sputum production and wheezing. Cardiovascular: Negative for chest pain, palpitations, orthopnea and leg swelling. Examination: Vitals: Pulse 95 Temp 37.1 ??C (98.8 ??F) (Oral) SpO2 97% Physical Exam Constitutional: Vital signs are normal. She appears well-developed and well- nourished. She is cooperative. She does not appear ill. No distress. HENT: Mouth/Throat: Oropharynx is clear and moist and mucous membranes are normal. Neck: Normal range of motion. Neck supple. Cardiovascular: Normal rate, regular rhythm and normal heart sounds. Pulmonary/Chest: Effort normal and breath sounds normal. Lymphadenopathy: She has no cervical adenopathy. Neurological: She is alert. Skin: Skin is warm and dry. She is not diaphoretic. Psychiatric: She has a normal mood and affect. Her behavior is normal. Nursing note reviewed. Assessment & Plan: 1. Shortness of breath Harleen is a 19yo female nonsmoker who presents for resolving cold symptoms but persistent SOB. She appears well / stable here. C19 swab obtained. CXR obtained -- I am not able to independently view this, PACS is down. I will call her later with the RAD report of the CXR. She was advised for now to continue supportive measures and monitoring. She understands that she needs to self-quarantine until Covid-19 result is called to her. Her questions and concerns were sought and answered today, and she agrees to the above tentative plan of care. - COVID-19 TESTING - XR CHEST 2 VIEWS documented in this encounter Plan of Treatment Not on file documented as of this encounter Procedures Procedure Name Priority Date/Time Associated Diagnosis Comments XR CHEST 2 VIEWS Routine 12/01/2019 15:3 0 EDT Shortness of breath COVID-19 TESTING Routine 12/01/2019 14:4 0 EDT Shortness of breath documented in this encounter Results * XR CHEST 2 VIEWS (12/01/2019 15:30 EDT) Anatomical Region Laterality Modality Other 12/01/2019 15:2 7 EDT Narrative 12/01/2019 15:30 EDT ? EXAM: RADIOLOGY/CHEST PA ?? LAT ?EX. D/ (1458) ? CLINICAL INFORMATION: ? R06.02, SHORTNESS OF BREATH. R/O ACUTE ABN, 2 WEEKS CHEST HEAVINESS ? WITH COLD SXS. ? CHEST PA ?? LAT ? Signs and Symptoms/Comments: ??R06.02, SHORTNESS OF BREATH. R/O ACUTE ? ABN, 2 WEEKS CHEST HEAVINESS, WITH COLD SXS. ? Comparisons: None ? FINDINGS: ? PA and lateral views of the chest were performed. The lungs are ? clear. No pneumothorax or pleural effusion is present. The ? cardiomediastinal silhouette and pulmonary vascularity are normal. ? The osseous structures are unremarkable. ? IMPRESSION: ? No acute cardiopulmonary process. ? REPORT SIGNED IN OTHER VENDOR SYSTEM 12/01/2019 ?Reported By: Cash Porter MD ? CC: ? Transcribed Date/Time: 12/01/2019 (1530) ? Hadoop Infrastructure Architect: ? Printed Date/Time: 12/01/2019 (7311) ? PAGE 1 ? Signed Report ? Procedure Note Cash Porter MD - 12/01/2019 EXAM: RADIOLOGY/CHEST PA LAT EX. D/ (1458) CLINICAL INFORMATION: R06.02, SHORTNESS OF BREATH. R/O ACUTE ABN, 2 WEEKS CHEST HEAVINESS WITH COLD SXS. CHEST PA LAT Signs and Symptoms/Comments: R06.02, SHORTNESS OF BREATH. R/OACUTE ABN, 2 WEEKS CHEST HEAVINESS, WITH COLD SXS. Comparisons: None FINDINGS: PA and lateral views of the chest were performed. The lungs are clear. No pneumothorax or pleural effusion is present. The cardiomediastinal silhouette and pulmonary vascularity are normal. The osseous structures are unremarkable. IMPRESSION: No acute cardiopulmonary process. REPORT SIGNED IN OTHER VENDOR SYSTEM 12/01/2019 Reported By: Cash Porter MD CC: Transcribed Date/Time: 12/01/2019 (1530) Hadoop Infrastructure Architect: Printed Date/Time: 12/01/2019 (5041) PAGE 1 Signed Report us Ghulam Bergman NP IMG DIAGNOSTIC IMAGING ERIC BRITT Final Result * COVID-19 TESTING (12/01/2019 14:40 EDT) Performing Lab [facility] 12/02/2019 20:04 EDT [facility] Comment: Is Patient Admitted or Awaiting Admission?:NO NOTE: RESULTS HAVE BEEN REFORMATTED PLEASE REVIEW RESULTS CAREFULLY THE LOCATION OF INFORMATION MAY HAVE CHANGED Test performed or referred by The [address] [address] COVID-19 rt-PCR Result Not Detected Negative 12/02/2019 20:04 EDT [facility] Comment: 2019-novel Coronavirus (2019-nCoV) not detected by [...] in accordance with CLIA regulations, [employer] (CAP) guidelines (Oct 02, 2019), and FDA guidance (Sep 13, 2019). This test is only for use under the Food and Drug Administration's Emergency Use Authorization. Swab ENTIRE NASOPHARYNX / Unknown 12/01/2019 14:40 EDT 12/01/2019 17:23 EDT us Ghulam Bergman HOSPITALITY HOUSE SUPERVISOR MICROBIOLOGY - GENERAL ERIC BRITT Final Result [facility] documented in this encounter Visit Diagnoses Diagnosis Shortness of breath- Primary documented in this encounter Care Teams Diesel Retrofit Designer Relationship Specialty Start Date End Date Ananda Black MD [address] [place] [phone] PCP - General 02/13/19 documented as of this encounter
--- OUTSIDE RECORDS SUMMARY | 2024-08-07 15:00 | XMS_ITS | Encounter Summary ---
Author Organization [facility] Address [address] [place] [address] Care Team Providers Care Pest Control Specialist Name Role Phone Ananda Black MD Primary Care Provider +1- [phone] Reason for Visit * Reason Comments Medication Management back pain, had a s hot in back 2 days ago Encounter Details Date Type Department Care Team (Late st Contact Info) Description 01/23/2020 8:45 EDT Telemedicine [address] [address] Aidan Macias MD [address] [place] [phone] Mild intermittent asthma without complication (Primary Dx); Otalgia, unspecified laterality Social History Tobacco Use Types Packs/Day Years [...] Refills Last Filled Start Date End Date albuterol 90 mcg/actuation inhaler Inhale 2 Puffs as directed every 4 hours as needed for Wheezing. 1 Inhaler 2 01/23/2020 2 documented in this encounter Progress Notes * Aidan Macias MD - 01/23/2020 0845 EDT Family Medicine TeleMedicine Visit Assessment & Plan 19 yo female with below issues Mild intermittent asthma, not currently experiencing exacerbation - renewed albuterol inhaler - confirmed she is using the aerochamber - f/u with any worsening Intermittent otalgia, which she had been treated with prn random dosing of ciprodex - discussed that using any abx on such a random schedule could inadvertently select out resistant bacteria and that it is not advised to use ciprodex on a prn basis - recommend evaluation next time her ear is bothersome so that we can confirm it is in fact swimmer's ear and that if she does take any abx that she commit to taking a full course - pt understanding of discussion, will reach out if sx recur. Diagnoses and all orders for this visit: Mild intermittent asthma without complication Otalgia, unspecified laterality Other orders - albuterol 90 mcg/actuation inhaler Time of call: 7 minutes Return if symptoms worsen or fail to improve. Patient education was direct. Barriers were assessed and addressed as needed. Subjective Harleen Luna is a 19 y.o. female. Medication Management (back pain, had a shot in back 2 days ago) HPI Pt is 19 y/o female with concern of medications. Two medications she has used in the past. Albuterol inhaler. She has had hx of asthma. Has no respiratory limitations. Worse on hot days. Feels 'heavy' on hot days. Using albuterol improves symptoms. Using aerochamber. Ciprodex. Has used intermittently as she feels she is susceptible to it. When she feels symptoms she uses it for a dose or two. Currently she has no symptoms. Data reviewed this visit: problem list and past medical history, current medications and allergies Review of Systems - See HPI The concept of ???Telemedicine?? has been described [...] in patient???s medical or mental health care. Objective There were no vitals taken for this visit. Physical Exam documented in this encounter Miscellaneous Notes * Addendum Note - Aidan Macias MD - 01/23/2020 0845 EDTAddended by: AIDAN MACIAS on: 01/23/2020 08:56 Modules accepted: Orders documented in this encounter Plan of Treatment Not on file documented as of this encounter Visit Diagnoses Diagnosis Mild intermittent asthma without complication- Primary Unspecified asthma Otalgia, unspecified laterality documented in this encounter Care Teams Pest Control Specialist Relationship Specialty Start Date End Date Ananda Black MD [address] [place] [address] [phone] PCP - General 02/13/19 documented as of this encounter
--- OUTSIDE RECORDS SUMMARY | 2024-08-07 15:00 | XMS_ITS | Encounter Summary ---
Author Organization [facility] Address [address] [place] [address] Care Team Providers Care Corporate Counselor Name Role Phone Ananda Black MD Primary Care Provider +1- [phone] Reason for Visit * Reason Onset Date Comments Cough 12/01/2019 Encounter Details Date Type Department Care Team (Late st Contact Info) Description 12/01/2019 Telephone [facility] [address] [address] Ananda Black MD [address] [place] [phone] Cough Social History Tobacco Use Types Packs/Day Years [...] Telephone Encounter - Ananda Black MD - 12/01/2019 1141 EDT Noted. * Telephone Encounter - Kaela Khan - 12/01/2019 1025 EDT Scheduled today in [facility] at 2:30 * Telephone Encounter - Ananda Black MD - 12/01/2019 1015 EDT Pt needs evaluation at [facility] Pt has had sx's of illness x 1 -2 weeks. ?? C/O dry cough and chest heaviness. Sore throat and head congestion that she has had are getting better ?? Denies fever, chills, headache. -Please obtain CXR and COVID testing. -Vitals, please -Have patient call me/my office for follow up instructions. -telephone encounter to the [facility] PSS Pool. The [facility] energy scheduler will call the patient with instructions on when and where to arrive, where to park, and other important instructions for the safety ofour staff and other patients * Telephone Encounter - Laure Carrington RN - 12/01/2019 0972 EDT Pt has had sx's of illness x 1 -2 weeks. C/O dry cough and chest heaviness. Sore throat and head congestion that she has had are getting better Denies fever, chills, headache. Appt with Ortho on 12/09 is new pt visit. Routing to Ananda Black MD to see if he feels pt should call Hotline. * Telephone Encounter - Thang Rios - 12/01/2019 0911 EDT Patient calling because she has an appointment with [facility] on 12/10/19 and has cold symptoms so they advised she should contact our office to discuss that. She states she has a stuffy notex 1-2 weeks, sore throat and cough. She also states she does have intermittent chest tightness. Please advise. Thang Rios documented in this encounter Plan of Treatment Not on file documented as of this encounter Visit Diagnoses Not on filedocumented in this encounter Care Teams Corporate Counselor Relationship Specialty Start Date End Date Ananda Black MD [address] [place] [phone] PCP - General 02/13/19 documented as of this encounter
--- OUTSIDE RECORDS SUMMARY | 2024-08-07 15:00 | XMS_ITS | Encounter Summary ---
Author Organization [facility] Address [address] [place] [address] Care Team Providers Care Transport Tank Technician Name Role Phone Ananda Black MD Primary Care Provider +1- [phone] Reason for Referral * Consult (3 - 10 Business Days) - Specialty Report Received Specialty Diagnoses / Procedures [facility] Referred To Contact Orthopedic Surgery Diagnoses Chronic bilateral low back pain with left-sided sciatica Lazaro Lanza NP Phone: tel: fax: [facility] [address] [place] [address] Phone: tel: fax: Referral ID Status Reason Start Date Expiration Date Visits Requested Visits Authorized [id number] Specialty Report Received Specialty Services Required 09/12/2019 1 1 Question Answer Reason for Request: lumbar scoliosis with disc extrusions causing severe impingement Reason for Visit * Reason Onset Date Comments Results 09/12/2019 Encounter Details Date Type Department Care Team (Late st Contact Info) Description 09/12/2019 Telephone [facility] - [place] [address] [facility] [address] [place], [place] [address] Lazaro Lanza NP [address] [place] [phone] Results Social History Tobacco Use [...] Telephone Encounter - Sophia Byers RN - 09/12/2019 0852 EST Patient notified and agreed with the plan of care. * Telephone Encounter - Lazaro Lanza APRN - 09/12/2019 0752 EST Please let patient know her MRI showed some scoliosis of her spine as well as significant herniateddisc causing impingement on the nerve which is likely why she continues with symptoms despite PT. Ithink she should see ortho for eval soon and I will put this referral in now. Please ensure she does not have any concerning signs of saddle anesthesia (numbness on the inner thighs/groin/buttocks), incontinence of bowel or bladder and she is able to urinate and have BMs normally. If she has questions I can certainly talk to her too. documented in this encounter Plan of Treatment Scheduled Referrals Name Type Priority Associated Diagnoses Order Schedule AMB CONS/FOLLOW UP ORTHOPEDICS Outpatient Referral Routine Chronic bilateral low back pain with left-sided sciatica Ordered: 09/12/2019 documented as of this encounter Visit Diagnoses Diagnosis Chronic bilateral low back pain with left-sided sciatica- Primary documented in this encounter Care Teams Transport Tank Technician Relationship Specialty Start Date End Date Ananda Black MD [address] [place] [phone] PCP - General 02/13/19 documented as of this encounter
--- OUTSIDE RECORDS SUMMARY | 2024-08-07 15:00 | XMS_ITS | Encounter Summary ---
Author Organization [facility] Address [address] [place] [address] Care Team Providers Care Licensed Nuclear Control Room Operator Name Role Phone Ananda Black MD Primary Care Provider +1- [phone] Encounter Details Date Type Department Care Team (Latest Contact Info) Description 12/01/2019 Travel Social History Tobacco Use Types Packs/Day [...] on filedocumented in this encounter Care Teams Licensed Nuclear Control Room Operator Relationship Specialty Start Date End Date Ananda Black MD [address] [place] [phone] PCP - General 02/13/19 documented as of this encounter
--- OUTSIDE RECORDS SUMMARY | 2024-08-07 15:00 | XMS_ITS | Encounter Summary ---
Author Organization [facility] Address [address] [place] [address] Care Team Providers Care Tap Dancer Name Role Phone Ananda Black MD Primary Care Provider +1- [phone] Reason for Visit * Reason Comments Follow-up * Consult (3 - 10 Business Days) - Specialty Report Received Specialty Diagnoses / Procedures [facility] To Contact Orth[facility] Surgery Diagnoses Chronic bilateral low back pain with left-sided sciatica Lazaro Lanza NP Phone: tel: fax: [facility] Orthopedics & Sp[facility] Medicine [address] [place] [address] Phone: tel: fax: Referral ID Status Reason Start Date Expiration Date Visits Requested Visits Authorized [id number] Specialty Report Received Specialty Services Required 09/12/2019 1 1 Encounter Details Date Type Department Care Team (Late st Contact Info) Description 12/10/2019 16:15 EDT Office Visit [facility] Sp[facility] Medicine [address], [address] [place], [place] [address] Shelly Lora NP [address] [place] [address] JACOB ESQUIVEL [phone] Lumbar pain (Primary Dx); HNP (herniated nucleus pulposus), lumbar; Low back pain radiating to both legs Social History Tobacco Use Types Packs/Day Years [...] 16:23 EDT documented as of this encounter Last Filed Vital Signs Vital Sign Reading Time Taken Comments Blood Pressure 116/60 12/10/2019 1623 EDT Pulse - - Temperature 36.9 ??C (98.4 ??F) 12/10/2019 1623 EDT Respiratory Rate - - Oxygen Saturation - - Inhaled Oxygen Concentration - - Weight 54.4 kg (120 lb) 12/10/2019 1623 EDT Height 152.4 cm (5') 12/10/2019 1623 EDT Body Mass Index 23.44 12/10/2019 1623 EDT documented in this encounter [...] this encounter Progress Notes * Shelly Lora, REBECA - 12/10/2019 1615 EDT HPI: Harleen Luna is a 19 y.o. female seen in referral today upon the request of Lazaro Lanza NP for evaluation of a chief complaint of 90% low back pain and 10% left greater than right lower extremity pain. The patient reports that her symptoms began in March 2019 without accident, injury, or trauma. She reports that initially, she began to feel a soreness in her lumbar spine region but the next morning had a significant elevation in her pain. She reports that she has been using cyclobenzaprine, meloxicam, applications of ice, as well as physical therapy with some improvement but she continues to have discomfort. Currently, she reports 90% low back and 10% left greater than right lower extremity pain. The pain radiates from the buttock into the posterior and slightly lateral aspect of the thigh but does not past the knee. She does have a slight alteration in sensation on the left but not on the right. She denies any sense of weakness. She denies any bowel or bladder incontinence. The severity of her pain today is a 4 out of 10. The pain can elevate with bending, lifting, and twisting activities. She hassome improvement with laying down. No neurogenic claudication is present. The patient's medical profile was reviewed and dated today. It contains a detailed past medical history, past surgical history, list of medications, allergies, social history and family medical history and was reviewed and updated in the EMR. Patient is a non-smoker. Conservative treatment: Conservative management has included physical therapy, transition to home exercise program, use of cyclobenzaprine, meloxicam, as well as applications of ice. ROS: A 10 point review of systems was completed today and of note, pertinent positives and negatives areindicated in the HPI. Physical Examination: BP 116/60 Temp 36.9 ??C (98.4 ??F) Ht 152.4 cm (60) Wt 54.4 kg (120 lb) BMI 23.44 kg/m?? Pain Ratin General: Pleasant, cooperative, mood and affect are appropriate. Neuro: Alert and oriented to person, place, time and purpose. HEENT: Reveals no obvious pathology Respiratory: Breathing is even and unlabored Posture: Normal, upright Gait: Normal, nonantalgic Palpation: There is no tenderness on palpation. There are no palpable masses, lesions or deformities. Skin: Intact with no stigmata of underlying disease. ROM: Full with no significant change in her pain pattern Sensation: Grossly intact throughout all dermatomes of the bilateral lower extremities Vascular: Skin is warm and pink with normal capillary refill Reflexes: Symmetric at the knees at 2+ bilaterally and asymmetric at the ankles at 2+ on the right and 1+ on the left. Motor Strength: Illiopsoas/Gluteus: 5/5 bilaterally Quads: 5/5 bilaterally Tibealis Anterior: 5/5 bilaterally EHL: 5/5 bilaterally Gastrocnemius: 5/5 bilaterally Peroneals: 5/5 bilaterally Provocative Maneuvers: Positive straight leg raise on the left Lluvia Signs: 0/5 Imaging/Test review: An MRI of the lumbar spine was completed 09/11/2019 which demonstrates a large central disc herniation at L5-S1 with some slight superior migration of disc material with impingement of the bilateral S1 nerve roots. X-rays of the lumbar nerve roots. X-rays of the lumbar spine were completed on 12/10/2019 along with 05/14/2019 and together, these demonstrate some degenerative disc changes at L5- S1 but overall good alignment and otherwise, there is good preservation of disc height. Flexion and extension views do not demonstrate any instability. Imaging was reviewed by me. Assessment: Harleen Luna is a pleasant and straightforward 19 y.o. female with a chief complaint of low back pain radiating to the bilateral lower extremities on the left greater than the right that most closely correlates with an S1 distribution. She does have a large central disc herniation at L5-S1 and given her continued discomfort even with extensive conservative treatment including physical therapy, a home exercise program cyclobenzaprine, and meloxicam, I discussed with the patient that it would not be unreasonable at this point for her to consider moving forward with an epidural steroid injection at L5-S1. She is somewhat nervous about agreeing to move forward with the injection and ultim ately, I advised the patient that if her symptoms have persisted for this long and she continues tohave some limitations in her activities, the next step of treatment would be to try the injection but certainly, I wanted to be sensitive to her concerns about an injection and discuss the risks and expected side effects of an injection including a potential flare of pain for a brief period of timeafter an injection as essentially, we would be injecting a volume of fluid into an already tightened space which could potentially aggravate her pain for approximately 12 to 24 hours after the injection. She ultimately opted to hold off on making a decision in favor of going home to think about it and I advised her to call at any time if she wished to proceed and we will be happy to set this up at the [facility] pain clinic. The patient felt much more comfortable with this plan and will let us know when she makes a decision. We did spend 45 minutes today in [id number] discussion examination and in review of multiple imaging studies today with greater than 50% of the visit spent in counseling them with respect to the plan moving forward. They asked appropriate questions today and all questions were answered. They understood and agreed with the plan and will follow-up as mentioned above. Diagnosis: 1. Lumbar pain XR LUMBAR SPINE BENDING VIEWS, 2 OR 3 VIEWS 2. HNP (herniated nucleus pulposus), lumbar L5-S1 3. Low back pain radiating to both legs Left greater than right Plan: 1. Consider L5-S1 epidural steroid injection 2. Follow-up with me if the patient proceeds with the above injection 2 to 3 weeks after. CC: Primary Care Provider: Ananda Black [address] [place] [phone] Referring Provider: BEN Ratliff DICTATION WAS USED FOR NOTE COMPLETION. PLEASE EXCUSE ALL MISSPELLINGS AND PUNCTUATION ERRORS. ADRIAN Ozuna 12/11/19 [facility] Orthopedic Spine and Neurosurgery documented in this encounter Plan of Treatment Not on file documented as of this encounter Procedures Procedure Name Priority Date/Time Associated Diagnosis Comments XR LUMBAR SPINE BENDING VIEWS, 2 OR 3 VIEWS 12/10/2019 17:03 EDT documented in this encounter Results * XR LUMBAR SPINE BENDING VIEWS, 2 OR 3 VIEWS (12/10/2019 17:03 EDT) Anatomical Region Laterality Modality Other 12/10/2019 17:0 0 EDT Narrative 12/10/2019 17:03 EDT ? EXAM: RADIOLOGY/LS SPINE FLEX/EXT ONLY 2- EX. D/ (9603) ? CLINICAL INFORMATION: ? M54.5 LUMBAR PAIN FLEX/EX VIEWS ONLY ? LS SPINE FLEX/EXT ONLY 2-3V ? Signs and Symptoms/Comments: M54.5 LUMBAR PAIN FLEX/EX VIEWS ONLY ? Comparison: Radiographs on 05/14/2019. MR on 09/11/2019. ? FINDINGS: ? Lumbar Spine: Upright AP and lateral views were performed. There are ? 5 lumbar type vertebral bodies. No significant spondylolisthesis is ? identified after allowing for previously documented mild ? levoscoliosis. There is no evidence of significant dynamic ? instability on flexion or extension. No acute fracture is visible on ? the lateral views provided. Mild L5-S1 degenerative disc disease is ? present, as confirmed on the prior MR. No significant facet arthrosis ? is visible. The visible soft tissues are unremarkable. ? IMPRESSION: ? 1. ??Mild L5-S1 degenerative disc disease. ? 2. ??No significant spondylolisthesis or evidence of dynamic ? instability. ? REPORT SIGNED IN OTHER VENDOR SYSTEM 12/10/2019 ?Reported By: Cash Porter MD ? CC: Shelly Lora-BC ? Transcribed Date/Time: 12/10/2019 (1703) ? Tire Service Technician: ? Printed Date/Time: 12/10/2019 (1703) ? PAGE 1 ? Signed Report ? Procedure Note Cash Porter MD - 12/10/2019 EXAM: RADIOLOGY/LS SPINE FLEX/EXT ONLY 2- EX. D/ (1643) CLINICAL INFORMATION: M54.5 LUMBAR PAIN FLEX/EX VIEWS ONLY LS SPINE FLEX/EXT ONLY 2-3V Signs and Symptoms/Comments: M54.5 LUMBAR PAIN FLEX/EX VIEWS ONLY Comparison: Radiographs on 05/14/2019. MR on 09/11/2019. FINDINGS: Lumbar Spine: Upright AP and lateral views were performed. Thereare 5 lumbar type vertebral bodies. No significant spondylolisthesis is identified after allowing for previously documented mild levoscoliosis. There is no evidence of significant dynamic instability on flexion or extension. No acute fracture is visibleon the lateral views provided. Mild L5-S1 degenerative disc disease is present, as confirmed on the prior MR. No significant facetarthrosis is visible. The visible soft tissues are unremarkable. IMPRESSION: 1. Mild L5-S1 degenerative disc disease. 2. No significant spondylolisthesis or evidence of dynamic instability. REPORT SIGNED IN OTHER VENDOR SYSTEM 12/10/2019 Reported By: Cash Porter MD CC: Shelly Lora Transcribed Date/Time: 12/10/2019 (548) Tire Service Technician: Printed Date/Time: 12/10/2019 (3379) PAGE 1 Signed Report Shelly Lora TECHNICAL SALES SUPPORT MANAGER IMG DIAGNOSTIC IMAGING ORDERA BLES Final Result documented in this encounter Visit Diagnoses Diagnosis Lumbar pain- Primary Lumbago HNP (herniated nucleus pulposus), lumbar Displacement of lumbar intervertebral disc without myelopathy Low back pain radiating to both legs Lumbago documented in this encounter Care Teams Tap Dancer Relationship Specialty Start Date End Date Ananda Black MD [address] [place] [phone] PCP - General 02/13/19 documented as of this encounter
--- OUTSIDE RECORDS SUMMARY | 2024-08-07 15:00 | XMS_ITS | Encounter Summary ---
Author Organization [facility] Address [address] [place] [address] Care Team Providers Care Court Usher Name Role Phone Ananda Black MD Primary Care Provider +1- [phone] Reason for Visit * Reason Onset Date Comments Immunizations 12/15/2021 Encounter Details Date Type Department Care Team (Late st Contact Info) Description 12/15/2021 Telephone [facility] - [address] [address] Ananda Black MD [address] [place] [phone] Immunizations Social History Tobacco Use Types Packs/Day Years [...] Miscellaneous Notes * Telephone Encounter - Nery Crawford, RN - 12/16/2021 1401 EDT See on chart that pt received TDAP booster today, 12/16/21 at walk-in clinic. Appt cancelled on 12/21/21. NERY CRAWFORD RN 12/16/2021 14:01 * Telephone Encounter - Sophia Cohen - 12/15/2021 0926 EDT Patient is asking if she needs a tetanus shot She stepped on something and needs to get one if needed I did make her a appt for a nurse visit on the 8 documented in this encounter Plan of Treatment Not on file documented as of this encounter Visit Diagnoses Not on filedocumented in this encounter Care Teams Court Usher Relationship Specialty Start Date End Date Ananda Black MD [address] [place] [phone] PCP - General 02/13/19 documented as of this encounter
--- OUTSIDE RECORDS SUMMARY | 2024-08-07 15:00 | XMS_ITS | Encounter Summary ---
Author Organization [facility] Address [address] [place] [address] Care Team Providers Care Sponge Buffer Name Role Phone Ananda Black MD Primary Care Provider +1- [phone] Encounter Details Date Type Department Care Team (Latest Contact Info) Description 11/09/2020 Travel Social History Tobacco Use Types Packs/Day [...] on filedocumented in this encounter Care Teams Sponge Buffer Relationship Specialty Start Date End Date Ananda Black MD [address] [place] [phone] PCP - General 02/13/19 documented as of this encounter
--- OUTSIDE RECORDS SUMMARY | 2024-08-07 15:00 | XMS_ITS | Encounter Summary ---
Author Organization [facility] Address [address] [place] [address] Care Team Providers Care Journeyman Millwright Name Role Phone Ananda Black MD Primary Care Provider +1- [phone] Reason for Visit * Reason Onset Date Comments Other 11/26/2019 Encounter Details Date Type Department Care Team (Late st Contact Info) Description 11/26/2019 Telephone [facility] Orthopedics & Sport Medicine [address] [place] [address] Shelly Lora, BEN [address] [place] [address] [place] [phone] Other Social History Tobacco Use Types Packs/Day [...] Telephone Encounter - Akosua Madrigal LPN - 11/27/2019 1000 EDT Pt did not call back until this morning, front edger talked to Shelly, pt still needs to reach out toPCP so Shelly requested that she be rescheduled to give her time to address current symptoms with PCP. * Telephone Encounter - Alpa Terrazas - 11/26/2019 1401 EDT I called and left a message asking to have her call us back. She needs to speak with her primary care about her symptoms before she can be seen tomorrow. If she is unable to get in touch with them orif they think she should not come in, she will have to reschedule. * Telephone Encounter - Rossana Borges - 11/26/2019 1323 EDT I scheduled Harleen for her new patient appointment and screened her over the phone for covid symptoms prior to confirming the appointment. She declined any symptoms. Harleen called back to say that she is, in fact, experiencing a slight cough, nasal congestion, and sore throat. She says she wasn'ttoo concerned about them when we scheduled, but wanted to call back and make the office aware documented in this encounter Plan of Treatment Not on file documented as of this encounter Visit Diagnoses Not on filedocumented in this encounter Care Teams Journeyman Millwright Relationship Specialty Start Date End Date Ananda Black MD [address] [place] [phone] PCP - General 02/13/19 documented as of this encounter
--- OUTSIDE RECORDS SUMMARY | 2024-08-07 15:01 | XMS_ITS | Encounter Summary ---
Author Organization [facility] Address [address] [place] [address] Care Team Providers Care Conditioning Room Worker Name Role Phone Phil Hill MD Primary Care Provider Reason for Visit * Reason Comments New Patient Visit N[facility] Mass Lump on thigh, would like checked. Bothersome w/ activity Encounter Details Date Type Department Care Team (Late st Contact Info) Description 07/17/2018 14:15 EST Office Visit [facility] [address] [facility] [address] [place], [place] [id number] Phil Hill MD [address] [place] [address] [address] [place] [phone] Lump of left thigh (Primary Dx) Social History Tobacco Use Types [...] Sign Reading Time Taken Comments Blood Pressure 126/72 07/17/2018 1422 EST Pulse 72 07/17/2018 1422 EST Temperature 37.1 ??C (98.8 ??F) 07/17/2018 1422 EST Respiratory Rate - - Oxygen Saturation 99% 07/17/2018 1422 EST Inhaled Oxygen Concentration - - Weight 53.5 kg (118 lb) 07/17/2018 1422 EST Height 150.5 cm (4' 11.25) 07/17/2018 1422 EST Body Mass Index 23.63 07/17/2018 1422 EST documented in this encounter [...] documented in this encounter Progress Notes * Phil Hill - 07/17/2018 1415 EST REASON FOR VISIT: New patient visit, lump on thigh. SUBJECTIVE: The patient in for new patient visit. Very healthy 17-year-old who has graduated from pediatric care. 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 Generally active, exercising regularly, close with local community there. Generally in excellent health. No significant chronic medical problems or concerns noted. She does have concern over a recently identified lump in the left thigh over the last few weeks. Posterolateral thigh, mid-thigh region, seems to be embedded in the lateral hamstring region. No trauma or injury noted. No change in appearance. No overlying bruising or redness. No fluctuance, no discharge. Full range of motion of leg without difficulty. Not clearly associated with activity. Has notappreciably changed during this time. Occasionally may be sore with direct pressure with frequent activity, but symptoms relatively minimal. The patient without any other significant problems or complaints noted. Reviewed history, which was unremarkable. Nonsmoker, no alcohol or drug use noted. SOCIAL HISTORY: Unremarkable, which was reviewed. OBJECTIVE: Vital signs normal, afebrile. General: Alert, no acute distress. Head, ear, nose, throat exam normal. Neck normal. Chest: Clear to auscultation. Cardiovascular: Regular rate and rhythm, no murmur. Abdomen: Positive bowel sounds, soft, nontender. Upper extremities: Normal pulses, normal range of motion. No edema. Lower extremities: Normal appearance, no edema. Normal pulses. Full range of motion without difficulty. Joint exam unremarkable. Area in question involving left posterior thigh, mid-thigh region is significant for a rubbery, palpable nodule approximately 1.5 cm in size, mobile, posterolateral thigh just lateral to the hamstring region. No fluctuance. Range of motion intact. ASSESSMENT: PROBLEM 1: Small subcutaneous nodule, left posterior lateral thigh, of unclear cause. It appears benign. It does not seem to be causing any problems or mechanical interference. Likely incidental, andunclear how long this has persisted. It seems to be stable. Suspect that this may represent a smalllipoma or other benign subcutaneous object. Differential also could include cyst, but that seems a little unlikely for a more superficial suspected sebaceous cyst. At this point, I think this can be reasonably observed. Given benign appearance, I think imaging can be deferred for now. Discussed with patient, who expresses understanding. Ultimately, if this becomes more symptomatic or increases, ge neral surgery consult may be indicated and ultimately excision or biopsy will be needed to define this. PLAN: 1. Observe. 2. Follow up if this should change. PROBLEM 2: Health maintenance. Overall, otherwise doing well and in good health. PLAN: 1. Continue healthy lifestyle 2. Follow up otherwise as needed. documented in this encounter Plan of Treatment Not on file documented as of this encounter Visit Diagnoses Diagnosis Lump of left thigh- Primary documented in this encounter Care Teams Conditioning Room Worker Relationship Specialty Start Date End Date Phil Hill MD [address] [place] [address] PCP - General 05/24/18 02/12/19 documented as of this encounter
--- OUTSIDE RECORDS SUMMARY | 2024-08-07 15:01 | XMS_ITS | Encounter Summary ---
Author Organization [facility] Address [address] [place] [address] Care Team Providers Care Digital Associate Name Role Phone Unknown, Provider Primary Care Provider Phil Escobar MD Primary Care Provider Ananda Black MD Primary Care Provider +1- [phone] Encounter Details Date Type Department Care Team (Late st Contact Info) Description 12/07/2016 Historical Results Only [facility] Radiology Results [address] [place], [place] [address] Alma Paredes PA-C [address] [facility] [address] [place], [place] [address] Social History Tobacco Use Types Packs/Day Years Used Date Smoking Tobacco: Never Assessed AUDIT-C Answer Date Recorded Frequency of Alcohol [...] as of this encounter Plan of Treatment Not on file documented as of this encounter Procedures Procedure Name Priority Date/Time Associated Diagnosis Comments XR ELBOW RIGHT 3 OR MORE VIEWS 12/07/2016 13:04 EDT documented in this encounter Results * XR ELBOW RIGHT 3 OR MORE VIEWS (12/07/2016 13:04 EDT) Anatomical Region Laterality Modality Upper Extremities Right Other 12/07/2016 13:0 4 EDT Narrative 12/07/2016 13:07 EDT ? EXAM: RADIOLOGY EXPRESS CARE/EXP CARE XR ??EX. D/ (1219) ? CLINICAL INFORMATION: ? S59.901A INJURY OF RIGHT ELBOW ? JAMMED ELBOW DURING SOFTBALL, ANT JOINT TENDERNESS AND MEDICAL ? EPICONDYLAR TENDER ? EXP CARE XR ELBOW RT 3V+ ? Signs and Symptoms/Comments: ??S59.901A INJURY OF RIGHT ELBOW: JAMMED ? ELBOW DURING SOFTBALL, ANT JOINT TENDERNESS ? Comparison: None ? FINDINGS: ? Right elbow: 4 views were performed. No acute fracture or ? malalignment is identified. No significant degenerative changes are ? present. A small elbow joint effusion is present. ? IMPRESSION: ? Small elbow joint effusion, raising the possibility of occult ? fracture. Immobilization and follow-up radiographs recommended. ? Dr. Cash Porter discussed these findings with Alma Paredes COMMERCIAL DEVELOPMENT MANAGER ? on 12/07/2016 1:03 PM. ? REPORT SIGNED IN OTHER VENDOR SYSTEM 12/07/2016 ?Reported By: Cash Porter MD ? CC: ? Transcribed Date/Time: 12/07/2016 (1307) ? Twister In: ? Printed Date/Time: 12/30/2018 (8088) ? PAGE 1 ? Signed Report ? Procedure Note Cash Porter MD - 05/21/2019 EXAM: RADIOLOGY EXPRESS CARE/EXP CARE XR EX. D/ (1219) CLINICAL INFORMATION: S59.901A INJURY OF RIGHT ELBOW JAMMED ELBOW DURING SOFTBALL, ANT JOINT TENDERNESS AND MEDICAL EPICONDYLAR TENDER EXP CARE XR ELBOW RT 3V+ Signs and Symptoms/Comments: S59.901A INJURY OF RIGHT ELBOW:JAMMED ELBOW DURING SOFTBALL, ANT JOINT TENDERNESS Comparison: None FINDINGS: Right elbow: 4 views were performed. No acute fracture or malalignment is identified. No significant degenerative changes are present. A small elbow joint effusion is present. IMPRESSION: Small elbow joint effusion, raising the possibility of occult fracture. Immobilization and follow-up radiographs recommended. Dr. Cash Porter discussed these findings with Alma Paredes NP on 12/07/2016 1:03 PM. REPORT SIGNED IN OTHER VENDOR SYSTEM 12/07/2016 Reported By: Cash Porter MD CC: Transcribed Date/Time: 12/07/2016 (1300) Twister In: Printed Date/Time: 12/30/2018 (3647) PAGE 1 Signed Report Alma Paredes PA-C IMG DIAGNOSTIC IMAGING OR DERABLES Final Result documented in this encounter Visit Diagnoses Not on filedocumented in this encounter Care Teams Digital Associate Relationship Specialty Start Date End Date Unknown, MD Gage PCP - General 08/25/15 05/23/18 Phil Hill MD [address] [facility] [address] [place] [address] PCP - General 05/24/18 02/12/19 Ananda Black MD [address] [facility] [address] [place] [phone] PCP - General 02/13/19 documented as of this encounter
--- OUTSIDE RECORDS SUMMARY | 2024-08-07 15:01 | XMS_ITS | Encounter Summary ---
Author Organization [facility] Address [address] [place] [address] Care Team Providers Care Melting Supervisor Name Role Phone Ananda Black MD Primary Care Provider +1- [phone] Encounter Details Date Type Department Care Team (Late st Contact Info) Description 05/14/2019 Results Only Imaging [facility] Radiology Results [address] [place], [place] [id number] Unknown, Provider, Social History Tobacco Use Types Packs/Day Years [...] Date/Time Associated Diagnosis Comments XR LUMBAR SPINE 2-3 VIEWS 05/14/2019 14:38 EDT documented in this encounter Results * XR LUMBAR SPINE 2-3 VIEWS (05/14/2019 14:38 EDT) Anatomical Region Laterality Modality Other 05/14/2019 14:3 5 EDT Narrative 05/14/2019 14:38 EDT ? EXAM: RADIOLOGY/LUMBAR SPINE 2 OR 3 VIEWS EX. D/ (1425) ? CLINICAL INFORMATION: ? M54.42 CHRONIC BILATERAL LOW BACK PAIN ? W/ L SIDED SCIATICA ? LUMBAR SPINE 2 OR 3 VIEWS ? Signs and Symptoms/Comments: M54.42 CHRONIC BILATERAL LOW BACK PAIN ? W/ L SIDED SCIATICA ? Comparison: None ? FINDINGS: ? Lumbar Spine: Upright AP and lateral views were performed. There are ? 5 lumbar type vertebral bodies. Subtle S-shaped thoracolumbar ? scoliosis is present. No acute fracture is identified. No significant ? degenerative changes are present. The sacroiliac joints are ? congruent. The visible soft tissues are unremarkable. ? IMPRESSION: ? 1. ??Minimal S-shaped thoracolumbar scoliosis. ? 2. ??Otherwise unremarkable lumbar spine radiographs for age. ? REPORT SIGNED IN OTHER VENDOR SYSTEM 05/14/2019 ?Reported By: Cash Porter MD ? CC: ? Transcribed Date/Time: 05/14/2019 (1438) ? Desulfurizer Machine: ? Printed Date/Time: 05/14/2019 (0205) ? PAGE 1 ? Signed Report ? Procedure Note Cash Porter MD - 05/24/2019 EXAM: RADIOLOGY/LUMBAR SPINE 2 OR 3 VIEWS EX. D/ (1425) CLINICAL INFORMATION: M54.42 CHRONIC BILATERAL LOW BACK PAIN W/ L SIDED SCIATICA LUMBAR SPINE 2 OR 3 VIEWS Signs and Symptoms/Comments: M54.42 CHRONIC BILATERAL LOW BACK PAIN W/ L SIDED SCIATICA Comparison: None FINDINGS: Lumbar Spine: Upright AP and lateral views were performed. Thereare 5 lumbar type vertebral bodies. Subtle S-shaped thoracolumbar scoliosis is present. No acute fracture is identified. Nosignificant degenerative changes are present. The sacroiliac joints are congruent. The visible soft tissues are unremarkable. IMPRESSION: 1. Minimal S-shaped thoracolumbar scoliosis. 2. Otherwise unremarkable lumbar spine radiographs for age. REPORT SIGNED IN OTHER VENDOR SYSTEM 05/14/2019 Reported By: Cash Porter MD CC: Transcribed Date/Time: 05/14/2019 (9175) Desulfurizer Machine: Printed Date/Time: 05/14/2019 (7595) PAGE 1 Signed Report us Provider Unknown IMJose DIAGNOSTIC IMAGING ORDER FRED Final Result documented in this encounter Visit Diagnoses Not on filedocumented in this encounter Care Teams Melting Supervisor Relationship Specialty Start Date End Date Ananda Black MD [address] [place] [phone] PCP - General 02/13/19 documented as of this encounter
--- OUTSIDE RECORDS SUMMARY | 2024-08-07 15:01 | XMS_ITS | Encounter Summary ---
Author Organization [facility] Address [address] [place] [address] Care Team Providers Care Wound/Ostomy Nurse Name Role Phone Unknown, Provider MD Primary Care Provider Unava ilable Encounter Details Date Type Department Care Team (Latest Contact Info) Description 02/25/2018 14:06 EDT - 02/25/2018 23:59 EDT Hospital Encounter [facility] [address] [place] [address] Unknown, Provider, Discharge Disposition: Home or Self Care Social History Tobacco Use Types Packs/Day Years Used Date Smoking Tobacco: Never Assessed Comments Unknown Sex and Gender Information Value Date Recorded Sex Assigned at Not on file Legal Sex Female 15:38 EST Gender Identity Female 07/03/2019 14:11 EST Sexual Orientation Not on file documented as of this encounter Discharge Disposition Disposition Code Departure Means Destination Home or Self Custodial documented in this encounter Plan of Treatment Not on file documented as of this encounter Visit Diagnoses Not on filedocumented in this encounter Care Teams Wound/Ostomy Nurse Relationship Specialty Start Date End Date Unknown, Provider, PCP - General 08/25/15 05/23/18 documented as of this encounter
--- OUTSIDE RECORDS SUMMARY | 2024-08-07 15:01 | XMS_ITS | Encounter Summary ---
Author Organization [facility] Address [address] [place] [address] Care Team Providers Care Meat Supervisor Name Role Phone Unknown, Provider Primary Care Provider Phil Escobar MD Primary Care Provider Ananda Black MD Primary Care Provider +1- [phone] Encounter Details Date Type Department Care Team (Late st Contact Info) Description 02/25/[address] [facility] Radiology Results [address] [place], [place] [address] Carolynn Clark PA-C [address] [place], [place] [address] Social History Tobacco Use Types Packs/Day Years [...] Name Priority Date/Time Associated Diagnosis Comments XR HAND RIGHT 3 OR MORE VIEWS 02/25/2018 9:49 EDT documented in this encounter Results * XR HAND RIGHT 3 OR MORE VIEWS (02/25/2018 9:49 EDT) Anatomical Region Laterality Modality Upper Extremities Right Other 02/25/2018 9:49 EDT Narrative 02/25/2018 9:52 EDT ? EXAM: RADIOLOGY EXPRESS CARE/EXP CARE MARTY EX. D/ (3844) ? CLINICAL INFORMATION: ? THUMB CRUSHED IN DOOR, DISTAL INDEX FINGER PAIN WELL ? INDICATION: THUMB CRUSHED IN DOOR, DISTAL INDEX FINGER PAIN WELL ? RT HAND INJURY ? TECHNIQUE: 3 views right hand. ? COMPARISON: None. ? FINDINGS: ??The right hand is well aligned. No acute fracture is seen. ?The distal radius and ulna appear intact. No scaphoid injury is ? visible. ??The metacarpal bones and phalanges appear intact. ? IMPRESSION: ? 1. No right hand fracture detected ? REPORT SIGNED IN OTHER VENDOR SYSTEM 02/25/2018 ?Reported By: Clement Whitlock MD ? CC: ? Transcribed Date/Time: 02/25/2018 (0952) ? Ground Source Heat Pump Technician: ? Printed Date/Time: 01/04/2019 (0845) ? PAGE 1 ? Signed Report ? Procedure Note Clement Whitlock MD - 05/22/2019 EXAM: RADIOLOGY EXPRESS CARE/EXP CARE MARTY EX. D/ (1844) CLINICAL INFORMATION: THUMB CRUSHED IN DOOR, DISTAL INDEX FINGER PAIN WELL INDICATION: THUMB CRUSHED IN DOOR, DISTAL INDEX FINGER PAIN WELL RT HAND INJURY TECHNIQUE: 3 views right hand. COMPARISON: None. FINDINGS: The right hand is well aligned. No acute fracture isseen. The distal radius and ulna appear intact. No scaphoid injury is visible. The metacarpal bones and phalanges appear intact. IMPRESSION: 1. No right hand fracture detected REPORT SIGNED IN OTHER VENDOR SYSTEM 02/25/2018 Reported By: Clement Whitlock MD CC: Transcribed Date/Time: 02/25/2018 (0952) Ground Source Heat Pump Technician: Printed Date/Time: 01/04/2019 (0845) PAGE 1 Signed Report us Carolynn Clark PA-C IMJose DIAGNOSTIC IMAGING ORDERABLES Final Result documented in this encounter Visit Diagnoses Not on filedocumented in this encounter Care Teams Meat Supervisor Relationship Specialty Start Date End Date Unknown, MD Gage PCP - General 08/25/15 05/23/18 Phil Hill MD [address] [place] [id number] PCP - General 05/24/18 02/12/19 Ananda Black MD [address] [place] [address] [phone] PCP - General 02/13/19 documented as of this encounter
--- OUTSIDE RECORDS SUMMARY | 2024-08-07 15:01 | XMS_ITS | Encounter Summary ---
Author Organization [facility] Address [address] [place] [address] Care Team Providers Care Circuit Board Drafter Name Role Phone Ananda Black MD Primary Care Provider [phone]- [phone] Reason for Referral * Radiology Services (Routine/Next Available) - Specialty Report Received Specialty Diagnoses / Procedures Referred By Contac t Referred To Contact Radiology Diagnoses Chronic bilateral low back pain with left-sided sciatica Procedures L SPINE 2-3 VIEWS Ananda Black MD Phone: tel: fax: Referral ID Status Reason Start Date Expiration Date V isits Requested Visits Authorized [id number] Specialty Report Received 05/07/2019 1 1 * PT/OT/ST (Routine) - Closed Specialty Diagnoses / Procedures Referred By Contac t Referred To Contact Physical Therapy Diagnoses Chronic bilateral low back pain with left-sided sciatica Ananda Black MD Phone: tel: fax: Referral ID Status Reason Start Date Expiration Date V isits Requested Visits Authorized [id number] Closed Specialty Services Required 05/07/2019 1 1 Question Answer Reason for Request: back pain with left sciatica (?) Reason for Visit * Reason Comments Back Pain Seen at [facility] for (L) sided sciatica pain. Tx'd with muscle relaxer Encounter Details Date Type Department Care Team (Late st Contact Info) Description 05/07/2019 11:30 EDT Office Visit [facility] [address] [address] Ananda Black MD [address] [phone] Chronic bilateral low back pain [...] Sign Reading Time Taken Comments Blood Pressure 122/72 05/07/2019 1145 EDT Pulse 60 05/07/2019 1145 EDT Temperature 36.8 ??C (98.3 ??F) 05/07/2019 1145 EDT Respiratory Rate - - Oxygen Saturation 98% 05/07/2019 1145 EDT Inhaled Oxygen Concentration - - Weight 55.3 kg (122 lb) 05/07/2019 1145 EDT Height - - Body Mass Index 24.43 07/17/2018 1422 EST documented in this encounter [...] Refills Last Filled Start Date End Date cyclobenzaprine (FLEXERIL) 5 mg tabletIndications: Chronic bilateral low back pain with left-sided sciatica Take 1 Tab by mouth 3 times daily as needed for Muscle Spasms. 30 Tab 1 05/07/2019 01/21/2022 documented in this encounter Progress Notes * Ananda Black MD - 05/07/2019 1130 EDT Cc: Back problem HPI: Seen at urgent care. Problem since February. Worse with coughing sometimes and one morning wok up with acute back pain. Given prednisone and flexeril and helped and took a week to be back to baseline. Since then still with pain, worse with movement. Both side now. [place] burning down to knee (left) No nausea, vomiting, diarrhea, or fever. BP 122/72 (BP Cuff Location: Right arm, Patient Position: Sitting, BP Cuff Sizes: Adult, regular) Pulse 60 Temp 36.8 ??C (98.3 ??F) (Tympanic) Wt 55.3 kg (122 lb) SpO2 98% BMI 24.43 kg/m?? Exam: General: No distress, Head: A traumatic Neck- No masses, no adenopathy Respiratory- Clear breath sounds, good air entry, no wheezing, rales, or rhonchi CV- regular, rate, and rhythm, normal S1 and S2, +2 radial pulses, no murmur, gallops, or rubs Abdomen- soft non-tender to palpation, no rebound or guarding, normal bowel sounds Extremities- no edema, no skin discoloration. +2 DP and PT pulses Back: tender lower back, slightly tight lower back. Neuro: Lower extremities neurologically intact to soft touch and pinprick bilaterally. 5/5 strengthbilaterally. Labs Assessment and Plan: (M54.42, G89.29) Chronic bilateral low back pain with left-sided sciatica (primary encounter diagnosis)-on going without any treatment, start conservatively. Patient advised to seek nonnarcotic modalities to control pain, such as qejy-uqj-xyfbtca medications. This would include gycp-ciz-lirvxnx creams and or patches. Gentle use of NSAIDs, such as ibuprofen or Aleve. Medication should be rotated every 4-6 hours with the understanding that the medication will lessenthe pain. Plan: AMB CONS/FOLLOW UP PHYSICAL THERAPY, cyclobenzaprine (FLEXERIL) 5 mg tablet, L SPINE 2-3 VIEWS Ananda Balck MD [facility] documented in this encounter Plan of Treatment Scheduled Orders Name Type Priority Associated Diagnoses Orde r Schedule L SPINE 2-3 VIEWS Imaging Routine Chronic bilateral low back pain with left-sided sciatica Ordered: 05/07/2019 Scheduled Referrals Name Type Priority Associated Diagnoses Orde r Schedule AMB CONS/FOLLOW UP PHYSICAL THERAPY Outpatient Referral Routine Chronic bilateral low back pain with left-sided sciatica Ordered: 05/07/2019 documented as of this encounter Visit Diagnoses Diagnosis Chronic bilateral low back pain with left-sided sciatica- Primary documented in this encounter Care Teams Circuit Board Drafter Relationship Specialty Start Date End Date Ananda Black MD [address] [place] [phone] PCP - General 02/13/19 documented as of this encounter
--- OUTSIDE RECORDS SUMMARY | 2024-08-07 15:01 | XMS_ITS | Encounter Summary ---
Author Organization [facility] Address [address] [place] [address] Care Team Providers Care Spice Mixer Name Role Phone Ananda Black MD Primary Care Provider +1- [phone] Reason for Visit * Reason Onset Date Comments No Show 04/18/2019 Encounter Details Date Type Department Care Team (Late st Contact Info) Description 04/18/[address] [facility] [address] [address] Ananda Black MD [address] [place] [phone] No Show Social History Tobacco Use Types Packs/Day Years [...] * Telephone Encounter - Thang Rios - 04/18/2019 0945 EDT No Show # 1 Called patient to discuss the appointment she missed on 04/14/[address] Black. I notified her of the no show policy, and advised she could contact the office at any time to reschedule if needed. Thang Rios documented in this encounter Plan of Treatment Not on file documented as of this encounter Visit Diagnoses Not on filedocumented in this encounter Care Teams Spice Mixer Relationship Specialty Start Date End Date Ananda Black MD [address] [place] [phone] PCP - General 02/13/19 documented as of this encounter
--- OUTSIDE RECORDS SUMMARY | 2024-08-07 15:01 | XMS_ITS | Encounter Summary ---
Author Organization [facility] Address [address] [place] [address] Care Team Providers Care Drying Room Operator Name Role Phone Phil Hill MD Primary Care Provider Ananda Black MD Primary Care Provider +1- [phone] Encounter Details Date Type Department Care Team (Late st Contact Info) Description 01/06/2019 Historical Results Only [facility] [place] [address] [place] [address] Anisha Reyes, ANY COMMODITY BUYER [address] [facility] [address] [place] [address] Social History Tobacco Use Types Packs/Day Years [...] Procedure Name Priority Date/Time Associated Diagnosis Comments PHARYNGITIS SCREEN - [facility] Routine 01/06/2019 18:40 EDT HERPES SIMPLEX VIRUS (HSV) BY RAPID PCR Routine 01/06/2019 13:04 EDT documented in this encounter Results * PHARYNGITIS SCREEN - [facility] (01/06/2019 18:40 EDT) [place]NGITIS SCREEN - [facility] 01/08/2019 11:30 EDT [facility] PHARYNGITIS SCREEN - [facility] NO GROUP A STREP ISOLATED 01/08/2019 11:30 EDT [facility] 01/06/2019 18:4 0 EDT 01/06/2019 18:40 EDT us Anisha Reyes NP CHEMISTRY & BLOOD GAS ORDERABLE S Final Result [facility] * HERPES SIMPLEX VIRUS (HSV) BY RAPID PCR (01/06/2019 13:04 EDT) HSV 1 DNA RESULT Negative () 01/07/2019 14:38 EDT [facility] HSV 2 DNA RESULT Negative () 01/07/2019 14:38 EDT [facility] Comment: Test performed or referred by The [address] [address] SPECIMEN [address]CRIPTION - [facility] DRY SKIN LIP () 01/07/2019 14:38 EDT [facility] 01/06/2019 13:0 4 EDT 01/06/2019 18:22 EDT us Anisha Reyes NP MICROBIOLOGY - GENERAL ORDERABL ES Final Result [facility] documented in this encounter Visit Diagnoses Not on filedocumented in this encounter Care Teams Drying Room Operator Relationship Specialty Start Date End Date Phil Hill MD [address] [place] [address] [address] [place], [place] [phone] PCP - General 05/24/18 02/12/19 Ananda Black MD [address] [place] [address] [address] [place] [phone] PCP - General 02/13/19 documented as of this encounter
--- OUTSIDE RECORDS SUMMARY | 2024-08-07 15:01 | XMS_ITS | Encounter Summary ---
Author Organization [facility] Address [address] [place] [address] Care Team Providers Care Supervisor Coin Machine Name Role Phone Ananda Black MD Primary Care Provider +1- [phone] Encounter Details Date Type Department Care Team (Late st Contact Info) Description 05/14/2019 12:56 EDT Hospital Encounter [facility] [address] [place] [address] Unknown, Provider, Social History Tobacco Use Types [...] on filedocumented in this encounter Care Teams Supervisor Coin Machine Relationship Specialty Start Date End Date Ananda Black MD [address] [place] [phone] PCP - General 02/13/19 documented as of this encounter
--- OUTSIDE RECORDS SUMMARY | 2024-08-07 15:01 | XMS_ITS | Encounter Summary ---
Author Organization [facility] Address [address] [place] [address] Care Team Providers Care Soap Maker Name Role Phone Unknown, Provider MD Primary Care Provider Unava ilable Encounter Details Date Type Department Care Team (Latest Contact Info) Description 12/07/2016 9:19 EDT - 12/07/2016 23:59 EDT Hospital Encounter [facility] [address] [place] [address] Unknown, Provider, Discharge Disposition: Home or Self [...] Code Departure Means Destination Home or Self Correction documented in this encounter Plan of Treatment Not on file documented as of this encounter Visit Diagnoses Not on filedocumented in this encounter Care Teams Soap Maker Relationship Specialty Start Date End Date Unknown, Provider, PCP - General 08/25/15 05/23/18 documented as of this encounter
[2024-08-07 15:08] VITALS: BP 126/72; PULSE 73; RESP 26; O2SAT 98
--- NOTE | 2024-08-07 15:14 | ED.GENADUL_ITS ---
Discharge Plan Disposition Patient Disposition: Home Condition: Stable Discharge Details Clinical Impression: Palpitations Primary Care Provider: Unknown,Unknown ED Provider: Josefina Corado Home Meds and New Rx's Prescriptions: No Action PNV #[id number] acid-dha 35 mg iron-5 mg iron-1 mg capsule 1 cap PO DAILY famotidine [Pepcid] 20 mg tablet 20 mg PO PRN calcium carbonate [Tums] 200 mg calcium (500 mg) tablet,chewable 200 mg PO BID Discharge Instructions Additional Instructions: Heart rate and EKG are normal in the ED today. you may have had a brief episode of a supraventricular tachycardia (fast heart rate) if this recurs, contact your OB or PCP to get an order for an outpatient holter monitor if you have palpitations or a fast heart rate that doesn't go down, return to the ED HPI General Date/Time Provider Initiated Documentation: 08/07/24 14:59 . Limitations to Documentation: no limitations . Information obtained by: patient . HPI Narrative: 23-year-old female G1, P0 at 18 weeks followed by ACETYLENE TORCH BURNER here presents for evaluation of palpitations. She reports that earlier today she was scrubbing chair her legs when she started to feel like her heart was beating fast. She states that during that she had some mild shortness of breath but did not feel like she could not breathe. She denies any chest pain. Her checked her heart rate and noted that it was beating fast at approximately 180. He states that he counted for 15 seconds and then multiplied by 4. The symptoms resolved with some rest. She does not have any symptoms at this time Related Data Home Medications ?Medication ?Instructions ?Recorded ?Confirmed calcium carbonate (Tums) 200 mg PO BID 06/05/24 08/07/24 famotidine 20 mg tablet (Pepcid) 20 mg PO PRN 06/05/24 08/07/24 vitamin #56-iron 35 mg 1 cap PO DAILY 06/05/24 08/07/24 and 5 mg-folic acid 1 mg-dha capsule Allergies Allergy/AdvReac Type Severity Reaction Status Date / Time amoxicillin (From Augmentin) Allergy Intermediate Skin Rash Verified 08/07/24 14:59 clavulanic acid (From Allergy Intermediate Skin Rash Verified 08/07/24 14:59 Augmentin) Penicillins Allergy Intermediate Skin Rash Verified 08/07/24 14:59 General Stated Complaint: Arrhythmia CHASIDY: 3 Exam Narrative Exam Narrative: Review of Systems: All systems reviewed & are unremarkable except as noted in HPI and below Well-developed, no acute distress NCAT PERRL, normal conjunctiva RRR Unlabored respiratory effort, clear bilaterally Gravid abdomen soft nontender Extremities w/o edema Course Vital Signs Vital signs: Vital Signs Temperature 36.3 C L 08/07/24 14:48 Pulse 80 08/07/24 14:48 Respiratory Rate 16 08/07/24 14:48 Blood Pressure 125/84 08/07/24 14:48 Pulse Oximetry 99 08/07/24 14:48 Temperature 36.3 C L 08/07/24 14:48 Temperature Source Temporal Artery Scan 08/07/24 14:48 Pulse 80 08/07/24 14:48 Respiratory Rate 16 08/07/24 14:48 Blood Pressure 125/84 08/07/24 14:48 Blood Pressure Position Sitting 08/07/24 14:48 Pulse Oximetry 99 08/07/24 14:48 Oxygen Delivery Method Room Air 08/07/24 14:48 Oxygen Flow Rate 0 08/07/24 14:48 Pain Level 0 08/07/24 14:48 Medical Decision Making Emergent evaluation of palpitations. On arrival, patient has normal heart rate. EKG independently interpreted: Sinus 79 normal axis no dysrhythmia, normal interval, no STEMI. The patient's symptoms were in the setting of exertion and were brief. No chest pain or shortness of breath to suggest ACS or pulmonary embolism. The accuracy of checking heart rate and multiplying it by 4 seems low. So I have a very low suspicion that she had a sustained tachycardia. Though would consider SVT. Now resolved. heart tones normal. Observed on cardiac monitoring and no abnormality noted. Stable for discharge. Quality:[facility] Health Related Social Needs: No Data to Display PFSH All Active Problems (Updated 08/07/24 @ 15:25 by Josefina Corado MD) Palpitations (Acute) Family history of congenital heart defect (Acute) Patient Sister have a child with a congenital heart defect. (Acute) Medical History (Updated 08/07/24 @ 15:25 by Josefina Corado MD) Anxiety Lumbar herniated disc Diagnosed 2019, Does PT Asthma Migraine Family History (Updated 06/25/24 @ 14:06 by Ale Rodrigues CNM) Mother Hypertension Prediabetes Paternal Grandmother Cancer ovarian Maternal Grandmother Diabetes Paternal Grandfather Cancer Father Migraine Maternal Aunt Multiple myeloma Social History (Updated 06/25/24 @ 14:20 by Ale Rodrigues CNM) Smoking/Tobacco Use Status: Never Second Hand Exposure: No Smoking risk assessment performed?: Yes Alcohol Intake: never Drug use: Never Do you feel safe at home: Yes Do you feel safe in your relationship?: Yes History History 1 Para Hx # Term Pregnancies 0 Multiple births Hx # Pregnancies Ectopic pregnancies AB induced Hx Number of Living Children AB spontaneous
[2024-08-07 15:16] VITALS: BP 110/56; PULSE 77; PULSE 78; RESP 21; O2SAT 98
== END 2024-08-07 15:41 | disposition home or self-care (01) ==
PROVIDERS: Emergency Provider Emergency Medicine
DX: O99.412 Diseases of the circulatory system complicating pregnancy, second trimester (principal); R00.2 Palpitations; Z3A.18 18 weeks gestation of pregnancy
CPT/HCPCS: 93005; 99283; 93010

== ENCOUNTER 2024-08-19 00:22 | Outpatient (CLI) | payer MEDICAID, SELFPAY ==
--- NOTE | 2024-08-19 06:45 | DI.US_ITS ---
Exam(s) US OB 2-3 TRIMESTER EXAM: US OB 2-3 TRIMESTER CLINICAL HISTORY: ,z34.90. TECHNIQUE: Transabdominal obstetrical ultrasound performed. COMPARISON: US POCUS EXAM from 06/11/2024 FINDINGS: Number of fetuses: 1 position: VARIED Placental location: No evidence of previa. BIOMETRIC DATA: BPD: 4.84cm, 20weeks 4days HC: 16.86cm, 19weeks 4days AC: 14.98cm, 20weeks 2days FL: 2.9cm, 18weeks 6days Cisterna magna: 3mm Cerebellum: 2.01cm Lateral ventricle: EFW: 304.65g, 0.7lb, 41.4% Composite Age: 19weeks 6days DIANA: 01/07/2025 Heart Rate: 159bpm Amniotic fluid index: Amount of fluid is within normal limits. ANATOMICAL SURVEY: Four-chambered heart: Unremarkable. LVOT: Unremarkable. RVOT: Unremarkable. Left-sided stomach: Unremarkable. urinary bladder: Unremarkable. Bilateral kidneys: Unremarkable. Three-vessel cord: Unremarkable. Cord insertion: Unremarkable. Posterior fossa:Unremarkable. ventricles: Unremarkable. nose: Unremarkable. lips: Unremarkable. palate: Unremarkable. spine: Unremarkable. Two arms and two legs: Unremarkable. IMPRESSION: 1. Single live intrauterine gestation with composite age 19 6 weeks 6 days. 2. Normal anatomic survey. DATA REPOSITORY:
== END 2024-08-19 00:42 ==
PROVIDERS: PCP Family Medicine; Visit Provider Advanced Practice Midwife
DX: Z34.92 Encounter for supervision of normal pregnancy, unspecified, second trimester (principal); Z3A.20 20 weeks gestation of pregnancy
CPT/HCPCS: 76805

== ENCOUNTER 2024-09-15 18:24 | Outpatient (REF) | payer MEDICAID, SELFPAY | END 2024-09-15 18:25 | disposition home or self-care (01) | LOC: NCHCN 18:24 | PROVIDERS: PCP Family Medicine; Visit Provider Obstetrics & Gynecology | DX: Z34.92 Encounter for supervision of normal pregnancy, unspecified, second trimester (principal); Z3A.23 23 weeks gestation of pregnancy | CPT/HCPCS: 87480; 87510; 87660 ==

== ENCOUNTER 2024-10-09 02:41 | Outpatient (CLI) | payer MEDICAID, SELFPAY ==
[2024-10-09 12:32] LABS: HCT 37.3 % (36.0-46.0); HGB 12.8 g/dL (11.2-15.7); MCH 29.8 pg (27.0-33.0); MCHC 34.3 % (32.0-36.0); MCV 87 fL (80-95); MPV 9.3 fL (8.0-11.0); Platelet Count 274 10^3/uL (130-400); RDW 12.2 % (11.7-14.6); RDW-SD 38.5 fL; WBC 8.75 10^3/uL (4.4-10.8)
[2024-10-09 12:51] LABS: Glucose,1 Hr (Glucola) 108 mg/dL (80-140)
== END 2024-10-09 02:42 | disposition home or self-care (01) ==
PROVIDERS: PCP Family Medicine; Visit Provider Obstetrics & Gynecology
DX: Z34.92 Encounter for supervision of normal pregnancy, unspecified, second trimester (principal)
CPT/HCPCS: 36415; 82950; 85027

== ENCOUNTER 2024-10-23 16:11 | Outpatient (REF) | payer MEDICAID, SELFPAY | END 2024-10-23 16:12 | disposition home or self-care (01) | LOC: LBN 16:11 | PROVIDERS: PCP Family Medicine; Visit Provider Obstetrics & Gynecology | DX: N94.9 Unspecified condition associated with female genital organs and menstrual cycle (principal) | CPT/HCPCS: 87480; 87510; 87660 ==

== ENCOUNTER 2024-11-14 17:59 | Observation (INO) | payer MEDICAID, SELFPAY ==
[2024-11-14 16:46] VITALS: BP 119/73; PULSE 77
[2024-11-14 16:53] VITALS: BP 119/73; PULSE 77; TEMP 36.5
--- NOTE | 2024-11-14 17:36 | W.PM.OBHPL1 ---
Date of service: 11/14/24 Time of Service: 17:36 Assessment and Plan Assessment and plan (1) contractions: Status: Acute (2) 32 weeks gestation of : Status: Acute Assessment and plan: A: 24 yo G1 @ 32+1 wks, irregular persistent contractions cvx 1/thick posterior, vtx -3, intact membranes Jordan score 2, nml urine dip, vital signs nml, tox neg category 1 tracing, pt appears relaxed, occasionally uncomfortable P: UA, UC&S and GBS swab sent Offer PO hydration and bedrest, recheck cvx for change in 2-3 hrs, Continuous EFM and monitor uterine activity Consult with Dr. Peñaloza completed If contractions persist/cervical change detected plan Nifedipine PO, celestone IM, overnight obs OB-HPI Labor/Delivery History of Present Illness Reason for Visit: NST Chief Complaint: Maternal Discomfort , Associated Signs and Symptoms of Maternal Discomfort: back pain and lower abd pains since 1400, maybe 13 times in 90 minutes. No bleeding, no ROM, no recent coitus, no changes in vaginal mucous. Pt states less pains after resting 1 hr after she called, but still concerned so came in for evaluation.. DIANA Calculator Estimated Delivery Date Method Current WG Current Estimate 01/08/25 LMP (Certain) 32w 1d Other Estimates 01/13/25 Ultrasound #1 31w 3d History of Present Expected Delivery Route/Plan - undecided MD or CNM FOB/ - Darrian Gold (healthy, his first baby) Does not wish to know gender, will circ if male Hopes for unmedicated delivery Specific Issues/Plan 1. History of anxiety without treatment 2. Pt has sister with baby with cardiac anomale and multiple surgeries - MFM consult: normal level 2 sono, no further w/u necessary - cfDNA- low risk, Does not wish to know gender, CF-neg, declines AFP. 3. Herniation of lumbar disc 4. Migraines Assessment: History Reviewed & Current Review of Systems Narrative: ROS completed and found to be noncontributory PFSH All Active Problems (Updated 11/14/24 @ 17:45 by Zulma Lawrence) 32 weeks gestation of (Acute) contractions (Acute) Family history of congenital heart defect (Acute) Patient Sister have a child with a congenital heart defect. (Acute) Medical History (Updated 11/14/24 @ 17:45 by Zulma Lawrence) Anxiety Lumbar herniated disc Diagnosed 2018, Does PT Asthma Migraine Family History (Updated 06/25/24 @ 14:06 by Ale Rodrigues CNM) Mother Hypertension Prediabetes Paternal Grandmother Cancer ovarian Maternal Grandmother Diabetes Paternal Grandfather Cancer Father Migraine Maternal Aunt Multiple myeloma Social History (Updated 06/25/24 @ 14:20 by Ale Rodrigues CNM) Smoking/Tobacco Use Status: Never Second Hand Exposure: No Smoking risk assessment performed?: Yes Alcohol Intake: never Drug use: Never Do you feel safe at home: Yes Do you feel safe in your relationship?: Yes History History 1 Para 0 Hx # Term Pregnancies 0 Multiple births 0 Hx # Pregnancies 0 Ectopic pregnancies 0 AB induced 0 Hx Number of Living Children 0 AB spontaneous 0 Meds Allergies and Home Medications Allergies Allergy/AdvReac Type Severity Reaction Status Date / Time amoxicillin (From Augmentin) Allergy Intermediate Skin Rash Verified 11/04/24 15:29 clavulanic acid (From Allergy Intermediate Skin Rash Verified 11/04/24 15:29 Augmentin) Penicillins Allergy Intermediate Skin Rash Verified 11/04/24 15:29 Home Medications ?Medication ?Instructions ?Recorded ?Confirmed ?Type calcium carbonate (Tums) 200 mg PO BID 06/05/24 11/04/24 History famotidine 20 mg tablet (Pepcid) 20 mg PO PRN 06/05/24 11/04/24 History vitamin #56-iron 35 mg 1 cap PO DAILY 06/05/24 11/04/24 History and 5 mg-folic acid 1 mg-dha capsule Boostrix Tdap 2.5 Lf unit-8 mcg-5 0.5 ml IM ONCE #0.5 mL 10/09/24 Clinic Lf/0.5 mL intramuscular syringe (diphth,pertus(acell),tetanus) Exam Physical Exam Vital signs: Pulse BP 77 119/73 11/14/24 16:46 11/14/24 16:46 Vital Signs Reviewed: Yes Constitutional Constitutional: no acute distress, mild distress, average body habitus and cooperative Detailed Labor and Delivery Exam Dilation: 1 Effacement (%): 20 station: -3 Cervix position: posterior Consistency: medium Jordan Score: Cervical Points Exam 0 1 2 3 Dilation Closed 1-2cm 3-4 cm 5-6cm Effacement 0-30% 40-50% 60-70% 80% Consistency Firm Medium Soft Station -3 -2 -1,0 +1,+2 Position Posterior Mid Anterior JORDAN Score(Cervical Ripeness Score): 2 Amniotic Membrane Status: Intact Contraction Frequency(min): irregular, ranging q2-6 minutes apart Contraction Duration(sec): 30-60 Contraction Intensity: Mild Fetus A Heart Rate Baseline: 130 Monitor Accelerations: 15 X 15 Monitor Decelerations: None Variability: Moderate (6-25 BPM) Presentation: Cephalic Categories: Category I HEENT Exam HEENT Exam: Normal Neck Exam Neck Exam: Normal Chest/Brest/Axilla Exam Chest Exam: Normal Breast Exam Breast Exam: Not Done Respiratory Exam Respiratory Exam: Normal Cardiovascular Exam Cardiovascular Exam: Normal Abdominal Exam Abdominal Exam: Normal (gravid, soft, nontender) Rectal Exam Rectal Exam: Normal Exam Exam: Normal Extremities Exam Extremities Exam: Normal Back/Spine/Pelvis Exam Back Exam: Normal Pelvis Adequate: Yes Skin Exam Skin Exam: Normal Neurological Exam Neurological Exam: Normal Psychiatric Exam Psychiatric Exam: Normal Results Results Group Beta Strep: Done-Result Unknown Blood Type: O+ Rubella Status: Immune Varicella Immunity: Immune Risk Assessment Risk for Shoulder Dystocia Historical/Initial OB: NEGATIVE FOR: Pelvic Abnormality, Pre- BMI>30, Previous Shoulder Dystocia or Previous Macrosomia Increased Risk?: No Risk for Pre-Eclampsia Daily Dose ASA Indicated: No Yes, if one or more: NEGATIVE FOR: Hx Pre-E/Gest HTN, Chronic HTN, Multiple Gestation, Pre-gestational DM, Renal Disease, Systemic Lupus or APA Syndrome Yes, if 2 or more: POSITIVE FOR: Nulliparity; NEGATIVE FOR: Age>= 35 yrs, >10yr btwn pregnancies, BMI>30, ethinicty, Mother/Sister w/ Pre-E or Previous IUGR Risk for Post- Hemorrhage Initial: NEGATIVE FOR: Multiple Gestation, Previous PPH, Known Clotting Deficiency, Grand Multiparity or Anticoagulation At Risk?: No Risks Reviewed Risks Reviewed Upon Admission: Yes
[2024-11-14 17:37] LABS: Bilirubin Negative (Negative); Blood Trace-intact (Negative); Clarity Clear (Clear); Glucose 100 mg/dL (Negative); Ketones Negative (Negative); Leukocyte Esterase Negative (Negative); Nitrite Negative (Negative); Urobilinogen 0.2 mg/dL (Up to 0.2)
[2024-11-14 17:44] LABS: *AMPHETAMINES SCREEN URINE Negative (Negative); *BARBITURATES SCREEN URINE Negative (Negative); *BENZODIAZEPINES SCREEN URINE Negative (Negative); Cannabinoids THC Negative (Negative); Cocaine Screen,Urine Negative (Negative); METHADONE URINE SCREEN Negative (Negative); OPIATES URINE SCREEN Negative (Negative)
[2024-11-14 17:51] LABS: Bacteria Few HPF (Negative); C & S Indicated? No; Casts Negative LPF (Negative); Crystals Negative HPF (Negative); Epithelial Cells Few HPF (Negative); Mucus Negative (Negative); RBC 0-2 HPF (0-2); WBC 0-2 HPF (0-5)
[2024-11-14 17:52] LABS: Tricyclic Antidepressants Negative (Negative)
[2024-11-14] MEDS: Betamet Acet/Betamet Na Ph Inj. 30 MG/5 ML 12 MG IM (20:00)
[2024-11-14] MEDS: NIFEdipine 10 MG CAP PO ×2 (21:29→22:37)
--- NOTE | 2024-11-14 22:30 | W.OBNST ---
Date of service: 11/15/24 Time of Service: 22:00 NST Evaluation Reason for NST Reasons for Nonstress Test: LABOR Gestational Age Gestational Age in Weeks and Days: 32 Weeks and 1Days Test and Monitor Explained Test/Monitor Explained: Test Explained, Monitor Explained and Patient Verbalized Understanding Vital Signs Blood Pressure: 119/73 Pulse: 77 Temperature: 97.7 F Urine Results Urine Protein: Negative Urine Ketones: Negative Urine Glucose: Negative Urine Blood: Negative NST Information Time on Monitor: 16:45 Date off Monitor: 11/14/24 Time off Monitor: 22:00 NST Interventions: PO Hydration NST Evaluation Patient States Movement: Present FHR Baseline: 140 Variability: Moderate 6-25 bpm Accelerations: 15x15 Decelerations: None NST Results: Reactive Note Ultrasound Done: N/A. NST Note NST Reviewed and Verified by: Zulma Lawrence
--- NOTE | 2024-11-15 06:20 | W.OBNST ---
Date of service: 11/14/24 Time of Service: 22:00 NST Evaluation Reason for NST Reasons for Nonstress Test: LABOR Gestational Age Gestational Age in Weeks and Days: 32 Weeks and 1Days Test and Monitor Explained Test/Monitor Explained: Test Explained, Monitor Explained and Patient Verbalized Understanding Vital Signs Blood Pressure: 119/73 Pulse: 77 Temperature: 97.7 F Urine Results Urine Protein: Negative Urine Ketones: Negative Urine Glucose: Negative Urine Blood: Negative NST Information Date on Monitor: 11/14/24 Time on Monitor: 16:45 Date off Monitor: 11/14/24 Time off Monitor: 22:00 Total Time on Monitor: 315 NST Interventions: PO Hydration NST Evaluation Patient States Movement: Present FHR Baseline: 140 Variability: Moderate 6-25 bpm Accelerations: 15x15 Decelerations: None NST Results: Reactive Note Ultrasound Done: N/A. NST Note NST Reviewed and Verified by: Zulma Lawrence
[2024-11-15 06:21] VITALS: BP 119/73; PULSE 77; TEMP 36.5
[2024-11-15] MEDS: NIFEdipine 10 MG CAP PO (06:52)
[2024-11-15 09:13] VITALS: BP 118/71; PULSE 103
--- NOTE | 2024-11-15 09:48 | W.PM.PROGNOT ---
Date of Service Date of service: 11/15/24 Time of Service: 09:48 Assessment and Plan Assessment and plan (1) 32 weeks gestation of : Status: Acute Assessment and plan: A: threatened PTL @ 32 wks, no cvx change 1st celestone injection given, Nifedipine tocolysis in progress P: Discharge from outpt obs to home today Continue Nifedipine 10 mg PO q8 hrs RTO this evening to for 2nd celestone 12 mg IM F/up early this week in office with OB Provider (2) contractions: Status: Acute Subjective Subjective Interval history since last seen: Pt states no contractions after 2nd dose of Nifedipine last night, slept well, had a couple contractions prior to 0630 dose and none since. Is hungry and ordering breakfast, would like to go home and return this evening for her 2nd celestone injection. Exam External Female Exam: normal external appearance Other: cvcx remains unchanged from admission exam with cephalic presenting palpably at higher station: 1/20%, vtx -3/-4, soft & posterior, intact membranes, Objective Last Vital Signs Pulse 103 H 11/15/24 09:13 BP 118/71 11/15/24 09:13 Laboratory Results - last 24 hr 11/14/24 17:00 Urine Color Yellow Urine Clarity Clear Urine pH 7.0 Ur Specific [place] 1.010 Urine Protein Negative Urine Ketones Negative Urine Blood Trace-intact H Urine Nitrite Negative Urine Bilirubin Negative Urine Urobilinogen 0.2 Ur Leukocyte Esterase Negative Urine RBC 0-2 Urine WBC 0-2 Ur Epithelial Cells Few Urine Crystals Negative Urine Bacteria Few Urine Casts Negative Urine Mucus Negative Ur Culture Indicated? No Urine Glucose 100 H Urine Opiates Screen Negative Urine Methadone Screen Negative Ur Barbiturates Screen Negative Ur Tricyclics Screen Negative Ur Amphetamines Screen Negative U Benzodiazepines Scrn Negative Urine Cocaine Screen Negative Ur THC Screen Negative Objective Narrative Objective Narrative: Pt appears comfortable EFM tracing category 1, rare uterine activity per toco Tolerating PO intake without trouble Vital signs WNL Time Spent with Patient Time Spent with Patient: 35-49 minutes Time was spent: preparing to see the patient(eg.review tests), obtaining and/or reviewing separately otained hiistory, ordering medications,tests, procedures, referring, communicating with other health career development associate and counseling the patient
--- NOTE | 2024-11-15 10:26 | DSE_ITS ---
Date of service: 11/15/24 Time of Service: 10:26 DS: Diagnosis Discharge Diagnosis (1) 32 weeks gestation of : Status: Acute (2) contractions: Status: Acute Discharge Plan Disposition Patient Disposition: Home Condition: Good Discharge Details Reason For Visit: NST Admit Date/Time: 11/14/24 17:59 Admit Provider: Zulma Lawrence Attending Provider: Zulma Lawrence Primary Care Provider: ALBER STUART Hospital Course Hospital Course: Treated for labor with nifedipine tocolysis, celestone prophylaxis injection and overnight observation, discharge the following morning. Home Meds and New Rx's Prescriptions: No Action PNV #[id number] acid-dha 35 mg iron-5 mg iron-1 mg capsule 1 cap PO DAILY famotidine [Pepcid] 20 mg tablet 20 mg PO PRN calcium carbonate [Tums] 200 mg calcium (500 mg) tablet,chewable 200 mg PO BID Boostrix Tdap 2.5-8-5 Lf-mcg-Lf/0.5mL syringe 0.5 ml IM ONCE Qty: 0.5 0RF nifedipine 10 mg capsule 10 mg PO TID Qty: 60 1RF Discharge Instructions Instructions: labor Additional Instructions: Please take Nifedipine 10 mg by mouth every 8 hrs, next dose due at 2:30 pm, if contractions restart and are >5/hr you may take a second dose and call OB Provider. Please return to this evening for 2nd celestone dose at 1830 today Stand Alone Forms: Center Observation Activity:: Activity as Tolerated Equipment/Supplies:: No Equipment Needed Diet:: Normal Diet Discharge Orders Discharge Orders: Discharge Order (Routine); Ordered 11/15/24 Ordered By: Zulma Lawrence OB:DS Summary Contraception Discussed Contraception Discussed: No, Status at Discharge Functional status at discharge: independent ambulation Overall status at discharge: patient is back to baseline Mental Status: mental status grossly normal Speech and Movement: speech and movement normal and speech clear Mood: congruent mood Affect: normal affect Quality:SDOH Health Related Social Needs: No Data to Display Exam Physical Exam Vital signs: Pulse BP 103 H 118/71 11/15/24 09:13 11/15/24 09:13 Vital Signs Reviewed: Yes Constitutional Constitutional: no acute distress, average body habitus and cooperative HEENT Exam HEENT Exam: Normal Neck Exam Neck Exam: Normal Respiratory Exam Respiratory Exam: Normal Cardiovascular Exam Cardiovascular Exam: Normal Rectal Exam Rectal Exam: Normal Back/Spine/Pelvis Exam Back Exam: Normal Skin Exam Skin Exam: Normal Neurological Exam Neurological Exam: Normal Psychiatric Exam Psychiatric Exam: Normal PFSH All Active Problems (Updated 11/14/24 @ 17:45 by Zulma Lawrence) 32 weeks gestation of (Acute) contractions (Acute) Family history of congenital heart defect (Acute) Patient Sister have a child with a congenital heart defect. (Acute) Medical History (Updated 11/14/24 @ 17:45 by Zulma Lawrence) Anxiety Lumbar herniated disc Diagnosed 2018, Does PT Asthma Migraine Family History (Updated 06/25/24 @ 14:06 by Ale Rodrigues CNM) Mother Hypertension Prediabetes Paternal Grandmother Cancer ovarian Maternal Grandmother Diabetes Paternal Grandfather Cancer Father Migraine Maternal Aunt Multiple myeloma Social History (Updated 06/25/24 @ 14:20 by Ale Rodrigues CNM) Smoking/Tobacco Use Status: Never Second Hand Exposure: No Smoking risk assessment performed?: Yes Alcohol Intake: never Drug use: Never Do you feel safe at home: Yes Do you feel safe in your relationship?: Yes History History 1 Para 0 Hx # Term Pregnancies 0 Multiple births 0 Hx # Pregnancies 0 Ectopic pregnancies 0 AB induced 0 Hx Number of Living Children 0 AB spontaneous 0 DS: Data Vitals/I&O Vitals and I&O: Vital Signs Temperature 97.7 F 11/15/24 06:21 Pulse 103 H 11/15/24 09:13 Pulse 77 11/15/24 06:21 Blood Pressure 118/71 11/15/24 09:13 Blood Pressure 119/73 11/15/24 06:21 Data Completed and Pending Labs on day of discharge: Labs from last 24 hours 11/14/24 17:00: Urine Color Yellow, Urine Clarity Clear, Urine pH 7.0, Ur Specific [place] 1.010, Urine Protein Negative, Urine Ketones Negative, Urine Blood Trace-intact H, Urine Nitrite Negative, Urine Bilirubin Negative, Urine Urobilinogen 0.2, Ur Leukocyte Esterase Negative, Urine RBC 0-2, Urine WBC 0-2, Ur Epithelial Cells Few, Urine Crystals Negative, Urine Bacteria Few, Urine Casts Negative, Urine Mucus Negative, Ur Culture Indicated? No, Urine Glucose 100 H, Urine Opiates Screen Negative, Urine Methadone Screen Negative, Ur Barbiturates Screen Negative, Ur Tricyclics Screen Negative, Ur Amphetamines Screen Negative, U Benzodiazepines Scrn Negative, Urine Cocaine Screen Negative, Ur THC Screen Negative 11/14/24 17:00 Vaginal/Rectal Group B Streptococcus Culture - Pending Preliminary micro results at discharge 11/14/24 17:00 Vaginal/Rectal Group B Streptococcus Culture - Pending
[2024-11-15 13:35] VITALS: BP 119/73; PULSE 77; TEMP 36.5
[2024-11-17 16:11] VITALS: BP 128/78; PULSE 85; RESP 16; TEMP 36.5
== END 2024-11-15 11:18 | disposition home or self-care (01) ==
LOC: BCD 18:15 → OBS 18:15
PROVIDERS: Admitting Provider Advanced Practice Midwife; PCP Family Medicine; Visit Provider Advanced Practice Midwife
DX: O47.03 False labor before 37 completed weeks of gestation, third trimester (principal); Z3A.32 32 weeks gestation of pregnancy; O99.353 Diseases of the nervous system complicating pregnancy, third trimester; O99.343 Other mental disorders complicating pregnancy, third trimester; F41.9 Anxiety disorder, unspecified; O99.513 Diseases of the respiratory system complicating pregnancy, third trimester; J45.909 Unspecified asthma, uncomplicated; G43.909 Migraine, unspecified, not intractable, without status migrainosus; Z82.79 Family history of other congenital malformations, deformations and chromosomal abnormalities
CPT/HCPCS: 59025; 80307; 96372; 81003; 81015; 87081; G0378; J0702

== ENCOUNTER 2024-11-15 18:45 | Outpatient (CLI) | payer MEDICAID, SELFPAY ==
[2024-11-15] VITALS (7 sets, daily range): BP systolic 108–117; BP diastolic 58–78; PULSE 81–92; RESP 18; TEMP 36.8
[2024-11-15] MEDS: NIFEdipine 10 MG CAP PO (19:25)
[2024-11-15] MEDS: Betamet Acet/Betamet Na Ph Inj. 30 MG/5 ML 12 MG IM (19:25)
--- NOTE | 2024-11-15 20:12 | W.OBNST ---
Date of service: 11/15/24 Time of Service: 20:12 NST Evaluation Reason for NST Reasons for Nonstress Test: LABOR Gestational Age Gestational Age in Weeks and Days: 32 Weeks and 2Days Test and Monitor Explained Test/Monitor Explained: Test Explained Vital Signs Blood Pressure: 117/78 Pulse: 92 Temperature: 98.2 F Urine Results Urine Protein: Negative Urine Ketones: Negative Urine Glucose: Positive Urine Blood: Negative NST Information Date on Monitor: 11/15/24 Time on Monitor: 19:00 Date off Monitor: 11/15/24 Time off Monitor: 19:00 Total Time on Monitor: 0 NST Interventions: PO Hydration NST Evaluation Patient States Movement: Present FHR Baseline: 1,150 Variability: Moderate 6-25 bpm Accelerations: 15x15 Decelerations: None NST Results: Reactive Note Ultrasound Done: N/A. NST Note Note: 2nd dose celestone 12 mg IM given Cvx rechecked and not changed from this morning's exam 1/thick, posterior, soft, vtx -3, intact membranes 10 mg Nifedipine PO given, pt to increase dose at home to 20 mg PO Q8 hrs Plan f/up with HOME APPLIANCE TECHNICIAN on Sunday, will call pt with appt time. NST Reviewed and Verified by: Zulma Lawrence
== END 2024-11-15 20:07 ==
LOC: BCD 18:45 → OBS 18:47
PROVIDERS: PCP Family Medicine; Visit Provider Advanced Practice Midwife
DX: O47.03 False labor before 37 completed weeks of gestation, third trimester (principal); Z3A.32 32 weeks gestation of pregnancy
CPT/HCPCS: 59025; J0702

== ENCOUNTER 2024-11-17 16:05 | Inpatient (IN) | payer MEDICAID, SELFPAY ==
[2024-11-17 16:00] VITALS: BP 128/78; PULSE 85; RESP 16; TEMP 36.5
--- NOTE | 2024-11-17 16:01 | W.PM.OBHPL1 ---
Date of service: 11/17/24 Time of Service: 16:01 Assessment and Plan Assessment and plan (1) contractions: Status: Acute Assessment and plan: labor, contractions status post 1 course of steroids formed 12/07*11/15. Now with tightening. heart rate is appropriate. Normal movement. Failed Procardia. Anticipate transfer. Will contact tertiary center. (2) 32 weeks gestation of : Status: Acute OB-HPI Labor/Delivery History of Present Illness Reason for Visit: LABOR Chief Complaint: Uterine Contractions. DIANA Calculator Estimated Delivery Date Method Current WG Current Estimate 01/08/25 LMP (Certain) 32w 4d Other Estimates 01/13/25 Ultrasound #1 31w 6d Comments: Patient is a 24-year-old primigravida who was initially triaged over the weekend Sunday into Sunday for contractions with the cervix noted to be 1 cm. She received Procardia for cessation of contractions and a full course of steroids. She is seen in the office today in follow-up having abdominal tightening. Her cervical exam on presentation is 2 cm 50%, soft, mid position. This is a change from previous, despite her tocolytics orally. She will be transition to the center for IV hydration, toco lysis, probable transfer. Risk benefits and alternatives were discussed. History of Present Expected Delivery Route/Plan - undecided MD or CNM FOB/ - Darrian Gold (his first baby) Does not wish to know gender, will circ if male Hopes for unmedicated delivery GBS negative @ 32 weeks Specific Issues/Plan 1. History of anxiety without treatment 2. Pt has sister with baby with cardiac anomale and multiple surgeries - MFM consult: normal level 2 sono, no further w/u necessary - cfDNA- low risk, Does not wish to know gender, CF-neg, declines AFP. 3. Herniation of lumbar disc 4. Migraines 5. contractions 32 wks: celestone 12 mg IM x2 5/2 & 5/3, Nifedipine 10 mg PO Q8hrs x7 days cvx 1/thick, soft and posterior, vtx -3 intact membranes Review of Systems All systems reviewed & are unremarkable except as noted in HPI and below Eyes Eyes: Reports as per HPI and Reports system reviewed and no additional complaints, except as documented ENT Ears, Nose, Mouth, and Throat: Reports system reviewed and no additional complaints, except as documented and Reports as per HPI Cardiovascular Cardiovascular: Reports system reviewed and no additional complaints, except as documented, Denies chest pain and Denies irregular heart rhythm Respiratory Respiratory: Reports system reviewed and no additional complaints, except as documented, Denies chest congestion and Denies cough Gastrointestinal Gastrointestinal: Reports system reviewed and no additional complaints, except as documented Genitourinary Genitourinary: Reports system reviewed and no additional complaints, except as documented Neurologic Neurologic: Reports system reviewed and no additional complaints, except as documented PFSH All Active Problems (Updated 11/16/24 @ 00:02 by DERIK PALACIOS) 32 weeks gestation of (Acute) contractions (Acute) Family history of congenital heart defect (Acute) Patient Sister have a child with a congenital heart defect. (Acute) Medical History (Updated 11/16/24 @ 00:02 by DERIK PALACIOS) Anxiety Lumbar herniated disc Diagnosed 2018, Does PT Asthma Migraine Family History (Updated 06/25/24 @ 14:06 by Ale Rodrigues CNM) Mother Hypertension Prediabetes Paternal Grandmother Cancer ovarian Maternal Grandmother Diabetes Paternal Grandfather Cancer Father Migraine Maternal Aunt Multiple myeloma Social History (Updated 06/25/24 @ 14:20 by Ale Rodrigues CNM) Smoking/Tobacco Use Status: Never Second Hand Exposure: No Smoking risk assessment performed?: Yes Alcohol Intake: never Drug use: Never Do you feel safe at home: Yes Do you feel safe in your relationship?: Yes History History 1 Para 0 Hx # Term Pregnancies 0 Multiple births 0 Hx # Pregnancies 0 Ectopic pregnancies 0 AB induced 0 Hx Number of Living Children 0 AB spontaneous 0 Meds Allergies and Home Medications Allergies Allergy/AdvReac Type Severity Reaction Status Date / Time amoxicillin (From Augmentin) Allergy Intermediate Skin Rash Verified 11/17/24 15:18 clavulanic acid (From Allergy Intermediate Skin Rash Verified 11/17/24 15:18 Augmentin) Penicillins Allergy Intermediate Skin Rash Verified 11/17/24 15:18 Home Medications ?Medication ?Instructions ?Recorded ?Confirmed ?Type calcium carbonate (Tums) 200 mg PO BID 06/05/24 11/04/24 History famotidine 20 mg tablet (Pepcid) 20 mg PO PRN 06/05/24 11/04/24 History vitamin #56-iron 35 mg 1 cap PO DAILY 06/05/24 11/04/24 History and 5 mg-folic acid 1 mg-dha capsule Boostrix Tdap 2.5 Lf unit-8 mcg-5 0.5 ml IM ONCE #0.5 mL 10/09/24 Clinic Lf/0.5 mL intramuscular syringe (diphth,pertus(acell),tetanus) nifedipine 10 mg capsule 10 mg PO Q6H #60 caps 11/17/24 Rx Exam Physical Exam Vital Signs Reviewed: Yes Constitutional Constitutional: no acute distress Detailed Labor and Delivery Exam Dilation: 2 Effacement (%): 50 station: -2 Cervix position: mid Consistency: soft Jordan Score: Cervical Points Exam 0 1 2 3 Dilation Closed 1-2cm 3-4 cm 5-6cm Effacement 0-30% 40-50% 60-70% 80% Consistency Firm Medium Soft Station -3 -2 -1,0 +1,+2 Position Posterior Mid Anterior JORDAN Score(Cervical Ripeness Score): 6 Amniotic Membrane Status: Intact HEENT Exam HEENT Exam: Normal Neck Exam Neck Exam: Normal Chest/Brest/Axilla Exam Chest Exam: Normal Breast Exam Breast Exam: Normal Respiratory Exam Respiratory Exam: Normal Cardiovascular Exam Cardiovascular Exam: Normal Abdominal Exam Abdominal Exam: Normal Exam Exam: Normal Extremities Exam Extremities Exam: Normal Back/Spine/Pelvis Exam Pelvis Adequate: Yes Neurological Exam Neurological Exam: Normal Psychiatric Exam Psychiatric Exam: Normal Risk Assessment Risk for Shoulder Dystocia Historical/Initial OB: NEGATIVE FOR: Pelvic Abnormality, Pre- BMI>30, Previous Shoulder Dystocia or Previous Macrosomia Risk for Pre-Eclampsia Yes, if one or more: NEGATIVE FOR: Hx Pre-E/Gest HTN, Chronic HTN, Multiple Gestation, Pre-gestational DM, Renal Disease, Systemic Lupus or APA Syndrome Yes, if 2 or more: POSITIVE FOR: Nulliparity; NEGATIVE FOR: Age>= 35 yrs, >10yr btwn pregnancies, BMI>30, ethinicty, Mother/Sister w/ Pre-E or Previous IUGR Risk for Post- Hemorrhage Initial: NEGATIVE FOR: Multiple Gestation, Previous PPH, Known Clotting Deficiency, Grand Multiparity or Anticoagulation Risks Reviewed Risks Reviewed Upon Admission: Yes
[2024-11-17] MEDS: Lactated Ringers 500 ML 75 ML IV (17:00)
--- NOTE | 2024-11-17 17:38 | DSE_ITS ---
Date of service: 11/17/24 Time of Service: 17:38 DS: Diagnosis Discharge Diagnosis (1) contractions: Status: Acute Asessment and Plan: Transfer to [facility], care of Dr. Yelitza Rodas (2) 32 weeks gestation of : Status: Acute Discharge Plan Disposition Patient Disposition: Transfer-Acute Inpatient Care Specific Acute Inpt Facility: [facility] Condition: Fair Discharge Details Reason For Visit: labor Admit Date/Time: 11/17/24 16:05 Admit Provider: Janee Peñaloza Attending Provider: Janee Peñaloza Primary Care Provider: ALBER STUART Hospital Course Hospital Course: labor, 2 cm-change from sunday. Failed Procardia. On Mag. Recieved full course B-methasone 5/2-5/3 Home Meds and New Rx's Prescriptions: No Action PNV #[id number] acid-dha 35 mg iron-5 mg iron-1 mg capsule 1 cap PO DAILY famotidine [Pepcid] 20 mg tablet 20 mg PO PRN calcium carbonate [Tums] 200 mg calcium (500 mg) tablet,chewable 200 mg PO BID Boostrix Tdap 2.5-8-5 Lf-mcg-Lf/0.5mL syringe 0.5 ml IM ONCE Qty: 0.5 0RF nifedipine 10 mg capsule 10 mg PO Q6H Qty: 60 1RF Discharge Instructions Activity:: bedrest Equipment/Supplies:: No Equipment Needed Diet:: NPO OB:DS Summary Contraception Discussed Contraception Discussed: No, Status at Discharge Functional status at discharge: bed bound Overall status at discharge: patient is not back to baseline Mental Status: mental status grossly normal Speech and Movement: speech and movement normal Mood: congruent mood Affect: normal affect Quality:SDOH Health Related Social Needs: Health related social needs housing instability, house d, with risk of homelessness (Z59.811), transportation insecurity (Z59.82) Health related social needs details none Health related social needs details: none Exam Physical Exam Vital signs: Temp Pulse Resp BP 97.7 F 85 16 128/78 11/17/24 16:00 11/17/24 16:00 11/17/24 16:00 11/17/24 16:00 [facility] All Active Problems (Updated 11/16/24 @ 00:02 by DERIK PALACIOS) 32 weeks gestation of (Acute) contractions (Acute) Family history of congenital heart defect (Acute) Patient Sister have a child with a congenital heart defect. (Acute) Medical History (Updated 11/16/24 @ 00:02 by DERIK PALACIOS) Anxiety Lumbar herniated disc Diagnosed 2018, Does PT Asthma Migraine Family History (Updated 06/25/24 @ 14:06 by Ale Rodrigues CNM) Mother Hypertension Prediabetes Paternal Grandmother Cancer ovarian Maternal Grandmother Diabetes Paternal Grandfather Cancer Father Migraine Maternal Aunt Multiple myeloma Social History (Updated 06/25/24 @ 14:20 by Ale Rodrigues CNM) Smoking/Tobacco Use Status: Never Second Hand Exposure: No Smoking risk assessment performed?: Yes Alcohol Intake: never Drug use: Never Substance use type: does not use Housing: apartment Do you feel safe at home: Yes Do you feel safe in your relationship?: Yes History History 1 Para 0 Hx # Term Pregnancies 0 Multiple births 0 Hx # Pregnancies 0 Ectopic pregnancies 0 AB induced 0 Hx Number of Living Children 0 AB spontaneous 0 DS: Data Vitals/I&O Vitals and I&O: Vital Signs Temperature 97.7 F 11/17/24 16:00 Pulse 85 11/17/24 16:00 Respiratory Rate 16 11/17/24 16:00 Blood Pressure 128/78 11/17/24 16:00 Oxygen Delivery Method Room Air 11/17/24 16:00 Oxygen Flow Rate 0 11/17/24 16:00 Pain Level 4 11/17/24 16:00 Intake & Output 11/16/24 11/17/24 11/17/24 23:59 11:59 23:59 Weight 149 lb Data Completed and Pending Labs on day of discharge: Labs from last 24 hours 11/17/24 16:07: WBC Pending, RBC Pending, Hgb Pending, Hct Pending, MCV Pending, MCH Pending, MCHC Pending, RDW Pending, Plt Count Pending, MPV Pending, Immature Gran % Pending, Neutrophils % Pending, Lymphocytes % Pending, Monocytes % Pending, Eosinophils % Pending, Basophils % Pending, Absolute Neutrophils Pending, Absolute Lymphocytes Pending, Absolute Monocytes Pending, Absolute Eosinophils Pending, Absolute Basophils Pending 11/17/24 16:05: WBC Pending, RBC Pending, Hgb Pending, Hct Pending, MCV Pending, MCH Pending, MCHC Pending, RDW Pending, Plt Count Pending, MPV Pending, ABO/Rh Pending, Antibody Screen Pending
--- NOTE | 2024-11-17 17:39 | W.PM.OBNL1 ---
Date of service: 11/17/24 Time of Service: 17:40 Objective Temp Pulse Resp BP 97.7 F 85 16 128/78 11/17/24 16:00 11/17/24 16:00 11/17/24 16:00 11/17/24 16:00 Ultrasound OB Ultrasound for RUSS. (10) Indication: labor Total RUSS: 10 Exam complete and Ultrasound for presentation. Indication: check position, RUSS Presentation: Vertex. Exam complete.
[2024-11-17 18:59] LABS: Abs Immature Grans 0.09 10^3/uL (0.0-0.06); Absolute Basophil Count 0.03 10^3/uL (0.0-0.2); Absolute Eosinophil Count 0.08 10^3/uL (0.0-0.7); Absolute Lymphocyte Count 2.03 10^3/uL (1.2-3.4); Absolute Monocyte Count 0.93 10^3/uL (0.1-0.8); Absolute Neutrophil Count 7.65 10^3/uL (1.2-6.7); Basophils % 0.3 %; Eosinophils % 0.7 %; HCT 36.8 % (36.0-46.0); HGB 12.7 g/dL (11.2-15.7); Immature Grans % 0.8 %; Lymphocytes % 18.8 %; MCH 29.4 pg (27.0-33.0); MCHC 34.5 % (32.0-36.0); MCV 85 fL (80-95); MPV 10.3 fL (8.0-11.0); Monocytes % 8.6 %; Neutrophils % 70.8 %; Platelet Count 252 10^3/uL (130-400); RBC 4.32 10^6/uL (3.93-5.22); RDW 13.2 % (11.7-14.6); RDW-SD 41.1 fL; WBC 10.81 10^3/uL (4.4-10.8)
[2024-11-17 19:00] VITALS: BP 115/70; PULSE 83; RESP 18; O2SAT 96
[2024-11-17 19:15] VITALS: BP 110/69; PULSE 89; RESP 16; O2SAT 96
[2024-11-17 19:30] VITALS: BP 107/68; PULSE 83; RESP 18; O2SAT 96
--- NOTE | 2024-11-17 21:12 | W.PM.PROGNOT ---
Date of Service Date of service: 11/17/24 Time of Service: 19:00 Assessment and Plan Assessment and plan (1) contractions: Status: Acute Assessment and plan: Immediately prior to discharge with EMS patient was assessed at bedside. She reported feeling well and was found in good spirits. She reported that her contractions had spaced out and were much manifest/order organizer print orders than prior. FHT was category 1. SVE was unchanged from prior. Patient cleared for transport. Exam Const General: cooperative and healthy appearing Nutritional Appearance: well nourished Orientation: alert and awake HENAR Head: normocephalic Resp Effort & Inspection: normal respiratory effort GI Inspection: other (without overt distension) Other: 1-2 / 50 / -2 / soft / anterior Skin General skin exam: no rashes or lesions noted Neuro General: patient alert and patient awake Extrem General: normal to inspection Psych Appearance: well kempt Mental Status: mental status grossly normal Affect: normal affect Objective Last Vital Signs Temp 97.7 F 11/17/24 16:00 Pulse 85 11/17/24 16:00 Resp 16 11/17/24 16:00 BP 128/78 11/17/24 16:00 Laboratory Results - last 24 hr 11/17/24 11/17/24 11/17/24 18:42 18:42 18:42 WBC Cancelled 10.81 H RBC Cancelled 4.32 Hgb Cancelled Hct MCV MCH MCHC RDW Plt Count MPV Immature Gran % Neutrophils % Lymphocytes % Monocytes % Eosinophils % Basophils % Nucleated RBC % Absolute Neutrophils Absolute Lymphocytes Absolute Monocytes Absolute Eosinophils Absolute Basophils ABO/Rh Antibody Screen 11/17/24 11/17/24 11/17/24 18:42 18:42 18:42 WBC RBC Hgb 12.7 Hct Cancelled 36.8 MCV Cancelled 85 MCH Cancelled MCHC RDW Plt Count MPV Immature Gran % Neutrophils % Lymphocytes % Monocytes % Eosinophils % Basophils % Nucleated RBC % Absolute Neutrophils Absolute Lymphocytes Absolute Monocytes Absolute Eosinophils Absolute Basophils ABO/Rh Antibody Screen 11/17/24 11/17/24 11/17/24 18:42 18:42 18:42 WBC RBC Hgb Hct MCV MCH 29.4 MCHC Cancelled 34.5 RDW Cancelled 13.2 Plt Count Cancelled MPV Immature Gran % Neutrophils % Lymphocytes % Monocytes % Eosinophils % Basophils % Nucleated RBC % Absolute Neutrophils Absolute Lymphocytes Absolute Monocytes Absolute Eosinophils Absolute Basophils ABO/Rh Antibody Screen 11/17/24 11/17/24 18:42 18:42 WBC RBC Hgb Hct MCV MCH MCHC RDW Plt Count 252 MPV Cancelled 10.3 Immature Gran % 0.8 Neutrophils % 70.8 Lymphocytes % 18.8 Monocytes % 8.6 Eosinophils % 0.7 Basophils % 0.3 Nucleated RBC % 0.0 Absolute Neutrophils 7.65 H Absolute Lymphocytes 2.03 Absolute Monocytes 0.93 H Absolute Eosinophils 0.08 Absolute Basophils 0.03 ABO/Rh O Positive Antibody Screen NEGATIVE Time Spent with Patient Time Spent with Patient: <25 minutes Time was spent: preparing to see the patient(eg.review tests), obtaining and/or reviewing separately otained hiistory, referring, communicating with other health hospice care consultant, indepentently interpreting results and counseling the patient
--- NOTE | 2024-11-17 21:27 | NUR.NOTE ---
1849- This RN came to floor at start of shift as EMS arriving to pickling grader pt to transfer to [facility] for PTL. Very quick report received. Pt's SVE unchanged from previous. Pt on stretcher with Mag running at 1gm/hr and LR at 75cc/hr.
--- NOTE | 2024-11-17 21:29 | NUR.NOTE ---
Nursing Note: 1999- This RN arrived at [facility] with pt and EMS. PT stable.
[2024-11-17 21:33] VITALS: BP 103/69; PULSE 91; RESP 16; O2SAT 97
[2024-11-18 09:20] VITALS: BP 135/79; PULSE 81
== END 2024-11-17 21:36 | disposition short-term general hospital (02) | DRG 833 ==
PROVIDERS: Admitting Provider Obstetrics & Gynecology; PCP Family Medicine; Visit Provider Obstetrics & Gynecology
DX: O60.03 Preterm labor without delivery, third trimester (principal); O99.353 Diseases of the nervous system complicating pregnancy, third trimester; Z3A.32 32 weeks gestation of pregnancy; O99.343 Other mental disorders complicating pregnancy, third trimester; F41.9 Anxiety disorder, unspecified; G43.909 Migraine, unspecified, not intractable, without status migrainosus; M51.26 Other intervertebral disc displacement, lumbar region; Z82.79 Family history of other congenital malformations, deformations and chromosomal abnormalities; O26.893 Other specified pregnancy related conditions, third trimester
CPT/HCPCS: 85027; 86850; 86900; 86901; 96365; 96366; 85025; J3475; J3490

== ENCOUNTER 2024-11-20 10:22 | Outpatient (CLI) | payer MEDICAID, SELFPAY ==
[2024-11-20 12:17] VITALS: BP 107/63; PULSE 86; RESP 17; TEMP 36.7; O2SAT 99
[2024-11-20 12:30] VITALS: BP 107/63; PULSE 86
[2024-11-20 12:32] VITALS: BP 107/63; PULSE 86; TEMP 36.7
--- NOTE | 2024-11-21 18:47 | PDOC.NST_ITS ---
Date of service: 11/20/24 Time of Service: 12:30 NST Evaluation Reason for NST Reasons for Nonstress Test: LABOR Gestational Age Gestational Age in Weeks and Days: 33 Weeks and 0Days Test and Monitor Explained Test/Monitor Explained: Test Explained, Monitor Explained and Patient Verbalized Understanding Vital Signs Blood Pressure: 107/63 Pulse: 86 Temperature: 98.1 F Urine Results Urine Protein: Negative Urine Ketones: Negative Urine Glucose: Negative Urine Blood: Negative NST Information Time on Monitor: 12:15 NST Interventions: PO Hydration and Meal Given NST Evaluation Patient States Movement: Present FHR Baseline: 150 Variability: Moderate 6-25 bpm Accelerations: 15x15 Decelerations: None NST Results: Reactive NST Results Other: occasional Note Ultrasound Done: N/A. NST Note Note: Pt reported having some ctxs and cramping at home. She denies bleeding or loss of fluid. She is feeling good movement. She says she has some general cramping and then intermittent tightening over her whole belly. She says this happens maybe 10x/day. She was transferred to [facility] [place] and discharge after brief observation. Vaginitis swab collected and was negative. Cx: 1-2/50/-3/soft/anterior. NST Reviewed and Verified by: Love Kearns
[2024-11-21 18:48] VITALS: BP 107/63; PULSE 86; TEMP 36.7
== END 2024-11-20 16:12 ==
LOC: BCD 10:22 → OBS 10:34
PROVIDERS: PCP Family Medicine; Visit Provider Obstetrics & Gynecology
DX: O47.03 False labor before 37 completed weeks of gestation, third trimester (principal); Z3A.33 33 weeks gestation of pregnancy
CPT/HCPCS: 59025; 87480; 87510; 87660

== ENCOUNTER 2024-12-04 18:20 | Outpatient (REF) | payer MEDICAID, SELFPAY | END 2024-12-04 18:21 | disposition home or self-care (01) | LOC: LBN 18:20 | PROVIDERS: PCP Family Medicine; Visit Provider Obstetrics & Gynecology | DX: Z3A.32 32 weeks gestation of pregnancy (principal); Z34.83 Encounter for supervision of other normal pregnancy, third trimester | CPT/HCPCS: 87081 ==

== ENCOUNTER 2025-01-05 12:41 | Inpatient (IN) | payer MEDICAID, SELFPAY ==
[2025-01-05] VITALS (70 sets, daily range): BP systolic 103–157; BP diastolic 57–107; PULSE 68–137; RESP 17–22; TEMP 36.4–38.4; O2SAT 98–100; BMI 31.2
--- NOTE | 2025-01-05 12:43 | W.PM.OBHPL1 ---
Date of service: 01/05/25 Time of Service: 12:49 Assessment and Plan Assessment and plan (1) 39 weeks gestation of : Status: Acute Assessment and plan: 24-year-old G1, P0 at 39 and 4 as dated by LMP equal to 9-week ultrasound ? Rh+/rubella immune/VZV immune/GBS negative ? Presents SROM as of 11 AM to clear fluid ending active labor; labor pattern is reassuring and she will be expectantly managed. Discussed pain management options with patient; she is interested in the tub as well as the shower. We discussed that I do not perform water births, but it is reasonable for her to labor in the bath; patient is agreeable to this plan. She expresses possible interest in an epidural; anesthesia consulted. ? Plans for breasfeeding OB-HPI Labor/Delivery History of Present Illness Reason for Visit: rupture of membranes Chief Complaint: Uterine Contractions; Suspected Rupture of Membranes (as of 11 am) , Associated Signs and Symptoms of Suspected ROM: Large gush of clear fluid at 11 am ; Suspected Labor. DIANA Calculator Estimated Delivery Date Method Current WG Current Estimate 01/08/25 LMP (Certain) 39w 4d Other Estimates 01/13/25 Ultrasound #1 38w 6d History of Present Expected Delivery Route/Plan - FOB/ - Darrian Gold (his first baby) Does not wish to know gender, will circ if male Hopes for unmedicated delivery GBS negative @ 32 weeks Specific Issues/Plan 1. History of anxiety without treatment 2. Pt has sister with baby with cardiac anomale and multiple surgeries - MFM consult: normal level 2 sono, no further w/u necessary - cfDNA- low risk, Does not wish to know gender, CF-neg, declines AFP. 3. Herniation of lumbar disc 4. Migraines 5. contractions 32 wks: celestone 12 mg IM x2 11/14 & 11/15, Nifedipine 10 mg PO Q8hrs x7 days - 11/15: cvx 1/thick, soft and posterior, vtx -3 intact membranes - 11/17: cx: 250/-3, [place] [facility] [place], then d/c home. - 11/20: cx: 1-250/-3, soft, ant. Intermittent ctx. Neg vaginitis swab. - 11/26: Cx: /-1 (routine visit) - 12/03: Cx: /-1 - 12/12: Cx: -1 Narrative: 24-year-old G1, P0 at 39 weeks and 4 days is dated by LMP equal to 4-week ultrasound presents to labor and delivery for medhat rupture of membranes as of 11 AM to clear fluid. Contractions started shortly thereafter and have progressively worsened. GBS negative. Denies bleeding and reports good movement. Denies signs or symptoms preeclampsia. Review of Systems All systems reviewed & are unremarkable except as noted in HPI and below PFSH All Active Problems (Updated 01/05/25 @ 13:14 by Rossana Walters DO) 39 weeks gestation of (Acute) contractions (Acute) Family history of congenital heart defect (Acute) Patient Sister have a child with a congenital heart defect. (Acute) Medical History (Updated 01/05/25 @ 13:14 by Rossana Walters DO) 32 weeks gestation of Anxiety Lumbar herniated disc Diagnosed 2018, Does PT Asthma Migraine Family History (Updated 06/25/24 @ 14:06 by Ale Rodrigues CNM) Mother Hypertension Prediabetes Paternal Grandmother Cancer ovarian Maternal Grandmother Diabetes Paternal Grandfather Cancer Father Migraine Maternal Aunt Multiple myeloma Social History (Updated 06/25/24 @ 14:20 by Ale Rodrigues CNM) Smoking/Tobacco Use Status: Never Second Hand Exposure: No Smoking risk assessment performed?: Yes Alcohol Intake: never Drug use: Never Substance use type: does not use Housing: apartment Do you feel safe at home: Yes Do you feel safe in your relationship?: Yes History History 1 Para 0 Hx # Term Pregnancies 0 Multiple births 0 Hx # Pregnancies 0 Ectopic pregnancies 0 AB induced 0 Hx Number of Living Children 0 AB spontaneous 0 Meds Allergies and Home Medications Allergies Allergy/AdvReac Type Severity Reaction Status Date / Time amoxicillin (From Augmentin) Allergy Intermediate Skin Rash Verified 12/29/24 09:10 clavulanic acid (From Allergy Intermediate Skin Rash Verified 12/29/24 09:10 Augmentin) Penicillins Allergy Intermediate Skin Rash Verified 12/29/24 09:10 Home Medications ?Medication ?Instructions ?Recorded ?Confirmed ?Type calcium carbonate (Tums) 200 mg PO BID 06/05/24 12/12/24 History famotidine 20 mg tablet (Pepcid) 20 mg PO PRN 06/05/24 12/12/24 History vitamin #56-iron 35 mg 1 cap PO DAILY 06/05/24 12/12/24 History and 5 mg-folic acid 1 mg-dha capsule Boostrix Tdap 2.5 Lf unit-8 mcg-5 0.5 ml IM ONCE #0.5 mL 10/09/24 Clinic Lf/0.5 mL intramuscular syringe (diphth,pertus(acell),tetanus) omeprazole 20 mg capsule,delayed 20 mg PO DAILY 4 weeks #30 caps 12/29/24 Rx release Exam Physical Exam Vital signs: Pulse BP 68 125/84 01/05/25 12:23 01/05/25 12:23 Narrative: General appearing well-nourished female, uncomfortable with contractions and having to breathe through. Abdomen is gravid, nontender. Respirations are nonlabored at baseline. She has trace edema noted equally bilaterally. Complete transabdominal ultrasound performed at bedside appreciates cephalic presentation and good movement. FHTs category 1 and contractions are every 2-3 without augmentation. Detailed Labor and Delivery Exam Thrasher Score: Cervical Points Exam 0 1 2 3 Dilation Closed 1-2cm 3-4 cm 5-6cm Effacement 0-30% 40-50% 60-70% 80% Consistency Firm Medium Soft Station -3 -2 -1,0 +1,+2 Position Posterior Mid Anterior Results Results Group Beta Strep: Negative Blood Type: O+ Rubella Status: Immune Varicella Immunity: Immune Lab Results: Gc/C, syphilis, HIV, Hep A, Hep C, Hep B, ABS neg Risk Assessment Risk for Shoulder Dystocia Historical/Initial OB: NEGATIVE FOR: Pelvic Abnormality, Pre- BMI>30, Previous Shoulder Dystocia or Previous Macrosomia Risk for Pre-Eclampsia Yes, if one or more: NEGATIVE FOR: Hx Pre-E/Gest HTN, Chronic HTN, Multiple Gestation, Pre-gestational DM, Renal Disease, Systemic Lupus or APA Syndrome Yes, if 2 or more: POSITIVE FOR: Nulliparity; NEGATIVE FOR: Age>= 35 yrs, >10yr btwn pregnancies, BMI>30, ethinicty, Mother/Sister w/ Pre-E or Previous IUGR Risk for Post- Hemorrhage Initial: NEGATIVE FOR: Multiple Gestation, Previous PPH, Known Clotting Deficiency, Grand Multiparity or Anticoagulation Risks Reviewed Risks Reviewed Upon Admission: Yes
--- NOTE | 2025-01-05 13:10 | ANES.PREOP_ITS ---
General Info Date of Service Date Performed: 01/05/25 Height: 5 ft Weight: 72.575 kg Body Mass Index (BMI): 31.2 Surgical Procedure: labor epidural Meds Allergies and Home Medications Allergies Allergy/AdvReac Type Severity Reaction Status Date / Time amoxicillin (From Augmentin) Allergy Intermediate Skin Rash Verified 01/05/25 13:52 clavulanic acid (From Allergy Intermediate Skin Rash Verified 01/05/25 13:52 Augmentin) Penicillins Allergy Intermediate Skin Rash Verified 01/05/25 13:52 Home Medication ?Medication ?Instructions ?Recorded calcium carbonate (Tums) 200 mg PO BID 06/05/24 famotidine 20 mg tablet (Pepcid) 20 mg PO PRN 06/05/24 vitamin #56-iron 35 mg 1 cap PO DAILY 4 and 5 mg-folic acid 1 mg-dha capsule Current Visit Medications: Current Medications Generic Name Dose Route Start Last Admin Trade Name Freq PRN Reason Stop Dose Admin Ringer's Solution 1,000 mls @ 150 mls/hr 01/05/25 12:45 IV INFUSION VEE IV Miscellaneous Supplies 1 each 01/05/25 12:45 Iv Access IV DIRECTED VEE Sodium Chloride 0 ml 01/05/25 12:41 Normal Saline Flush 10 Ml Syr IVP PRN PRN Sodium Chloride 0 ml 01/05/25 20:00 Normal Saline Flush 10 Ml Syr IVP BID VEE Sodium Chloride 0 ml 01/05/25 12:41 Normal Saline 10 Ml Vial IJ DIRECTED PRN PFSH Active Problems Active Problems: Problem Status Onset Code contractions Acute O47.00 Family history of congenital heart defect Acute Z82.79 Acute Z34.90 Medical History Medical History (Updated 01/05/25 @ 13:14 by Rossana Walters DO) 32 weeks gestation of Anxiety Lumbar herniated disc Diagnosed 2019, Does PT Asthma Migraine Tobacco Smoking/Tobacco Use Status: Never Passive smoking exposure: No Second hand exposure: No Alcohol Alcohol Intake: never Substance Use Substance use: Never Substance use type: does not use Prental History History 2 1 Para 0 Hx # Term Pregnancies 0 Multiple births 0 Hx # Pregnancies 0 Ectopic pregnancies 0 AB induced 0 Hx Number of Living Children 0 AB spontaneous 0 Vital Signs and Lab Results Vital Signs Most Recent Vital Signs in EMR: Most Recent Vital Signs Pulse BP 68 125/84 01/05/25 12:23 01/05/25 12:23 Lab Results 01/05/25 13:10 01/05/25 13:10 Blood Type / Crossmatch: 2 Antibody Screen NEGATIVE Today Complete Blood Count: 2 WBC, (4.4-10.8) 10.06 10^3/uL Today, 13:10 RBC, (3.93-5.22) 4.82 10^6/uL Today, 13:10 Hgb, (11.2-15.7) 13.6 g/dL Today, 13:10 Hct, (36.0-46.0) 39.6 % Today, 13:10 Plt Count, (130-400) 193 10^3/uL Today, 13:10 Complete Metabolic Panel: 2 Sodium, (136-145) 136 mmol/L Today, 13:10 Potassium, (3.5-5.1) 3.3 mmol/L L Today, 13:10 Chloride, (98-107) 102 mmol/L Today, 13:10 Carbon Dioxide, (21.0-32.0) 20.5 mmol/L L Today, 13:10 BUN, (7-18) 7 mg/dL Today, 13:10 Creatinine, (0.55-1.02) 0.4 mg/dL L Today, 13:10 Est GFR (CKD-EPI 2020), (mL/min/1.73m2) 139.90 Today, 13:10 Calcium, (8.5-10.1) 9.3 mg/dL Today, 13:10 Albumin, (3.4-5.0) 2.6 g/dL L Today, 13:10 Glucose, (74-106) 103 mg/dL Today, 13:10 Liver Function Panel: 2 ALT, (14-59) 28 U/L Today, 13:10 AST, (15-37) 22 U/L Today, 13:10 Anesthesia Assessment and Plan Anesthesia History Personal History: No History of Anesthesia Complications Family History: No Family History of Anesthesia Complications Exercise Tolerance Exercise Tolerance: Metabolic Equivalents>4 Pertinent Negatives Pertinent Negatives: No Major Cardiovascular Symptoms or Complaints and No Major Pulmonary Symptoms or Complaints (no recent inhaler use) Cardiac & Pulmonary Exam Cardiac Exam: Normal S1/S2 Heart Sounds Pulmonary Exam: Clear Bilateral Breath Sounds Implantable Cardiac Device Does patient have a Pacemaker or an ICD?: No Airway Exam Known Difficult Airway: No Mallampati Class: 2 Mouth Opening: Normal (> 3cm) Thyromental Distance: Greater than 3 cm Neck Range of Motion: Full ROM Neck Circumference: Normal Teeth Condition: Normal Dentition ASA Classification ASA Score: ASA 2 Emergency Case?: No NPO Status NPO Status: NPO Clears >2 hours, Solids >8 hours Status Status: Confirmed Anesthesia Plan Resuscitation Status: Full Code Anesthesia Technique: Labor Epidural Airway Planned: Natural Airway Monitors Used: Standard Monitors Preoperative Comments:: Lumbar disc herniation, patient unsure what level.
[2025-01-05 13:23] LABS: HCT 39.6 % (36.0-46.0); HGB 13.6 g/dL (11.2-15.7); MCH 28.2 pg (27.0-33.0); MCHC 34.3 % (32.0-36.0); MCV 82 fL (80-95); MPV 10.9 fL (8.0-11.0); Platelet Count 193 10^3/uL (130-400); RBC 4.82 10^6/uL (3.93-5.22); RDW 13.4 % (11.7-14.6); RDW-SD 39.3 fL; WBC 10.06 10^3/uL (4.4-10.8)
[2025-01-05 13:41] LABS: ALT 28 U/L (14-59); AST 22 U/L (15-37); Albumin 2.6 g/dL (3.4-5.0); Alkaline Phosphatase 404 U/L (46-116); Anion Gap 13.5 mmol/L (3-11); BUN 7 mg/dL (7-18); Bilirubin, Total 0.3 mg/dL (0.2-1.0); CO2 20.5 mmol/L (21.0-32.0); CREATININE 0.4 mg/dL (0.55-1.02); Calcium 9.3 mg/dL (8.5-10.1); Chloride 102 mmol/L (98-107); Glucose 103 mg/dL (74-106); Potassium 3.3 mmol/L (3.5-5.1); Sodium 136 mmol/L (136-145); Total Protein 6.4 g/dL (6.4-8.2)
[2025-01-05] MEDS: Normal Saline Flush 10 ML SYR IVP (14:00)
[2025-01-05 14:29] LABS: COMMENT (LAB VIEW ONLY) 50.52 mg/dL; PROTEIN < 6.0 mg/dL
[2025-01-05] MEDS: Lactated Ringers 1,000 ML 150 ML IV ×2 (14:32→18:19)
[2025-01-05] MEDS: Bupivacaine 0.25% Pres-Free 10 ML VIAL (15:30)
[2025-01-05] MEDS: fentaNYL 100 MCG/2 ML VIAL (15:30)
[2025-01-05] MEDS: FentaNYL/ROPIvacaine 2 mcg/ml and 0.1% 200 ML CADD Cassette EP (15:37)
--- NOTE | 2025-01-05 15:48 | W.ANESNEU ---
Epidural/Spinal Catheter Date Performed: 01/05/25 Procedure Start: 15:11 Procedure Stop: 15:51 Requesting Provider: Rossana Walters Procedure Location: Obstetrics Reason Performed: Labor Epidural Standard Monitors Applied: Blood Pressure, SpO2 and See EMR for corresponding vital signs Patient Position: Sitting Sedation Given (Indicate Dose Given): No Sedation given Patient Mental Status: Awake Sterility: Hand Hygiene, Surgical Cap, Surgical Mask, Sterile Gloves, Sterile Drape/Sheet and Chlorhexidine Procedure Location: L3-L4 Interspace Epidural Needle: Tuohy 17 Guage Needle Length: 3.5 Inch Needle Approach: Midline Epidural Procedure: Skin Prepped, Sterile Drape Placed, 1% Lidocaine to skin and subcutaneous tissue with 25G needle, Tuohy Needle placed, ELDA to Saline Used, Epidural Catheter Placed, Negative Heme, Negative CSF Flow and Tuohy Needle Removed Catheter Placed?: Catheter Placed Test Dose (Indicate Dose Given): 3ml 1.5% Lidocaine with 1:200K Epinephrine Given Loss of Resistance Depth (cm): 6 Catheter depth at skin (cm): 11 Dressing: Sorbaview Dressing Placed Epidural Provider Bolus (Indicate Dose Given): Total Bupivacaine 0.25% Given (ml) Dose:: 5 ml Additives (Indicate Dose Given ): Fentanyl PF Dose:: 100 mcg Infusion Medication: Medication Infusion Began (infusion started at 1542) Medication Infusion: Ropivacaine 0.1% with Fentanyl 2mcg/ml Maintenance Infusion Rate (ml/hour): 10 PCEA Bolus Dose (ml): 5 Post Procedure Pain score (0-10): 2 Block Level: N/A Paresthesia: Right Paresthesia Duration: Transient Ultrasound: Not Used Number of Attempts (See previous attempts in note section): 2 Procedure Tolerated: No Complications and Patient tolerated well Procedure Outcome: Successful Procedure Comment:: first attempt by ANG Lazo Performed By: Savannah Arguello
--- NOTE | 2025-01-05 18:52 | PGE_ITS ---
Date of Service Date of service: 01/05/25 Time of Service: 18:00 Assessment and Plan Assessment and plan (1) 39 weeks gestation of : Status: Acute Assessment and plan: Patient is found resting comfortably on her left side. She reports her pain is well-controlled with epidural in place. status is reassuring. Patient has made significant progress without augmentation, and she was noted to be 7 cm on her most recent exam. She denies any desires for pushing at this time. We discussed continuing expectant management so long as her clinical status and status remain reassuring. We discussed the potential use of a Pitocin bolus following delivery to prevent hemorrhage; questions were answered to the patient's satisfaction. Anticipate vaginal delivery. Exam Narrative Exam Narrative: Patient is found resting comfortably in her bed. She has found in left side- lying position. Her abdomen is nontender. She continues to have trace edema equal bilaterally in the lower extremities. Her respiration is nonlabored. She is in pleasant spirits. Objective Last Vital Signs Temp 98.5 F 01/05/25 18:21 Pulse 93 H 01/05/25 18:38 Resp 18 01/05/25 18:21 BP 123/77 01/05/25 18:38 Pulse Ox 99 01/05/25 16:29 Laboratory Results - last 24 hr 01/05/25 01/05/25 13:10 13:30 WBC 10.06 RBC 4.82 Hgb 13.6 Hct 39.6 MCV 82 MCH 28.2 MCHC 34.3 RDW 13.4 Plt Count 193 MPV 10.9 Sodium 136 Potassium 3.3 L Chloride 102 Carbon Dioxide 20.5 L Anion Gap 13.5 H BUN 7 Creatinine 0.4 L Est GFR (CKD-EPI 2020) 139.90 Glucose 103 Calcium 9.3 Total Bilirubin 0.3 AST 22 ALT 28 Alkaline Phosphatase 404 H Total Protein 6.4 Albumin 2.6 L Ur Random Creatinine 50.52 U Random Total Protein < 6.0 U [place] Prot/Creat Ratio ABO/Rh O Positive Antibody Screen NEGATIVE FHT: Category 1 [place]: Every 2 to 4; without augmentation Time Spent with Patient Time Spent with Patient: 25-34 minutes Time was spent: preparing to see the patient(eg.review tests), obtaining and/or reviewing separately otained hiistory, indepentently interpreting results, counseling the patient and care coordination
[2025-01-05] MEDS: GENTAMICIN 100 MG in Normal Saline 100 ML 200 MG IVPB (22:53)
[2025-01-05] MEDS: Lidocaine 1% Multi-Dose 20 ML VIAL IJ (22:59)
[2025-01-05] MEDS: Oxytocin/Normal Saline 30 UNIT/500 ML BAG 95 UNITS IV (23:00)
[2025-01-05] MEDS: Tranexamic Acid 1,000 MG/10 ML VIAL 1000 MG IVP (23:05)
[2025-01-05] MEDS: ceFAZolin 2 GM/50 ML BAG IVPB (23:06)
[2025-01-05] MEDS: Ondansetron 4 MG/2 ML VIAL IVP (23:50)
[2025-01-05] MEDS: Ibuprofen 600 MG TAB (23:58)
[2025-01-06] VITALS (8 sets, daily range): BP systolic 108–135; BP diastolic 64–78; PULSE 63–110; RESP 16–18; TEMP 36.6–37.9; O2SAT 97–99
--- NOTE | 2025-01-06 00:09 | W.OBDELIVERY ---
Date of service: 01/06/25 Time of Service: 00:11 OB Labor/ Delivery Information Providers Doctor: Rossana Walters Nurse: Renetta Morales Nurse: Luz Alegre Labor/Delivery Information Number of Babies in Womb: 1 Steroids Given: None Reason Steroids Not Administered: N/A Group Beta Strep: Negative Antibiotics Administered: Yes Rubella Status: Immune Blood Type: O+ Varicella Immunity: Immune Shoulder Dystocia: Yes Note: On this day, Sunday, January 05, 2025, this 24-year-old G1 now P1 001 underwent a spontaneous vaginal delivery at 39 weeks over an intact perineum under epidural anesthesia to a baby boy (Bak[place]). Initially presented to labor and delivery with complaints of medhat rupture as of 11 AM to clear fluid. Shortly after presenting she began to have consistent and strong contractions without augmentation. She was expectantly managed and ultimately received an epidural. Around 930, I wanted to check on the patient and found her resting comfortably on her left side. She reported increasing pressure and was found to be complete with the baby at +2. We began pushing, and patient made notably slow but steady progress over the course of an hour. Heart tones remained reassuring and mother's clinical status remained well. As we entered the last 30 minutes of pushing, patient was noted to become tachycardic in the 130s, and she was noted to have an axillary temp of 101. This could not be reproduced orally; however, repeat axillary temp was the same. Given the borderline tachycardic nature of the baby's heart rate in conjunction with the mother's temp and increasing heart rate we called for initiation of antibiotics. Patient reported history of rash and reaction to penicillins. Therefore, 2 g Ancef and 1.5 mg/kg gentamicin was initiated. The dog races manager was notified and requested for the delivery. These interventions were explained to the patient and her partner. She continued to push. Given the slow descent, I discussed with the mother and father the baby the concerns for possible shoulder dystocia and we reviewed potential maneuvers and expectations. All questions were answered to the patient's satisfaction. As she pushed, I provided ample perineal and rectal support. Upon , turtling sign was appreciated, and the baby was noted to be [place]. No nuchal cord was appreciated on exam. The shoulder dystocia was called at 11:50 PM, and the mother was instructed not to push. I requested Tawanna positioning, which was done. When this did not release the shoulder, the nurse on the left side of the patient applied suprapubic pressure, and this allowed for release of the shoulder. Careful attention was paid to avoiding excess downward pressure on the head, and the rest of the body delivered without issue. The baby was born and immediately vigorous with strong cry and notable movement in both arms. The cord was too short to handed the baby up to mom directly. Therefore, the cord was double clamped, and cut by the father the baby under the guidance of the physician. Following this, the baby was immediately placed onto the maternal chest. Cord blood was collected and set aside. I attempted to draw cord gases, but was unable to collect a sufficient arterial sample. Prophylactic Pitocin was immediately called for, and the administration was initiated. I applied gentle traction to the cord of the placenta and gently create the uterus; the placenta delivered fully intact without issue within 15 minutes of delivery. Examination of the patient's hernia revealed 4th degree perineal laceration. This was repaired in a traditional fashion using 3-0 Monocryl for the rectal mucosa, 2-0 Vicryl for the external sphincter which was repaired in end-to-end fashion, and 2-0 Vicryl for repair of the remaining perineal tear. Before initiating the repair, the ends of the sphincter were grasped with Allis clamps to ensure appropriate reapproximation. Over the course of the repair, the patient was noted to have a gush of bleeding; transit Anthony acid was called for and initiated. Following completion of the repair and administration of the trans examined acid, good hemostasis was appreciated. Chordee of the uterus was reassuring. Mother and baby tolerated the procedures very well and are recovering without issue. Stages of Labor Onset of Labor Date: 01/05/25 Onset of Labor Time: 12:00 Complete Dilatation Date: 01/05/25 Complete Dilatation Time: 22:31 Labor - Stage 1 Duration: 10 hours and 31 minutes ROM Baby A: 01/05/25 ROM Baby A: 11:00 ROM Total Time- Baby A: [id number] Delivery Date-Baby A: 01/05/25 Infant Delivery Time-Baby A: 22:57 Labor Stage 2 Duration: 26 minutes Placenta Delivery Date-Baby A: 01/05/25 Placenta Delivery Time-Baby A: 23:05 Labor-Stage 3 Duration: 8 minutes Total Length of Labor-Baby A: 10 hours and 57 minutes Placenta Status: Delivered Baby A Infant Gender: Male Gestational Status: Term (39-41.6 wks) Gestational Age in Weeks/Days: 39 Weeks and 4 Days Score-1 Minute Interval(Baby A) Heart Rate-1 minute: 100 BPM or Greater Respiratory Effort- 1 minute: Spontaneous/Strong Cry Muscle Tone-1 minute: Active Movement Reflex Response-1 minute: Prompt Response Color-1 minute: Pallor or Cyanosis Total Score-1 minute: 8 Score-5 Minute Interval(Baby A) Heart Rate- 5 minute: 100 BPM or Greater Respiratory Effort-5 minute: Spontaneous/Strong Cry Muscle Tone-5 minute: Active Movement Reflex Response-5 minute: Prompt Response Color-5 minute: Bluish Hands or Feet Total Score- 5 minute: 9 Shoulder Dystocia Delivery Times Date of Delivery of Head: 01/05/25 Time of Delivery of the Head: 22:56 Head to Body Delivery Interval(minutes): 1 Verify No Fundal Pressure Applied Fundal Pressure: No Pressure Applied Arm Under Sympisis Arm Under Symphisis: Right Interventions 1st Intervention: SD Intervention: McRobert's Maneuver 2nd Intervention: SD Intervention: Suprapubic Pressure
[2025-01-06] MEDS: Acetaminophen 325 MG TAB 650 MG PO ×4 (00:30→18:40)
[2025-01-06] MEDS: Hamamelis Leaf/Glycerin 100 EACH BOX PR (02:34)
[2025-01-06] MEDS: Docusate Sodium 100 MG CAP PO ×3 (02:35→21:23)
[2025-01-06] MEDS: Dibucaine 1% 28 GM TUBE TP (02:35)
[2025-01-06] MEDS: Ibuprofen 600 MG TAB PO ×3 (06:24→18:40)
[2025-01-06 06:51] LABS: HCT 31.7 % (36.0-46.0); HGB 10.9 g/dL (11.2-15.7); MCH 28.9 pg (27.0-33.0); MCHC 34.4 % (32.0-36.0); MCV 84 fL (80-95); MPV 11.2 fL (8.0-11.0); Platelet Count 199 10^3/uL (130-400); RBC 3.77 10^6/uL (3.93-5.22); RDW 13.8 % (11.7-14.6); RDW-SD 41.9 fL; WBC 16.61 10^3/uL (4.4-10.8)
[2025-01-06] MEDS: ceFAZolin 2 GM/50 ML BAG IVPB ×3 (08:46→20:15)
[2025-01-06] MEDS: Normal Saline Flush 10 ML SYR IVP ×3 (09:37→13:53)
[2025-01-06] MEDS: GENTAMICIN 100 MG in Normal Saline 100 ML 200 MG IVPB ×2 (10:12→18:03)
--- NOTE | 2025-01-06 10:49 | W.ANESPOSTOP ---
Postoperative Evaluation Date, Time and Location Date Performed: 01/06/25 Time Performed: 10:49 Patient Location: Obstetrics Vital Signs Most Recent Imported Vital Signs: Most Recent Vital Signs Temp Pulse Resp BP Pulse Ox 36.6 C 80 16 112/65 98 01/06/25 08:15 01/06/25 08:15 01/06/25 08:15 01/06/25 08:15 01/06/25 08:15 Pain Score Most Recent Pain Score: Most Recent Pain Score Pain Level [Genital] 5 01/06/25 02:05 Pain Level 4 01/06/25 00:30 Assessment Mental Status: Awake (Alert & Oriented to Patient Baseline) Airway and Respiratory Function: Patent airway with normal (patient baseline) respiratory exam Cardiovascular Function: Hemodynamically Stable Hydration Status: Adequately Hydrated Nausea & Vomiting: No Nausea or Vomiting Pain: Pt. Denies Any Pain Peripheral Nerve Block: Patient did not receive a nerve block Postoperative Comments:: Post labor epidural. Cath removed by staff readiness officer (intact). Pt has no complaints today. Denies back pain or headaches. Pt reports good sensory coverage from epidural during delivery. Waleska Galvin, FORENSIC STRUCTURAL ENGINEER
[2025-01-06 14:35] LABS: WBC 13.54 10^3/uL (4.4-10.8)
[2025-01-06 14:36] LABS: HCT 31.1 % (36.0-46.0); HGB 10.8 g/dL (11.2-15.7); MCH 29.2 pg (27.0-33.0); MCHC 34.7 % (32.0-36.0); MCV 84 fL (80-95); MPV 11.1 fL (8.0-11.0); Platelet Count 187 10^3/uL (130-400); RDW 14.1 % (11.7-14.6); RDW-SD 42.8 fL
[2025-01-07] MEDS: Ibuprofen 600 MG TAB PO ×3 (01:10→17:47)
[2025-01-07] MEDS: Acetaminophen 325 MG TAB 650 MG PO ×3 (01:10→17:47)
[2025-01-07] MEDS: Dibucaine 1% 28 GM TUBE TP (01:45)
[2025-01-07] MEDS: GENTAMICIN 100 MG in Normal Saline 100 ML 200 MG IVPB (01:59)
[2025-01-07] MEDS: ceFAZolin 2 GM/50 ML BAG IVPB (04:12)
[2025-01-07] MEDS: Normal Saline Flush 10 ML SYR IVP (07:50)
[2025-01-07 08:05] VITALS: BP 109/66; PULSE 73; RESP 16; TEMP 36.4; O2SAT 98
[2025-01-07] MEDS: Docusate Sodium 100 MG CAP PO (08:18)
--- NOTE | 2025-01-07 09:26 | W.PM.OBPNV1 ---
Date of service: 01/07/25 Time of Service: 09:28 Assessment and Plan Assessment and plan (1) Normal spontaneous vaginal delivery: Status: Acute Assessment and plan: Patient is day #1 status postnormal spontaneous vaginal delivery. At the the time surrounding delivery, she did have elevation in maternal pulse, and temperature. She was treated for chorioamnionitis and was on IV antibiotics for 24 hours. She defervesced and remained afebrile for 24 hours. At this point, antibiotics are discontinued and we will monitor for clinical signs of ongoing infection. (2) Chorioamnionitis, delivered, current hospitalization: Status: Acute Assessment and plan: Discontinue antibiotics. Monitor vital signs. (3) Fourth degree laceration of perineum during delivery, : Status: Acute Assessment and plan: Continue stool softeners Subjective Subjective Interval history: Patient seen and examined this morning. She is fatigued and somewhat appropriately emotional. We discussed her delivery, her recovery, her healing process. She has a solid feeding plan for her . She is in need of rest and continued hydration and nutrition. Today, she has been afebrile for greater than 24 hours. She has been IV antibiotics for 24 hours. These will be discontinued today. [place] baby status: Rooming in and Strong Bonding Observed [place] feeding status: Exclusively breast feeding Exam Physical Exam Vital signs: Temp Pulse Resp BP Pulse Ox 97.5 F L 73 16 109/66 98 01/07/25 08:05 01/07/25 08:05 01/07/25 08:05 01/07/25 08:05 01/07/25 08:05 Vital Signs Reviewed: Yes Notable Details: Afebrile for 24 hours Constitutional Constitutional: no acute distress HEENT Exam HEENT Exam: Normal Neck Exam Neck Exam: Normal Respiratory Exam Respiratory Exam: Normal Cardiovascular Exam Cardiovascular Exam: Normal Abdominal Exam Comments: Soft, nondistended Fundal Exam Fundus: Below Umbilicus and Firm Comment: Mild tenderness, appropriate for day 1 Extremities Exam Extremity Exam: Edema (2+ bilateral) Back/Spine/Pelvis Exam Back Exam: Normal Skin Exam Skin Exam: Normal Neurological Exam Neurological Exam: Normal Psychiatric Exam Psychiatric Exam: Normal Results Hemoglobin/Hematocrit: Hgb 10.8 g/dL (11.2-15.7) L 01/06/25 14:27 Hct 31.1 % (36.0-46.0) L 01/06/25 14:27 Abnormal Lab Findings: Abnormal Labs 01/05/25 01/06/25 01/06/25 13:10 06:15 14:27 WBC 16.61 H 13.54 H RBC 3.77 L 3.70 L Hgb 10.9 L D 10.8 L Hct 31.7 L 31.1 L MPV 11.2 H 11.1 H Potassium 3.3 L Carbon Dioxide 20.5 L Anion Gap 13.5 H Creatinine 0.4 L Alkaline Phosphatase 404 H Albumin 2.6 L 01/05/25 23:05 Placenta Gram Stain - Final
[2025-01-07 19:00] VITALS: BP 129/87; PULSE 82; RESP 16; TEMP 36.6; O2SAT 98
[2025-01-08] MEDS: Acetaminophen 325 MG TAB 650 MG PO ×3 (00:21→14:05)
[2025-01-08] MEDS: Ibuprofen 600 MG TAB PO ×3 (00:21→14:06)
[2025-01-08] MEDS: Docusate Sodium 100 MG CAP PO (04:17)
[2025-01-08 08:25] VITALS: BP 132/78; PULSE 72; RESP 16; TEMP 36.9; O2SAT 99
[2025-01-08 14:11] VITALS: BP 128/81; PULSE 81; RESP 16; TEMP 36.7
--- NOTE | 2025-01-08 14:41 | W.PM.OBPNV1 ---
Date of service: 01/08/25 Time of Service: 14:42 Assessment and Plan Assessment and plan (1) Normal spontaneous vaginal delivery: Status: Acute Assessment and plan: Status post vaginal with mild shoulder dystocia complicated by fourth degree perineal laceration repaired. (2) Chorioamnionitis, delivered, current hospitalization: Status: Acute Assessment and plan: Chorioamnionitis around the time of delivery. Treated with antibiotics for 24 hours intravenously. Afebrile x 48 hours. Doing well. No issues or concerns (3) Fourth degree laceration of perineum during delivery, : Status: Acute Assessment and plan: Continue made medication, stool softeners. Follow-up in 1, 2, 6 weeks Exam Physical Exam Vital signs: Temp Pulse Resp BP Pulse Ox 98.1 F 81 16 128/81 99 01/08/25 14:11 01/08/25 14:11 01/08/25 14:11 01/08/25 14:11 01/08/25 08:25 Vital Signs Reviewed: Yes Notable Details: Afebrile HEENT Exam HEENT Exam: Normal Neck Exam Neck Exam: Normal Respiratory Exam Respiratory Exam: Normal Cardiovascular Exam Cardiovascular Exam: Normal Abdominal Exam Comments: Soft and nontender Fundal Exam Fundus: Below Umbilicus and Firm Extremities Exam Extremity Exam: Normal; negative Calf Tenderness Neurological Exam Neurological Exam: Normal Psychiatric Exam Psychiatric Exam: Normal Results Hemoglobin/Hematocrit: Hgb 10.8 g/dL (11.2-15.7) L 01/06/25 14:27 Hct 31.1 % (36.0-46.0) L 01/06/25 14:27 Abnormal Lab Findings: Abnormal Labs 01/05/25 01/06/25 01/06/25 13:10 06:15 14:27 WBC 16.61 H 13.54 H RBC 3.77 L 3.70 L Hgb 10.9 L D 10.8 L Hct 31.7 L 31.1 L MPV 11.2 H 11.1 H Potassium 3.3 L Carbon Dioxide 20.5 L Anion Gap 13.5 H Creatinine 0.4 L Alkaline Phosphatase 404 H Albumin 2.6 L 01/05/25 23:05 Placenta Gram Stain - Final
--- NOTE | 2025-01-08 14:43 | DSE_ITS ---
Date of service: 01/08/25 Time of Service: 14:43 DS: Diagnosis Discharge Diagnosis (1) Normal spontaneous vaginal delivery: Status: Acute Asessment and Plan: 2 days status post vaginal (2) Chorioamnionitis, delivered, current hospitalization: Status: Acute Asessment and Plan: Chorioamnionitis around the time of delivery. Received IV antibiotics for 24 hours. Remained afebrile off and on. Continue to monitor, precautions given (3) Fourth degree laceration of perineum during delivery, : Status: Acute Asessment and Plan: Stool softeners, pain control. Follow-up in 1, 2, 6 weeks Discharge Plan Disposition Patient Disposition: Home Condition: Good Discharge Details Reason For Visit: rupture of membranes Admit Date/Time: 01/05/25 12:41 Admit Provider: Rossana Walters Attending Provider: Rossana Walters Primary Care Provider: ALBER STUART Hospital Course Hospital Course: Patient was admitted to labor and delivery after spontaneous rupture of membranes at 11 AM on 01/05/2025. She received an epidural for pain control and progressed through normal course of labor. She had a vaginal delivery of a male infant. She did, around the time of delivery of an elevated maternal pulse, and fever. She was treated empirically for chorioamnionitis. 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 She did have a mild shoulder dystocia, and 1/4 degree laceration with repair. She remained on antibiotics for 24 hours and was afebrile. These were discontinued, and she remained afebrile. She was discharged home day #2 status post vaginal with suspected chorioamnionitis, treated, and fourth degree laceration. She will be seen back in the office in 1, 2, and 6 weeks. Home Meds and New Rx's Prescriptions: New ibuprofen 600 mg tablet 600 mg PO Q6H PRNQty: 60 1RF docusate sodium [Colace] 100 mg capsule 100 mg PO BID Qty: 30 1RF No Action PNV #[id number] acid-dha 35 mg iron-5 mg iron-1 mg capsule 1 cap PO DAILY famotidine [Pepcid] 20 mg tablet 20 mg PO PRN calcium carbonate [Tums] 200 mg calcium (500 mg) tablet,chewable 200 mg PO BID Discharge Instructions Activity:: Pelvic rest Equipment/Supplies:: No Equipment Needed Diet:: As Tolerated Discharge Orders Discharge Orders: Discharge Order (Routine); Ordered 01/08/25 Ordered By: Janee Peñaloza OB:DS Summary Summary Laceration Extension: Fourth Degree Contraception Discussed Contraception Discussed: Yes, Infant Gender-Baby A: Male weight: 7 lb 15.798 oz Status at Discharge Functional status at discharge: independent ambulation Overall status at discharge: patient is progressing back to baseline Mental Status: mental status grossly normal Speech and Movement: speech and movement normal Mood: congruent mood Affect: normal affect Quality:SDOH Health Related Social Needs: Health related social needs education Health related social needs details na Exam Physical Exam Vital signs: Temp Pulse Resp BP Pulse Ox 98.1 F 81 16 128/81 99 01/08/25 14:11 01/08/25 14:11 01/08/25 14:11 01/08/25 14:11 01/08/25 08:25 Narrative: See physical exam from progress note dated 09/10/2024 [facility], [facility] All Active Problems (Updated 01/07/25 @ 09:32 by Janee Peñaloza DO) Fourth degree laceration of perineum during delivery, (Acute) Chorioamnionitis, delivered, current hospitalization (Acute) Normal spontaneous vaginal delivery (Acute) 01/06/2025, complicated by chorioamnionitis, fourth degree laceration. Male 39 weeks gestation of (Acute) contractions (Acute) Family history of congenital heart defect (Acute) Patient Sister have a child with a congenital heart defect. (Acute) Medical History (Updated 01/07/25 @ 09:32 by Janee Peñaloza DO) 32 weeks gestation of Anxiety Lumbar herniated disc Diagnosed 2018, Does PT Asthma Migraine Family History (Updated 06/25/24 @ 14:06 by Ale Rodrigues CNM) Mother Hypertension Prediabetes Paternal Grandmother Cancer ovarian Maternal Grandmother Diabetes Paternal Grandfather Cancer Father Migraine Maternal Aunt Multiple myeloma Social History (Updated 06/25/24 @ 14:20 by Ale Rodrigues CNM) Smoking/Tobacco Use Status: Never Second Hand Exposure: No Smoking risk assessment performed?: Yes Alcohol Intake: never Drug use: Never Substance use type: does not use Housing: apartment Do you feel safe at home: Yes Do you feel safe in your relationship?: Yes History History 1 Para 0 Hx # Term Pregnancies 0 Multiple births 0 Hx # Pregnancies 0 Ectopic pregnancies 0 AB induced 0 Hx Number of Living Children 0 AB spontaneous 0 DS: Data Vitals/I&O Vitals and I&O: Vital Signs Temperature 98.1 F 01/08/25 14:11 Temperature Source Oral 01/08/25 14:11 Pulse 81 01/08/25 14:11 Pulse Rhythm Regular 01/08/25 08:00 Respiratory Rate 16 01/08/25 14:11 Respiratory Depth Normal 01/06/25 20:00 Blood Pressure 128/81 01/08/25 14:11 Blood Pressure Mean 96 01/08/25 14:11 Pulse Oximetry 99 01/08/25 08:25 Pain Level 5 01/08/25 14:11 Comment Patient BP taken after period of activity. 01/07/25 19:00 Intake & Output 01/07/25 01/08/25 01/08/25 23:59 11:59 23:59 Other: Urine Color Yellow Data Completed and Pending Labs on day of discharge: Preliminary micro results at discharge 01/05/25 23:05 Placenta Surgical Culture - Preliminary Normal Lois
== END 2025-01-08 16:15 | disposition home or self-care (01) | DRG 768 ==
LOC: BCD 13:01 → OBS 13:01
PROVIDERS: Admitting Provider Obstetrics & Gynecology; PCP Family Medicine; Visit Provider Obstetrics & Gynecology
DX: O41.1230 Chorioamnionitis, third trimester, not applicable or unspecified (principal); Z37.0 Single live birth; O70.3 Fourth degree perineal laceration during delivery; O99.354 Diseases of the nervous system complicating childbirth; Z3A.39 39 weeks gestation of pregnancy; M51.26 Other intervertebral disc displacement, lumbar region; G43.909 Migraine, unspecified, not intractable, without status migrainosus; O99.344 Other mental disorders complicating childbirth; F41.9 Anxiety disorder, unspecified; O66.0 Obstructed labor due to shoulder dystocia; O75.89 Other specified complications of labor and delivery
CPT/HCPCS: 80053; 85027; 86850; 86900; 86901; 82565; 84156; 87070; 87205; 88307; J0665; J0690; J1580; J2003; J2405; J3010

== ENCOUNTER 2025-01-15 14:27 | Observation (INO) | payer MEDICAID, SELFPAY ==
[2025-01-15] VITALS (9 sets, daily range): BP systolic 119–151; BP diastolic 66–99; PULSE 59–82; RESP 12–18; TEMP 36.6–36.8; O2SAT 98–99; BMI 31.2
--- NOTE | 2025-01-15 | DI.US_ITS ---
Exam(s) US ABDOMEN PELVIS EXAM: US ABDOMEN PELVIS CLINICAL HISTORY: pelvic pain and bleeding 1 week following delivery TECHNIQUE: Ultrasound of complete upper abdomen performed using standard protocol. COMPARISON: US POCUS EXAM from 11/17/2024 FINDINGS: PELVIS ULTRASOUND: Patient had vaginal delivery on January 05, 2021. The uterus is anteverted measuring 15 cm length by 8 cm AP x 9.6 cm wide. There are no obvious uterine fibroids. The endometrial cavity is abnormal. There is heterogeneous material in the mid- upper endometrial canal probably retained products of conception. There is also abundant fluid-probable blood in the lower uterine segment and upper endocervical canal. Right ovary measures 2.1 x 3.2 x 2.5 cm Left ovary measures 3.2 x 2.6 x 3.6 cm There are no significant ovarian masses. No prominent fluid in the adnexal regions and cul-de-sac. ABDOMEN ULTRASOUND: There is no ascites in the upper abdomen. There are no focal hepatic lesions nor dilatation of intrahepatic ducts. The gallbladder is contracted. Patient apparently ate a donut prior to this ultrasound exam. The CBD is not dilated. Pancreas unremarkable. Spleen size is upper normal. No splenic lesions evident. Left kidney unremarkable. There is mild prominence of the upper right collecting system, probably post related. No other significant renal findings. Abdominal aorta is not enlarged. IVC unremarkable. IMPRESSION: 1. There is significant abnormal material in the endometrial canal consistent with retained products of conception. There is also a large amount of fluid in the lower uterine segment and upper endocervical canal. No abnormal adnexal findings 2. No significant ultrasound findings in the upper abdomen. DATA REPOSITORY:
[2025-01-15 15:00] LABS: Abs Immature Grans 0.03 10^3/uL (0.0-0.06); HCT 40.5 % (36.0-46.0); HGB 13.9 g/dL (11.2-15.7); Immature Grans % 0.3 %; MCH 29.0 pg (27.0-33.0); MCHC 34.3 % (32.0-36.0); MCV 85 fL (80-95); MPV 9.3 fL (8.0-11.0); Platelet Count 479 10^3/uL (130-400); RBC 4.79 10^6/uL (3.93-5.22); RDW 13.0 % (11.7-14.6); RDW-SD 40.2 fL; WBC 10.70 10^3/uL (4.4-10.8)
--- NOTE | 2025-01-15 17:28 | W.PM.OBHPL1 ---
Date of service: 01/15/25 Time of Service: 17:29 Assessment and Plan Assessment and plan (1) Retained products of conception after delivery with complications: Status: Acute Assessment and plan: 24-year-old -0-0-1 status post 39-week spontaneous vaginal delivery performed 01/06/2025, complicated by mild shoulder dystocia with fourth degree perineal laceration and chorioamnionitis. Patient presented to the clinic today for routine care. She reported feeling overall well; however, patient reports that she had an intense increase in pain as of Sunday with a notable increase in bleeding to more than a period. She denied any fevers, chills, nausea, vomiting; however, based on her history of chorioamnionitis, the complications of her delivery, her physical exam, and her reported symptoms, she was sent over to labor and delivery for further assessment. CBC finds a normal white count and normal hemoglobin as well as normal platelets. Transvaginal ultrasound finds a 15 cm uterus with evidence of retained products. I discussed the evidence of retained products with the patient and discussed the utility of a suction dilation and curettage for complete evacuation. We discussed that this is a surgical procedure and as with anytime break the skin there is always a risk of bleeding, infection, damage to surrounding tissues, particularly in this case we worry about the potential for uterine perforation. We discussed that if uterine perforation were to happen it could involve the surrounding structures and potentially require more invasive procedures for correction. We also discussed that there are risk associated with anesthesia as well as the potential for understand complications. We discussed that in the event of excessive bleeding she may require transfusion of blood products, and she consents for this. Patient is consented for a suction dilation and curettage with transfusion of blood products as needed. 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 Review of Systems All systems reviewed & are unremarkable except as noted in HPI and below [facility] All Active Problems (Updated 01/15/25 @ 17:31 by Rossana Walters DO) Retained products of conception after delivery with complications (Acute) Fourth degree perineal laceration (Acute) Fourth degree laceration of perineum during delivery, (Acute) Chorioamnionitis, delivered, current hospitalization (Acute) Normal spontaneous vaginal delivery (Acute) 01/06/2025, complicated by chorioamnionitis, fourth degree laceration. Male infant contractions (Acute) Family history of congenital heart defect (Acute) Patient Sister have a child with a congenital heart defect. (Acute) Medical History 39 weeks gestation of 32 weeks gestation of Anxiety Lumbar herniated disc Diagnosed 2018, Does PT Asthma Migraine Family History Mother Hypertension Prediabetes Paternal Grandmother Cancer ovarian Maternal Grandmother Diabetes Paternal Grandfather Cancer Father Migraine Maternal Aunt Multiple myeloma Social History Smoking/Tobacco Use Status: Never Second Hand Exposure: No Smoking risk assessment performed?: Yes Alcohol Intake: never Drug use: Never Substance use type: does not use Housing: apartment Do you feel safe at home: Yes Do you feel safe in your relationship?: Yes History History 1 Para 0 Hx # Term Pregnancies 0 Multiple births 0 Hx # Pregnancies 0 Ectopic pregnancies 0 AB induced 0 Hx Number of Living Children 0 AB spontaneous 0 Past Pregnancies Del. Date GA/Weeks # Preg Succ Route Wgt Sex Labor Lgth Anesthesia Location Prov Complic 01/05/25 39 No Yes vaginal Male [address] Walters Meds Allergies and Home Medications Allergies Allergy/AdvReac Type Severity Reaction Status Date / Time amoxicillin (From Augmentin) Allergy Intermediate Skin Rash Verified 01/15/25 13:13 clavulanic acid (From Allergy Intermediate Skin Rash Verified 01/15/25 13:13 Augmentin) Penicillins Allergy Intermediate Skin Rash Verified 01/15/25 13:13 Home Medications ?Medication ?Instructions ?Recorded ?Confirmed ?Type calcium carbonate (Tums) 200 mg PO BID 06/05/24 01/15/25 History famotidine 20 mg tablet (Pepcid) 20 mg PO PRN 06/05/24 01/15/25 History vitamin #56-iron 35 mg 1 cap PO DAILY 06/05/24 01/15/25 History and 5 mg-folic acid 1 mg-dha capsule docusate sodium 100 mg capsule 100 mg PO BID #30 caps 01/08/25 01/15/25 Rx (Colace) ibuprofen 600 mg tablet 600 mg PO Q6H PRN #60 tabs 01/08/25 01/15/25 Rx Exam Physical Exam Vital signs: Temp Pulse Resp BP 98.2 F 73 12 132/82 01/15/25 14:20 01/15/25 14:20 01/15/25 14:20 01/15/25 14:20 Narrative: General: Well-nourished female in no immediate distress Pulmonary: No respiratory distress Abdomen: Soft, nondistended, modest fundal tenderness without guarding Extremities: No swelling : Fourth degree repair healing appropriately; repair intact Psych: Cooperative, appropriate Detailed Labor and Delivery Exam Thrasher Score: Cervical Points Exam 0 1 2 3 Dilation Closed 1-2cm 3-4 cm 5-6cm Effacement 0-30% 40-50% 60-70% 80% Consistency Firm Medium Soft Station -3 -2 -1,0 +1,+2 Position Posterior Mid Anterior Results Abnormal Lab Findings: Abnormal Labs 01/15/25 14:50 Plt Count 479 H Absolute Neutrophils 7.53 H Risk Assessment Risk for Shoulder Dystocia Historical/Initial OB: NEGATIVE FOR: Pelvic Abnormality, Pre- BMI>30, Previous Shoulder Dystocia or Previous Macrosomia Risk for Pre-Eclampsia Yes, if one or more: NEGATIVE FOR: Hx Pre-E/Gest HTN, Chronic HTN, Multiple Gestation, Pre-gestational DM, Renal Disease, Systemic Lupus or APA Syndrome Yes, if 2 or more: POSITIVE FOR: Nulliparity; NEGATIVE FOR: Age>= 35 yrs, >10yr btwn pregnancies, BMI>30, ethinicty, Mother/Sister w/ Pre-E or Previous IUGR Risk for Post- Hemorrhage Initial: NEGATIVE FOR: Multiple Gestation, Previous PPH, Known Clotting Deficiency, Grand Multiparity or Anticoagulation Risks Reviewed Risks Reviewed Upon Admission: Yes
--- NOTE | 2025-01-15 17:34 | ANES.PREOP_ITS ---
General Info Date of Service Date Performed: 01/15/25 Height: 5 ft Weight: 72.57 kg Body Mass Index (BMI): 31.2 Surgical Procedure: Operation Date: 01/15/25 17:00 Proposed Procedure Side Surgeon p Dilation & Curettage Rossana Walters, Actual Procedure Side Surgeon p Dilation & Curettage Not Applicable Rossana Walters, DO Pre-Op Diagnosis Post-Op Diagnosis retained products of conception Meds Allergies and Home Medications Allergies Allergy/AdvReac Type Severity Reaction Status Date / Time amoxicillin (From Augmentin) Allergy Intermediate Skin Rash Verified 01/15/25 13:13 clavulanic acid (From Allergy Intermediate Skin Rash Verified 01/15/25 13:13 Augmentin) Penicillins Allergy Intermediate Skin Rash Verified 01/15/25 13:13 Home Medication ?Medication ?Instructions ?Recorded calcium carbonate (Tums) 200 mg PO BID 06/05/24 famotidine 20 mg tablet (Pepcid) 20 mg PO PRN 06/05/24 vitamin #56-iron 35 mg 1 cap PO DAILY 4 and 5 mg-folic acid 1 mg-dha capsule docusate sodium 100 mg capsule 100 mg PO BID #30 caps 01/08/25 (Colace) ibuprofen 600 mg tablet 600 mg PO Q6H PRN #60 tabs 0 01/08/25 Current Visit Medications: Current Medications Generic Name Dose Route Start Last Admin Trade Name Freq PRN Reason Stop Dose Admin Droperidol 0.625 mg 01/15/25 17:32 Droperidol 5 Mg/2 Ml Vial IVP DIRECTED PRN Ephedrine Sulfate 0 mg 01/15/25 17:32 Ephedrine 25 Mg/5 Ml Syringe IVP DIRECTED PRN Fentanyl 0 mcg 01/15/25 17:32 Fentanyl 100 Mcg/2 Ml Vial IVP DIRECTED PRN Hydromorphone HCl 0 mg 01/15/25 17:32 Hydromorphone 2 Mg/Ml Syr IVP DIRECTED PRN Ringer's Solution 1,000 mls @ 75 mls/hr 01/15/25 17:45 IV INFUSION VEE Naloxone HCl 0 mg 01/15/25 17:32 Naloxone 0.4 Mg/Ml Vial IVP PRN PRN PFSH Active Problems Active Problems: Problem Status Onset Code Retained products of conception after delivery with complications Acute O73.1 Fourth degree perineal laceration Acute O70.3 Fourth degree laceration of perineum during delivery, Acute O70.3 Chorioamnionitis, delivered, current hospitalization Acute O41.1290 Normal spontaneous vaginal delivery Acute O80 contractions Acute O47.00 Family history of congenital heart defect Acute Z82.79 Acute Z34.90 Medical History Medical History 39 weeks gestation of 32 weeks gestation of Anxiety Lumbar herniated disc Diagnosed 2019, Does PT Asthma Migraine Tobacco Smoking/Tobacco Use Status: Never Passive smoking exposure: No Second hand exposure: No Alcohol Alcohol Intake: never Substance Use Substance use: Never Substance use type: does not use Prental History History 2 1 Para 0 Hx # Term Pregnancies 0 Multiple births 0 Hx # Pregnancies 0 Ectopic pregnancies 0 AB induced 0 Hx Number of Living Children 0 AB spontaneous 0 Past Pregnancies Del. Date GA/Weeks # Preg Succ Route Wgt Sex Labor Lgth Anesth esia Location Prov [facility] 01/05/25 39 No Yes vaginal Male [address] Walters Vital Signs and Lab Results Vital Signs Most Recent Vital Signs in EMR: Most Recent Vital Signs Temp Pulse Resp BP 36.8 C 73 12 132/82 01/15/25 14:20 01/15/25 14:20 01/15/25 14:20 01/15/25 14:20 Lab Results 01/15/25 14:50 Blood Type / Crossmatch: 2 Antibody Screen NEGATIVE 01/05/25 Complete Blood Count: 2 WBC, (4.4-10.8) 10.70 10^3/uL Today, 14:50 RBC, (3.93-5.22) 4.79 10^6/uL Today, 14:50 Hgb, (11.2-15.7) 13.9 g/dL Today, 14:50 Hct, (36.0-46.0) 40.5 % Today, 14:50 Plt Count, (130-400) 479 10^3/uL H Today, 14:50 Complete Metabolic Panel: 2 Sodium, (136-145) 136 mmol/L 01/05/25, 13:10 Potassium, (3.5-5.1) 3.3 mmol/L L 01/05/25, 13:10 Chloride, (98-107) 102 mmol/L 01/05/25, 13:10 Carbon Dioxide, (21.0-32.0) 20.5 mmol/L L 01/05/25, 13 :10 BUN, (7-18) 7 mg/dL 01/05/25, 13:10 Creatinine, (0.55-1.02) 0.4 mg/dL L 01/05/25, 13:10 Est GFR (CKD-EPI 2020), (mL/min/1.73m2) 139.90 01/05/25, 13:10 Calcium, (8.5-10.1) 9.3 mg/dL 01/05/25, 13:10 Albumin, (3.4-5.0) 2.6 g/dL L 01/05/25, 13:10 Glucose, (74-106) 103 mg/dL 01/05/25, 13:10 Liver Function Panel: 2 ALT, (14-59) 28 U/L 01/05/25, 13:10 AST, (15-37) 22 U/L 01/05/25, 13:10 Anesthesia Assessment and Plan Anesthesia History Personal History: No History of Anesthesia Complications Family History: No Family History of Anesthesia Complications Exercise Tolerance Exercise Tolerance: Metabolic Equivalents>4 Pertinent Negatives Pertinent Negatives: Other (some reflux. Ate lunch at 1pm today.) Cardiac & Pulmonary Exam Cardiac Exam: Normal S1/S2 Heart Sounds Pulmonary Exam: Clear Bilateral Breath Sounds Implantable Cardiac Device Does patient have a Pacemaker or an ICD?: No Airway Exam Known Difficult Airway: No Mallampati Class: 2 Mouth Opening: Normal (> 3cm) Thyromental Distance: Greater than 3 cm Neck Range of Motion: Full ROM Neck Circumference: Normal Teeth Condition: Normal Dentition ASA Classification ASA Score: ASA 2 Emergency Case?: No NPO Status NPO Status: NPO Clears >2 hours, Solids >8 hours Status Status: Not Relevant due to Medical History (vaginal delivery 9 days ago.) Anesthesia Plan Resuscitation Status: Full Code Anesthesia Technique: General Anesthesia Airway Planned: Endotracheal Tube Monitors Used: Standard Monitors and SedLine
[2025-01-15] MEDS: Lactated Ringers 1,000 ML 75 ML IV (17:50)
[2025-01-15] MEDS: miSOPROStol 100 MCG TAB (18:31)
[2025-01-15] MEDS: Methylergonovine 0.2 MG/ML VIAL (18:31)
--- NOTE | 2025-01-15 19:00 | W.PM.OP ---
Operative Note Operative Note PRE-OP DIAGNOSIS: Retained products of conception POST-OP DIAGNOSIS: same PROCEDURE: Suction dilation and curettage SURGEON: Rossana Walters ANESTHESIA TYPE: General LMA/ETT Refer to Anesthesia Record ESTIMATED BLOOD LOSS: 400 PATHOLOGY: other (retained products of conception) COMPLICATIONS: None Patient was transported to: PACU Patient's condition: other (good) Indications: 24 yo s/p 39 week vaginal delivery complicated by shoulder dystocia, fourth degree laceration, and chorioamnionitis, presented to the clinic for follow up. She reported increasing pain and bleedng. US evaluation was concerning for retained products of conception; therefore, she was taken for suction D&C. Findings: Copious material within the uterus Procedure Description: Patient was taken to the OR with IV fluids running. General anesthesia was established. 2 g of Ancef and 1 gram of TXA had been administered for prophylaxis. Patient was positioned into the dorsolithotomy position. Pelvis was prepped with Betadine and a straight cath was performed into the bladder. A timeout was performed; the patient and the procedure were identified. On exam, copious clots were evacuated from the vaginal vault. The fourth degree repair was appreciated to be fully intact. The vaginal wall was appropriately intact and there was no evidence of additional lacerations for concern. The cervix was carefully inspected and there was no evidence of cervical lacerations. The cervix is notably dilated with clots protruding from the cervix. A bimanual exam evacuated clots from the cervix, but I was unable to retrieve the tissue. The anterior lip of the cervix was grasped with an Allis clamp and a #11 curved blunted suction curette was introduced. Suction was established and brought up to the green region while the curette was turned clockwise. Several products of conception were evacuated. This was repeated and more products were appreciated. Suction was attempted 1 more time, and I was unable to retrieve any further products. Ultrasound was performed and appreciated full evacuation of products from the fundus of the uterus; however, there appeared to be a bright area in the lower uterine segment. This area was interrogated carefully with a large curette, and it was unable to collect further products. Under ultrasound guidance, I again attempted to evacuate with suction, but I was again unable to evacuate any further tissue. Patient's bleeding was notable, therefore Methergine was administered as well as subsequent thousand of rectal Cytotec. Of note, evaluation of the vaginal rectal wall found the wall to be fully intact. At this point, I called down for Dr. Kearns to assess the situation with me. Patient's bleeding was appropriately resolving. We evaluated the ultrasound findings together as well as the extent of her bleeding. Our assessment concluded that all products of conception were evacuated. Given the appearance of her lower uterine segment on her diagnostic ultrasound earlier that evening, as well as the additional medications needed to help her bleeding, we decided the patient would remain hospitalized overnight with serial Methergine administration. Pictures were taken on the ultrasound to verify the endometrial stripe. All instruments were removed and counts were correct. Patient tolerated the procedure well and was taken to PACU in good condition. She will be hospitalized overnight for continued monitoring and medicinal management Date of Procedure: 01/15/25
[2025-01-15] MEDS: fentaNYL 100 MCG/2 ML VIAL IVP (19:13)
--- NOTE | 2025-01-15 19:23 | W.ANESPOSTOP ---
Postoperative Evaluation Date, Time and Location Date Performed: 01/15/25 Time Performed: 19:24 Patient Location: PACU Vital Signs Most Recent Imported Vital Signs: Most Recent Vital Signs Temp Pulse Resp BP Pulse Ox 36.8 C 66 18 128/72 98 01/15/25 19:20 01/15/25 19:20 01/15/25 19:20 01/15/25 19:20 01/15/25 19:20 Pain Score Most Recent Pain Score: Most Recent Pain Score Pain Level 5 01/15/25 19:20 Assessment Mental Status: Awake (Alert & Oriented to Patient Baseline) Airway and Respiratory Function: Patent airway with normal (patient baseline) respiratory exam Cardiovascular Function: Hemodynamically Stable Hydration Status: Adequately Hydrated Nausea & Vomiting: No Nausea or Vomiting Pain: Pain is tolerable per patient Peripheral Nerve Block: Patient did not receive a nerve block
[2025-01-15] MEDS: GENTAMICIN 100 MG in Normal Saline 100 ML 200 MG IVPB (20:22)
[2025-01-15] MEDS: Acetaminophen 325 MG TAB 650 MG PO (22:24)
[2025-01-16] MEDS: Normal Saline Flush 10 ML SYR IVP (03:56)
[2025-01-16] MEDS: GENTAMICIN 100 MG in Normal Saline 100 ML 200 MG IVPB (04:00)
[2025-01-16 04:10] VITALS: BP 99/67; PULSE 66; RESP 16; TEMP 36.8; O2SAT 98
[2025-01-16 08:30] VITALS: BP 114/74; PULSE 62; RESP 14; TEMP 36.4; O2SAT 98
--- NOTE | 2025-01-16 09:49 | W.PM.OBPNV1 ---
Date of service: 01/16/25 Time of Service: 09:52 Assessment and Plan Assessment and plan (1) Retained products of conception after delivery with complications: Assessment and plan: Pt doing very well POD#1 s/p D&C for retained POC 9 days pp. Bleeding is minimal and pain has improved. She will f/u next week in the office or call sooner with concerns. Subjective Subjective Narrative: Pt is doing much better this am. She says her bleeding and pain are much better than they had been prior to surgery and she didn't realize that what she was experiencing was abnormal. She is eating without difficulty. She is breast feeding and pumping for her baby. Exam Physical Exam Vital signs: Temp Pulse Resp BP Pulse Ox 97.5 F L 62 14 114/74 98 01/16/25 08:30 01/16/25 08:30 01/16/25 08:30 01/16/25 08:30 01/16/25 08:30 Vital Signs Reviewed: Yes Constitutional Constitutional: no acute distress and cooperative Detailed HEENT Exam Head: Present normocephalic and atraumatic Respiratory Exam Respiratory Exam: Normal Abdominal Exam Abdomen: Tender (mildly) Fundal Exam Fundus: Below Umbilicus and Firm Extremities Exam Extremity Exam: negative Calf Tenderness or Edema Detailed Neurological Exam Neurological: Present alert, oriented X3 and CN II-XII intact Results Hemoglobin/Hematocrit: Hgb 13.9 g/dL (11.2-15.7) 01/15/25 14:50 Hct 40.5 % (36.0-46.0) 01/15/25 14:50 Abnormal Lab Findings: Abnormal Labs 01/15/25 14:50 Plt Count 479 H Absolute Neutrophils 7.53 H
--- NOTE | 2025-02-05 14:30 | DSE_ITS ---
Date of service: 01/16/25 Time of Service: 11:00 DS: Diagnosis Discharge Diagnosis (1) Retained products of conception after delivery with complications: Asessment and Plan: Pt admitted with retained POC 9 days pp and underwent D&C with good improvement of sxms. STable for d/c POD#1. 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 Attending Provider: Rossana Walters Primary Care Provider: ALBER STUART Home Meds and New Rx's Prescriptions: No Action acetaminophen [Tylenol Extra Strength] 500 mg tablet 500 mg PO Q6H PRN PNV #[id number] acid-dha 35 mg iron-5 mg iron-1 mg capsule 1 cap PO DAILY ibuprofen 600 mg tablet 600 mg PO Q6H PRNQty: 60 1RF docusate sodium [Colace] 100 mg capsule 100 mg PO BID Qty: 30 1RF Discharge Instructions Activity:: Activity as Tolerated Diet:: As Tolerated Discharge Orders Discharge Orders: Discharge Order (Routine); Ordered 01/16/25 Ordered By: Love Kearns Discharge Data Discharge Date/Time-TO BE ENTERED AT DEPARTURE: 01/16/25 11:32 OB:DS Summary Contraception Discussed Contraception Discussed: No, Status at Discharge Functional status at discharge: independent ambulation Overall status at discharge: patient is back to baseline Mental Status: mental status grossly normal Speech and Movement: speech and movement normal Mood: congruent mood Affect: normal affect Quality:SDOH Health Related Social Needs: Health related social needs education Health related social needs details na Exam Physical Exam Vital signs: Temp Pulse Resp BP Pulse Ox 97.5 F L 62 14 114/74 98 01/16/25 08:30 01/16/25 08:30 01/16/25 08:30 01/16/25 08:30 01/16/25 08:30 Vital Signs Reviewed: Yes PFSH Medical History Retained products of conception after delivery with complications Fourth degree laceration of perineum during delivery, Normal spontaneous vaginal delivery 01/06/2025, complicated by chorioamnionitis, fourth degree laceration. Male infant Family history of congenital heart defect Patient Sister have a child with a congenital heart defect. Anxiety Lumbar herniated disc Diagnosed 2018, Does PT Asthma Migraine Family History Mother Hypertension Prediabetes Paternal Grandmother Cancer ovarian Maternal Grandmother Diabetes Paternal Grandfather Cancer Father Migraine Maternal Aunt Multiple myeloma Social History Smoking/Tobacco Use Status: Never Second Hand Exposure: No Smoking risk assessment performed?: Yes Alcohol Intake: never Drug use: Never Substance use type: does not use Housing: apartment Do you feel safe at home: Yes Do you feel safe in your relationship?: Yes History History 1 Para 0 Hx # Term Pregnancies 0 Multiple births 0 Hx # Pregnancies 0 Ectopic pregnancies 0 AB induced 0 Hx Number of Living Children 0 AB spontaneous 0 Past Pregnancies Del. Date GA/Weeks # Preg Succ Route Wgt Sex Labor Lgth Anesth esia Location [facility] 01/05/25 39 No Yes vaginal Male [address] Walters DS: Data Vitals/I&O Vitals and I&O: Vital Signs Temperature 97.5 F L 01/16/25 08:30 Temperature Source Oral 01/16/25 08:30 Pulse 62 01/16/25 08:30 Pulse Rhythm Regular 01/16/25 08:30 Respiratory Rate 14 01/16/25 08:30 Blood Pressure 114/74 01/16/25 08:30 Blood Pressure Mean 87 01/16/25 08:30 Pulse Oximetry 98 01/16/25 08:30 Oxygen Delivery Method Room Air 01/16/25 08:30 Oxygen Flow Rate 0 01/16/25 08:30 Pain Level 1 01/16/25 08:30 Comment pt declines Tylenol at this time 01/16/25 08:30
== END 2025-01-16 11:32 | disposition home or self-care (01) ==
LOC: OBS 02-06 07:10
PROVIDERS: Admitting Provider Obstetrics & Gynecology; PCP Family Medicine; Visit Provider Obstetrics & Gynecology
PROC: (CPT 59160; principal; 2025-01-15 17:00)
DX: O72.2 Delayed and secondary postpartum hemorrhage (principal); O99.345 Other mental disorders complicating the puerperium; F41.9 Anxiety disorder, unspecified; O99.355 Diseases of the nervous system complicating the puerperium; G43.909 Migraine, unspecified, not intractable, without status migrainosus; O99.53 Diseases of the respiratory system complicating the puerperium; J45.909 Unspecified asthma, uncomplicated; O90.89 Other complications of the puerperium, not elsewhere classified; M50.23 Other cervical disc displacement, cervicothoracic region
CPT/HCPCS: 59160; 88305; 96365; 96366; 76700; 76856; 85025; G0378; J0131; J0690; J1100; J1580; J2003; J2210; J2405; J2704; J3010

== ENCOUNTER 2025-01-21 17:10 | Outpatient (CLI) | payer MEDICAID, SELFPAY ==
[2025-01-21 16:41] LABS: HCT 39.9 % (36.0-46.0); HGB 13.2 g/dL (11.2-15.7); MCH 27.7 pg (27.0-33.0); MCHC 33.1 % (32.0-36.0); MCV 84 fL (80-95); MPV 9.3 fL (8.0-11.0); Platelet Count 432 10^3/uL (130-400); RBC 4.77 10^6/uL (3.93-5.22); RDW 12.6 % (11.7-14.6); RDW-SD 38.3 fL; WBC 8.46 10^3/uL (4.4-10.8)
[2025-01-21 17:05] LABS: HCG Quant, Pregnancy 634 mIU/mL (1-3)
== END 2025-01-21 17:11 | disposition home or self-care (01) ==
LOC: LBO 17:11
PROVIDERS: PCP Family Medicine; Visit Provider Obstetrics & Gynecology
DX: O90.89 Other complications of the puerperium, not elsewhere classified (principal); R52 Pain, unspecified; Z34.93 Encounter for supervision of normal pregnancy, unspecified, third trimester
CPT/HCPCS: 36415; 85027; 84702

== ENCOUNTER 2025-01-28 18:16 | Outpatient (CLI) | payer MEDICAID, SELFPAY ==
[2025-01-28 16:45] LABS: HCG Quant, Pregnancy 270 mIU/mL (1-3)
== END 2025-01-28 18:17 | disposition home or self-care (01) ==
LOC: LBO 18:17
PROVIDERS: PCP Family Medicine; Visit Provider Obstetrics & Gynecology
DX: O73.1 Retained portions of placenta and membranes, without hemorrhage (principal)
CPT/HCPCS: 36415; 84702